=== PATIENT | female | born 1965 | race Caucasian/White ===

== ENCOUNTER 2017-04-29 04:08 | Emergency (ER) | payer OTHER, SELFPAY ==
[2017-04-29 04:09] VITALS: BP 143/106; PULSE 89; RESP 17; TEMP 36.4; O2SAT 97; BMI 43.0
--- NOTE | 2017-04-29 04:11 | NURSING ---
CALLED FOR EKG PER RN REQUEST, NO OLD EKG'S IN MUSE
--- NOTE | 2017-04-29 04:29 | RAD_ITS ---
STUDY: X-RAY CHEST REASON FOR EXAM: Female, 52 years old. Left-sided chest pain and dizziness TECHNIQUE: PA and lateral views of the chest. COMPARISON: None. FINDINGS: There are superimposed monitor leads. Mild interstitial prominence exaggerated in the lung bases bilateral lung volume. There is no demonstrated pleural abnormality. Normal size heart. Normal mediastinum and eddi. Normal visualized pulmonary arteries. Normal visualized aortic arch and descending thoracic aorta. Age-appropriate thoracic spine. Normal visualized ribs, clavicles, and shoulders. There is no demonstrated abnormality of the visualized soft tissue structures of the upper abdomen. RAD/Chest PA and Lateral IMPRESSION: Mild interstitial disease possibly chronic. No pulmonary edema, congestive heart failure or confluent pneumonia. Electronically Signed: Mary Vegas MD at 5:02 EST , Service support ,
--- NOTE | 2017-04-29 04:29 | EKG12_ITS ---
Test Reason : Blood Pressure : / mmHG Vent. Rate : 080 BPM Atrial Rate : 080 BPM P-R Int : 168 ms QRS Dur : 090 ms QT Int : 380 ms P-R-T Axes : 022 040 026 degrees QTc Int : 438 ms Normal sinus rhythm Low voltage QRS Borderline ECG Confirmed by YOSSI PANIAGUA MD ([id number]), editorial manager VANESSA GUTIERREZ ([id number]) on 04/29/2017 1:47:45 PM Referred By: TORI Confirmed By:YOSSI PANIAGUA MD
--- NOTE | 2017-04-29 04:30 | ED.VISSUMM ---
- ER Visit Summary Date of Service: 04/29/17 Chief Complaint: Chest pain History of Present Illness: The patient is a 52 F who woke up 2 hours prior to evaluation with left-sided burning chest pain with an occasional sharp component, nonpleuritic, and the bifrontal radiating into the bioccipital region headache, occurring both simultaneously. The chest discomfort is mostly in her left breast, and wraps around toward her left back. Soon thereafter, she vomited. She is photophobic. She is a history of migraines but states this feels different. No other radiation of the chest discomfort, she does not feel dyspnea at rest, but states with a little exertion and moving around she feels a little dyspneic. No palpitations, left arm discomfort, jaw discomfort, orthopnea, leg pain or swelling. No history of cardiac disease, never had a stress test. She is a smoker. No cocaine or other illicit substances. Medical history: Type 2 diabetes, hyperlipidemia, migraines, sleep apnea, GERD, fibromyalgia. Physical Examination: Normal vital signs, except for mild hypertension 143/106. Little anxious but in no other distress. Lungs are clear to auscultation throughout. Chest and back are nontender. No splinting with deep inspiration. Equal breath sounds bilaterally. Abdomen benign, obese. No calf tenderness or pedal edema. Equal bilateral 2+/4 radial pulses. No JVD. Test Results: EKG appears normal with a normal axis, sinus rhythm at 80, no ectopy, no acute injury pattern. Chest x-ray normal. Labs normal including negative troponin. Emergency Department Course and Treatment: Given GI cocktail, which seemed to completely relieve her chest discomfort. Also given Toradol, Compazine, her headache is down to a 3 and she feels much, much better overall. I think she is stable to be discharged home. I do not think this was cardiac pain. She does have some risk factors and I do advise close outpatient follow-up, and she is comfortable with that plan. Treatment Plan: 14 day course of omeprazole and close outpatient follow-up Disposition: Discharge home Impression: Chest pain, atypical Cephalgia This note was generated with VOZ dictation software. It may contain incorrect words, spelling, and punctuation that were not noted in review of the chart prior to signing ED Disposition - Plan for ED Patient: Disposition: Home or Assisted Living Chief Complaint: Chest Pain Instructions: ED Chest Pain NonCardiac Prescriptions: Omeprazole 40 mg PO DAILY #14 capsule. Referrals: Rene Aguilera DO [Primary Care Provider] - 1 Week
[2017-04-29] MEDS: proCHLORPERazine 10 MG/2 ML Vial IV (04:34)
[2017-04-29] MEDS: Ketorolac 30 MG/ML Syringe 15 MG IV (04:34)
--- NOTE | 2017-04-29 04:35 | ED.DCSUM_ITS ---
- ER Visit Summary Date of Service: 04/29/17 Chief Complaint: Chest pain History of Present Illness: The patient is a 52 F who woke up 2 hours prior to evaluation with left-sided burning chest pain with an occasional sharp component , nonpleuritic, and the bifrontal radiating into the bioccipital region headache , occurring both simultaneously. The chest discomfort is mostly in her left breast, and wraps around toward her left back. Soon thereafter, she vomited. She is photophobic. She is a history of migraines but states this feels different. No other radiation of the chest discomfort, she does not feel dyspnea at rest, but states with a little exertion and moving around she feels a little dyspneic. No palpitations, left arm discomfort, jaw discomfort, orthopnea, leg pain or swelling. No history of cardiac disease, never had a stress test. She is a smoker. No cocaine or other illicit substances. Medical history: Type 2 diabetes, hyperlipidemia, migraines, sleep apnea, GERD, fibromyalgia. Physical Examination: Normal vital signs, except for mild hypertension 143/106. Little anxious but in no other distress. Lungs are clear to auscultation throughout. Chest and back are nontender. No splinting with deep inspiration. Equal breath sounds bilaterally. Abdomen benign, obese. No calf tenderness or pedal edema. Equal bilateral 2+/4 radial pulses. No JVD. Test Results: EKG appears normal with a normal axis, sinus rhythm at 80, no ectopy, no acute injury pattern. Chest x-ray normal. Labs normal including negative troponin. Emergency Department Course and Treatment: Given GI cocktail, which seemed to completely relieve her chest discomfort. Also given Toradol, Compazine, her headache is down to a 3 and she feels much, much better overall. I think she is stable to be discharged home. I do not think this was cardiac pain. She does have some risk factors and I do advise close outpatient follow-up, and she is comfortable with that plan. Treatment Plan: 14 day course of omeprazole and close outpatient follow-up Disposition: Discharge home Impression: Chest pain, atypical Cephalgia This note was generated with [employer]aiy[employer] dictation software. It may contain incorrect words, spelling, and punctuation that were not noted in review of the chart prior to signing ED Disposition - Plan for ED Patient: Disposition: Home or Assisted Living Chief Complaint: Chest Pain Instructions: ED Chest Pain NonCardiac Prescriptions: Omeprazole 40 mg PO DAILY #14 capsule. Referrals: Rene Aguilera DO [Primary Care Provider] - 1 Week
[2017-04-29 04:37] LABS: Absolute Lymphocyte Count 4.08 X10^3/ul (0.83-4.51); Absolute Neutrophil Count 3.4 X10^3/uL (2.0-7.7); Basophil# 0.05 X10^3/uL; Basophil% 0.6 % (0-1); Eosinophil# 0.29 X10^3/uL; Eosinophils% 3.4 % (0-5); Hematocrit 46.8 % (37-47); Hemoglobin 16.3 g/dl (12.0-15.0); Lymphocyte # 4.08 X10^3/ul (4.0); Mean Corp Hgb Conc 34.8 g/gl (32-36); Mean Platelet Vol. 11.1 fl (6.2-12.0); Monocyte# 0.63 X10^3/uL; Monocyte% 7.4 % (0-10); Neutrophil # 3.44 X10^3/uL (2.7-7.7); Neutrophil % 40.5 % (47-70); Platelet Count 260 K/mm3 (150-450); RBC Distribution Width SD 40.7 fl (35.1-43.9); Red Blood Count 5.44 M/mm3 (4.2-5.4); White Blood Count 8.5 K/mm3 (4.4-11.0)
[2017-04-29 04:38] LABS: POSITIVE COUNT NO; POSITIVE DIFFERENTIAL NO; POSITIVE MORPHOLOGY NO
[2017-04-29 05:00] LABS: Anion Gap 9 (5-15); BUN 14 mg/dL (7-18); BUN/Creat Ratio 20.1 RATIO (10-20); Calcium,Total 9.5 mg/dL (8.5-10.1); Chloride 106 mmol/L (98-107); EST Glomerular Filtration Rate 95 mL/min (>60); Est Glom Filt Rate - Afr Amer 114 mL/min (>60); Estimated Creatinine Clearance 76.04 ml/min; Glucose 97 mg/dL (74-106); Potassium 3.9 mmol/L (3.5-5.1); Sodium Level 140 mmol/L (136-145)
[2017-04-29 05:13] VITALS: BP 119/69; PULSE 78; RESP 19; O2SAT 94
[2017-04-29 05:15] VITALS: BP 109/77; PULSE 73; RESP 16; O2SAT 94
[2017-04-29] MEDS: Pantoprazole Sodium 40 MG Tablet PO (05:19)
== END 2017-04-29 05:24 | disposition home or self-care (01) ==
PROVIDERS: Emergency Provider Emergency Medicine; Family Provider Family Medicine; PCP Family Medicine
DX: R07.89 Other chest pain (principal); R51 Headache; E11.9 Type 2 diabetes mellitus without complications; Z79.84 Long term (current) use of oral hypoglycemic drugs; E66.9 Obesity, unspecified; Z68.41 Body mass index [BMI] 40.0-44.9, adult; K21.9 Gastro-esophageal reflux disease without esophagitis; M79.7 Fibromyalgia; Z72.0 Tobacco use
CPT/HCPCS: 71046; 80048; 84484; 85025; 93005; 96374; 96375; 99285; A4216

== ENCOUNTER → 2017-05-13 14:18 | Outpatient (CLI) | payer OTHER, SELFPAY ==
--- NOTE | 2017-05-13 14:21 | HPBI_ITS ---
MAMMOGRAPHY - BILATERAL SCREENING REASON FOR EXAM: Female, 52 years old. Routine annual screening examination. PERTINENT HISTORY: Grandmother with breast cancer. TECHNIQUE: Digital bilateral breast maria teresa (3D mammographic acquisition) in the CC and MLO projections. 2-D mediolateral oblique (MLO) and craniocaudad (CC) views of both breasts were obtained. CAD: Full Field Digital Mammography with Computer Added Detection was performed. COMPARISON: None. FINDINGS: Breast Composition: There are scattered areas of fibroglandular density. There are no dominant masses or suspicious calcifications. Benign-appearing small bilateral axillary lymph nodes. No other significant abnormalities are identified. HPBI/SCREENING MAMM (CAD), BILAT IMPRESSION: Negative screening mammogram. Yearly followup mammogram recommended. (A) ASSESSMENT CATEGORY: BIRADS Category 2: Benign. A letter regarding these results will be sent to the patient by the facility within 30 days. Approximately 10% of breast cancers are not detected by mammography. A normal mammogram should not delay biopsy of a clinically suspicious abnormality. [id number] Electronically Signed: Pedro Parks MD at 15:25 EST Tel [phone], Service support ,
== END ==
PROVIDERS: Family Provider Family Medicine; PCP Family Medicine; Visit Provider Family Medicine
DX: Z12.31 Encounter for screening mammogram for malignant neoplasm of breast (principal)
CPT/HCPCS: 77063; 77067

== ENCOUNTER 2017-05-14 09:27 | Day surgery (SDC) | payer OTHER, SELFPAY ==
--- NOTE | 2017-05-14 | COLBX_PTH ---
PATIENT: KEHINDE ZABALA LOC: EN U#:[id number] AGE/SX: 52/F ROOM: RE05/14/[address]: Dr. Mami Ghotra MD : [id number] BED: DIS: 05/14/2017 SPEC #: [id number] RECD: 05/14/17 12:25 STATUS: AMA ANTHONY #: [id number] SHABNAM: 05/14/17 00:[address]: Mami Ghotra DEPT: SURGICAL PATHOLOGY RECD BY: Felice Banks ENTERED: 05/14/17 14:14 SP TYPE: COLON BX OT DR: Dr. Rene Aguilera, DO Tissues: A - Transverse colon B - Descending colon C - Sigmoid colon biopsy D - Rectum, NOS Procedures: Surgery Specimen Level IV HEADER OPERATION: Colonoscopy with biopsy and polypectomy PRE-OP DIAGNOSIS: Screening with family history of colon cancer TISSUE SUBMITTED: A - Transverse polyp biopsy, B - Distal descending polyp, C - Sigmoid polyp, D ? Rectal polyp MICROSCOPIC DIAGNOSIS A. Transverse colon polyp, biopsy: Fragments of tubular adenoma. B. Descending colon polyp, biopsy: Fragments of tubular adenoma. C. Sigmoid polyp, biopsy: Fragments of hyperplastic polyp. Fragments of fecal material. D. Rectal polyp, biopsy: Fragments of tubular adenoma. Fragments of hyperplastic polyp. MARLA:sherine 05/15/17 MICROSCOPIC DESCRIPTION Slides are reviewed. GROSS DESCRIPTION A - Received in fixative is one container labeled with the patient's name and designated transverse polyp biopsy. The specimen consists of multiple irregular fragments of light moreno soft tissue that in aggregate measure 1 x 1 x 0.1 cm. The specimen is totally submitted in one cassette. B - Received in fixative is one container labeled with the patient's name and designated descending polyp biopsy. The specimen consists of multiple fragments of moreno-pink polypoid tissue that in aggregate measure 2 x 1 x 0.2 cm. The specimen is totally submitted in one cassette. C - Received in fixative is one container labeled with the patient's name and designated sigmoid polyp. The specimen consists of multiple irregular fragments of light moreno soft tissue that in aggregate measure 0.5 x 0.5 x 0.1 cm. The specimen is totally submitted in one cassette. D - Received in fixative is one container labeled with the patient's name and designated rectal polyp. The specimen consists of multiple pieces of moreno-pink polyp that in aggregate measure 1.5 x 0.5 x 0.3 cm. The specimen is totally submitted in one cassette. / SJ:sherine 05/14/17 TC:1 CPT: 74410 x4
[2017-05-14 09:41] VITALS: BP 122/76; PULSE 77; RESP 16; TEMP 37.2; O2SAT 97; BMI 40.8
[2017-05-14 10:07] LABS: Bedside Glucose 85 mg/dL (70-110)
[2017-05-14 12:16] VITALS: BP 117/75; BP 122/76; PULSE 80; RESP 19; TEMP 36.2; O2SAT 98
[2017-05-14 12:21] VITALS: BP 116/67; BP 122/76; PULSE 70; RESP 18; O2SAT 100
[2017-05-14 12:26] VITALS: BP 113/67; BP 122/76; PULSE 64; RESP 16; O2SAT 100
[2017-05-14 12:31] VITALS: BP 117/81; BP 122/76; PULSE 63; RESP 16; TEMP 36.3; O2SAT 100
[2017-05-14 13:03] VITALS: BP 122/76
--- NOTE | 2017-05-14 15:08 | OP.PCM_ITS ---
Report of Operation Date of Procedure: 05/14/17 Pre-Operative Diagnosis: screening for colon cancer, +FH- father dx age 70 w stage IV Post-Operative Diagnosis: Transverse, distal descending, sigmoid, rectal polyps Surgery/Procedure Performed:: Colonoscopy with snare polypectomy Type of Anesthesia:: MAC Anesthesiologist: Mayo Elliott Specimen's removed: 1. Transverse colon polyps, 2. Distal descending colon polyps, 3. Sigmoid colon polyp, 4. Rectal polyps Estimated Blood Loss (mL): minimal Description of Procedure: Procedure: Colonoscopy with snare polypectomy After reviewing the risks benefits, the patient was deemed in satisfactory condition to undergo procedure. After obtaining informed consent, the scope was passed under direct visualization. Throughout the procedure, the patient's blood pressure pulse and position saturations were monitored continuously anesthesia. The colonoscope was introduced through the anus and advanced to the cecum, identified by the appendiceal orifice, IC valve and transillumination. The colonoscopy was performed without difficulty. The patient tolerated procedure well. Quality of bowel prep was adequate. Findings: The perianal and digital rectal exam were normal. Multiple small polyps were seen throughout the colon. 2 sessile polyps removed in the transverse colon with the cold forceps biopsy. Snare polypectomy was done in the distal descending as well as sigmoid and rectum for multiple polyps- all locations had 1-2 small polypoid polyps. These are removed and retrieved completely. The colon (entire examined portion) appeared normal. Retroflexed view of the distal rectum and anal verge was normal and showed no anal or rectal abnormalities Impression: 1. Multiple colon polyps in the transverse, distal descending, sigmoid, rectum. Polypectomy/biopsy 2. The distal rectal and anal verge were normal on retroflexed view. Recommendations: Await biopsies Repeat colonoscopy in 2-3 years for screening purposes depending on biopsy results. - Complications none
== END 2017-05-14 13:03 | disposition home or self-care (01) ==
LOC: EN 09:28 → AC 09:28
PROVIDERS: Family Provider Family Medicine; PCP Family Medicine; Visit Provider Surgery
PROC: 0DJD8ZZ Inspection of Lower Intestinal Tract, Via Natural or Artificial Opening Endoscopic (ICD-10-PCS; CPT 45378; principal; 2017-05-14 10:55)
DX: Z12.11 Encounter for screening for malignant neoplasm of colon (principal); D12.3 Benign neoplasm of transverse colon; D12.4 Benign neoplasm of descending colon; D12.8 Benign neoplasm of rectum; K63.5 Polyp of colon; K59.00 Constipation, unspecified; Z80.0 Family history of malignant neoplasm of digestive organs; K21.9 Gastro-esophageal reflux disease without esophagitis; F32.9 Major depressive disorder, single episode, unspecified; E11.9 Type 2 diabetes mellitus without complications; Z79.4 Long term (current) use of insulin; Z79.84 Long term (current) use of oral hypoglycemic drugs; E78.00 Pure hypercholesterolemia, unspecified; F17.200 Nicotine dependence, unspecified, uncomplicated; G47.30 Sleep apnea, unspecified; Z79.899 Other long term (current) drug therapy
CPT/HCPCS: 45380; 45385; 82962; 88305; J7120

== ENCOUNTER → 2017-06-10 10:46 | Outpatient (CLI) | payer OTHER, SELFPAY ==
[2017-06-10 11:57] LABS: Absolute Neutrophil Count 1.5 X10^3/uL (2.0-7.7); Basophil# 0.03 X10^3/uL; Basophil% 0.7 % (0-1); Eosinophil# 0.16 X10^3/uL; Eosinophils% 3.5 % (0-5); Hematocrit 49.8 % (37-47); Hemoglobin 16.3 g/dl (12.0-15.0); Lymphocyte % 50.4 % (19-41); Mean Corp Hgb Conc 32.7 g/gl (32-36); Mean Corpuscular Hgb 28.6 pg (27.0-32.0); Mean Corpuscular Volume 87.4 fL (81-99); Mean Platelet Vol. 10.6 fl (6.2-12.0); Monocyte# 0.58 X10^3/uL; Monocyte% 12.7 % (0-10); Neutrophil # 1.49 X10^3/uL (2.7-7.7); Neutrophil % 32.7 % (47-70); Platelet Count 180 K/mm3 (150-450); RBC Distribution Width CV 13.2 % (11.6-14.6); RBC Distribution Width SD 41.7 fl (35.1-43.9); White Blood Count 4.6 K/mm3 (4.4-11.0)
[2017-06-10 11:59] LABS: POSITIVE COUNT NO; POSITIVE DIFFERENTIAL NO; POSITIVE MORPHOLOGY NO
== END ==
PROVIDERS: Family Provider Family Medicine; PCP Family Medicine; Visit Provider Family Medicine
DX: R05 Cough (principal)
CPT/HCPCS: 36415; 85025

== ENCOUNTER → 2018-01-23 10:24 | Outpatient (CLI) | payer OTHER, SELFPAY ==
[2018-01-23 12:36] LABS: Absolute Lymphocyte Count 2.87 X10^3/ul (0.83-4.51); Absolute Neutrophil Count 2.6 X10^3/uL (2.0-7.7); Basophil# 0.04 X10^3/uL; Basophil% 0.6 % (0-1); Eosinophil# 0.27 X10^3/uL; Eosinophils% 4.1 % (0-5); Hematocrit 47.3 % (37-47); Hemoglobin 15.7 g/dl (12.0-15.0); Lymphocyte # 2.87 X10^3/ul (4.0); Lymphocyte % 43.5 % (19-41); Mean Corp Hgb Conc 33.2 g/gl (32-36); Mean Corpuscular Hgb 28.9 pg (27.0-32.0); Mean Corpuscular Volume 86.9 fL (81-99); Mean Platelet Vol. 10.5 fl (6.2-12.0); Monocyte# 0.75 X10^3/uL; Monocyte% 11.4 % (0-10); Neutrophil # 2.63 X10^3/uL (2.7-7.7); Neutrophil % 39.8 % (47-70); Platelet Count 282 K/mm3 (150-450); RBC Distribution Width CV 13.8 % (11.6-14.6); RBC Distribution Width SD 43.7 fl (35.1-43.9); Red Blood Count 5.44 M/mm3 (4.2-5.4); White Blood Count 6.6 K/mm3 (4.4-11.0)
[2018-01-23 12:37] LABS: POSITIVE COUNT NO; POSITIVE DIFFERENTIAL NO; POSITIVE MORPHOLOGY NO
[2018-01-23 12:59] LABS: Hemoglobin A1c 5.9 % (4.2-6.3)
[2018-01-23 13:04] LABS: Insulin 47.3 mU/L (2.6-37.6); Microalbumin,Random Urine < 5.0 mg/L (NO RANGE EST.); Vitamin D,25 Hydroxy 17.7 ng/mL (29.95-100.01)
[2018-01-23 13:16] LABS: ALB/GLOB Ratio 0.9 RATIO (0.9-2.4); AST(SGOT) 25 U/L (15-37); Alanine Aminotransfer ALT/SGPT 50 U/L (13-56); Albumin, Serum 3.7 g/dL (3.2-5.0); Alkaline Phosphatase 67 U/L (45-117); Anion Gap 9 (5-15); BUN 9 mg/dL (7-18); BUN/Creat Ratio 12.6 RATIO (10-20); Chloride 107 mmol/L (98-107); Cholesterol 235 mg/dL (200); Creatinine, Serum 0.72 mg/dL (0.55-1.02); EST Glomerular Filtration Rate 91 mL/min (>60); Est Glom Filt Rate - Afr Amer 110 mL/min (>60); Globulin 3.9 g/dL (2.2-4.2); Glucose 107 mg/dL (74-106); High Density Lipoprotein 34 mg/dL; Protein, Total 7.6 g/dL (6.4-8.2); Sodium Level 139 mmol/L (136-145); T4 Free Direct 0.97 ng/dL (0.76-1.46); Thyroid Stim Hormone (TSH) 0.71 uIU/mL (0.358-3.74); Triglycerides 321 mg/dL; Very Low Density Lipoprotein 64 mg/dL (5-40)
== END ==
PROVIDERS: Family Provider Family Medicine; PCP Family Medicine; Visit Provider Family Medicine
DX: E11.9 Type 2 diabetes mellitus without complications (principal); E78.5 Hyperlipidemia, unspecified; R53.82 Chronic fatigue, unspecified
CPT/HCPCS: 36415; 80053; 80061; 82043; 82306; 82570; 83036; 83525; 84439; 84443; 85025

== ENCOUNTER 2018-01-23 10:49 | Emergency (ER) | payer OTHER, SELFPAY ==
[2018-01-23 10:50] VITALS: BP 167/81; PULSE 93; RESP 18; TEMP 36.3; O2SAT 96; BMI 45.7
--- NOTE | 2018-01-23 11:31 | CT_ITS ---
STUDY: CT ABDOMEN AND PELVIS WITH CONTRAST REASON FOR EXAM: Female, 52 years old. Right upper quadrant pain. Appendectomy. RADIATION DOSAGE (If Supplied By Facility): CTDIvol = ( 18.72 ) mGy, DLP = ( 1279.72 ) mGycm TECHNIQUE: Transaxial images were obtained from the dome of the diaphragm to the symphysis pubis without oral contrast. 100mL ml of Isovue 300 contrast was administered. Sagittal and coronal images were reconstructed. Individualized dose optimization techniques were used for this CT. COMPARISON: Prior comparison studies are not available for review at this time. FINDINGS: The visualized lung bases are unremarkable for focal infiltrates or pleural effusion. There is possible borderline cardiomegaly. There is decreased attenuation of the liver consistent with steatosis. There are surgical clips in the gallbladder fossa consistent with a prior cholecystectomy. Normal spleen. Normal pancreas. Normal bilateral adrenal glands. Normal right kidney. Normal left kidney. Normal visualized stomach. There is borderline/mild gaseous distention of the small intestine. Fluid-filled nondistended small intestinal loops are seen in the left side mid abdomen.. Moderate to large amount of retained fecal debris is seen in the ascending and right-sided transverse colon. There is diffuse spasm of the descending and proximal sigmoid colon. In the left side lower abdominal quadrant pericolonic possible reactive mild stranding of the fat is demonstrated, best seen on coronal image 65/141. The appendix is visualized(coronal image 67/141) and appears normal. There is moderate atherosclerotic calcification of the abdominal aorta and iliac, without a demonstrated aneurysm. Normal inferior vena cava. Periaortic reactive small lymph nodes are seen.. Normal urinary bladder. There is absence of the uterus consistent with a prior hysterectomy. Normal abdominal wall. Small bilateral reactive inguinal lymph nodes. There are minimal degenerative endplate changes of the visualized thoracolumbar spine. CT/Abdomen/Pelvis W IV Cont ONLY IMPRESSION: 1. Hepatic steatosis. 2. Adynamic small bowel ileus with mild gaseous distention. No evidence of mechanical bowel obstruction. Moderately increased colonic stool volume. 3. Otherwise no acute abnormality noted in the abdomen/pelvis. Electronically Signed: Michelle Boswell MD at 13:35 EST Tel , Service support ,
[2018-01-23 12:10] LABS: Bacteria 0 SEEN /hpf (None Seen); Color, Urine Yellow (Yellow); Glucose, Dipstick Normal (Normal); Ketone-Dipstick Negative (Negative); Leukocyte Esterase-Dipstick Negative /ul (Negative); Mucous, Urine 0 SEEN /hpf (<or=2+); Nitrite-Dipstick Negative (Negative); Occult Blood-Urine Negative /ul (Negative); Protein-Dipstick Negative (Negative); Red Blood Cells-Urine 0 SEEN /hpf (0-5); Specific Gravity, Urine 1.005 (1.002-1.030); Urine Bilirubin Dipstick Negative (Negative); Urine Clarity Clear (Clear); Urine Urobilinogen Normal (Normal); White Blood Cells 0 SEEN /hpf (0-5)
[2018-01-23 12:24] LABS: Absolute Lymphocyte Count 2.56 X10^3/ul (0.83-4.51); Absolute Neutrophil Count 2.9 X10^3/uL (2.0-7.7); Basophil# 0.03 X10^3/uL; Basophil% 0.5 % (0-1); Eosinophil# 0.27 X10^3/uL; Eosinophils% 4.3 % (0-5); Hematocrit 45.1 % (37-47); Hemoglobin 14.9 g/dl (12.0-15.0); Lymphocyte # 2.56 X10^3/ul (4.0); Lymphocyte % 40.6 % (19-41); Mean Corpuscular Hgb 28.5 pg (27.0-32.0); Mean Corpuscular Volume 86.4 fL (81-99); Mean Platelet Vol. 9.7 fl (6.2-12.0); Monocyte# 0.57 X10^3/uL; Neutrophil # 2.86 X10^3/uL (2.7-7.7); Neutrophil % 45.3 % (47-70); Platelet Count 233 K/mm3 (150-450); RBC Distribution Width CV 13.8 % (11.6-14.6); RBC Distribution Width SD 43.1 fl (35.1-43.9); Red Blood Count 5.22 M/mm3 (4.2-5.4); White Blood Count 6.3 K/mm3 (4.4-11.0)
[2018-01-23 12:26] LABS: Squamous Epithelial Cells - UA 0-5 SEEN /hpf (5-10)
[2018-01-23 12:31] LABS: POSITIVE COUNT NO; POSITIVE DIFFERENTIAL NO; POSITIVE MORPHOLOGY NO
[2018-01-23 12:42] LABS: AST(SGOT) 21 U/L (15-37); Alanine Aminotransfer ALT/SGPT 49 U/L (13-56); Albumin, Serum 3.5 g/dL (3.2-5.0); Alkaline Phosphatase 62 U/L (45-117); Anion Gap 8 (5-15); BUN 9 mg/dL (7-18); BUN/Creat Ratio 13.5 RATIO (10-20); Calcium,Total 8.9 mg/dL (8.5-10.1); Chloride 109 mmol/L (98-107); Creatinine, Serum 0.67 mg/dL (0.55-1.02); EST Glomerular Filtration Rate 99 mL/min (>60); Est Glom Filt Rate - Afr Amer 120 mL/min (>60); Estimated Creatinine Clearance 79.45 ml/min; Globulin 3.7 g/dL (2.2-4.2); Glucose 106 mg/dL (74-106); Lipase 278 U/L (73-393); Potassium 4.1 mmol/L (3.5-5.1); Protein, Total 7.2 g/dL (6.4-8.2); Sodium Level 142 mmol/L (136-145)
--- NOTE | 2018-01-23 12:47 | ED.VISSUMM ---
- ER Visit Summary Date of Service: 01/23/18 Chief Complaint: Abdominal pain History of Present Illness: The patient is a [address] Aguilera. She reports she has right upper quadrant abdominal pain that began 8 days ago. She reports that it is been intermittent until 10:00 yesterday and it became constant. She describes it as cramping pain. Stented segment worsening a 10 currently. Is worsened by movement. Son change with food. Is relieved by remaining still. She has had nausea without vomiting. She denies any diarrhea. Her last bowel was yesterday. She had no melena or hematochezia. She is passing flatus. She denies any dysuria or frequency. No fever or chills. She is status post cholecystectomy. Physical Examination: Vitals: Stable. Afebrile. General: Well-nourished and well-developed. Head: Normocephalic atraumatic. Neck: Supple, no lymphadenopathy. No JVD. Nontender. Cardiovascular: Regular rate and rhythm. No murmurs. Respiratory: No respiratory distress. Clear to auscultation bilaterally. Abdominal: Soft, mild right upper quadrant tenderness to palpation, nondistended, normal bowel sounds. No guarding, rebound, or peritoneal signs. Back: Nontender. Extremities: Nontender, no edema. Skin: Normal color, no rash. Neurologic: Alert and oriented ?3. Cranial nerves II through XII are intact. Normal strength and sensation. Psych: Normal affect. Test Results: CBC is marked for 7 neutrophils 45. Chem-7 is more for chloride 109. LFTs are normal. Lipase normal. UA is normal. CT abdomen pelvis IV contrast only shows small bowel ileus and increased stool in the colon. I discussed this with the radiologist. There is no evidence of an internal hernia. Emergency Department Course and Treatment: Patient was treated with morphine. She is resting comfortably. Treatment Plan: Patient will be discharged with Zofran. Instructed to push fluids. Follow-up her primary care physician 1-2 days not improving. Return to the emergency department for any worsening symptoms. Disposition: To home in improved and stable condition. Impression: 1. Abdominal pain, uncertain cause. This note was generated with [employer] software. It may contain incorrect words, spelling, and punctuation that were not noted in review of the chart prior to signing ED Disposition - Plan for ED Patient: Disposition: Home or Assisted Living Chief Complaint: Abd Pain Instructions: ED Abdominal Pain Unkn Cause Prescriptions: Oxycodone HCl/Acetaminophen [Percocet 5/325] 1 tab PO Q6H PRN PRN 3 Days #10 tab PRN Reason: Pain Ondansetron [Zofran Odt] 4 mg PO Q8H PRN PRN #10 tablet PRN Reason: Nausea Referrals: Rene Aguilera DO [Primary Care Provider] - 1-2 Days if not improving
[2018-01-23] MEDS: Ondansetron 4 MG/2 ML Vial IV (13:10)
[2018-01-23] MEDS: Morphine 4 MG/ML Syringe IV ×2 (13:10→14:53)
[2018-01-23] MEDS: 0.9% Normal Saline 1,000 ML 1000 ML IV (13:10)
[2018-01-23 13:30] VITALS: BP 129/78; PULSE 67; RESP 15; O2SAT 98
[2018-01-23 14:59] VITALS: BP 138/73; PULSE 73; O2SAT 93
== END 2018-01-23 15:07 | disposition home or self-care (01) ==
LOC: ED 11:47
PROVIDERS: Emergency Provider Emergency Medicine; Family Provider Family Medicine; PCP Family Medicine
DX: R10.11 Right upper quadrant pain (principal); R11.0 Nausea; E11.9 Type 2 diabetes mellitus without complications; F32.9 Major depressive disorder, single episode, unspecified; Z79.84 Long term (current) use of oral hypoglycemic drugs; Z90.49 Acquired absence of other specified parts of digestive tract; Z79.899 Other long term (current) drug therapy; Z72.0 Tobacco use
CPT/HCPCS: 74177; 80048; 80076; 81001; 83690; 85025; 96361; 96374; 96375; 96376; 99283; J7030; Q9967; A4216; J2405

== ENCOUNTER → 2018-01-30 09:14 | Outpatient (CLI) | payer OTHER, SELFPAY ==
--- NOTE | 2018-01-30 09:15 | RAD_ITS ---
STUDY: X-RAY - ABDOMEN/PELVIS REASON FOR EXAM: Female, 52 years old. Pain. Constipation. TECHNIQUE: 3 supine views of the abdomen COMPARISON: CT dated 01/23/2018 FINDINGS: There are surgical clips in the right upper quadrant which is consistent with prior cholecystectomy. There are air-filled mildly dilated loops of small bowel which likely represents an ileus. This is not significantly changed when compared with the prior CT. The visualized osseous structures are within normal limits. RAD/Abdomen Single View IMPRESSION: Air-filled mildly dilated loops of small bowel which likely represents ileus. This is not significantly changed when compared with the prior CT. Electronically Signed: Álvaro Ley, at 15:06 EST Tel , Service support ,
== END ==
PROVIDERS: Family Provider Family Medicine; PCP Family Medicine; Referring Provider Family Medicine; Visit Provider Family Medicine
DX: K59.00 Constipation, unspecified (principal)
CPT/HCPCS: 74018

== ENCOUNTER → 2018-03-02 14:34 | Outpatient (CLI) | payer OTHER, SELFPAY ==
--- NOTE | 2018-03-02 14:37 | RAD_ITS ---
STUDY: X-RAY - ABDOMEN/PELVIS REASON FOR EXAM: Female, 52 years old. Constipation. TECHNIQUE: AP supine and upright views of the abdomen and pelvis on 5 images. COMPARISON: AP supine view of the abdomen and pelvis on 3 images January 30, 2018; CT abdomen and pelvis January 23, 2018. FINDINGS: There are dependent changes in the visualized lung bases. There is an unremarkable bowel gas pattern. There is no demonstrated free abdominal air. Surgical clips of prior cholecystectomy again seen in the right upper quadrant. The visualized liver, spleen and kidneys are grossly normal in size and morphology. There are a few small calcified phleboliths in the pelvis. There are stable mild degenerative changes of the visualized lumbar spine and sacroiliac joints. RAD/Abd Inc Decub and/or Erect IMPRESSION: Nonspecific bowel gas pattern. No free gas. Prior cholecystectomy. Electronically Signed: Robert Francisco MD at 15:48 EST , Service support ,
[2018-03-02 16:07] LABS: Anion Gap 8 (5-15); BUN 9 mg/dL (7-18); BUN/Creat Ratio 12.3 RATIO (10-20); Calcium,Total 8.4 mg/dL (8.5-10.1); Chloride 109 mmol/L (98-107); Creatinine, Serum 0.73 mg/dL (0.55-1.02); EST Glomerular Filtration Rate 89 mL/min (>60); Est Glom Filt Rate - Afr Amer 108 mL/min (>60); Glucose 262 mg/dL (74-106); Magnesium 2.1 mg/dL (1.6-2.6); Potassium 4.2 mmol/L (3.5-5.1); Sodium Level 139 mmol/L (136-145); T4 Total, Thyroxin 10.2 ug/dL (4.8-13.9); Thyroid Stim Hormone (TSH) 0.55 uIU/mL (0.358-3.74)
--- OUTSIDE RECORDS SUMMARY | 2018-06-04 07:09 | XMS RPT_ITS ---
:1965 Author Organization OHIP Support Name Relationship Address Phone [facility] Unavailable [address] + [place] [address] DUARTE ZABALA Unavailable [address] + [place] [address] [facility] Unavailable [address] + [place] [address] DUARTE ZABALA Unavailable [address] + [place] [address] [facility] Unavailable [address] + [place] [address] DUARTE ZABALA Unavailable [address] + [place] [address] [facility] Unavailable [address] + [place] [address] DUARTE ZABALA Unavailable [address] + [place] [address] [facility] Unavailable [address] + [place] [address] DUARTE ZABALA Unavailable [address] + [place] [address] [facility] Unavailable [address] + [place] [address] DUARTE ZABALA Unavailable [address] + [place] [address] [facility] Unavailable [address] + [place] [address] DUARTE ZABALA Unavailable [address] + [place] [address] [facility] Unavailable [address] + [place] [address] LUKEZIC, DUARTE Unavailable [address] + [place] [address] [facility] Unavailable [address] + [place] [address] LUKEZIC, DUARTE Unavailable [address] + [place] [address] [facility] Unavailable [address] +/ [place] [address] LUKEZIC, DUARTE Unavailable [address] + [place] [address] LUKEZIC, DUARTE Unavailable [address] + [place] [address] PROVIDER SERVICES Unavailable [address] + [place] [address] Care Team Providers Name Role Phone River Stanton Attending Unavailable River Stanton Referring Unavailable AleRene bello Primary Care Unavailable Nurse, Surgery Attending Unavailable AleRene bello Referring Unavailable AleRene moreira Primary Care Unavailable Ale, Rene Primary Care Unavailable OLGA VALLE Attending Unavailable Rene Aguilera Attending Unavailable Ale, Rene Referring Unavailable Ale, Rene Primary Care Unavailable Robotaliza, Mami Attending Unavailable Robotham, Mami Referring Unavailable Ale, Rene Primary Care Unavailable Robotham, Mami Attending Unavailable Robotham, Mami Referring Unavailable Ale, Rene Primary Care Unavailable Robotham, Mami Consulting Unavailable AleRene bello Attending Unavailable Ale, Rene Primary Care Unavailable AleRene Attending Unavailable Ale, Rene Primary Care Unavailable Ale, Rene Primary Care Unavailable Aamir Ordaz Attending Unavailable Rene Aguilera Attending Unavailable Ale, Rene Primary Care Unavailable AleRene bello Attending Unavailable Ale, Rene Referring Unavailable Ale, Rene Primary Care Unavailable PROBLEMS PROBLEMS DATE TYPE CONDITION / CODE ATTENDING STATUS SOURCE 01/30/2018 Unknown E11.9 - Type 2 Rene Aguilera Active [place] diabetes mellitus Community without Hospital complications / Repository E11.9(ICD-10) 01/30/2018 Unknown E55.9 - Vitamin D Rene Aguilera Active [place] deficiency, Community unspecified / Hospital E55.9(ICD-10) Repository 01/30/2018 Unknown K59.00 - Rene Aguilera Active [place] Constipation, Community unspecified / Hospital K59.00(ICD-10) Repository 01/23/2018 Unknown R10.9 - Unspecified Aamir Ordaz Active [place] abdominal pain / Community R10.9(ICD-10) Hospital Repository 01/23/2018 Unknown E78.5 - Rene Aguilera Active [place] Hyperlipidemia, Community unspecified / Hospital E78.5(ICD-10) Repository 01/23/2018 Unknown R53.82 - Chronic Rene Aguilera Active [place] fatigue, Community unspecified / Hospital R53.82(ICD-10) Repository 05/20/2017 Unknown Z12.11 - Encounter Robotaliza, Active [place] for screening for Mami [facility] malignant neoplasm [facility] of colon / Repository Z12.11(ICD-10) PROCEDURES PROCEDURES No Procedure Records FoundRESULTS RESULTS BASIC METABOLIC Collected: 03/02/2018 Status: F Source: [place] PROFILE (BMP) 2:41 PM [facility] REPOSITORY TYPE CODE TESTS RESULT OUT OF RANGE REFERENCE UNITS LAB L501.0100 74-106 mg/dL High GLU 262 Result Comment: Glucose result greater than or equal to 200 mg/dL suggests DIABETES MELLITUS per A.D.A. criteria. Please note revised GLUCOSE reference range effective 2017. LAB L501.1000 7-18 mg/dL Normal BUN 9 LAB L501.1100 0.55-1.02 mg/dL Normal CREAT,SERUM 0.73 Result Comment: The validity of the calculated GFR AND GFRAA in patients over 70 years has not been determined. Clinical correlation is essential. LAB L501.1110 >60 mL/min Normal EST GFR 89 Result Comment: Non- GFR Calc LAB L501.1115 >60 mL/min Normal EST GFR - AA 108 Result Comment: GFR Calc LAB L501.1300 10-20 RATIO Normal BUN/CRE 12.3 LAB L501.2200 8.5-10.1 mg/dL Low CA 8.4 LAB L501.5300 136-145 mmol/L NA Normal 139 LAB L501.5600 3.5-5.1 mmol/L K Normal 4.2 Result Comment: Slight Hemolysis, Result may be falsely increased. LAB L501.5900 98-107 mmol/L High CL 109 LAB L501.6100 21.0-32.0 mmol/L Normal CO2 22.0 LAB L501.6200 5-15 Normal 8 GAP Performed By: #### L500.2500, L501.5200, L501.9310, L501.9520 #### [facility] [address] [place], [address] MAGNESIUM Collected: 03/02/2018 Status: F Source: [place] 2:41 PM [facility] REPOSITORY TYPE CODE TESTS RESULT OUT OF RANGE REFERENCE UNITS LAB L501.5200 1.6-2.6 mg/dL Normal MG 2.1 Result Comment: Slight Hemolysis, Result may be falsely increased. Performed By: #### L500.2500, L501.5200, L501.9310, L501.9520 #### [facility] [address] [place], [address] T4 TOTAL, THYROXIN Collected: 03/02/2018 Status: F Source: [place] 2:41 PM [facility] REPOSITORY TYPE CODE TESTS RESULT OUT OF RANGE REFERENCE UNITS LAB L501.9310 4.8-13.9 ug/dL T4 Normal THYROXIN 10.2 Performed By: #### L500.2500, L501.5200, L501.9310, L501.9520 #### [facility] [address] [place], [address] THYROID STIM HORMONE Collected: 03/02/2018 Status: F Source: [place] (TSH) 2:41 PM [facility] REPOSITORY TYPE CODE TESTS RESULT OUT OF RANGE REFERENCE UNITS LAB L501.9520 0.358-3.74 uIU/mL Normal TSH 0.55 Performed By: #### L500.2500, L501.5200, L501.9310, L501.9520 #### [facility] [address] [place], [address] ABD INC DECUB Observed: 03/02/2018 Status: F Source: [place] AND/OR ERECT 2:37 PM [facility] Imaging Services [address] [place] [address] Abd Inc Decub and/or Erect MR#: [id number] Acct: [id number] Name: KEHINDE ZABALA Rep #: [id number] : 1965 F 52 From: Bret Francisco MD PCP: Rene Aguilera DO Status: REG CLI Study: Abd Inc Decub and/or Erect Date of Exam: 03/02/18 Exam# [id number] Ordering Dr: River Stanton MD STUDY: X-RAY - ABDOMEN/PELVIS REASON FOR EXAM: Female, 52 years old. Constipation. TECHNIQUE: AP supine and upright views of the abdomen and pelvis on 5 images. COMPARISON: AP supine view of the abdomen and pelvis on 3 images January 30, 2018; CT abdomen and pelvis January 23, 2018. FINDINGS: There are dependent changes in the visualized lung bases. There is an unremarkable bowel gas pattern. There is no demonstrated free abdominal air. Surgical clips of prior cholecystectomy again seen in the right upper quadrant. The visualized liver, spleen and kidneys are grossly normal in size and morphology. There are a few small calcified phleboliths in the pelvis. There are stable mild degenerative changes of the visualized lumbar spine and sacroiliac joints. RAD/Abd Inc Decub and/or Erect IMPRESSION: Nonspecific bowel gas pattern. No free gas. Prior cholecystectomy. Electronically Signed: Robert Francisco MD at 15:48 EST , Service support , CC: Rene Aguilera DO; River Stanton Manager Adult: Signed ABDOMEN SINGLE VIEW Observed: 01/30/2018 Status: F Source: [place] 2:28 PM [facility] REPOSITORY [facility] Imaging Services [address] [place] [address] Abdomen Single View MR#: [id number] Acct: [id number] Name: KEHINDE ZABALA Rep #: [id number] : 1965 F 52 From: Álvaro Ley MD PCP: Rene Aguilera DO Status: REG CLI Study: Abdomen Single View Date of Exam: 01/30/18 Exam# [id number] Ordering Dr: Rene Aguilera DO STUDY: X-RAY - ABDOMEN/PELVIS REASON FOR EXAM: Female, 52 years old. Pain. Constipation. TECHNIQUE: 3 supine views of the abdomen COMPARISON: CT dated 01/23/2018 FINDINGS: There are surgical clips in the right upper quadrant which is consistent with prior cholecystectomy. There are air-filled mildly dilated loops of small bowel which likely represents an ileus. This is not significantly changed when compared with the prior CT. The visualized osseous structures are within normal limits. RAD/Abdomen Single View IMPRESSION: Air-filled mildly dilated loops of small bowel which likely represents ileus. This is not significantly changed when compared with the prior CT. Electronically Signed: Álvaro Ley, at 15:06 EST Tel , Service support , CC: Rene Aguilera DO Manager Adult: Signed EMERGENCY DEPARTMENT Observed: 01/23/2018 Status: F Source: [place] SUMMARY 6:33 PM [facility] REPOSITORY [facility] Medical Records Department [address] [place] [address] Emergency Department Summary 01/23/18 1247 MR#: [id number] Acct: [id number] Name: KEHINDE ZABALA Rep #: [id number] : 1965 52 From: Aamir Ordaz MD PCP: Rene Aguilera DO Status: DEP ER - ER Visit Summary Date of Service: 01/23/18 Chief Complaint: Abdominal pain History of Present Illness: The patient is a [address] Aguilera. She reports she has right upper quadrant abdominal pain that began 8 days ago. She reports that it is been intermittent until 10:00 yesterday and it became constant. She describes it as cramping pain. Stented segment worsening a 10 currently. Is worsened by movement. Son change with food. Is relieved by remaining still. She has had nausea without vomiting. She denies any diarrhea. Her last bowel was yesterday. She had no melena or hematochezia. She is passing flatus. She denies any dysuria or frequency. No fever or chills. She is status post cholecystectomy. Physical Examination: Vitals: Stable. Afebrile. General: Well-nourished and well-developed. Head: Normocephalic atraumatic. Neck: Supple, no lymphadenopathy. No JVD. Nontender. Cardiovascular: Regular rate and rhythm. No murmurs. Respiratory: No respiratory distress. Clear to auscultation bilaterally. Abdominal: Soft, mild right upper quadrant tenderness to palpation, nondistended, normal bowel sounds. No guarding, rebound, or peritoneal signs. Back: Nontender. Extremities: Nontender, no edema. Skin: Normal color, no rash. Neurologic: Alert and oriented 3. Cranial nerves II through XII are intact. Normal strength and sensation. Psych: Normal affect. Test Results: CBC is marked for 7 neutrophils 45. Chem-7 is more for chloride 109. LFTs are normal. Lipase normal. UA is normal. CT abdomen pelvis IV contrast only shows small bowel ileus and increased stool in the colon. I discussed this with the radiologist. There is no evidence of an internal hernia. Emergency Department Course and Treatment: Patient was treated with morphine. She is resting comfortably. Treatment Plan: Patient will be discharged with Zofran. Instructed to push fluids. Follow-up her primary care physician 1-2 days not improving. Return to the emergency department for any worsening symptoms. Disposition: To home in improved and stable condition. Impression: 1. Abdominal pain, uncertain cause. This note was generated with Sample[employer] Incation software. It may contain incorrect words, spelling, and punctuation that were not noted in review of the chart prior to signing ED Disposition - Plan for ED Patient: Disposition: Home or Assisted Living Chief Complaint: Abd Pain Instructions: ED Abdominal Pain Unkn Cause Prescriptions: Oxycodone HCl/Acetaminophen [Percocet 5/325] 1 tab PO Q6H PRN PRN 3 Days #10 tab PRN Reason: Pain Ondansetron [Zofran Odt] 4 mg PO Q8H PRN PRN #10 tablet PRN Reason: Nausea Referrals: Rene Aguilera, DO [Primary Care Provider] - 1-2 Days if not improving What to do if you have Problems For any increased pain, shortness of breath, bleeding, nausea or vomiting, chest pain, or any unexpected problems, contact your Primary Care Provider. Call [facility] ([phone]) or report to the closest Emergency Room. Call 911 if necessary. 01/23/18 9603 <Electronically signed by Aamir Ordaz MD> Date Aamir Ordaz MD Cosigner Signature (If Indicated): Date CC: Rene Aguilera DO CBC W/DIFF, AUTOMATED Collected: 01/23/2018 Status: F Source: [place] 12:12 PM [facility] REPOSITORY TYPE CODE TESTS RESULT OUT OF RANGE REFERENCE UNITS LAB L100.1000 4.4-11.0 K/mm3 Normal WBC 6.3 LAB L100.1200 4.2-5.4 M/mm3 Normal RBC 5.22 LAB L100.1300 12.0-15.0 g/dl Normal HGB 14.9 LAB L100.1400 37-47 % Normal HCT 45.1 LAB L100.1500 81-99 fL Normal MCV 86.4 LAB L100.1600 27.0-32.0 pg Normal MCH 28.5 LAB L100.1700 32-36 g/gl Normal MCHC 33.0 LAB L100.1810 11.6-14.6 % Normal RDW CV 13.8 LAB L100.1820 35.1-43.9 fl Normal RDW SD 43.1 LAB L100.1900 150-450 K/mm3 Normal PLT 233 LAB L100.2000 6.2-12.0 fl Normal MPV 9.7 LAB L100.2100 47-70 % Low NEUT% 45.3 LAB L100.2200 19-41 % Normal LY% 40.6 LAB L100.2300 0-10 % Normal MONO% 9.0 LAB L100.2400 0-5 % Normal EO% 4.3 LAB L100.2500 0-1 % Normal BASO% 0.5 LAB L100.2550 0.0-0.9 % Normal IM GRAN % 0.300 Result Comment: IG% - Immature Granulocytes (promyelocytes, myelocytes and metamyelocytes) > 1% indicates that a LEFT SHIFT is Present. LAB L100.2620 2.0-7.7 X10 3/uL Normal Absolute Neut 2.9 LAB L100.2720 0.83-4.51 X10 3/ul Normal Absolute Lymph 2.56 Performed By: #### L100.0100 #### [facility] [address] [place], [address] BASIC METABOLIC Collected: 01/23/2018 Status: F Source: [place] PROFILE ([facility]) 12:12 PM [facility] REPOSITORY TYPE CODE TESTS RESULT OUT OF RANGE REFERENCE UNITS LAB L501.0100 74-106 mg/dL Normal GLU 106 Result Comment: Fasting Glucose result from 100 to 125 mg/dL suggests IMPAIRED HOMEOSTASIS per A.D.A. criteria. Please note revised GLUCOSE reference range effective 2017. LAB L501.1000 7-18 mg/dL Normal BUN 9 LAB L501.1100 0.55-1.02 mg/dL Normal CREAT,SERUM 0.67 Result Comment: The validity of the calculated GFR AND GFRAA in patients over 70 years has not been determined. Clinical correlation is essential. LAB L501.1110 >60 mL/min Normal EST GFR 99 Result Comment: Non- GFR Calc LAB L501.1115 >60 mL/min Normal EST GFR - AA 120 Result Comment: GFR Calc LAB L501.1255 ml/min Normal Estimated CRCL 79.45 LAB L501.1300 10-20 RATIO Normal BUN/CRE 13.5 LAB L501.2200 8.5-10 mg/dL Normal .1 CA 8.9 LAB L501.5300 136-14 mmol/L Normal 5 NA 142 LAB L501.5600 3.5-5. mmol/L Normal 1 K 4.1 LAB L501.5900 98-107 mmol/L High CL 109 LAB L501.6100 21.0-3 mmol/L Normal 2.0 CO2 25.0 LAB L501.6200 5-15 Normal GAP 8 Performed By: #### L500.2500, L500.3400, L501.2450 #### [facility] [address] [place], [place], [address] LIVER PROFILE Collected: 01/23/2018 Status: F Source: [place] 12:12 PM [facility] REPOSITORY TYPE CODE TESTS RESULT OUT OF RANGE REFERENCE UNITS LAB L501.1500 6.4-8.2 g/dL Normal T PROT 7.2 LAB L501.1800 3.2-5.0 g/dL Normal ALB 3.5 LAB L501.1950 2.2-4.2 g/dL Normal GLOB 3.7 LAB L501.4100 15-37 U/L Normal AST 21 LAB L501.4305 45-117 U/L Normal ALK P 62 LAB L501.4405 13-56 U/L Normal ALT 49 LAB L501.4600 0.20-1.00 mg/dL Normal T BILI 0.30 LAB L501.4700 0.00-0.30 mg/dL Normal D BILI 0.10 Performed By: #### L500.2500, L500.3400, L501.2450 #### [facility] [address] [facility] [address] [facility] [place], [place], [address] LIPASE Collected: 01/23/2018 Status: F Source: [place] 12:12 PM [facility] REPOSITORY TYPE CODE TESTS RESULT OUT OF RANGE REFERENCE UNITS LAB L501.2450 73-393 U/L Normal LIPASE 278 Performed By: #### L500.2500, L500.3400, L501.2450 #### [facility] [address] [place], [place], [address] URINALYSIS, COMPLETE Collected: 01/23/2018 Status: F Source: [place] 11:58 AM [facility] REPOSITORY Order Comment: Order Date: 01/23/18 Has pt arrived? Y How was Urine Obtained? CLEAN CATCH TYPE CODE TESTS RESULT OUT OF RANGE REFERENCE UNITS LAB L400.3000 Yellow COLOR Normal Yellow LAB L400.3050 Clear Normal CLARITY Clear LAB L400.3200 Normal mg/dl Normal GLUCOSE, UR Normal LAB L400.3300 Negative mg/dL Normal BILIRUBIN URINE Negative LAB L400.3400 Negative mg/dl Normal KETONE UR Negative LAB L400.3465 1.002-1.030 Normal SP.GR. DIPSTX 1.005 LAB L400.3550 5.0 - 8.0 pH UR Normal 6.0 LAB L400.3600 Negative mg/dl PROT Normal DIPSTX Negative LAB L400.3700 Normal mg/dl Normal UROBILI Normal LAB L400.3750 Negative Normal NITRITE UR Negative LAB L400.3780 Negative /ul Normal OCCULT BLOOD-UR Negative LAB L400.3800 Negative /ul LEUK Normal ESTERASE Negative LAB L400.4050 0-5 /hpf WBC 0 Normal SEEN LAB L400.4100 0-5 /hpf 0 Normal RBC-UA SEEN LAB L400.4150 5-10 /hpf SQUAM Normal EPI 0-5 SEEN LAB L400.4300 None Seen /hpf 0 Normal BACTERIA SEEN LAB L400.4350 <or=2+ /hpf 0 Normal MUCUS, URINE SEEN Performed By: #### L400.0001 #### [facility] [address] [facility] [place] [place], [address] ABDOMEN/PELVIS W IV CONT Observed: 01/23/2018 Status: F Source: [place] ONLY 11:32 AM [facility] REPOSITORY [facility] Imaging Services [address] [place] [address] Abdomen/Pelvis W IV Cont ONLY MR#: [id number] Acct: [id number] Name: MARIDANIELKEHINDE MINER Rep #: [id number] : 1965 F 52 From: Lupe Boswell PCP: Rene Aguilera DO Status: REG ER Study: Abdomen/Pelvis W IV Cont ONLY Date of Exam: 01/23/18 Exam# [id number] Ordering Dr: Aamir Ordaz MD STUDY: CT ABDOMEN AND PELVIS WITH CONTRAST REASON FOR EXAM: Female, 52 years old. Right upper quadrant pain. Appendectomy. RADIATION DOSAGE (If Supplied By Facility): CTDIvol = ( 18.72 ) mGy, DLP = ( 1279.72 ) mGycm TECHNIQUE: Transaxial images were obtained from the dome of the diaphragm to the symphysis pubis without oral contrast. 100mL ml of Isovue 300 contrast was administered. Sagittal and coronal images were reconstructed. Individualized dose optimization techniques were used for this CT. COMPARISON: Prior comparison studies are not available for review at this time. FINDINGS: The visualized lung bases are unremarkable for focal infiltrates or pleural effusion. There is possible borderline cardiomegaly. There is decreased attenuation of the liver consistent with steatosis. There are surgical clips in the gallbladder fossa consistent with a prior cholecystectomy. Normal spleen. Normal pancreas. Normal bilateral adrenal glands. Normal right kidney. Normal left kidney. Normal visualized stomach. There is borderline/mild gaseous distention of the small intestine. Fluid-filled nondistended small intestinal loops are seen in the left side mid abdomen.. Moderate to large amount of retained fecal debris is seen in the ascending and right-sided transverse colon. There is diffuse spasm of the descending and proximal sigmoid colon. In the left side lower abdominal quadrant pericolonic possible reactive mild stranding of the fat is demonstrated, best seen on coronal image 65/141. The appendix is visualized(coronal image 67/141) and appears normal. There is moderate atherosclerotic calcification of the abdominal aorta and iliac, without a demonstrated aneurysm. Normal inferior vena cava. Periaortic reactive small lymph nodes are seen.. Normal urinary bladder. There is absence of the uterus consistent with a prior hysterectomy. Normal abdominal wall. Small bilateral reactive inguinal lymph nodes. There are minimal degenerative endplate changes of the visualized thoracolumbar spine. CT/Abdomen/Pelvis W IV Cont ONLY IMPRESSION: 1. Hepatic steatosis. 2. Adynamic small bowel ileus with mild gaseous distention. No evidence of mechanical bowel obstruction. Moderately increased colonic stool volume. 3. Otherwise no acute abnormality noted in the abdomen/pelvis. Electronically Signed: Michelle [place] MD at 13:35 EST Tel , Service support , CC: Rene Aguilera DO; Aamir Ordaz MD Manager Adult: Signed CBC W/DIFF, AUTOMATED Collected: 01/23/2018 Status: F Source: [place] 10:26 AM [facility] REPOSITORY TYPE CODE TESTS RESULT OUT OF RANGE REFERENCE UNITS LAB L100.1000 4.4-11.0 K/mm3 Normal WBC 6.6 LAB L100.1200 4.2-5.4 M/mm3 High RBC 5.44 LAB L100.1300 12.0-15.0 g/dl High HGB 15.7 LAB L100.1400 37-47 % High HCT 47.3 LAB L100.1500 81-99 fL Normal MCV 86.9 LAB L100.1600 27.0-32.0 pg Normal MCH 28.9 LAB L100.1700 32-36 g/gl Normal MCHC 33.2 LAB L100.1810 11.6-14.6 % Normal RDW CV 13.8 LAB L100.1820 35.1-43.9 fl Normal RDW SD 43.7 LAB L100.1900 150-450 K/mm3 Normal PLT 282 LAB L100.2000 6.2-12.0 fl Normal MPV 10.5 LAB L100.2100 47-70 % Low NEUT% 39.8 LAB L100.2200 19-41 % High LY% 43.5 LAB L100.2300 0-10 % High MONO% 11.4 LAB L100.2400 0-5 % Normal EO% 4.1 LAB L100.2500 0-1 % Normal BASO% 0.6 LAB L100.2550 0.0-0.9 % Normal IM GRAN % 0.600 Result Comment: IG% - Immature Granulocytes (promyelocytes, myelocytes and metamyelocytes) > 1% indicates that a LEFT SHIFT is Present. LAB L100.2620 2.0-7.7 X10 3/uL Normal Absolute Neut 2.6 LAB L100.2720 0.83-4.51 X10 3/ul Normal Absolute Lymph 2.87 Performed By: #### L100.0100 #### [facility] [address] [place], [address] HEMOGLOBIN A1C Collected: 01/23/2018 Status: F Source: [place] 10:26 AM [facility] REPOSITORY TYPE CODE TESTS RESULT OUT OF RANGE REFERENCE UNITS LAB L501.9985 4.2-6.3 % Normal HGB A1C 5.9 Performed By: #### L501.9985 #### [facility] [address] [place], [address] VITAMIN D,25 HYDROXY Collected: 01/23/2018 Status: F Source: [place] 10:26 AM [facility] REPOSITORY TYPE CODE TESTS RESULT OUT OF REFERENCE UNITS RANGE LAB L506.1000 29.95-100.01 ng/mL Low Vitamin D 17.7 25-OH Result Comment: Vitamin D 25(OH) Status Range Deficiency <20 ng/mL (50nmol/L) Insuffciency 20 - 30 ng/mL (50 - 75 nmol/L) Sufficiency 30 - 100 ng/mL (75 - 250 nmol/L) Toxicity >100 ng/mL (>250 nmol/L) Performed By: #### L506.1000, [id number] #### [facility] [address] [place], [address] INSULIN Collected: 01/23/2018 Status: F Source: [place] 10:26 AM [facility] REPOSITORY TYPE CODE TESTS RESULT OUT OF REFERENCE UNITS RANGE LAB [id number] 2.6-37.6 mU/L High Insulin 47.3 Result Comment: Please Note: INSULIN METHOD AND REFERENCE RANGE CHANGE Effective 03/27/2017. Performed By: #### L506.1000, [id number] #### [facility] [address] [place], [address] MICROALB:CREAT Collected: 01/23/2018 Status: F Source: [place] RATIO,RANDOM UR 10:26 AM [facility] REPOSITORY TYPE CODE TESTS RESULT OUT OF RANGE REFERENCE UNITS LAB L501.1200 NO RANGE EST. mg/dL 78.50 Normal UR CREAT LAB L502.0500 NO RANGE EST. mg/L < 5.0 Normal MICROALBUMI N,UR LAB L502.0600 <30 mg/g CRE mg/g CRE Test Normal not performed MALB:CREAT Performed By: #### L502.0250 #### [facility] [address] [place], [address] COMPREHENSIVE METABOLIC Collected: 01/23/2018 Status: F Source: [place] [facility] 10:26 AM [facility] REPOSITORY TYPE CODE TESTS RESULT OUT OF RANGE REFERENCE UNITS LAB L501.0100 74-106 mg/dL High GLU 107 Result Comment: Fasting Glucose result from 100 to 125 mg/dL suggests IMPAIRED HOMEOSTASIS per A.D.A. criteria. Please note revised GLUCOSE reference range effective 2017. LAB L501.1000 7-18 mg/dL Normal BUN 9 LAB L501.1100 0.55-1.02 mg/dL Normal CREAT,SERUM 0.72 Result Comment: The validity of the calculated GFR AND GFRAA in patients over 70 years has not been determined. Clinical correlation is essential. LAB L501.1110 >60 mL/min Normal EST GFR 91 Result Comment: Non- GFR Calc LAB L501.1115 >60 mL/min Normal EST GFR - AA 110 Result Comment: GFR Calc LAB L501.1300 10-20 RATIO Normal BUN/CRE 12.6 LAB L501.1500 6.4-8.2 g/dL T Normal PROT 7.6 LAB L501.1800 3.2-5.0 g/dL Normal ALB 3.7 LAB L501.1950 2.2-4.2 g/dL Normal GLOB 3.9 LAB L501.2000 0.9-2.4 RATIO Normal A/G 0.9 LAB L501.2200 8.5-10.1 mg/dL CA Normal 9.0 LAB L501.4100 15-37 U/L Normal AST 25 LAB L501.4305 45-117 U/L Normal ALK P 67 LAB L501.4405 13-56 U/L Normal ALT 50 LAB L501.4600 0.20-1.00 mg/dL T Normal BILI 0.20 LAB L501.5300 136-145 mmol/L NA Normal 139 LAB L501.5600 3.5-5.1 mmol/L K Normal 4.0 LAB L501.5900 98-107 mmol/L CL Normal 107 LAB L501.6100 21.0-32.0 mmol/L Normal CO2 23.0 LAB L501.6200 5-15 Normal GAP 9 Performed By: #### L500.4050, L500.4100, L501.9520, L506.0400 #### [facility] [address] [place], [place], [address] LIPID PROFILE Collected: 01/23/2018 Status: F Source: [place] 10:26 AM [facility] REPOSITORY TYPE CODE TESTS RESULT OUT OF RANGE REFERENCE UNITS LAB L501.4900 200 mg/dL High CHOL 235 Result Comment: <200 mg/dL Desirable 200-240 mg/dL Borderline >240 mg/dL High Risk LAB L501.5000 mg/dL High TRIG 321 Result Comment: The drugs N-Acetylcysteine and Metamizole may falsely depress this assay. Serum Triglycerides Reference Interval Normal <150 mg/dL Borderline high 150 - 199 mg/dL High 200 - 499 mg/dL Very High > or = 500 mg/dL LAB L501.6400 mg/dL Low HDL 34 Result Comment: The drugs N-Acetylcysteine and Metamizole may falsely depress this assay. Reference Range HDL <40 mg/dL Low HDL Cholesterol HDL >or= 60 mg/dL High HDL Cholesterol LAB L501.6500 0-130 mg/dL High LDL 137 LAB L501.6600 5-40 mg/dL High VLDL 64 Performed By: #### L500.4050, L500.4100, L501.9520, L506.0400 #### [facility] [address] [place], [place], [address] THYROID STIM HORMONE Collected: 01/23/2018 Status: F Source: [place] (TSH) 10:26 AM [facility] REPOSITORY TYPE CODE TESTS RESULT OUT OF RANGE REFERENCE UNITS LAB L501.9520 0.358-3.74 uIU/mL Normal TSH 0.71 Performed By: #### L500.4050, L500.4100, L501.9520, L506.0400 #### [facility] [address] [facility] [place], [address] T4 FREE DIRECT Collected: 01/23/2018 Status: F Source: [place] 10:26 AM [facility] REPOSITORY TYPE CODE TESTS RESULT OUT OF RANGE REFERENCE UNITS LAB L506.0400 0.76-1.46 ng/dL Normal T4 FREE 0.97 DIRECT Performed By: #### L500.4050, L500.4100, L501.9520, L506.0400 #### [facility] [address] [facility] [place], [address] CBC W/DIFF, AUTOMATED Collected: 06/10/2017 Status: F Source: [place] 10:47 AM [facility] REPOSITORY TYPE CODE TESTS RESULT OUT OF RANGE REFERENCE UNITS LAB L100.1000 4.4-11.0 K/mm3 Normal WBC 4.6 LAB L100.1200 4.2-5.4 M/mm3 High RBC 5.70 LAB L100.1300 12.0-15.0 g/dl High HGB 16.3 LAB L100.1400 37-47 % High HCT 49.8 LAB L100.1500 81-99 fL Normal MCV 87.4 LAB L100.1600 27.0-32.0 pg Normal MCH 28.6 LAB L100.1700 32-36 g/gl Normal MCHC 32.7 LAB L100.1810 11.6-14.6 % Normal RDW CV 13.2 LAB L100.1820 35.1-43.9 fl Normal RDW SD 41.7 LAB L100.1900 150-450 K/mm3 Normal PLT 180 LAB L100.2000 6.2-12.0 fl Normal MPV 10.6 LAB L100.2100 47-70 % Low NEUT% 32.7 LAB L100.2200 19-41 % High LY% 50.4 LAB L100.2300 0-10 % High MONO% 12.7 LAB L100.2400 0-5 % Normal EO% 3.5 LAB L100.2500 0-1 % Normal BASO% 0.7 LAB L100.2550 0.0-0.9 % Normal IM GRAN % 0.000 Result Comment: IG% - Immature Granulocytes (promyelocytes, myelocytes and metamyelocytes) > 1% indicates that a LEFT SHIFT is Present. LAB L100.2620 2.0-7.7 X10 3/uL Low Absolute Neut 1.5 LAB L100.2720 0.83-4.51 X10 3/ul Normal Absolute Lymph 2.30 Performed By: #### L100.0100 #### [facility] [address] [place], [address] OPERATIVE REPORT Observed: 05/19/2017 Status: F Source: [place] 1:03 PM [facility] REPOSITORY [facility] Medical Records Department [address] [facility] [place] [address] Operative Report 05/14/17 1503 MR#: [id number] Acct: [id number] Name: KEHINDE ZABALA Rep #: [id number] : 1965 52 From: Mami Ghotra MD PCP: Rene Aguilera DO Status: [facility] Y Location: EN Report of Operation Date of Procedure: 05/14/17 Pre-Operative Diagnosis: screening for colon cancer, +FH- father dx age 70 w stage IV Post-Operative Diagnosis: Transverse, distal descending, sigmoid, rectal polyps Surgery/Procedure Performed:: Colonoscopy with snare polypectomy Type of Anesthesia:: MAC Anesthesiologist: Mayo Elliott Specimen's removed: 1. Transverse colon polyps, 2. Distal descending colon polyps, 3. Sigmoid colon polyp, 4. Rectal polyps Estimated Blood Loss (mL): minimal Description of Procedure: Procedure: Colonoscopy with snare polypectomy After reviewing the risks benefits, the patient was deemed in satisfactory condition to undergo procedure. After obtaining informed consent, the scope was passed under direct visualization. Throughout the procedure, the patient's blood pressure pulse and position saturations were monitored continuously anesthesia. The colonoscope was introduced through the anus and advanced to the cecum, identified by the appendiceal orifice, IC valve and transillumination. The colonoscopy was performed without difficulty. The patient tolerated procedure well. Quality of bowel prep was adequate. Findings: The perianal and digital rectal exam were normal. Multiple small polyps were seen throughout the colon. 2 sessile polyps removed in the transverse colon with the cold forceps biopsy. Snare polypectomy was done in the distal descending as well as sigmoid and rectum for multiple polyps- all locations had 1-2 small polypoid polyps. These are removed and retrieved completely. The colon (entire examined portion) appeared normal. Retroflexed view of the distal rectum and anal verge was normal and showed no anal or rectal abnormalities Impression: 1. Multiple colon polyps in the transverse, distal descending, sigmoid, rectum. Polypectomy/biopsy 2. The distal rectal and anal verge were normal on retroflexed view. Recommendations: Await biopsies Repeat colonoscopy in 2-3 years for screening purposes depending on biopsy results. - Complications none 05/19/17 1303 <Electronically signed by Mami Ghotra MD> Date Mami Ghotra MD CC: Rene Aguilera DO; Mami Ghotra MD Signed BEDSIDE GLUCOSE Collected: 05/14/2017 Status: F Source: [place] 9:57 AM [facility] REPOSITORY TYPE CODE TESTS RESULT OUT OF RANGE REFERENCE UNITS LAB L501.080 70-110 mg/dL Normal BEDSIDE GLU 85 Result Comment: MANAGEMENT OF PATIENT CARE PER NURSING PROTOCOL Performed By: #### L501.080 #### [facility] Point of Care [facility] [place] [address] COLON BIOPSY (CHOOSE Observed: 05/14/2017 Status: F Source: [facility]) 12:00 AM [facility] REPOSITORY Patient: KEHINDE ZABALA : 1965 (52/F) Acct Num: [id number] Phys: Mami Ghotra MD Unit Num: [id number] Loc: EN Specimen: [id number] Received: 05/14/17 - 1225 Spec Type: COLON BX TISSUES TISSUES: A. Transverse colon B. Descending colon C. Sigmoid colon biopsy D. Rectum, NOS GROSS DESCRIPTION A - Received in fixative is one container labeled with the patient's name and designated transverse polyp biopsy. The specimen consists of multiple irregular fragments of light moreno soft tissue that in aggregate measure 1 x 1 x 0.1 cm. The specimen is totally submitted in one cassette. B - Received in fixative is one container labeled with the patient's name and designated descending polyp biopsy. The specimen consists of multiple fragments of moreno-pink polypoid tissue that in aggregate measure 2 x 1 x 0.2 cm. The specimen is totally submitted in one cassette. C - Received in fixative is one container labeled with the patient's name and designated sigmoid polyp. The specimen consists of multiple irregular fragments of light moreno soft tissue that in aggregate measure 0.5 x 0.5 x 0.1 cm. The specimen is totally submitted in one cassette. D - Received in fixative is one container labeled with the patient's name and designated rectal polyp. The specimen consists of multiple pieces of moreno-pink polyp that in aggregate measure 1.5 x 0.5 x 0.3 cm. The specimen is totally submitted in one cassette. / SJ:sherine 05/14/17 TC:1 CPT: 57399 x4 HEADER OPERATION: Colonoscopy with biopsy and polypectomy PRE-OP DIAGNOSIS: Screening with family history of colon cancer TISSUE SUBMITTED: A - Transverse polyp biopsy, B - Distal descending polyp, C - Sigmoid polyp, D Rectal polyp MICROSCOPIC DESCRIPTION Slides are reviewed. MICROSCOPIC DIAGNOSIS A. Transverse colon polyp, biopsy: Fragments of tubular adenoma. B. Descending colon polyp, biopsy: Fragments of tubular adenoma. C. Sigmoid polyp, biopsy: Fragments of hyperplastic polyp. Fragments of fecal material. D. Rectal polyp, biopsy: Fragments of tubular adenoma. Fragments of hyperplastic polyp. MARLA:sherine 05/15/17 Signed Macario Can 05/15/17 <signature on file> Performed By: #### PCOLBX #### [facility] [address] [facility] [place], [address] SCREENING MAMM (CAD), Observed: 05/13/2017 Status: F Source: [place] BIL 2:21 PM [facility] REPOSITORY [facility] Imaging Services [address] [facility] [place] [address] SCREENING MAMM (CAD), BIL MR#: [id number] Acct: [id number] Name: MARIDANIELKEHINDE MINER Rep #: [id number] : 1965 F 52 From: Pedro Parks MD PCP: Rene Aguilera DO Status: REG CLI Study: SCREENING MAMM (CAD), BILAT Date of Exam: 05/13/17 Exam# [id number] Ordering Dr: Rene Aguilera DO MAMMOGRAPHY - BILATERAL SCREENING REASON FOR EXAM: Female, 52 years old. Routine annual screening examination. PERTINENT HISTORY: Grandmother with breast cancer. TECHNIQUE: Digital bilateral breast maria teresa (3D mammographic acquisition) in the CC and MLO projections. 2-D mediolateral oblique (MLO) and craniocaudad (CC) views of both breasts were obtained. CAD: Full Field Digital Mammography with Computer Added Detection was performed. COMPARISON: None. FINDINGS: Breast Composition: There are scattered areas of fibroglandular density. There are no dominant masses or suspicious calcifications. Benign-appearing small bilateral axillary lymph nodes. No other significant abnormalities are identified. HPBI/SCREENING MAMM (CAD), BILAT IMPRESSION: Negative screening mammogram. Yearly followup mammogram recommended. (A) ASSESSMENT CATEGORY: BIRADS Category 2: Benign. A letter regarding these results will be sent to the patient by the facility within 30 days. Approximately 10% of breast cancers are not detected by mammography. A normal mammogram should not delay biopsy of a clinically suspicious abnormality. [id number] Electronically Signed: Pedro Parks MD at 15:25 EST Tel [phone], Service support , CC: Rene Aguilera DO Manager Adult: Signed 12 LEAD ELECTROCARDIOGRAM Observed: 04/29/2017 Status: F Source: [place] 1:48 PM [facility] REPOSITORY [facility] Cardiovascular Services [facility] [place] [address] 12 Lead EKG 04/29/17 0413 MR#: [id number] Acct: [id number] Name: KEHINDE ZABALA #: [id number] : 1965 52 From: Zander Menard MD Attending Dr: Status: DEP ER Ordering Dr: Olga Valle MD Date: 04/29/17 Location: ED Sex: F C Admitted: Test Reason : Blood Pressure : / mmHG Vent. Rate : 080 BPM Atrial Rate : 080 BPM P-R Int : 168 ms QRS Dur : 090 ms QT Int : 380 ms P-R-T Axes : 022 040 026 degrees QTc Int : 438 ms Normal sinus rhythm Low voltage QRS Borderline ECG Confirmed by ZANDER MENARD MD ([id number]), commercial production editor VANESSA GUTIERREZ ([id number]) on 04/29/2017 1:47:45 PM Referred By: TORI Confirmed By:ZANDER MENARD MD 04/29/17 1347 Date Zander Menard MD CC: OLGA VALLE MD; Rene Aguilera DO Signed EMERGENCY DEPARTMENT Observed: 04/29/2017 Status: F Source: [place] SUMMARY 5:16 AM [facility] REPOSITORY [facility] Medical Records Department [address] [place] [address] Emergency Department Summary 04/29/17 0430 MR#: [id number] Acct: [id number] Name: KEHINDE ZBAALA Rep #: [id number] : 1965 52 From: Olga Valle MD PCP: Rene Aguilera DO Status: REG ER - ER Visit Summary Date of Service: 04/29/17 Chief Complaint: Chest pain History of Present Illness: The patient is a 52 F who woke up 2 hours prior to evaluation with left-sided burning chest pain with an occasional sharp component, nonpleuritic, and the bifrontal radiating into the bioccipital region headache, occurring both simultaneously. The chest discomfort is mostly in her left breast, and wraps around toward her left back. Soon thereafter, she vomited. She is photophobic. She is a history of migraines but states this feels different. No other radiation of the chest discomfort, she does not feel dyspnea at rest, but states with a little exertion and moving around she feels a little dyspneic. No palpitations, left arm discomfort, jaw discomfort, orthopnea, leg pain or swelling. No history of cardiac disease, never had a stress test. She is a smoker. No cocaine or other illicit substances. Medical history: Type 2 diabetes, hyperlipidemia, migraines, sleep apnea, GERD, fibromyalgia. Physical Examination: Normal vital signs, except for mild hypertension 143/106. Little anxious but in no other distress. Lungs are clear to auscultation throughout. Chest and back are nontender. No splinting with deep inspiration. Equal breath sounds bilaterally. Abdomen benign, obese. No calf tenderness or pedal edema. Equal bilateral 2+/4 radial pulses. No JVD. Test Results: EKG appears normal with a normal axis, sinus rhythm at 80, no ectopy, no acute injury pattern. Chest x-ray normal. Labs normal including negative troponin. Emergency Department Course and Treatment: Given GI cocktail, which seemed to completely relieve her chest discomfort. Also given Toradol, Compazine, her headache is down to a 3 and she feels much, much better overall. I think she is stable to be discharged home. I do not think this was cardiac pain. She does have some risk factors and I do advise close outpatient follow-up, and she is comfortable with that plan. Treatment Plan: 14 day course of omeprazole and close outpatient follow-up Disposition: Discharge home Impression: Chest pain, atypical Cephalgia This note was generated with Trulioo dictation software. It may contain incorrect words, spelling, and punctuation that were not noted in review of the chart prior to signing ED Disposition - Plan for ED Patient: Disposition: Home or Assisted Living Chief Complaint: Chest Pain Instructions: ED Chest Pain NonCardiac Prescriptions: Omeprazole 40 mg PO DAILY #14 capsule. Referrals: Rene Aguilera, DO [Primary Care Provider] - 1 Week What to do if you have Problems For any increased pain, shortness of breath, bleeding, nausea or vomiting, chest pain, or any unexpected problems, contact your Primary Care Provider. Call [facility] ([phone]) or report to the closest Emergency Room. Call 911 if necessary. 04/29/17 0516 <Electronically signed by Olga Valle MD> Date Olga Valle MD Cosign Signature (If Indicated): Date CC: Rene Aguilera DO CHEST PA AND LATERAL Observed: 04/29/2017 Status: F Source: [place] 4:31 AM [facility] REPOSITORY [facility] Imaging Services [address] [place] [address] Chest PA and Lateral MR#: [id number] Acct: [id number] Name: KEHINDE ZABALA Rep #: [id number] : 1965 F 52 From: Mary Vegas MD PCP: Rene Aguilera DO Status: REG ER Study: Chest PA and Lateral Date of Exam: 04/29/17 Exam# [id number] Ordering Dr: Olga Valle MD STUDY: X-RAY CHEST REASON FOR EXAM: Female, 52 years old. Left-sided chest pain and dizziness TECHNIQUE: PA and lateral views of the chest. COMPARISON: None. FINDINGS: There are superimposed monitor leads. Mild interstitial prominence exaggerated in the lung bases bilateral lung volume. There is no demonstrated pleural abnormality. Normal size heart. Normal mediastinum and eddi. Normal visualized pulmonary arteries. Normal visualized aortic arch and descending thoracic aorta. Age-appropriate thoracic spine. Normal visualized ribs, clavicles, and shoulders. There is no demonstrated abnormality of the visualized soft tissue structures of the upper abdomen. RAD/Chest PA and Lateral IMPRESSION: Mild interstitial disease possibly chronic. No pulmonary edema, congestive heart failure or confluent pneumonia. Electronically Signed: Mary Vegas MD at 5:02 EST , Service support , CC: OLGA VALLE MD; Rene Aguilera DO Manager Adult: Signed CBC W/DIFF, AUTOMATED Collected: 04/29/2017 Status: F Source: [place] 4:15 AM [facility] REPOSITORY TYPE CODE TESTS RESULT OUT OF RANGE REFERENCE UNITS LAB L100.1000 4.4-11.0 K/mm3 Normal WBC 8.5 LAB L100.1200 4.2-5.4 M/mm3 High RBC 5.44 LAB L100.1300 12.0-15.0 g/dl High HGB 16.3 LAB L100.1400 37-47 % Normal HCT 46.8 LAB L100.1500 81-99 fL Normal MCV 86.0 LAB L100.1600 27.0-32.0 pg Normal MCH 30.0 LAB L100.1700 32-36 g/gl Normal MCHC 34.8 LAB L100.1810 11.6-14.6 % Normal RDW CV 13.0 LAB L100.1820 35.1-43.9 fl Normal RDW SD 40.7 LAB L100.1900 150-450 K/mm3 Normal PLT 260 LAB L100.2000 6.2-12.0 fl Normal MPV 11.1 LAB L100.2100 47-70 % Low NEUT% 40.5 LAB L100.2200 19-41 % High LY% 48.0 LAB L100.2300 0-10 % Normal MONO% 7.4 LAB L100.2400 0-5 % Normal EO% 3.4 LAB L100.2500 0-1 % Normal BASO% 0.6 LAB L100.2550 0.0-0.9 % Normal IM GRAN % 0.100 Result Comment: IG% - Immature Granulocytes (promyelocytes, myelocytes and metamyelocytes) > 1% indicates that a LEFT SHIFT is Present. LAB L100.2620 2.0-7.7 X10 3/uL Normal Absolute Neut 3.4 LAB L100.2720 0.83-4.51 X10 3/ul Normal Absolute Lymph 4.08 Performed By: #### L100.0100 #### [facility] [place], [address] BASIC METABOLIC Collected: 04/29/2017 Status: F Source: [place] PROFILE ([facility]) 4:15 AM [facility] REPOSITORY Order Comment: 'TROP' Serial specimen #1, #2, #3, or #4: 1 TYPE CODE TESTS RESULT OUT OF RANGE REFERENCE UNITS LAB L501.0100 74-106 mg/dL Normal GLU 97 Result Comment: Please note revised GLUCOSE reference range effective 2017. LAB L501.1000 7-18 mg/dL Normal BUN 14 LAB L501.1100 0.55-1.02 mg/dL Normal CREAT,SERUM 0.70 Result Comment: The validity of the calculated GFR AND GFRAA in patients over 70 years has not been determined. Clinical correlation is essential. LAB L501.1110 >60 mL/min Normal EST GFR 95 Result Comment: Non- GFR Calc LAB L501.1115 >60 mL/min Normal EST GFR - AA 114 Result Comment: GFR Calc LAB L501.1255 ml/min Normal Estimated CRCL 76.04 LAB L501.1300 10-20 RATIO High BUN/CRE 20.1 LAB L501.2200 8.5-10 mg/dL Normal .1 CA 9.5 LAB L501.5300 136-14 mmol/L Normal 5 NA 140 LAB L501.5600 3.5-5. mmol/L Normal 1 K 3.9 LAB L501.5900 98-107 mmol/L Normal CL 106 LAB L501.6100 21.0-3 mmol/L Normal 2.0 CO2 25.0 LAB L501.6200 5-15 Normal GAP 9 Performed By: #### L500.2500, L501.4010 #### [facility] [address] [place], [address] TROPONIN-I Collected: 04/29/2017 Status: F Source: [place] 4:15 AM [facility] REPOSITORY Order Comment: 'TROP' Serial specimen #1, #2, #3, or #4: 1 TYPE CODE TESTS RESULT OUT OF RANGE REFERENCE UNITS LAB L501.4010 <0.06 ng/mL Normal < 0.02 TROPONIN-I Result Comment: TROPONIN-I EXPECTED VALUES <0.05 NEGATIVE 0.06 - 0.59 AT RISK OF [place] > OR = 0.60 SUGGEST [place] Performed By: #### L500.2500, L501.4010 #### [facility] [address] [place], [address] ALLERGIES ALLERGIES DATE TYPE / CODE NAME / CODE REACTION SEVERITY SOURCE 01/23/2018 Drug hydrocodone/ Nausea Unknown [facility] Allergy/4160 [id number](R Hospital 86276(SNOMED XNORM) Repository CT) 01/23/2018 Drug acetaminophe Nausea Unknown [facility] Allergy/4160 n/[id number] Hospital 09524(SNOMED (RXNORM) Repository CT) ENCOUNTERS ENCOUNTERS ADMIT/DISCHARGE ACCOUNT ADMITTING ENCOUNTER LOCATION SOURCE NUMBER CLASS 03/30/2018 [id number] Ambulatory [place] 5 [facility] ing:LAB.FUTUR Repository E 03/02/2018 [id number] Ambulatory Jocelyn [place] 1 [facility] ing:MTLAB Repository 01/30/2018 [id number] Ambulatory [place]elyn 6 [facility] ing:MTRAD Repository 01/23/2018/ [id number] Emergency Jocelyn [place] 8 2 [facility] ing:ED Repository 01/23/2018 [id number] Ambulatory [place] Jocelyn 3 [facility] ing:LAB.FUTUR Repository E 06/10/2017 [id number] Ambulatory Jocelyn J[place]elyn 7 [facility] ing:BFHLAB Repository 05/14/2017/ [id number] Ambulatory [place] 8 6 [facility] ing:EN Repository 05/14/2017 [id number] Ambulatory BMSBuilding:B [place] 6 [facility] Repository 05/13/2017 [id number] Ambulatory Jocelyn J[place]elyn 2 [facility] ing:BI Repository 04/29/2017/ [id number] Emergency [place] 8 8 [facility] ing:ED Repository 04/21/2017/ [id number] Ambulatory BMSBuilding:B [place] 8 6 MS.[facility] Repository PAYERS PAYERS ENCOUNTER GUARANTOR PAYER SUBSCRIBER SOURCE 03/30/2018 KEHINDE [id number] N Insurance:UNITED HL[employer] LUKEZICDOB: Community [facility] [id number] 2537[place] Number: Repository [address]Ske: [phone] [id number] [phone] () Date:6916-54-68SW [facility] [address], [place] [address]GE: 03/30/2018 Secondary NOT GIVENUNK [place] Insurance:SELF PAY [facility] Number: Effective Repository Date:2018-01-30 03/02/2018 KEHINDE J Primary KEHINDE J [place] [id number] N Insurance:UNITED HLTH LUKEZICDOB: [facility] [id number] [id number] [place] Number: Repository [address]Kse: [phone] [id number] [phone] () Date:2234-84-19[address]TAGGOQ, [place] [address]XS: 03/02/2018 Secondary NOT GIVENUNK J[place]elyn Insurance:SELF PAY [facility] Number: Effective Repository Date:2018-03-02 01/30/2018 KEHINDE J Primary KEHINDE J [place] [id number] N Insurance:UNITED HLTH LUKEZICDOB: [facility] [id number] 1827-18-04[facility]ind[facility] [place] Number: Repository [id number]: [phone] [phone] () Date:6196-05-39CR [facility] [id number], [place] [address]EQ: 01/30/2018 Secondary NOT GIVENUNK [place] Insurance:SELF PAY [facility] Number: Effective Repository Date:2018-01-30 01/23/2018 KEHINDE J Primary KEHINDE J [place] [id number] N Insurance:UNITED HLTH LUKEZICDOB: Community [facility] [address]Ryuknb 2414-81-63[place]JQP[place], [place] Number: Repository [id number]: [id number] [phone] (HP) Date:6684-96-61KV [address] [address]FF: 01/23/2018 Secondary NOT GIVENUNK Jocelyn Insurance:SELF PAY [facility] Number: Effective Repository Date:2018-01-23 01/23/2018 KEHINDE J Primary KEHINDE [place] [id number] N Insurance:UNITED HLTH LUKEZICDOB: Community [facility] [id number] [id number] [place] Number: Repository [address]Cwt: [phone] [id number] [phone] (HP) Date:5199-58-41XA [facility] [id number] [place] [address]UM: 01/23/2018 Secondary NOT GIVENUNK [place] Insurance:SELF PAY [facility] Effective Repository Date:2017-10-31 06/10/2017 [place] Primary KEHINDE Banks [id number] N Insurance:[facility] HL[facility] LUKEZICDOB: [facility] [id number] [id number] Number: Repository [id number]: [phone] [id number] [phone] (HP) Date:[id number] [address]FO: 06/10/2017 Secondary NOT GIVENUNK Jocelyn Insurance:SELF PAY [facility] Number: Effective Repository Date:2017-06-10 05/14/2017 [place] Primary KEHINDE Banks [id number] [address] Insurance:UNITED HL[facility] LUKEZICDOB: [facility] [id number] [id number] [facility] Number: Repository [id number]: [phone] [id number] [phone] (HP) Date:6817-75-58LC [address] [place] [address]LH: 05/14/2017 Secondary NOT GIVENUNK [place] Insurance:SELF PAY [facility] Number: Effective Repository Date:2017-04-21 05/14/2017 [place] Primary KEHINDE [id number] [address] Insurance:UNITED HLTH LUKEZICDOB: [facility] [id number] [facility] [place] Number: Repository [id number]: [phone] [id number] [phone] (HP) Date:[id number] [address], [place] [address]OW: 05/14/2017 Secondary NOT GIVENUNK Jocelyn Insurance:SELF PAY [facility] Effective Rep[facility] Date:2017-05-14 05/13/2017 [place] Primary KEHINDE [id number] [address] Insurance:UNITED HL[employer] LUKEZICDOB: [facility] CARE [id number] River Health [place] Number: Repository [id number]: 330 [id number] [phone] (HP) Date:7609-39-56WS [facility] [id number], [place] [address]CJ: 05/13/2017 Secondary NOT GIVENUNK Jocelyn Insurance:SELF PAY [facility] Number: Effective Repository Date:2017-04-22 04/29/2017 [place] Primary KEHINDE [id number] Insurance:UNITED HLTH LUKEZICDOB: [facility]ARE [id number] [id number] Number: Repository [id number]: 330 [id number] [phone] (HP) Date:3252-56-05DL [facility] [address], [place] [address]EA: 04/29/2017 Secondary NOT GIVENUNK [place] Insurance:SELF PAY [facility] Number: Effective Repository Date:2017-04-29 04/21/2017 Duarte Primary Insurance:[facility] [place] [id number] [facility] LukezicDOB: [facility] [id number] Number: Repository [id number]: ([phone]) [id number] [phone] () Date:[id number] [address]BVY[place]YD, [place] [address]VZ: CHECK WEBSITE 04/21/2017 Secondary NOT GIVENTAVARES Jocelyn Insurance:SELF PAY [facility] Number: Effective Repository Date:2017-04-21
== END ==
PROVIDERS: Family Provider Family Medicine; PCP Family Medicine; Referring Provider Internal Medicine Gastroenterology; Visit Provider Internal Medicine Gastroenterology
DX: K59.00 Constipation, unspecified (principal)
CPT/HCPCS: 36415; 74019; 80048; 83735; 84436; 84443

== ENCOUNTER → 2018-04-24 11:43 | Outpatient (CLI) | payer OTHER, SELFPAY ==
[2018-04-24 16:04] LABS: Hemoglobin A1c 6.9 % (4.2-6.3)
[2018-04-24 16:11] LABS: Cholesterol 229 mg/dL (200); High Density Lipoprotein 32 mg/dL; Triglycerides 351 mg/dL; Very Low Density Lipoprotein 70 mg/dL (5-40)
[2018-04-24 16:24] LABS: Insulin 30.9 mU/L (2.6-37.6); Vitamin D,25 Hydroxy 18.6 ng/mL (29.95-100.01)
== END ==
LOC: LAB.FUTURE 03-01 15:43 → BFHLAB 04-28 11:32
PROVIDERS: Family Provider Family Medicine; PCP Family Medicine; Visit Provider Family Medicine
DX: E11.9 Type 2 diabetes mellitus without complications (principal); E55.9 Vitamin D deficiency, unspecified
CPT/HCPCS: 36415; 80061; 82306; 83036; 83525

== ENCOUNTER → 2018-07-24 08:14 | Outpatient (CLI) | payer OTHER, SELFPAY ==
[2018-07-24 12:38] LABS: Insulin 44.6 mU/L (2.6-37.6)
[2018-07-24 13:08] LABS: ALB/GLOB Ratio 1.1 RATIO (0.9-2.4); AST(SGOT) 25 U/L (15-37); Alanine Aminotransfer ALT/SGPT 56 U/L (13-56); Albumin, Serum 3.8 g/dL (3.2-5.0); Alkaline Phosphatase 68 U/L (45-117); Anion Gap 8 (5-15); BUN 9 mg/dL (7-18); BUN/Creat Ratio 10.5 RATIO (10-20); Calcium,Total 9.1 mg/dL (8.5-10.1); Chloride 108 mmol/L (98-107); Cholesterol 203 mg/dL (200); Creatinine, Serum 0.86 mg/dL (0.55-1.02); EST Glomerular Filtration Rate 74 mL/min (>60); Est Glom Filt Rate - Afr Amer 89 mL/min (>60); Globulin 3.6 g/dL (2.2-4.2); Glucose 125 mg/dL (74-106); High Density Lipoprotein 32 mg/dL; Potassium 3.8 mmol/L (3.5-5.1); Protein, Total 7.4 g/dL (6.4-8.2); Sodium Level 141 mmol/L (136-145); Triglycerides 278 mg/dL; Very Low Density Lipoprotein 56 mg/dL (5-40)
== END ==
LOC: LAB.FUTURE 03-03 04:17 → BFHLAB 04-28 11:32
PROVIDERS: Family Provider Family Medicine; PCP Family Medicine; Visit Provider Family Medicine
DX: E11.9 Type 2 diabetes mellitus without complications (principal); E78.5 Hyperlipidemia, unspecified; K76.0 Fatty (change of) liver, not elsewhere classified
CPT/HCPCS: 36415; 80053; 80061; 83036; 83525

== ENCOUNTER → 2018-10-26 11:35 | Outpatient (CLI) | payer OTHER, SELFPAY ==
[2018-10-26 15:29] LABS: Cholesterol 145 mg/dL (200); High Density Lipoprotein 32 mg/dL; Triglycerides 218 mg/dL; Very Low Density Lipoprotein 44 mg/dL (5-40)
[2018-10-26 15:34] LABS: Hemoglobin A1c 6.2 % (4.2-6.3)
[2018-10-26 15:36] LABS: Insulin 52.2 mU/L (2.6-37.6); Vitamin D,25 Hydroxy 85.1 ng/mL (29.95-100.01)
== END ==
LOC: LAB.FUTURE 11:35 → BFHLAB 04-28 11:31
PROVIDERS: Family Provider Family Medicine; PCP Family Medicine; Visit Provider Family Medicine
DX: E11.9 Type 2 diabetes mellitus without complications (principal); E78.5 Hyperlipidemia, unspecified; E55.9 Vitamin D deficiency, unspecified
CPT/HCPCS: 36415; 80061; 82306; 83036; 83525

== ENCOUNTER → 2018-11-09 06:39 | Outpatient (CLI) | payer OTHER, SELFPAY ==
--- NOTE | 2018-11-09 11:53 | STRESSREP ---
Stress Test Report Pharmacologic myocardial perfusion stress test. 53-year-old lady with a history of chest discomfort. Resting EKG demonstrates normal sinus rhythm with a rate of 85 bpm normal intervals are noted resting blood pressures 142/82 mmHg. 0.4 mg of regadenoson was infused per usual protocol followed by rapid intravenous saline flush injection continuous EKG monitoring was performed. Patient maintained sinus rhythm throughout the recording. At rest there were no ST or T wave changes noted suggest abnormal flow reserve at peak infusion nonspecific ST-T wave changes were noted with no meet the criteria for ischemia. The resting blood pressure was 142/82 with a peak blood pressure 158/82 rate pressure product was 11,700. Myocardial perfusion protocol. 11.8 mCi of technetium 99m sestamibi was injected at rest. 0.4 mg of regadenoson was infused per usual protocol peak infusion 44.5 mCi of technetium 99m sestamibi was injected stress images were obtained stress and rest images are reconstructed and compared in the short axis vertical long horizontal long axis. Gated images were also obtained Perfusion SPECT analysis: Review of the stress images demonstrate normal uptake of tracer noted in all areas of the myocardium. The resting images similar demonstrate normal uptake of tracer noted in all areas of the myocardium. No areas of reversibility are noted suggest ischemia no previous infarct is noted. Gated SPECT analysis: The gated ejection fraction is over 80%. Conclusion: Normal pharmacologic myocardial perfusion stress test. Preserved ejection fraction.
== END ==
PROVIDERS: Family Provider Family Medicine; PCP Family Medicine; Referring Provider Family Medicine; Visit Provider Family Medicine
DX: R53.83 Other fatigue (principal); I10 Essential (primary) hypertension; E78.5 Hyperlipidemia, unspecified; R06.09 Other forms of dyspnea; E11.9 Type 2 diabetes mellitus without complications; F17.200 Nicotine dependence, unspecified, uncomplicated; Z82.49 Family history of ischemic heart disease and other diseases of the circulatory system
CPT/HCPCS: 78452; 93017; A9500; A4216; J2785

== ENCOUNTER → 2019-04-23 09:59 | Outpatient (CLI) | payer OTHER, SELFPAY ==
[2019-04-23 12:43] LABS: Microalbumin,Random Urine 6.2 mg/L (NO RANGE EST.); Microalbumin:Creatinine Ratio 4.3 mg/g CRE (<30 mg/g CRE)
[2019-04-23 13:01] LABS: Hemoglobin A1c 6.7 % (4.2-6.3)
[2019-04-23 13:05] LABS: Insulin 43.4 mU/L (2.6-37.6)
[2019-04-23 13:11] LABS: Cholesterol 141 mg/dL (200); High Density Lipoprotein 33 mg/dL; Triglycerides 215 mg/dL; Very Low Density Lipoprotein 43 mg/dL (5-40)
== END ==
PROVIDERS: Family Provider Family Medicine; PCP Family Medicine; Visit Provider Family Medicine
DX: E11.9 Type 2 diabetes mellitus without complications (principal); E78.5 Hyperlipidemia, unspecified
CPT/HCPCS: 36415; 80061; 82043; 82570; 83036; 83525

== ENCOUNTER → 2019-07-15 | Outpatient (CLI) | payer OTHER, SELFPAY | END | disposition home or self-care (01) | LOC: LABSPEC 12:33 | PROVIDERS: PCP Family Medicine; Referring Provider Family Medicine; Visit Provider Family Medicine | DX: Z20.828 Contact with and (suspected) exposure to other viral communicable diseases (principal) | CPT/HCPCS: 87635; G2023; U0004 ==

== ENCOUNTER → 2019-07-19 12:43 | Outpatient (CLI) | payer OTHER, SELFPAY ==
--- NOTE | 2019-07-19 12:50 | RAD_ITS ---
STUDY: X-RAY CHEST REASON FOR EXAM: Female, 54 years old. Cough and fever TECHNIQUE: PA and lateral views of the chest. COMPARISON: Comparison is made with prior examination dated April 29, 2017. FINDINGS: The lungs are clear and expanded. Scattered calcified granulomas. There is no demonstrated pleural abnormality. Normal size heart. Normal mediastinum and eddi. Normal visualized pulmonary arteries. Normal visualized aortic arch and descending thoracic aorta. Normal visualized thoracic spine. Normal visualized ribs, clavicles, and shoulders. There is no demonstrated abnormality of the visualized soft tissue structures of the upper abdomen. RAD/Chest PA and Lateral IMPRESSION: Normal x-ray examination of the chest. Electronically Signed: Pedro Parks, at 15:34 EDT , Service support ,
[2019-07-19 15:35] LABS: ALB/GLOB Ratio 1.1 RATIO (0.9-2.4); AST(SGOT) 46 U/L (15-37); Alanine Aminotransfer ALT/SGPT 93 U/L (13-56); Albumin, Serum 3.9 g/dL (3.2-5.0); Alkaline Phosphatase 63 U/L (45-117); Anion Gap 8 (5-15); BUN 9 mg/dL (7-18); BUN/Creat Ratio 10.7 RATIO (10-20); CRP < 2.90 mg/L (0.0-3.0); Calcium,Total 9.2 mg/dL (8.5-10.1); Chloride 108 mmol/L (98-107); Creatinine, Serum 0.84 mg/dL (0.55-1.02); EST Glomerular Filtration Rate 76 mL/min (>60); Est Glom Filt Rate - Afr Amer 91 mL/min (>60); Globulin 3.7 g/dL (2.2-4.2); Glucose 109 mg/dL (74-106); Potassium 3.8 mmol/L (3.5-5.1); Protein, Total 7.6 g/dL (6.4-8.2); Sodium Level 137 mmol/L (136-145)
[2019-07-19 15:54] LABS: Absolute Lymphocyte Count 3.77 X10^3/uL (0.83-4.51); Absolute Neutrophil Count 5.2 X10^3/uL (2.0-7.7); Basophil# 0.08 X10^3/uL; Basophil% 0.8 % (0-1); Eosinophil# 0.19 X10^3/uL; Eosinophils% 1.9 % (0-5); Hematocrit 49.1 % (37-47); Hemoglobin 16.3 g/dL (12.0-15.0); Lymphocyte # 3.77 X10^3/ul (4.0); Lymphocyte % 38.4 % (19-41); Mean Corp Hgb Conc 33.2 g/dL (32-36); Mean Corpuscular Hgb 28.3 pg (27.0-32.0); Mean Corpuscular Volume 85.2 fL (81-99); Mean Platelet Vol. 10.7 fl (6.2-12.0); Monocyte# 0.58 X10^3/uL; Monocyte% 5.9 % (0-10); NRBC Flagged by Analyzer 0 % (0-5); Neutrophil # 5.17 X10^3/uL (2.7-7.7); Neutrophil % 52.6 % (47-70); Platelet Count 311 K/mm3 (150-450); RBC Distribution Width CV 13.1 % (11.6-14.6); RBC Distribution Width SD 40.3 fl (35.1-43.9); Red Blood Count 5.76 M/mm3 (4.2-5.4); White Blood Count 9.8 K/mm3 (4.4-11.0)
== END ==
PROVIDERS: PCP Family Medicine; Referring Provider Family Medicine; Visit Provider Family Medicine
DX: R05 Cough (principal); R50.9 Fever, unspecified
CPT/HCPCS: 36415; 71046; 80053; 85025; 86140

== ENCOUNTER → 2019-10-22 09:41 | Outpatient (CLI) | payer OTHER, SELFPAY ==
[2019-10-22 12:28] LABS: Absolute Lymphocyte Count 2.81 X10^3/uL (0.83-4.51); Absolute Neutrophil Count 2.9 X10^3/uL (2.0-7.7); Basophil# 0.05 X10^3/uL; Basophil% 0.8 % (0-1); Eosinophil# 0.16 X10^3/uL; Eosinophils% 2.5 % (0-5); Hematocrit 45.7 % (37-47); Lymphocyte # 2.81 X10^3/ul (4.0); Lymphocyte % 43.8 % (19-41); Mean Corp Hgb Conc 32.8 g/dL (32-36); Mean Corpuscular Hgb 28.7 pg (27.0-32.0); Mean Corpuscular Volume 87.5 fL (81-99); Mean Platelet Vol. 10.7 fl (6.2-12.0); Monocyte# 0.47 X10^3/uL; Monocyte% 7.3 % (0-10); NRBC Flagged by Analyzer 0 % (0-5); Neutrophil # 2.88 X10^3/uL (2.7-7.7); Platelet Count 256 K/mm3 (150-450); RBC Distribution Width CV 13.2 % (11.6-14.6); RBC Distribution Width SD 41.8 fl (35.1-43.9); Red Blood Count 5.22 M/mm3 (4.2-5.4); White Blood Count 6.4 K/mm3 (4.4-11.0)
[2019-10-22 12:46] LABS: Hemoglobin A1c 6.9 % (3.8-5.6); Microalbumin,Random Urine 13.2 mg/L (NO RANGE EST.); Microalbumin:Creatinine Ratio 5.9 mg/g CRE (<30 mg/g CRE)
[2019-10-22 12:47] LABS: Vitamin D,25 Hydroxy 70.2 ng/mL
[2019-10-22 13:03] LABS: ALB/GLOB Ratio 0.9 RATIO (0.9-2.4); AST(SGOT) 33 U/L (15-37); Alanine Aminotransfer ALT/SGPT 73 U/L (13-56); Albumin, Serum 3.5 g/dL (3.2-5.0); Alkaline Phosphatase 66 U/L (45-117); Anion Gap 6 (5-15); BUN 11 mg/dL (7-18); Chloride 107 mmol/L (98-107); Cholesterol 142 mg/dL (200); Creatinine, Serum 0.84 mg/dL (0.55-1.02); EST Glomerular Filtration Rate 75 mL/min (>60); Est Glom Filt Rate - Afr Amer 91 mL/min (>60); Globulin 3.7 g/dL (2.2-4.2); Glucose 185 mg/dL (74-106); High Density Lipoprotein 36 mg/dL; Protein, Total 7.2 g/dL (6.4-8.2); Sodium Level 140 mmol/L (136-145); T4 Free Direct 1.16 ng/dL (0.76-1.46); Thyroid Stim Hormone (TSH) 0.77 uIU/mL (0.358-3.74); Triglycerides 181 mg/dL; Very Low Density Lipoprotein 36 mg/dL (5-40)
== END ==
PROVIDERS: PCP Family Medicine; Visit Provider Family Medicine
DX: Z00.00 Encounter for general adult medical examination without abnormal findings (principal); E11.9 Type 2 diabetes mellitus without complications; E78.5 Hyperlipidemia, unspecified; E55.9 Vitamin D deficiency, unspecified
CPT/HCPCS: 36415; 80053; 80061; 82043; 82306; 82570; 83036; 84439; 84443; 85025

== ENCOUNTER → 2019-10-26 10:59 | Outpatient (CLI) | payer OTHER, SELFPAY ==
[2019-10-27 06:33] LABS: SARS-COV-2 TOTAL ABS Nonreactive (Nonreactive)
== END ==
PROVIDERS: PCP Family Medicine; Visit Provider Family Medicine
DX: R06.00 Dyspnea, unspecified (principal); R51 Headache
CPT/HCPCS: 36415; 86769

== ENCOUNTER 2020-10-09 13:55 | Emergency (ER) | payer OTHER, SELFPAY ==
[2020-10-09 13:56] VITALS: BP 132/80; PULSE 77; RESP 16; TEMP 37.1; O2SAT 98; BMI 46.9
[2020-10-09 15:18] LABS: Absolute Lymphocyte Count 3.24 X10^3/uL (0.83-4.51); Absolute Neutrophil Count 5.6 X10^3/uL (2.0-7.7); Basophil# 0.06 X10^3/uL; Basophil% 0.6 % (0-1); Eosinophil# 0.21 X10^3/uL; Eosinophils% 2.2 % (0-5); Hematocrit 48.5 % (37-47); Hemoglobin 16.1 g/dL (12.0-15.0); Lymphocyte # 3.24 X10^3/ul (0.83-4.51); Lymphocyte % 33.3 % (19-41); Mean Corp Hgb Conc 33.2 g/dL (32-36); Mean Corpuscular Hgb 28.4 pg (27.0-32.0); Mean Corpuscular Volume 85.7 fL (81-99); Mean Platelet Vol. 10.1 fl (6.2-12.0); Monocyte% 6.2 % (0-10); NRBC Flagged by Analyzer 0 % (0-5); Neutrophil # 5.56 X10^3/uL (2.7-7.7); Neutrophil % 57.2 % (47-70); Platelet Count 312 K/mm3 (150-450); RBC Distribution Width CV 12.8 % (11.6-14.6); RBC Distribution Width SD 39.6 fl (35.1-43.9); Red Blood Count 5.66 M/mm3 (4.2-5.4); White Blood Count 9.7 K/mm3 (4.4-11.0)
[2020-10-09 15:24] LABS: Anion Gap 7 (5-15); BUN 9 mg/dL (7-18); Calcium,Total 9.3 mg/dL (8.5-10.1); Chloride 109 mmol/L (98-107); Creatinine, Serum 0.75 mg/dL (0.55-1.02); EST Glomerular Filtration Rate 85 mL/min (>60); Est Glom Filt Rate - Afr Amer 103 mL/min (>60); Estimated Creatinine Clearance 68.61 ml/min; Glucose 100 mg/dL (74-106); Sodium Level 138 mmol/L (136-145)
[2020-10-09 15:41] VITALS: BP 127/74; PULSE 73; RESP 16; O2SAT 95
--- NOTE | 2020-10-09 15:49 | CT_ITS ---
STUDY: CT ABDOMEN AND PELVIS WITHOUT CONTRAST REASON FOR EXAM: Female, 55 years old. right flank pain RADIATION DOSAGE (If Supplied By Facility): CTDIvol = ( 24.09 ) mGy, DLP = ( 1221.51 ) mGycm TECHNIQUE: Transaxial images were obtained from the dome of the diaphragm to the symphysis pubis without oral contrast, and without intravenous contrast. Sagittal and coronal images were reconstructed. Individualized dose optimization techniques were used for this CT. COMPARISON: 2017 FINDINGS: The visualized lung bases are unremarkable. The visualized portions of the heart are within normal limits. There is decreased attenuation of the liver consistent with steatosis. There are surgical clips in the gallbladder fossa consistent with a prior cholecystectomy. Normal spleen. Normal pancreas. Normal bilateral adrenal glands. Normal right kidney. Normal left kidney. Normal visualized stomach. Normal small intestine. Retained stool throughout the colon The appendix is visualized and appears normal. Appendix best seen on coronal recon image 74 Normal abdominal aorta. Normal inferior vena cava. Normal retroperitoneum. Normal urinary bladder. There is absence of the uterus consistent with a prior hysterectomy. Normal abdominal wall. Normal osseous structures. CT/Abdomen/Pelvis without Cont IMPRESSION: Fatty liver, no discrete lesion No obstructive uropathy Retained stool Normal appendix visualized No free intraperitoneal fluid, air, or suspicious adenopathy Electronically Signed: Robert Corbett MD at 16:36 EDT , Service support ,
--- NOTE | 2020-10-09 15:51 | EX.ED.DYSGE1 ---
HPI History of Present Illness Chief Complaint: Abd Pain Informant: patient Onset/Context/Timing Onset: Yesterday Current Severity: Moderate Maximum Severity: Moderate Narrative Narrative: Patient presents with right flank pain. She states she had pain 3 weeks ago that resolved rather quickly. Last evening pain returned. She points the right lower quadrant around to the right lower flank. She has had some nausea with the pain. She denies urinary or bowel symptoms. Pain does not necessarily worsen when she eats. [facility] Medical History (Updated 10/09/20 @ 17:[address] Yasmeen Wiseman MD) CPAP (continuous positive airway pressure) dependence Diabetes GERD (gastroesophageal reflux disease) IBS (irritable bowel syndrome) Migraines Sleep apnea Home Medications Truelicity 1.5 mg SQ FR 05/16/16 [History Last Taken Unknown] alprazolam [Xanax] 1 mg PO QHS PRN PRN 05/16/16 [History Last Taken 04/28/17] metformin 500 mg PO BIDCM 05/16/16 [History Last Taken 04/28/17] mometasone [Nasonex] 2 spray NASAL DAILY PRN 05/12/17 [History Last Taken Unknown] dicyclomine 10 mg PO BID PRN #14 cap 10/09/20 [Rx Last Taken Unknown] escitalopram oxalate 10 mg PO DAILY 10/09/20 [History Last Taken Unknown] melatonin 10 mg PO QHS 10/09/20 [History Last Taken Unknown] simvastatin 20 mg PO DAILY 10/09/20 [History Last Taken Unknown] verapamil 240 mg PO DAILY 10/09/20 [History Last Taken Unknown] Allergy/AdvReac Type Severity Reaction Status Date / Time acetaminophen [From [place]] AdvReac Nausea Verified 10/09/20 13:58 hydrocodone [From [place]] AdvReac Nausea Verified 10/09/20 13:58 Surgical History History of hysterectomy Social History Smoking Status: Current every day smoker tobacco type: cigarettes ROS ROS ED Constitutional Constitutional ED: Denies chills or fever(s) Eyes Eyes: Denies change in vision ENT ENT ED: Denies sore throat Cardiovascular Cardiovascular: Denies chest pain Respiratory/Chest Respiratory/Chest: Denies cough or dyspnea Gastrointestinal Gastrointestinal: Reports abdominal pain and nausea; Denies diarrhea or vomiting Genitourinary Genitourinary ED: Denies dysuria, hematuria or urinary frequency Musculoskeletal Musculoskeletal: Reports back pain Integumentary Denies rash Neurologic Neurologic: Denies headache(s) or weakness Psychiatric Psychiatric: Denies anxiety or depression Endocrine Endocrinology: Denies polydipsia or polyuria Allergic/Immunologic Allergic/Immunologic ED: Denies urticaria EXAM Physical Exam Const Vital Signs: 10/09/20 13:56 10/09/20 15:41 10/09/20 17:31 Temperature 98.8 F Temperature Source Temporal Pulse Rate 77 73 69 Respiratory Rate 16 16 17 Blood Pressure 132/80 H 127/74 H 116/64 Blood Pressure Mean 97 91 Pulse Ox 98 95 97 Oxygen Delivery Method Room Air Room Air Positive well nourished and well developed General Appearance ED: well developed HEENT Reports normocephalic and head/scalp atraumatic Eyes PERRL and EOMs intact bilaterally Neck supple Chest Wall inspection of chest normal and palpation of chest normal Resp normal respiratory effort and clear to auscultation bilaterally Cardio regular rate and regular rhythm GI Palpation: soft and tender RLQ Back/Spine General Back: CVA tenderness right Extremity normal to inspection Neuro oriented x3 and no sensory deficits noted Sensorium / Orientation: alert Motor Exam: strength 5/5 throughout Psych mental status grossly normal Skin no rashes or lesions noted MDM MDM MDM Narrative Medical decision making narrative: Patient was given morphine and Zofran for pain. Lab work and urinalysis was obtained per nursing protocol. CT flank is added. Lab Data Attestation: I reviewed the patient's lab results. Labs: Laboratory Results - last 24 hr 10/09/20 10/09/20 10/09/20 14:42 14:42 15:45 WBC 9.7 RBC 5.66 H Hgb 16.1 H Hct 48.5 H MCV 85.7 MCH 28.4 MCHC 33.2 RDW Std Deviation 39.6 RDW Coeff of Heron 12.8 Plt Count 312 MPV 10.1 Immature Gran % (Auto) 0.500 Neut % (Auto) 57.2 Lymph % (Auto) 33.3 Oliver % (Auto) 6.2 Eos % (Auto) 2.2 Baso % (Auto) 0.6 Absolute Neuts (auto) 5.6 Absolute Lymphs (auto) 3.24 Nucleated RBC % 0 Sodium 138 Potassium 4.0 Chloride 109 H Carbon Dioxide 22.0 Anion Gap 7 BUN 9 Creatinine 0.75 Estim Creat Clear Calc 68.61 Est GFR (MDRD) Af Amer 103 Est GFR (MDRD) Non-Af 85 BUN/Creatinine Ratio 12.0 Glucose 100 Calcium 9.3 Urine Color Yellow Urine Clarity Clear Urine pH 6.0 Ur Specific Unity 1.010 Urine Protein Negative Urine Glucose (UA) Normal Urine Ketones Negative Urine Occult Blood Negative Urine Nitrite Negative Urine Bilirubin Negative Urine Urobilinogen Normal Ur Leukocyte Esterase Negative Urine RBC 0 SEEN Urine WBC 0 SEEN Ur Squamous Epith Cells 0 SEEN Urine Bacteria 0 SEEN Urine Mucus 0 SEEN Radiography Diagnostic Testing: Radiology Impression Abdomen/Pelvis CT 10/09/20 15:49 IMPRESSION: Fatty liver, no discrete lesion No obstructive uropathy Retained stool Normal appendix visualized No free intraperitoneal fluid, air, or suspicious adenopathy Electronically Signed: Robert Corbett MD at 16:36 EDT , Service support , Treatment and Re-Evaluation Comments:: On repeat evaluation patient is resting comfortably. Test results discussed with her. Blood work and urinalysis are unremarkable. CT scan reveals significant stool throughout. No obvious ureterolithiasis. Normal appendix. Patient has MiraLAX at home that she states she takes daily. She will increase this to 3 times a day until she is cleaned out. She was advised that if her symptoms do not improve with this she should contact her GI doctor who she gets regular colonoscopies with. She is given return instructions. Discharge Plan Triage Chief Complaint: Abd Pain ED Provider: Yasmeen Wiseman Dx/Rx/DC Orders Clinical Impression: Abdominal pain, Constipation Instructions: Abdominal Pain, ED Constipation (Adult) Prescriptions: New dicyclomine 10 mg capsule 10 mg PO BID PRN (Reason: abdominal pain) Qty: 14 RF: 0 No Action alprazolam [Xanax] 1 MG tablet 1 mg PO QHS PRN PRN (Reason: Sleep) RF: 0 metformin 1,000 MG tablet 500 mg PO BIDCM RF: 0 Truelicity 1.5 mg SQ FR RF: 0 mometasone [Nasonex] 1 SPRAY spray,non-aerosol 2 spray NASAL DAILY PRN (Reason: Nasal Congestion) RF: 0 simvastatin 20 mg Tablet 20 mg PO DAILY RF: 0 verapamil 240 mg Tablet Extended Release 240 mg PO DAILY RF: 0 escitalopram oxalate 10 mg Tablet 10 mg PO DAILY RF: 0 melatonin 10 mg Tablet 10 mg PO QHS RF: 0 Primary Care Provider: Rene Aguilera Referrals: Rene Aguilera DO [Primary Care Provider] - 1 Week if not improving Disposition Disposition: Home, Self Care Discharge Date/Time: 10/09/20 17:34
[2020-10-09] MEDS: Ondansetron 4 MG/2 ML Vial IV (15:55)
[2020-10-09] MEDS: Morphine 4 MG/ML Syringe IV (15:55)
[2020-10-09] MEDS: 0.9% Normal Saline 1,000 ML 150 ML IV (15:55)
[2020-10-09 16:00] LABS: Bacteria 0 SEEN /hpf (None Seen); Mucous, Urine 0 SEEN /hpf (<or=2+); Red Blood Cells-Urine 0 SEEN /hpf (0-5); Squamous Epithelial Cells - UA 0 SEEN /hpf (5-10); White Blood Cells 0 SEEN /hpf (0-5)
[2020-10-09 16:17] LABS: Color, Urine Yellow (Yellow); Glucose, Dipstick Normal (Normal); Ketone-Dipstick Negative (Negative); Leukocyte Esterase-Dipstick Negative /ul (Negative); Nitrite-Dipstick Negative (Negative); Occult Blood-Urine Negative /ul (Negative); Protein-Dipstick Negative (Negative); Urine Bilirubin Dipstick Negative (Negative); Urine Clarity Clear (Clear); Urine Urobilinogen Normal (Normal)
[2020-10-09 17:31] VITALS: BP 116/64; PULSE 69; RESP 17; O2SAT 97
== END 2020-10-09 17:34 | disposition home or self-care (01) ==
PROVIDERS: Emergency Provider Emergency Medicine; PCP Family Medicine
DX: K59.00 Constipation, unspecified (principal); E11.9 Type 2 diabetes mellitus without complications; F17.210 Nicotine dependence, cigarettes, uncomplicated; Z79.899 Other long term (current) drug therapy; Z79.84 Long term (current) use of oral hypoglycemic drugs
CPT/HCPCS: 74176; 80048; 81001; 85025; 96361; 96374; 96375; 99284; J7030; A4216; J2405

== ENCOUNTER 2021-05-01 13:44 | Outpatient (CLI) | payer OTHER, SELFPAY ==
--- NOTE | 2021-05-01 14:35 | RAD_ITS ---
STUDY: RADIOGRAPH- ABDOMEN/PELVIS REASON FOR EXAM: Female, 56 years old. Sitz marker day 3 TECHNIQUE: KUB COMPARISON: None. FINDINGS: No Sitzs markers are visible. Cholecystectomy clips vertebral quadrant. No evidence of free air or bowel obstruction. Mild diffuse distention of the bowel. No suspicious mass effect or abnormal calcifications. No acute osseous abnormality. RAD/Abdomen Single View IMPRESSION: No acute findings. No Sitzs markers are visible. Electronically Signed: Beto Franks MD at 3:45 EST Reading Location ID and State: [facility] / [place] Tel , Service support ,
[2021-05-01 15:18] LABS: Erythrocyte Sedimentation Rate 14 mm/hr (0-30)
[2021-05-01 15:20] LABS: Absolute Lymphocyte Count 2.52 X10^3/uL (0.83-4.51); Absolute Neutrophil Count 3.9 X10^3/uL (2.0-7.7); Basophil# 0.05 X10^3/uL; Basophil% 0.7 % (0-1); Eosinophil# 0.22 X10^3/uL; Hematocrit 46.2 % (37-47); Hemoglobin 15.8 g/dL (12.0-15.0); Lymphocyte # 2.52 X10^3/ul (0.83-4.51); Lymphocyte % 34.7 % (19-41); Mean Corp Hgb Conc 34.2 g/dL (32-36); Mean Corpuscular Hgb 29.2 pg (27.0-32.0); Mean Corpuscular Volume 85.2 fL (81-99); Mean Platelet Vol. 11.1 fl (6.2-12.0); Monocyte# 0.52 X10^3/uL; Monocyte% 7.2 % (0-10); NRBC Flagged by Analyzer 0 % (0-5); Neutrophil # 3.92 X10^3/uL (2.7-7.7); Neutrophil % 53.8 % (47-70); Platelet Count 272 K/mm3 (150-450); RBC Distribution Width CV 13.3 % (11.6-14.6); RBC Distribution Width SD 41.3 fl (35.1-43.9); Red Blood Count 5.42 M/mm3 (4.2-5.4); White Blood Count 7.3 K/mm3 (4.4-11.0)
[2021-05-01 15:32] LABS: Hemoglobin A1c 7.7 % (3.8-5.6)
[2021-05-01 15:40] LABS: Prothrombin Time (Protime)PT. 12.5 SECONDS (11.7-14.9)
[2021-05-01 16:02] LABS: ALB/GLOB Ratio 1.1 RATIO (0.9-2.4); AST(SGOT) 83 U/L (15-37); Alanine Aminotransfer ALT/SGPT 134 U/L (13-56); Albumin, Serum 3.8 g/dL (3.2-5.0); Alkaline Phosphatase 67 U/L (45-117); Anion Gap 6 (5-15); BUN 6 mg/dL (7-18); BUN/Creat Ratio 7.8 RATIO (10-20); CRP < 2.90 mg/L (0.0-3.0); Calcium,Total 8.8 mg/dL (8.5-10.1); Chloride 108 mmol/L (98-107); Creatinine, Serum 0.77 mg/dL (0.55-1.02); EST Glomerular Filtration Rate 83 mL/min (>60); Est Glom Filt Rate - Afr Amer 101 mL/min (>60); Ferritin 188 ng/mL (8-252); Globulin 3.6 g/dL (2.2-4.2); Glucose 101 mg/dL (74-106); LDH 233 U/L (84-246); Potassium 3.7 mmol/L (3.5-5.1); Protein, Total 7.4 g/dL (6.4-8.2); Sodium Level 136 mmol/L (136-145)
[2021-05-01 16:16] LABS: HIV - WCH Non-Reactive (Nonreactive)
[2021-05-03 18:08] LABS: Anti-Centromere B Ab <0.2 AI (0.0-0.9); Anti-Chromatin <0.2 AI (0.0-0.9); Anti-Jo <0.2 AI (0.0-0.9); Anti-Scleroderma-70 AB <0.2 AI (0.0-0.9); RNP Ab <0.2 AI (0.0-0.9); SJOGREN'S Anti-SS-A test < 0.2 AI (0.0-0.9); SJOGREN'S Anti-SS-B test < 0.2 AI (0.0-0.9); Smith Ab <0.2 AI (0.0-0.9)
[2021-05-03 20:36] LABS: Anti-Mitochondrial AB <20.0 Units (0.0-20.0); Anti-dsDNA Ab <1 IU/mL (0-9)
[2021-05-05 04:07] LABS: Angiotensin Convert Enzyme 66 U/L (14-82); Ceruloplasmin 23.2 mg/dL (19.0-39.0); Cytoplasmic Ab (C-ANCA) <1:20 titer (Neg:<1:20); HEPATITIS B SURFACE AG Negative (Negative); Hepatitis A IgM Antibody Negative (Negative); Hepatitis B Core AB IgM Negative (Negative)
[2021-05-05 10:23] LABS: AFP, Tumor Marker 2.2 ng/mL (0.0-8.3); Anti-Smooth Muscle ABS 24 Units (0-19); Copper, Serum or Plasma 96 ug/dL (80-158); Haptoglobin 184 mg/dL (33-346); Hep C Antibodies <0.1 s/co ratio (0.0-0.9); Perinuclear Ab (P-ANCA) <1:20 titer (Neg:<1:20)
== END 2021-05-01 23:59 | disposition home or self-care (01) ==
PROVIDERS: PCP Family Medicine; Referring Provider Internal Medicine Gastroenterology; Visit Provider Internal Medicine Gastroenterology
DX: K76.0 Fatty (change of) liver, not elsewhere classified (principal); R10.9 Unspecified abdominal pain
CPT/HCPCS: 36415; 74018; 80053; 80074; 82105; 82140; 82164; 82390; 82525; 82728; 83010; 83036; 83516; 83615; 85025; 85610; 85652; 86140; 86225; 86235; 86256; 86703

== ENCOUNTER 2021-05-04 08:45 | Outpatient (CLI) | payer OTHER, SELFPAY ==
--- NOTE | 2021-05-04 08:51 | US_ITS ---
STUDY: ABDOMINAL ULTRASOUND - RIGHT UPPER QUADRANT REASON FOR VISIT: Female, 56 years old . Fatty infiltration of liver. TECHNIQUE: Ultrasound evaluation of the right upper quadrant was performed with real-time and static beard-scale imaging. TECHNICAL QUALITY: Adequate. COMPARISON: None. FINDINGS: Liver: The liver is enlarged and measures 21.3 cm. There is increased echogenicity consistent with fatty infiltration. The bile ducts are within normal limits. There is hepatic color flow. The direction of portal flow is hepatopetal. There is no demonstrated mass lesion. Gallbladder: The patient is status post cholecystectomy. Common Bile Duct (C.B.D.): The common bile duct measures 3.9 mm. Pancreas: Normal size of the head, body and tail of the pancreas. There is normal echogenicity of the pancreas. There is no demonstrated pancreatic mass or cyst. Right Kidney: Normal size of the right kidney. The right kidney measures 11.5 cm x 6.1 cm x 5 cm. Normal renal cortex. The right cortex measures 1.5 cm. There is no demonstrated renal mass or cyst. There is no right hydronephrosis. IMPRESSION: Hepatomegaly and fatty infiltration of the liver. Electronically Signed: Pedro Parks MD at 10:29 EST , STUDY: ABDOMINAL ULTRASOUND - ELASTOGRAPHY REASON FOR VISIT: Female, 56 years old. Hepatomegaly and fatty infiltration of the liver. TECHNIQUE: Liver stiffness measurements were obtained on a MiniVax 85 ultrasound machine using a CA 1-7 probe following the SRU guidelines. 3 measurements were obtained using a 2-D-SWE method. The IQR/M was 17% suggesting a quality data set. TECHNICAL QUALITY: Adequate. COMPARISON: Comparison is made with prior examination done earlier today. FINDINGS: Liver: Hepatomegaly and fatty infiltration of liver. Median liver stiffness measured 8 kPa. US/Abdomen Limited IMPRESSION: Liver stiffness measures 8 kPa compatible with F3 Metavir score. Electronically Signed: Pedro Parks MD at 10:31 EST ,
== END 2021-05-04 23:59 | disposition home or self-care (01) ==
PROVIDERS: PCP Family Medicine; Referring Provider Internal Medicine Gastroenterology; Visit Provider Internal Medicine Gastroenterology
DX: K76.0 Fatty (change of) liver, not elsewhere classified (principal); R10.9 Unspecified abdominal pain
CPT/HCPCS: 76700; 76705; 76981

== ENCOUNTER 2021-05-16 08:54 | Outpatient (CLI) | payer OTHER, SELFPAY ==
[2021-05-16] VITALS (9 sets, daily range): BP systolic 122–165; BP diastolic 68–88; PULSE 75–87; RESP 13–18; O2SAT 93–97; BMI 47.5
--- NOTE | 2021-05-16 | LIVB_PTH ---
PATIENT: KEHINDE ZABALA LOC: CT U#:[id number] AGE/SX: 56/F ROOM: RE05/16/[address]: Dr. Robbin Goel DO : 1965 BED: DIS: 05/16/2021 SPEC #: [id number] RECD: 05/16/21 10:18 STATUS: AMA REBro #: [id number] SHABNAM: 05/16/21 00:[address]: Robbin Goel DEPT: SURGICAL PATHOLOGY RECD BY: Felice Banks ENTERED: 05/16/21 11:07 SP TYPE: LIVER BX ISMAEL DR: Dr. Rene Aguilera DO Tissues: Liver, NOS Procedures: PAS with Diastase (control) Trichrome (control) Special Stain Group II PAS Stain (control) Surgery Specimen Level V Retic (control) Iron Stain (control) HEADER OPERATION: CT-guided liver biopsy PRE-OP DIAGNOSIS: Steatosis TISSUE SUBMITTED: Liver 18-gauge x3 MICROSCOPIC DIAGNOSIS Liver, CT-guided core biopsy: Diffuse macrovesicular steatosis. Chronic hepatitis, grade 1, stage 1 (modified Knodell scoring system for chronic hepatitis). See comment. AM:sherine 05/17/2021 COMMENT Sections show portal inflammation without necrosis confined to the port areas with minimal lobular involvement. There is expansion of portal areas with fibrosis that does not extend into the liver parenchyma. There is no evidence of cirrhosis. Reticulin stains reveals normal hepatic architecture. PAS with and without diastase does not reveal accumulation of abnormal proteins. Iron stain does not reveal accumulation of intraparenchymal iron. Trichrome stain highlights areas of fibrosis. All matched controls are appropriate. Clinical correlation is suggested. Case has been reviewed in consultation with Dr. Can who concurs with the above diagnosis. IDC:MARLA MICROSCOPIC DESCRIPTION Slides are reviewed. GROSS DESCRIPTION Received in fixative is one container labeled with the patient's name and designated liver. The specimen consists of three elongated fragments of moreno soft tissue each measuring 2 cm in length and 0.1 cm in diameter. / SJ:sherine 05/16/2021 TC:3 CPT: 48642, 12546 x5
--- NOTE | 2021-05-16 09:07 | CT_ITS ---
PROCEDURE: CT DIRECTED CORE LIVER BIOPSY INDICATION: Female, 56 years old. Steatosis, possible autoimmune hepatitis PHYSICIAN: Dr. LESIA Mike CONSENT: Written informed consent was obtained having explained the risks, benefits and alternatives in detail with the patient who accepted the risks and agreed to proceed. Laboratory review and clinical assessment was performed. CONSCIOUS SEDATION PROTOCOL: The Drugs used were: 2 mg Versed, IV., and 50 mcg Fentanyl, IV. The sedation time was: 15 minutes. Conscious sedation was started at 9:54 AM and terminated at 10:09 AM. The conscious sedation protocol was independently monitored. RADIATION DOSAGE (If Supplied By Facility): CTDIvol = ( 24 ) mGy, DLP = ( 684.38 ) mGycm Individualized dose optimization techniques were used for this CT. TECHNIQUE: Using CT image guidance with image documentation, a suitable location in the right lobe of the liver was identified. Using an anterior approach, puncture of the liver was uneventful with an 18-gauge core needle system. 3, 18-gauge core samples were obtained, and submitted in formalin to the pathologist for further assessment. Followup CT scan revealed no distinct sequelae. CT/Biopsy/Inj or Needle Placement IMPRESSION: 1. CT directed core needle biopsy of the liver, using CT image guidance with image documentation as described. 2. Conscious Sedation protocol utilized with independent monitoring. Electronically Signed: Pedro Parks MD at 10:27 EST ,
[2021-05-16 09:09] LABS: Platelet Count 307 K/mm3 (150-450)
[2021-05-16 09:27] LABS: Partial Thromboplast Time 32.4 Seconds (24.1-36.2); Prothrombin Time (Protime)PT. 12.3 SECONDS (11.7-14.9)
[2021-05-16] MEDS: fentaNYL 100 MCG/2 ML Ampul IV (09:54)
[2021-05-16] MEDS: Midazolam 2 MG/2 ML Syringe IV (09:54)
[2021-05-16] MEDS: Lidocaine 2% (20 ml mdv) 20 ML Vial INFILT (10:03)
== END 2021-05-16 23:59 | disposition home or self-care (01) ==
PROVIDERS: PCP Family Medicine; Referring Provider Internal Medicine Gastroenterology; Visit Provider Internal Medicine Gastroenterology
DX: K76.0 Fatty (change of) liver, not elsewhere classified (principal); K73.9 Chronic hepatitis, unspecified; E11.9 Type 2 diabetes mellitus without complications; K21.9 Gastro-esophageal reflux disease without esophagitis; G47.30 Sleep apnea, unspecified; F17.210 Nicotine dependence, cigarettes, uncomplicated; Z79.84 Long term (current) use of oral hypoglycemic drugs; Z79.899 Other long term (current) drug therapy; Z86.010 Personal history of colon polyps
CPT/HCPCS: 47000; 36415; 77012; 85049; 85610; 85730; 88307; 88313; J7040

== ENCOUNTER 2021-06-14 10:58 | Outpatient (CLI) | payer OTHER, SELFPAY ==
[2021-06-15 14:10] LABS: Anti-Centromere B Ab <0.2 AI (0.0-0.9); Anti-Chromatin <0.2 AI (0.0-0.9); Anti-Jo <0.2 AI (0.0-0.9); Anti-Scleroderma-70 AB <0.2 AI (0.0-0.9); RNP Ab 0.2 AI (0.0-0.9); SJOGREN'S Anti-SS-A test < 0.2 AI (0.0-0.9); SJOGREN'S Anti-SS-B test < 0.2 AI (0.0-0.9); Smith Ab <0.2 AI (0.0-0.9)
[2021-06-15 16:53] LABS: Anti-dsDNA Ab <1 IU/mL (0-9)
[2021-06-20 17:07] LABS: Immunoglobulin A 117 mg/dL (87-352); Immunoglobulin G 640 mg/dL (586-1602); Immunoglobulin M 65 mg/dL (26-217)
[2021-06-20 20:15] LABS: Immunoglobulin E 89 IU/mL (6-495)
== END 2021-06-14 23:59 | disposition home or self-care (01) ==
PROVIDERS: PCP Family Medicine; Referring Provider Internal Medicine Gastroenterology; Visit Provider Internal Medicine Gastroenterology
DX: K76.0 Fatty (change of) liver, not elsewhere classified (principal)
CPT/HCPCS: 36415; 82784; 82785; 86225; 86235

== ENCOUNTER 2021-06-20 05:56 | Day surgery (SDC) | payer BC, SELFPAY ==
--- NOTE | 2021-06-19 07:50 | HP.PCM_ITS ---
History and Physical Date of Admission: 06/20/21 Intake Intake Visit Reasons: ABD ISSUES Allergies acetaminophen [From [place]] Adverse Reaction (Verified 10/09/20 13:58) Nausea hydrocodone [From [place]] Adverse Reaction (Verified 10/09/20 13:58) Nausea [facility] Medical History (Updated 04/29/21 @ 15:[address] Siegel Friend, DO) CPAP (continuous positive airway pressure) dependence Diabetes GERD (gastroesophageal reflux disease) IBS (irritable bowel syndrome) Migraines Personal history of colonic polyps Sleep apnea Surgical History History of hysterectomy Social History Smoking Status: Current every day smoker tobacco type: cigarettes HPI HPI Details: KEHINDE ZABALA, is a 56 F who presents to the office today for Referred by PCP for evaluation of liver disease and possible IBS. Previously established with Dr. Toro for routine colonoscopies r/t tubular adenomas. She had issues with heartburn for the last month, hiatal hernia, decreased appetite r/t regular nausea, ileus, constipation for the last 5-6 years though recently she has been having issues with diarrhea for the last month. Reports diarrhea as a green color, no aggravating or alleviating factors. Always has a feeling of tenesmus. Dr. Toro prescribed Linzess unknown dose that was expensive, she was not instructed to take properly and it did not help. Last colonoscopy with Dr. Toro and several tubular adenomas removed at this one and the one previously. CT abd/pel 10.09.20 found liver steatosis. Retained stool throughout colon. CT abd/pel 11.12.02 found liver steatosis. Adynamic small bowel ileus with mild gaseous distention without bowel obstruction and moderately increased colonic stool volume. US RUQ 9.17.12 found liver measuring 24cm with increased echogenicity consistent with fatty infiltration. Gastroenterology history includes liver steatosis, IBS, hiatal hernia, GERD, tubular adenoma, internal bleeding hemorrhoid. Colonoscopy due date . Medical history includes DMII (metformin, Trulicity. Hgb A1c 7.5), hyperlipidemia, restless leg, arthritis, fibromyalgia, sleep apnea, headache, depression and anxiety (Lexapro), insomnia, chronic fatigue, vitamin d deficiency. Surgical history includes cholecystectomy 1995, partial hysterectomy 1999. ROS Const Constitutional: No anorexia, fatigue, fever(s), weight change or sleep problems Eyes Eyes: No change in vision ENT ENT: No abnormal hearing, difficulty swallowing, mouth lesions, tongue swelling or throat swelling Resp Respiratory: No cough or shortness of breath Cardio Cardiology: No chest pain at rest, chest pain with exertion, shortness of breath or dyspnea on exertion Gastro GI: No difficulty swallowing Genitourinary-Female: No difficulty urinating or burning urination Musc Musculoskeletal: No joint pain, joint swelling, muscle weakness or decreased muscle mass Skin Skin: No hair loss in leg, yellowing of the eye, itchy eyes, rash, skin ulcer or skin swelling Neuro Neurology: No abnormal hearing, abnormal movements, confusion, unsteady gait/balance or memory loss Psych Psychiatric: No anxiety, No confusion and No memory loss Endo Endocrine: No fatigue or weight change Aller/Imm Allergy/Immunologic: No itchy eyes, throat swelling or tongue swelling Waldemar/Lymp Hematologic/Lymphatic: No easy bleeding, easy bruising or enlarged lymph nodes Exam Const General: cooperative and comfortable Nutritional Appearance: average body habitus and well nourished HENMT Head: normal to inspection Ears: hearing grossly normal bilaterally Nose: external nose normal Face and sinus: normal facial exam Mouth: oral mucosae normal Throat: posterior oropharynx normal Eyes General: appearance normal, both eyes and all related structures Neck Neck: normal visual inspection Chest Chest palpation & inspection: normal inspection of the chest and normal palpation of entire chest wall Resp Effort & Inspection: normal respiratory effort Auscultation: Bilateral: Clear to Auscultation Cardio Palpation: normal PMI Rate: regular rate Rhythm: regular rhythm GI Inspection: normal to inspection Auscultation: normal bowel sounds Percussion: normal to percussion Palpation: no hepatosplenomegaly Skin General: no rashes or lesions noted Neuro General: patient alert Extrem General: normal to inspection Psych Affect: normal affect Quality Reporting Tobacco Screening ([facility] 138) Smoking Status: Current every day smoker Assessment and Plan Assessment and Plan (1) Steatosis, liver: Status: Acute Orders: Orders: Comprehensive Metabolic Profil 04/26/21 CRP 04/26/21 Ferritin 04/26/21 LDH 04/26/21 Hemoglobin A1c 04/26/21 Prothrombin Time w/INR 04/26/21 CBC W/Diff, Automated 04/26/21 Erythrocyte Sed Rate 04/26/21 Angiotensin Convert Enzyme 04/26/21 AFP, Tumor Marker 04/26/21 ANCA 04/26/21 Ceruloplasmin 04/26/21 Copper, Serum or Plasma 04/26/21 Haptoglobin 04/26/21 Miscellaneous Lab Procedure 04/26/21 HIV - [facility] 04/26/21 Anti-Mitochondrial AB 04/26/21 Hepatitis Panel Acute 04/26/21 Anti-Smooth Muscle ABS 04/26/21 Ammonia 04/26/21 Abdomen Complete 04/26/21 Elastography Parenchyma/Organ 04/26/21 Plan - Dr. Siegel Friend, DO: On imaging she was identified of having significant hepatomegaly. This is likely secondary to obesity and insulin patient in a patient with metabolic syndrome. We will also do a biochemical analysis to make sure she is not have any chronic liver disease from an autoimmune or viral etiology. She was okay with this plan. She was also made aware that she will likely need a liver biopsy in the future pending FibroScan for further prognosis and planning. (2) Abdominal pain: Status: Acute Orders: Orders: Comprehensive Metabolic Profil 04/26/21 CRP 04/26/21 Ferritin 04/26/21 LDH 04/26/21 Hemoglobin A1c 04/26/21 Prothrombin Time w/INR 04/26/21 CBC W/Diff, Automated 04/26/21 Erythrocyte Sed Rate 04/26/21 Angiotensin Convert Enzyme 04/26/21 AFP, Tumor Marker 04/26/21 ANCA 04/26/21 Ceruloplasmin 04/26/21 Copper, Serum or Plasma 04/26/21 Haptoglobin 04/26/21 Miscellaneous Lab Procedure 04/26/21 HIV - [facility] 04/26/21 Anti-Mitochondrial AB 04/26/21 Hepatitis Panel Acute 04/26/21 Anti-Smooth Muscle ABS 04/26/21 Ammonia 04/26/21 Abdomen Complete 04/26/21 Elastography Parenchyma/Organ 04/26/21 Colonoscopy Today EGD Today Plan - Dr. Siegel Friend, DO: The differential diagnosis for abdominal pain does include gastroparesis, gastritis, atypical reflux disease. Patient should undergo upper endoscopy to evaluate her upper GI tract. I would not any medicines at this time until we have performed upper endoscopy. She says that the abdominal pain is not debilitating and is more annoying. (3) Personal history of colonic polyps: Status: Acute Plan - Dr. Sieegl Friend, DO: She will undergo a colonoscopy evaluate her lower GI tract because of her history of adenomatous polyps. We will also assess her colon for any stricturing disease, diverticular disease or any other structural abnormalities that may be contributing to her constipation and abdominal pain. Coding Level of Care Code Off vis,new,level 4 Diagnoses Steatosis, liver K76.0 Abdominal pain R10.9 Personal history of colonic polyps Z86.010 04/29/21 1537<Electronically signed by Robbin Goel DO>Date Robbin Goel DO There are no clinical changes since date of exam.
[2021-06-20] VITALS (7 sets, daily range): BP systolic 101–151; BP diastolic 81–93; PULSE 83–100; RESP 16–18; TEMP 36.1–37.1; O2SAT 93–95; BMI 46.3
--- NOTE | 2021-06-20 | EGD_PTH ---
PATIENT: KEHINDE ZABALA LOC: EN U#:[id number] AGE/SX: 56/F ROOM: RE06/20/[address]: Dr. Robbin Goel DO : 1965 BED: DIS: 06/20/2021 SPEC #: [id number] RECD: 06/20/21 12:04 STATUS: AMA ANTHONY #: [id number] SHABNAM: 06/20/21 00:[address]: Robbin Goel DEPT: SURGICAL PATHOLOGY RECD BY: Angelo Mejia ENTERED: 06/20/21 12:05 SP TYPE: EGD BIOPSY OT DR: Dr. Rene Aguilera, Tissues: A - Duodenum, NOS B - Gastric mucous membrane C - Gastric mucous membrane D - Esophageal mucous membrane E - Cecum, NOS F - Descending colon G - Sigmoid colon biopsy Procedures: Special Stain Group II Surgery Specimen Level IV Alcian Blue/PAS (control) HEADER OPERATION: [place] DIAGNOSIS: Liver steatosis, abdominal pain, history of colonic polyps TISSUE SUBMITTED: A ? Duodenum biopsy B ? Gastric pylorus biopsy, C ? Gastric body biopsy, D ? Distal esophagus biopsy, E ? Cecum biopsy, F ? Descending colon polyp, G ? Sigmoid colon polyp MICROSCOPIC DIAGNOSIS A. Duodenum, biopsy: Focal gastric metaplasia with associated minimal chronic and focal acute inflammation. Focal changes suggestive of Marissa?s gland hyperplasia. B. Gastric pylorus, biopsy: Intestinal metaplasia and chronic inflammation. No evidence of dysplasia. See comment. C. Gastric body, biopsy: Chronic gastritis. D. Distal esophagus, biopsy: Gastroesophageal junctional mucosa with mild chronic inflammation. No evidence of goblet cell metaplasia. See comment. E. Cecum, biopsy: No pathologic change. F. Descending colon polyp, biopsy: Fragments of tubular adenoma. G. Sigmoid colon polyp, biopsy: Tubular adenoma. AM:sherine 06/21/2021 COMMENT B. Immunohistochemistry ([id number]) for P53 and Ki-67 will be performed and results will be reported separately. Alcian blue/PAS stain with matched control supports the above diagnosis. C. The results of immunohistochemistry for Helicobacter pylori will be reported separately ([id number]). D. Alcian blue/PAS stain with matched control supports the above diagnosis. MICROSCOPIC DESCRIPTION Slides are reviewed. GROSS DESCRIPTION A - Received in fixative is one container labeled with the patient's name and designated duodenum biopsy. The specimen consists of two irregular fragments of light moreno soft tissue that in aggregate measure 0.6 x 0.4 x 0.1 cm. The specimen is totally submitted in one cassette. B - Received in fixative is one container labeled with the patient's name and designated gastric pylorus biopsy. The specimen consists of two irregular fragments of light moreno soft tissue that in aggregate measure 0.5 x 0.3 x 0.1 cm. The specimen is totally submitted in one cassette. C - Received in fixative is one container labeled with the patient's name and designated gastric body biopsy. The specimen consists of one irregular fragment of light moreno soft tissue that measures 0.3 x 0.3 x 0.1 cm. The specimen is totally submitted in one cassette. D - Received in fixative is one container labeled with the patient's name and designated distal esophagus biopsy. The specimen consists of two irregular fragments of light moreno soft tissue that in aggregate measure 0.7 x 0.7 x 0.1 cm. The specimen is totally submitted in one cassette. E - Received in fixative is one container labeled with the patient's name and designated cecum biopsy. The specimen consists of multiple irregular fragments of light moreno soft tissue that in aggregate measure 0.7 x 0.3 x 0.1 cm. The specimen is totally submitted in one cassette. F - Received in fixative is one container labeled with the patient's name and designated descending colon polyp. The specimen consists of multiple irregular fragments of light moreno soft tissue that in aggregate measure 1 x 0.5 x 0.1 cm. The specimen is totally submitted in one cassette. G - Received in fixative is one container labeled with the patient's name and designated sigmoid colon polyp. The specimen consists of one irregular fragment of light moreno soft tissue that measures 0.3 x 0.3 x 0.2 cm. The specimen is totally submitted in one cassette. / SJ:rg 06/20/2021 TC:3 CPT: 40785 x7
[2021-06-20] MEDS: Lactated Ringers 1,000 ML 15 ML IV (06:29)
[2021-06-20 06:31] LABS: Bedside Glucose 172 mg/dL (74-106)
--- NOTE | 2021-06-20 07:00 | IMM_PTH ---
PATIENT: KEHINDE ZABALA LOC: EN U#:[id number] AGE/SX: 56/F ROOM: RE06/20/[address]: Dr. Robbin Goel DO : 1965 BED: DIS: 06/20/2021 SPEC #: [id number] RECD: 06/20/21 13:09 STATUS: AMA REQ #: [id number] SHABNAM: 06/20/21 07:[address]: Robbin Goel DEPT: IMMUNOHISTOCHEMISTRY RECD BY: Stacy Hyde ENTERED: 06/20/21 13:09 SP TYPE: IMMUNO OTHR DR: Dr. Rene Aguilera DO Tissues: C - Stomach, NOS B - Stomach, NOS Procedures: H Pylori (initial) P53 (initial) KI-67 (add) PHYSICIAN & INSTITUTION [place] [id number] SPECIMEN INFORMATION: Tissue Source: B ? Gastric pylorus, biopsy C ? Gastric body biopsy Clinical Info: Liver steatosis, abdominal pain, history of colonic polyps Specimen Number: [id number] B & C CPT code: 41053 x8, 01697 METHODOLOGY: Deparaffinized sections of prefer/formalin-fixed tissue or PAP/DQ stained slides are incubated with monoclonal/polyclonal antibodies/oligonucleotide probes. Localization is made via biotin free immunoperoxidase method. Appropriate controls are performed and reacted as expected. Results on target cell population are indicated in the following table: RESULTS: ANTIBODY / CLONE RESULT Block B P53 (DO-7) negative Ki-67 (30-9) negative Block C H Pylori (polyclonal) positive These tests were developed and their performance characteristics determined by [facility]. They may not have been cleared or approved by the U.S. Food and Drug Administration. The FDA has determined that such clearance or approval is not necessary. The above immunohistochemical/dualISH markers are ordered and reviewed by the Pathologist. INTERPRETATION: B. Gastric pylorus, biopsy: No evidence of dysplasia. C. Gastric body, biopsy: Positive for Helicobacter pylori organisms. AM:sherine 06/22/2021
--- NOTE | 2021-06-20 07:02 | HP.PCM_ITS ---
History and Physical Date of Admission: 06/20/21 History and Physical Date of Admission: 06/20/21 Intake Intake Visit Reasons: ABD ISSUES Allergies acetaminophen [From [place]] Adverse Reaction (Verified 10/09/20 13:58) Nausea hydrocodone [From [place]] Adverse Reaction (Verified 10/09/20 13:58) Nausea [facility] Medical History (Updated 04/29/21 @ 15:[address] Siegel Friend, DO) CPAP (continuous positive airway pressure) dependence Diabetes GERD (gastroesophageal reflux disease) IBS (irritable bowel syndrome) Migraines Personal history of colonic polyps Sleep apnea Surgical History History of hysterectomy Social History Smoking Status: Current every day smoker tobacco type: cigarettes HPI HPI Details: KEHINDE ZABALA, is a 56 F who presents to the office today for Referred by PCP for evaluation of liver disease and possible IBS. Previously established with Dr. Toro for routine colonoscopies r/t tubular adenomas. She had issues with heartburn for the last month, hiatal hernia, decreased appetite r/t regular nausea, ileus, constipation for the last 5-6 years though recently she has been having issues with diarrhea for the last month. Reports diarrhea as a green color, no aggravating or alleviating factors. Always has a feeling of tenesmus. Dr. Toro prescribed Linzess unknown dose that was expensive, she was not instructed to take properly and it did not help. Last colonoscopy with Dr. Toro and several tubular adenomas removed at this one and the one previously. CT abd/pel 10.09.20 found liver steatosis. Retained stool throughout colon. CT abd/pel 01.23.18 found liver steatosis. Adynamic small bowel ileus with mild gaseous distention without bowel obstruction and moderately increased colonic stool volume. US RUQ 12.01. found liver measuring 24cm with increased echogenicity consistent with fatty infiltration. Gastroenterology history includes liver steatosis, IBS, hiatal hernia, GERD, tubular adenoma, internal bleeding hemorrhoid. Colonoscopy due date . Medical history includes DMII (metformin, Trulicity. Hgb A1c 7.5), hyperlipidemia, restless leg, arthritis, fibromyalgia, sleep apnea, headache, depression and anxiety (Lexapro), insomnia, chronic fatigue, vitamin d deficiency. Surgical history includes cholecystectomy 1995, partial hysterectomy 1999. ROS Const Constitutional: No anorexia, fatigue, fever(s), weight change or sleep problems Eyes Eyes: No change in vision ENT ENT: No abnormal hearing, difficulty swallowing, mouth lesions, tongue swelling or throat swelling Resp Respiratory: No cough or shortness of breath Cardio Cardiology: No chest pain at rest, chest pain with exertion, shortness of breath or dyspnea on exertion Gastro GI: No difficulty swallowing Genitourinary-Female: No difficulty urinating or burning urination Musc Musculoskeletal: No joint pain, joint swelling, muscle weakness or decreased muscle mass Skin Skin: No hair loss in leg, yellowing of the eye, itchy eyes, rash, skin ulcer or skin swelling Neuro Neurology: No abnormal hearing, abnormal movements, confusion, unsteady gait/balance or memory loss Psych Psychiatric: No anxiety, No confusion and No memory loss Endo Endocrine: No fatigue or weight change Aller/Imm Allergy/Immunologic: No itchy eyes, throat swelling or tongue swelling Waldemar/Lymp Hematologic/Lymphatic: No easy bleeding, easy bruising or enlarged lymph nodes Exam Const General: cooperative and comfortable Nutritional Appearance: average body habitus and well nourished HENNJ Head: normal to inspection Ears: hearing grossly normal bilaterally Nose: external nose normal Face and sinus: normal facial exam Mouth: oral mucosae normal Throat: posterior oropharynx normal Eyes General: appearance normal, both eyes and all related structures Neck Neck: normal visual inspection Chest Chest palpation & inspection: normal inspection of the chest and normal palpation of entire chest wall Resp Effort & Inspection: normal respiratory effort Auscultation: Bilateral: Clear to Auscultation Cardio Palpation: normal PMI Rate: regular rate Rhythm: regular rhythm GI Inspection: normal to inspection Auscultation: normal bowel sounds Percussion: normal to percussion Palpation: no hepatosplenomegaly Skin General: no rashes or lesions noted Neuro General: patient alert Extrem General: normal to inspection Psych Affect: normal affect Quality Reporting Tobacco Screening ([facility] 138) Smoking Status: Current every day smoker Assessment and Plan Assessment and Plan (1) Steatosis, liver: Status: Acute Orders: Orders: Comprehensive Metabolic Profil 04/26/21 CRP 04/26/21 Ferritin 04/26/21 LDH 04/26/21 Hemoglobin A1c 04/26/21 Prothrombin Time w/INR 04/26/21 CBC W/Diff, Automated 04/26/21 Erythrocyte Sed Rate 04/26/21 Angiotensin Convert Enzyme 04/26/21 AFP, Tumor Marker 04/26/21 ANCA 04/26/21 Ceruloplasmin 04/26/21 Copper, Serum or Plasma 04/26/21 Haptoglobin 04/26/21 Miscellaneous Lab Procedure 04/26/21 HIV - [facility] 04/26/21 Anti-Mitochondrial AB 04/26/21 Hepatitis Panel Acute 04/26/21 Anti-Smooth Muscle ABS 04/26/21 Ammonia 04/26/21 Abdomen Complete 04/26/21 Elastography Parenchyma/Organ 04/26/21 Plan - Dr. Siegel Friend, DO: On imaging she was identified of having significant hepatomegaly. This is likely secondary to obesity and insulin patient in a patient with metabolic syndrome. We will also do a biochemical analysis to make sure she is not have any chronic liver disease from an autoimmune or viral etiology. She was okay with this plan. She was also made aware that she will likely need a liver biopsy in the future pending FibroScan for further prognosis and planning. (2) Abdominal pain: Status: Acute Orders: Orders: Comprehensive Metabolic Profil 04/26/21 CRP 04/26/21 Ferritin 04/26/21 LDH 04/26/21 Hemoglobin A1c 04/26/21 Prothrombin Time w/INR 04/26/21 CBC W/Diff, Automated 04/26/21 Erythrocyte Sed Rate 04/26/21 Angiotensin Convert Enzyme 04/26/21 AFP, Tumor Marker 04/26/21 ANCA 04/26/21 Ceruloplasmin 04/26/21 Copper, Serum or Plasma 04/26/21 Haptoglobin 04/26/21 Miscellaneous Lab Procedure 04/26/21 HIV - [facility] 04/26/21 Anti-Mitochondrial AB 04/26/21 Hepatitis Panel Acute 04/26/21 Anti-Smooth Muscle ABS 04/26/21 Ammonia 04/26/21 Abdomen Complete 04/26/21 Elastography Parenchyma/Organ 04/26/21 Colonoscopy Today EGD Today Plan - Dr. Siegel Friend, DO: The differential diagnosis for abdominal pain does include gastroparesis, gastritis, atypical reflux disease. Patient should undergo upper endoscopy to evaluate her upper GI tract. I would not any medicines at this time until we have performed upper endoscopy. She says that the abdominal pain is not debilitating and is more annoying. (3) Personal history of colonic polyps: Status: Acute Plan - Dr. Siegel Friend, DO: She will undergo a colonoscopy evaluate her lower GI tract because of her history of adenomatous polyps. We will also assess her colon for any stricturing disease, diverticular disease or any other structural abnormalities that may be contributing to her constipation and abdominal pain. I have re-examined the patient. There are no clinical changes since date of exam.
--- NOTE | 2021-06-20 08:05 | OP.EGD_ITS ---
Patient Name: Lindy Leavitt Procedure Date: 06/20/2021 7:08 AM Date of : 1965 Age: 56 Procedure: Upper GI endoscopy Indications: Epigastric abdominal pain, Heartburn Providers: Robbin Goel DO Referring MD: Robbin Goel DO Medicines: See the Anesthesia note for documentation of the administered medications Patient Profile: This is a 56 year old female. Refer to note in patient chart for documentation of history and physical. Patient has symptoms of chronic epigastric abdominal pain. Complications: No immediate complications. Procedure: Pre-Anesthesia Assessment: - Prior to the procedure, a History and Physical was performed, and patient medications and allergies were reviewed. The patient is competent. The risks and benefits of the procedure and the sedation options and risks were discussed with the patient. All questions were answered and informed consent was obtained. Patient identification and proposed procedure were verified by the physician in the pre-procedure area. Mental Status Examination: alert and oriented. Airway Examination: normal oropharyngeal airway and neck mobility. Respiratory Examination: clear to auscultation. CV Examination: normal. Prophylactic Antibiotics: The patient does not require prophylactic antibiotics. Prior Anticoagulants: The patient has taken no previous anticoagulant or antiplatelet agents. After reviewing the risks and benefits, the patient was deemed in satisfactory condition to undergo the procedure. The anesthesia plan was to use moderate sedation / analgesia (conscious sedation). Immediately prior to administration of medications, the patient was re-assessed for adequacy to receive sedatives. The heart rate, respiratory rate, oxygen saturations, blood pressure, adequacy of pulmonary ventilation, and response to care were monitored throughout the procedure. The physical status of the patient was re-assessed after the procedure. After obtaining informed consent, the endoscope was passed under direct vision. Throughout the procedure, the patient's blood pressure, pulse, and oxygen saturations were monitored continuously. The Colonoscope was introduced through the mouth, and advanced to the second part of duodenum. The upper GI endoscopy was accomplished without difficulty. The patient tolerated the procedure well. Moderate Sedation: Moderate (conscious) sedation was administered by the endoscopy nurse and supervised by the endoscopist. The patient's oxygen saturation, heart rate, blood pressure and response to care were monitored. Total physician intraservice time was 15 minutes. Scope In: 7:20:55 AM Scope Out: 7:29:28 AM Total Procedure Duration Time 0 hours 8 minutes 33 seconds Findings: LA Grade A (one or more mucosal breaks less than 5 mm, not extending between tops of 2 mucosal folds) esophagitis with no bleeding was found 37 to 39 cm from the incisors. Biopsies were taken with a cold forceps for histology. Verification of patient identification for the specimen was done. Estimated blood loss was minimal. There was a 4 mm papilloma seen in oropharynx. Mild portal hypertensive gastropathy was found in the gastric body. Biopsies were taken with a cold forceps for histology. Verification of patient identification for the specimen was done. Estimated blood loss was minimal. Localized mildly erythematous mucosa without active bleeding and with no stigmata of bleeding was found in the duodenal bulb. Biopsies were taken with a cold forceps for histology. Verification of patient identification for the specimen was done. Estimated blood loss was minimal. Impression: - LA Grade A reflux esophagitis. Biopsied. - Portal hypertensive gastropathy. Biopsied. - Erythematous duodenopathy. Biopsied. 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 - Resume previous diet. - Continue present medications. - Await pathology results. - Continue present medications. -Referral to ENT for removal of papilloma and oropharynx Procedure Code(s): --- Professional --- 35428, Esophagogastroduodenoscopy, flexible, transoral; with biopsy, single or multiple 44203, 59, Moderate sedation services provided by the same physician or other qualified health rn wound care performing the diagnostic or therapeutic service that the sedation supports, requiring the presence of an independent trained observer to assist in the monitoring of the patient's level of consciousness and physiological status; initial 15 minutes of intraservice time, patient age 5 years or older CPT copyright 2017 [employer]. All rights reserved. The codes documented in this report are preliminary and upon epoxy specialist review may be revised to meet current compliance requirements. Robbin Goel DO 06/20/2021 8:04:29 AM This report has been signed electronically. Number of Addenda: 1 Note Initiated On: 06/20/2021 7:08 AM Addendum Number: 1 Addendum Date: 12/13/2021 6:47:51 AM MAC was used as sedation for this procedure. Robbin Goel DO 12/13/2021 6:47:58 AM This report has been signed electronically.
--- NOTE | 2021-06-20 08:06 | OP.CCLET_ITS ---
12/13/2021 Rene Aguilera [address] [facility] [place] [address] Re : Upper GI endoscopy procedure for Lnidy [facility] Dear Dr. Aguilera This procedure was performed on Sunday, June 20, 2021. My impressions and recommendations are as follows: Impressions : - LA Grade A reflux esophagitis. Biopsied. - Portal hypertensive gastropathy. Biopsied. - Erythematous duodenopathy. Biopsied. 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 - Resume previous diet. - Continue present medications. - Await pathology results. - Continue present medications. -Referral to ENT for removal of papilloma and oropharynx My findings are described in the full procedure note, which is enclosed. If I can be of further assistance, please feel free to contact me at . Sincerely, Robbin Goel, 06/20/2021 8:04:29 AM This report has been signed electronically.
--- NOTE | 2021-06-20 08:12 | OP.CCLET_ITS ---
12/13/2021 Rene Aguilera [address] [place] [address] Re : Colonoscopy procedure for Lindy [facility] Dear Dr. Aguilera This procedure was performed on Sunday, June 20, 2021. My impressions and recommendations are as follows: Impressions : - Two 1 to 2 mm polyps in the sigmoid colon and in the descending colon, removed with a hot snare. Resected and retrieved. - Diverticulosis in the sigmoid colon and in the descending colon. - Granularity in the cecum. Biopsied. Recommendations : - Discharge patient to home. - Resume previous diet. - Continue present medications. - Await pathology results. - Repeat colonoscopy in 5 years for surveillance. - Return to GI office. My findings are described in the full procedure note, which is enclosed. If I can be of further assistance, please feel free to contact me at . Sincerely, Robbin Goel, 06/20/2021 8:11:42 AM This report has been signed electronically.
--- NOTE | 2021-06-20 08:12 | OP.COLON_ITS ---
Patient Name: Lindy Leavitt Procedure Date: 06/20/2021 7:29 AM Date of : 1965 Age: 56 Procedure: Colonoscopy Indications: Follow-up for history of adenomatous polyps in the colon Providers: Robbin Goel DO Referring MD: Robbin Goel DO Medicines: See the Anesthesia note for documentation of the administered medications Patient Profile: This is a 56 year old female. Refer to note in patient chart for documentation of history and physical. Patient has symptoms of chronic epigastric abdominal pain. Last Colonoscopy: 5 years ago. Complications: No immediate complications. Procedure: Pre-Anesthesia Assessment: - Prior to the procedure, a History and Physical was performed, and patient medications and allergies were reviewed. The patient is competent. The risks and benefits of the procedure and the sedation options and risks were discussed with the patient. All questions were answered and informed consent was obtained. Patient identification and proposed procedure were verified by the physician in the pre-procedure area. Mental Status Examination: alert and oriented. Airway Examination: normal oropharyngeal airway and neck mobility. Respiratory Examination: clear to auscultation. CV Examination: normal. Prophylactic Antibiotics: The patient does not require prophylactic antibiotics. Prior Anticoagulants: The patient has taken no previous anticoagulant or antiplatelet agents. After reviewing the risks and benefits, the patient was deemed in satisfactory condition to undergo the procedure. The anesthesia plan was to use moderate sedation / analgesia (conscious sedation). Immediately prior to administration of medications, the patient was re-assessed for adequacy to receive sedatives. The heart rate, respiratory rate, oxygen saturations, blood pressure, adequacy of pulmonary ventilation, and response to care were monitored throughout the procedure. The physical status of the patient was re-assessed after the procedure. After I obtained informed consent, the scope was passed under direct vision. Throughout the procedure, the patient's blood pressure, pulse, and oxygen saturations were monitored continuously. The Colonoscope was introduced through the anus and advanced to the cecum, identified by appendiceal orifice and ileocecal valve. The colonoscopy was performed without difficulty. The patient tolerated the procedure well. The quality of the bowel preparation was adequate. Moderate Sedation: Moderate (conscious) sedation was administered by the endoscopy nurse and supervised by the endoscopist. The following parameters were monitored: oxygen saturation, heart rate, blood pressure, and response to care. Total physician intraservice time was 15 minutes. Scope In: 7:31:01 AM Scope Withdrawal Time 0 hours 18 minutes 18 seconds Scope Out: 7:57:20 AM Total Procedure Duration Time 0 hours 26 minutes 19 seconds Findings: The perianal and digital rectal examinations were normal. Two sessile polyps were found in the sigmoid colon and descending colon. The polyps were 1 to 2 mm in size. These polyps were removed with a hot snare. Resection and retrieval were complete. Verification of patient identification for the specimen was done. Estimated blood loss was minimal. A few small-mouthed diverticula were found in the sigmoid colon and descending colon. A segmental area of granular mucosa was found in the cecum. Biopsies were taken with a cold forceps for histology. Verification of patient identification for the specimen was done. Estimated blood loss was minimal. Impression: - Two 1 to 2 mm polyps in the sigmoid colon and in the descending colon, removed with a hot snare. Resected and retrieved. - Diverticulosis in the sigmoid colon and in the descending colon. - Granularity in the cecum. Biopsied. Recommendation: - Discharge patient to home. - Resume previous diet. - Continue present medications. - Await pathology results. - Repeat colonoscopy in 5 years for surveillance. - Return to GI office. Procedure Code(s): --- Professional --- 94073, Colonoscopy, flexible; with removal of tumor(s), polyp(s), or other lesion(s) by snare technique 02574, 59, Colonoscopy, flexible; with biopsy, single or multiple 47371, 59, Moderate sedation services provided by the same physician or other qualified health wound care nurse performing the diagnostic or therapeutic service that the sedation supports, requiring the presence of an independent trained observer to assist in the monitoring of the patient's level of consciousness and physiological status; initial 15 minutes of intraservice time, patient age 5 years or older CPT copyright 2017 [employer]. All rights reserved. The codes documented in this report are preliminary and upon health psychologist review may be revised to meet current compliance requirements. Robbin Goel DO 06/20/2021 8:11:42 AM This report has been signed electronically. Number of Addenda: 1 Note Initiated On: 06/20/2021 7:29 AM Addendum Number: 1 Addendum Date: 12/13/2021 6:48:05 AM MAC was used as sedation for this procedure. Robbin Goel DO 12/13/2021 6:48:10 AM This report has been signed electronically.
== END 2021-06-20 23:59 | disposition home or self-care (01) ==
LOC: EN 05:58 → AC 05:59
PROVIDERS: PCP Family Medicine; Referring Provider Family Medicine; Visit Provider Internal Medicine Gastroenterology
PROC: 0DJD8ZZ Inspection of Lower Intestinal Tract, Via Natural or Artificial Opening Endoscopic (ICD-10-PCS; CPT 45378; principal; 2021-06-20 06:55)
DX: D12.4 Benign neoplasm of descending colon (principal); E11.9 Type 2 diabetes mellitus without complications; D12.5 Benign neoplasm of sigmoid colon; F17.210 Nicotine dependence, cigarettes, uncomplicated; Z79.84 Long term (current) use of oral hypoglycemic drugs; B96.81 Helicobacter pylori [H. pylori] as the cause of diseases classified elsewhere; F41.9 Anxiety disorder, unspecified; K76.0 Fatty (change of) liver, not elsewhere classified; K21.00 Gastro-esophageal reflux disease with esophagitis, without bleeding; K57.30 Diverticulosis of large intestine without perforation or abscess without bleeding; M19.90 Unspecified osteoarthritis, unspecified site; G47.30 Sleep apnea, unspecified; F32.A Depression, unspecified; K75.9 Inflammatory liver disease, unspecified; K29.50 Unspecified chronic gastritis without bleeding; K31.A12 Gastric intestinal metaplasia without dysplasia, involving the body (corpus); E78.00 Pure hypercholesterolemia, unspecified; Z86.010 Personal history of colon polyps; Z79.899 Other long term (current) drug therapy
CPT/HCPCS: 45380; 45385; 43239; 82962; 87426; 88305; 88313; 88341; 88342; C9803; J7120; J2405

== ENCOUNTER 2021-08-07 07:31 | Day surgery (SDC) | payer BC, SELFPAY ==
[2021-08-07] VITALS (7 sets, daily range): BP systolic 119–139; BP diastolic 56–80; PULSE 72–100; RESP 16–18; TEMP 36.2–37.1; O2SAT 93–98; BMI 45.9
--- NOTE | 2021-08-07 | MASS_PTH ---
PATIENT: KEHINDE ZABALA LOC: [facility] U#:[id number] AGE/SX: 56/F ROOM: RE08/07/[address]: Dr. Gio Miguel MD : 1965 BED: DIS: 08/07/2021 SPEC #: [id number] RECD: 08/07/21 12:50 STATUS: AMA CRUZ #: [id number] SHABNAM: 08/07/21 00:[address]: Gio Miguel DEPT: SURGICAL PATHOLOGY RECD BY: Angelo Mejia ENTERED: 08/07/21 12:50 SP TYPE: Mass OTHR DR: Dr. Rene Aguilera, DO Tissues: Pharynx, NOS Procedures: Surgery Specimen Level IV HEADER OPERATION: Direct laryngoscopy with biopsy PRE-OP DIAGNOSIS: Mass of pharynx TISSUE SUBMITTED: Left lateral pharyngeal wall mass MICROSCOPIC DIAGNOSIS Left lateral pharyngeal wall mass, biopsy: Squamous papilloma. See comment. SJ:sherine 08/08/2021 COMMENT Small amount of benign lymphoid tissue is also noted underneath the epithelium, may represent portion of tonsillar tissue. MICROSCOPIC DESCRIPTION Slides are reviewed. GROSS DESCRIPTION Received in fixative is one container labeled with the patient's name and designated left lateral pharyngeal wall mass. The specimen consists of one irregular fragment of light moreno soft tissue that measures 0.3 x 0.2 x 0.1 cm. The specimen is totally submitted in one cassette. / MARLA:sherine 08/07/2021 TC:1 CPT: 71705
[2021-08-07] MEDS: Lactated Ringers 1,000 ML 15 ML IV ×2 (07:40→10:21)
[2021-08-07 08:31] LABS: Bedside Glucose 189 mg/dL (74-106)
--- NOTE | 2021-08-07 09:12 | PCM.DC ---
Discharge Instructions Diet Discharge Diet: No restrictions Activity Discharge Activity: Return to Normal Activity Dressing / Incision Call your doctor if your incision/area has: Sudden Increased Bleeding and Increased Pain/ Swelling Follow Up Care Please Follow Up With: Low Miguel MD When: 1 week Test Results: Test results from this visit will be discussed in further detail at your follow-up appointment, if applicable. Discharge Plan Admission Attending Provider: Low Miguel Primary Care Provider: Rene Aguilera Discharge Orders/Prescriptions Prescriptions: No Action pantoprazole [Protonix] 40 mg tablet,delayed release (DR/EC) 40 mg PO BID Qty: 60 RF: 3 Pepto-Bismol 262 mg tablet 1 tab PO Q8H PRN (Reason: diarrhea) Qty: 45 RF: 0 alprazolam [Xanax] 1 MG tablet 1 mg PO QHS PRN PRN (Reason: Sleep) RF: 0 metformin 1,000 MG tablet 500 mg PO BIDCM RF: 0 simvastatin 20 mg Tablet 20 mg PO DAILY RF: 0 verapamil 240 mg Tablet Extended Release 240 mg PO DAILY RF: 0 escitalopram oxalate 10 mg Tablet 10 mg PO DAILY RF: 0 melatonin 10 mg Tablet 10 mg PO QHS RF: 0 Trulicity 1.5 mg/0.5 mL Pen Injector 1.5 mg SUBCUT QWEEK RF: 0 ursodiol 300 mg capsule 300 mg PO BID Qty: 60 RF: 5 vitamin E 400 unit capsule 800 unit PO DAILY Qty: 60 RF: 5 Disposition Discharge Orders: Discharge Patient (Routine); Ordered 08/07/21 Ordered By: Dr. Low Miguel
--- NOTE | 2021-08-07 09:13 | PCM.OPRPT ---
Problems Associated Problem List Diagnoses (1) Mass of pharynx: Report of Operation Date of Procedure: 08/07/21 Pre-Operative Diagnosis: left lateral pharyngeal wall mass Post-Operative Diagnosis: left lateral pharyngeal wall mass Surgery/Procedure Performed:: diagnostic laryngoscopy with biopsy Surgeon: mima Type of Anesthesia: General Description of Procedure: on the day of the procedure, after appropriate informed consent was obtained, the patient was brought to the operating room and placed in supine position on the operating table. she was placed under general endotracheal anesthesia by the anesthesiologist. the endotracheal tube was secured, the eyes were taped. the table was rotated 90 degrees toward the surgeon. a natalya kymberly mouthgag was inserted into the oral cavity with care not to damage the lips, teeth or gums. it was suspended from the medellin stand. a red rubber catheter was introduced transnasally to elevate the soft palate. a 5mm left lateral pharyngeal wall pedunculated lesion was visualized. this was removed using the bovie. hemostasis was achieved. she was awoken from anesthesia and transferred to the PACU in stable condition.
[2021-08-07] MEDS: Oxymetazoline 0.05% 1 SPRAY SPRAY.BTL 15 SPRAY (09:45)
== END 2021-08-07 12:38 | disposition home or self-care (01) ==
LOC: SDC 07:33 → AC 07:33
PROVIDERS: PCP Family Medicine; Referring Provider Otolaryngology; Visit Provider Otolaryngology
PROC: 0CJS8ZZ Inspection of Larynx, Via Natural or Artificial Opening Endoscopic (ICD-10-PCS; CPT 31575; principal; 2021-08-07 09:00)
DX: D10.9 Benign neoplasm of pharynx, unspecified (principal); E11.9 Type 2 diabetes mellitus without complications; K21.9 Gastro-esophageal reflux disease without esophagitis; M19.90 Unspecified osteoarthritis, unspecified site; G47.30 Sleep apnea, unspecified; F32.A Depression, unspecified; F17.210 Nicotine dependence, cigarettes, uncomplicated; Z79.84 Long term (current) use of oral hypoglycemic drugs; Z79.899 Other long term (current) drug therapy; E78.00 Pure hypercholesterolemia, unspecified
CPT/HCPCS: 31535; 00320; 82962; 88305; J7120; J2405

== ENCOUNTER → 2021-12-11 | Outpatient (CLI) | payer BC, SELFPAY ==
--- NOTE | 2021-12-11 15:36 | BD_ITS ---
STUDY: DUAL ENERGY X-RAY ABSORPTIOMETRY / DXA REASON FOR EXAM: Female, 56 years old. M85.89. TECHNIQUE: Bone Mineral Density (BMD) measurements of lumbar spine and bilateral hips were obtained. COMPARISON: None. FINDINGS: Lumbar Spine (L1-L4): g/cm2 (0.880) / T-score (-2.0) / Z-score (-0.9) Findings are suggestive of osteopenia with a moderate fracture risk. Left Femur Total: g/cm2 (0.952) / T-score (0.1) / Z-score (0.7) Left Femoral Neck: g/cm2 (0.675) / T-score (-1.6) / Z-score (-0.5) Right Femur Total: g/cm2 (0.910) / T-score (-0.3) / Z-score (0.4) Right Femoral Neck: g/cm2 (0.690) / T-score (-1.4) / Z-score (-0.4) BD/Dexa Bone Density Study IMPRESSION: The patient is considered osteopenic as outlined below according to World Mauro Organization (WHO) criteria with a moderate fracture risk. Reference Information: The T-score is the number of standard deviations above or below the standard which is normal for young adults at their peak bone mineral density. The World Health Organization (WHO) interprets the T-scores as follows: Above -1 Normal bone density Between -1 and -2.5 Osteopenia Equal to / or below -2.5 Osteoporosis As a practical clinical guideline, osteopenia may be graded as follows: Mild -1 through -1.5 Moderate -1.6 through -2.0 Severe -2.1 through -2.4 The Z-score is the number of standard deviations above or below age-matched controls. A Z-score of less than -1.5 would be considered abnormal. References: 1. NIH Osteoporosis and Related Bone Diseases www osteo.org 2. International Society for Clinical Densitometry www iscd.org 3. National Osteoporosis Foundation www nof.org Electronically Signed: Pedro Parks MD at 13:41 EDT ,
== END | disposition home or self-care (01) ==
PROVIDERS: PCP Family Medicine; Visit Provider Family Medicine
DX: M85.89 Other specified disorders of bone density and structure, multiple sites (principal)
CPT/HCPCS: 77080

== ENCOUNTER 2022-01-23 09:26 | Outpatient (CLI) | payer BC, SELFPAY ==
--- NOTE | 2022-01-23 09:33 | US_ITS ---
STUDY: ABDOMINAL ULTRASOUND - RIGHT UPPER QUADRANT REASON FOR VISIT: Female, 56 years old FATTY LIVER, FOR elastography TECHNIQUE: Ultrasound evaluation of the right upper quadrant was performed with real-time and static beard-scale imaging. TECHNICAL QUALITY: Adequate. COMPARISON: Comparison is made with prior study dated 05/04/2021. FINDINGS: Liver: The liver is mildly enlarged and measures 17.6 cm. There is increased echogenicity consistent with fatty infiltration. The bile ducts are within normal limits. There is hepatic color flow. The direction of portal flow is hepatopetal. There is no demonstrated mass lesion. Gallbladder: The patient is status post cholecystectomy. Common Bile Duct (C.B.D.): The common bile duct measures 6.1 mm. Pancreas: Normal size of the head, body and tail of the pancreas. There is increased echogenicity of the pancreas. There is no demonstrated pancreatic mass or cyst. Right Kidney: Normal size of the right kidney. The right kidney measures 12.5 cm x 5.5 cm x 5.2 cm. Normal renal cortex. The right cortex measures 1.2 cm. There is no demonstrated renal mass or cyst. There is no right hydronephrosis. US/Abdomen Limited IMPRESSION: Fatty infiltration of the liver. Mild hepatomegaly. Electronically Signed: Pedro Parks MD at 12:38 EST ,
--- NOTE | 2022-01-23 09:33 | US_ITS ---
STUDY: ABDOMINAL ULTRASOUND - ELASTOGRAPHY REASON FOR VISIT: Female, 56 years old. Fatty infiltration of the liver. TECHNIQUE: Liver stiffness measurements were obtained on a [employer] RS 85 ultrasound machine using a CA 1-7 probe following the SRU guidelines. 3 measurements were obtained using a 2-D-SWE method. The IQR/M was 17% suggesting a quality data set. TECHNICAL QUALITY: Adequate. COMPARISON: Comparison is made with prior study done earlier today. FINDINGS: Liver: Fatty infiltration of the liver. Median liver stiffness measured 7 kPa. US/Elastography Parenchyma/Organ IMPRESSION: Liver stiffness measures 7 kPa compatible with F2-F3 (Mild to moderate liver fibrosis) Metavir score. Electronically Signed: Pedro Parks MD at 12:39 EST ,
== END 2022-01-23 23:59 | disposition home or self-care (01) ==
LOC: US 09:32
PROVIDERS: PCP Family Medicine; Referring Provider Nurse Practitioner Adult Health; Visit Provider Nurse Practitioner Adult Health
DX: K76.0 Fatty (change of) liver, not elsewhere classified (principal)
CPT/HCPCS: 76705; 76981

== ENCOUNTER → 2022-03-14 | Outpatient (CLI) | payer BC, SELFPAY ==
--- NOTE | 2022-03-14 07:18 | BI_ITS ---
MAMMOGRAPHY - BILATERAL SCREENING REASON FOR EXAM: Female, 57 years old. Routine annual screening examination. PERTINENT HISTORY: Grandmother with breast cancer. TECHNIQUE: Digital bilateral breast kameron (3D mammographic acquisition) in the CC and MLO projections. 2-D mediolateral oblique (MLO) and craniocaudad (CC) views of both breasts were obtained. CAD: Full Field Digital Mammography with Computer Added Detection was performed. COMPARISON: 05/13/2017 FINDINGS: Breast Composition: There are scattered areas of fibroglandular density. There are no dominant masses or suspicious calcifications. Benign-appearing bilateral axillary lymph nodes. Benign-appearing bilateral breast calcifications. No other significant abnormalities are identified. There has been no significant change since the prior study. BI/SCRN MAMM (CAD)W/KAMERON BILAT IMPRESSION: Stable bilateral screening mammogram. Yearly follow-up mammogram recommended. (A) ASSESSMENT CATEGORY: BIRADS Category 2: Benign. A letter regarding these results will be sent to the patient by the facility within 30 days. Approximately 10% of breast cancers are not detected by mammography. A normal mammogram should not delay biopsy of a clinically suspicious abnormality. Electronically Signed: Edvin Miller, at 16:10 EST ,
== END | disposition home or self-care (01) ==
LOC: OPBI 07:15
PROVIDERS: PCP Family Medicine; Referring Provider Family Medicine; Visit Provider Family Medicine
DX: Z12.31 Encounter for screening mammogram for malignant neoplasm of breast (principal); Z80.3 Family history of malignant neoplasm of breast
CPT/HCPCS: 77063; 77067

== ENCOUNTER → 2022-04-29 | Outpatient (CLI) | payer BC, SELFPAY ==
[2022-04-29 11:51] LABS: Erythrocyte Sedimentation Rate 10 mm/hr (0-30)
[2022-04-29 11:54] LABS: Absolute Lymphocyte Count 2.25 X10^3/uL (0.83-4.51); Basophil# 0.05 X10^3/uL; Basophil% 0.8 % (0-1); Eosinophil# 0.17 X10^3/uL; Eosinophils% 2.9 % (0-5); Hemoglobin 14.4 g/dL (12.0-15.0); Lymphocyte # 2.25 X10^3/ul (0.83-4.51); Lymphocyte % 38.1 % (19-41); Mean Corp Hgb Conc 32.7 g/dL (32-36); Mean Corpuscular Hgb 27.9 pg (27.0-32.0); Mean Corpuscular Volume 85.3 fL (81-99); Mean Platelet Vol. 9.9 fl (6.2-12.0); Monocyte# 0.41 X10^3/uL; Monocyte% 6.9 % (0-10); NRBC Flagged by Analyzer 0 % (0-5); Platelet Count 269 K/mm3 (150-450); RBC Distribution Width CV 12.8 % (11.6-14.6); RBC Distribution Width SD 39.7 fl (35.1-43.9); Red Blood Count 5.16 M/mm3 (4.2-5.4); White Blood Count 5.9 K/mm3 (4.4-11.0)
[2022-04-29 12:34] LABS: AST(SGOT) 17 U/L (15-37); Alanine Aminotransfer ALT/SGPT 39 U/L (13-56); Albumin, Serum 3.4 g/dL (3.2-5.0); Alkaline Phosphatase 66 U/L (45-117); Anion Gap 6 (5-15); BUN 13 mg/dL (7-18); BUN/Creat Ratio 17.7 RATIO (10-20); CRP < 2.90 mg/L (0.0-3.0); Calcium,Total 9.1 mg/dL (8.5-10.1); Chloride 110 mmol/L (98-107); Creatinine, Serum 0.73 mg/dL (0.55-1.02); EST Glomerular Filtration Rate 88 mL/min (>60); Est Glom Filt Rate - Afr Amer 106 mL/min (>60); Globulin 3.4 g/dL (2.2-4.2); Glucose 138 mg/dL (74-106); LDH 171 U/L (84-246); Potassium 4.2 mmol/L (3.5-5.1); Protein, Total 6.8 g/dL (6.4-8.2); Sodium Level 140 mmol/L (136-145)
[2022-04-30 17:08] LABS: IgG, Quant 671 mg/dL (586-1602); Immunoglobulin G, Subclass 1 409 mg/dL (248-810); Immunoglobulin G, Subclass 2 168 mg/dL (130-555); Immunoglobulin G, Subclass 3 29 mg/dL (15-102); Immunoglobulin G, Subclass 4 11 mg/dL (2-96)
[2022-04-30 18:27] LABS: Anti-Mitochondrial AB <20.0 Units (0.0-20.0)
[2022-04-30 18:47] LABS: Anti-Smooth Muscle ABS 24 Units (0-19)
== END | disposition home or self-care (01) ==
LOC: LAB 11:03
PROVIDERS: PCP Family Medicine; Referring Provider Nurse Practitioner Adult Health; Visit Provider Nurse Practitioner Adult Health
DX: R10.11 Right upper quadrant pain (principal); K76.0 Fatty (change of) liver, not elsewhere classified
CPT/HCPCS: 36415; 80053; 82140; 82784; 82787; 83516; 83615; 85025; 85610; 85652; 86140

== ENCOUNTER → 2022-04-30 | Outpatient (CLI) | payer BC, SELFPAY ==
[2022-05-03 19:21] LABS: Pancreatic Elastase, Fecal 273 (>200)
== END | disposition home or self-care (01) ==
LOC: MTLAB 16:26
PROVIDERS: PCP Family Medicine; Referring Provider Nurse Practitioner Adult Health; Visit Provider Nurse Practitioner Adult Health
DX: R10.11 Right upper quadrant pain (principal)
CPT/HCPCS: 82653

== ENCOUNTER → 2022-05-31 | Outpatient (CLI) | payer BC, SELFPAY ==
--- NOTE | 2022-05-31 09:39 | NM_ITS ---
CLINICAL: 57-year-old female with history of right upper quadrant pain status post cholecystectomy. RADIONUCLIDE HEPATOBILIARY SCINTIGRAPHY COMPARISON: Abdominal ultrasound report dated 01/23/2022 FINDINGS: Following the intravenous administration of 5.5 mCi of 99m Tc Mebrofenin, hepatobiliary images reveal: 1. Relatively prompt and homogeneous radiopharmaceutical concentration is noted by a normal sized liver. No parenchymal defects are identified. 2. Gallbladder activity is not identified during 60 minutes of sequential imaging commensurate with known history of prior cholecystectomy. 3. Small intestinal tract is observed at 14 minutes post radiopharmaceutical administration. 4. Washout of the radiopharmaceutical by the hepatic parenchyma appears qualitatively normal. NM/Hepatobilliary Imaging IMPRESSION: 1. Nonvisualization of the gallbladder is consistent with prior cholecystectomy. 2. Further evaluation of this individual may be undertaken utilizing pre-examination CCK quantitative hepatobiliary scintigraphy to exclude the presence of post cholecystectomy syndrome-Sphincter of Oddi dysfunction. (Gabby et al, J Nucl Med 33: 1216, 1992). Electronically Signed: Akshat Chou, at 9:15 EDT ,
== END | disposition home or self-care (01) ==
PROVIDERS: PCP Family Medicine; Referring Provider Nurse Practitioner Adult Health; Visit Provider Nurse Practitioner Adult Health
DX: R10.11 Right upper quadrant pain (principal)
CPT/HCPCS: 78226; A9537

== ENCOUNTER → 2022-05-31 | Outpatient (CLI) | payer BC, SELFPAY ==
[2022-05-31 12:13] LABS: Color, Urine Yellow (Yellow); Glucose, Dipstick Normal (Normal); Ketone-Dipstick Negative (Negative); Leukocyte Esterase-Dipstick 25 /ul (Negative); Nitrite-Dipstick Negative (Negative); Occult Blood-Urine Negative /ul (Negative); Protein-Dipstick 15 mg/dl (Negative); Specific Gravity, Urine 1.025 (1.002-1.030); Urine Bilirubin Dipstick Negative (Negative); Urine Clarity Sl. Cloudy (Clear); Urine Urobilinogen Normal (Normal)
== END | disposition home or self-care (01) ==
LOC: LABSPEC 09:07
PROVIDERS: PCP Family Medicine; Referring Provider Family Medicine; Visit Provider Family Medicine
DX: R10.9 Unspecified abdominal pain (principal)
CPT/HCPCS: 81002

== ENCOUNTER → 2022-06-18 | Outpatient (CLI) | payer BC, SELFPAY ==
--- NOTE | 2022-06-18 06:27 | MRI_ITS ---
INDICATION: RUQ pain, +ASMA -- nl US, nl HIDA EXAMINATION: MRI - MR MRCP W/O Contrast TECHNIQUE: Multiplanar and multisequence MR images of the abdomen were obtained with MRCP sequence. Three-dimensional post-processing reconstructions were performed. IV Contrast Dosage and Agent: None. COMPARISON: 01/23/2022 ultrasound and 10/09/2020 CT. FINDINGS: LIVER: Unremarkable. GALLBLADDER: Status post cholecystectomy. BILIARY DUCTS: The CBD measures 5 mm. No evidence of a common duct stone. No intrahepatic or extrahepatic biliary duct dilation. PANCREAS: No evidence of a mass. No pancreatic duct dilation. No evidence of pancreatitis. SPLEEN: Unremarkable. ADRENAL GLANDS: Unremarkable. KIDNEYS: Unremarkable. LYMPH NODES: No pathologically enlarged mesenteric or retroperitoneal lymph nodes. MRI/MRCP Abdomen without Contrast IMPRESSION: 1. Normal diameter of the common bile duct and no evidence of common duct stone. No intrahepatic duct dilation. 2. Status post cholecystectomy. 3. No evidence of an acute intra-abdominal abnormality. Electronically Signed: Jose Doe DO at 4:09 EDT ,
== END | disposition home or self-care (01) ==
PROVIDERS: PCP Family Medicine; Referring Provider Nurse Practitioner Adult Health; Visit Provider Nurse Practitioner Adult Health
DX: R10.11 Right upper quadrant pain (principal); R76.0 Raised antibody titer
CPT/HCPCS: 74181

== ENCOUNTER 2022-08-05 10:58 | Emergency (ER) | payer BC, SELFPAY ==
[2022-08-05 10:59] VITALS: BP 149/79; PULSE 71; RESP 18; TEMP 36.2; O2SAT 96
--- NOTE | 2022-08-05 11:10 | RAD_ITS ---
STUDY: X-RAY - RIGHT ANKLE REASON FOR EXAM: Female, 57 years old. Pain and swelling after trauma TECHNIQUE: 3 view(s) of the ankle. COMPARISON: None. FINDINGS: Acute, minimally displaced osteochondral spiral fracture in the distal fibula with associated soft tissue swelling. Normal visualized distal tibia. Normal medial and lateral malleoli. Normal tibiotalar articulation and ankle mortise. Normal visualized talus. Calcaneal spurs The visualized subtalar, talonavicular, calcaneocuboid and tarsal articulations are normal. RAD/Ankle min 3 Views IMPRESSION: Acute, minimally displaced, osteochondral spiral fracture in the distal fibula with soft tissue swelling Calcaneal spurs Electronically Signed: Robert Corbett MD at 11:33 EDT ,
[2022-08-05 12:28] VITALS: BMI 50.3
--- NOTE | 2022-08-05 12:48 | RAD_ITS ---
INDICATION: injury EXAMINATION/TECHNIQUE: X-RAY - RIGHT XR Tibia/Fibula 2 Views 2 VIEWS COMPARISON: None. FINDINGS: Acute nondisplaced oblique fracture through the distal fibular metadiaphysis. Associated overlying soft tissue swelling. The remainder of the bones are intact. RAD/Tibia & Fibula 2 Views IMPRESSION: Acute undisplaced oblique fracture through the distal fibular metadiaphysis. Electronically Signed: Edvin Miller MD at 13:55 EDT ,
[2022-08-05] MEDS: oxyCODONE 5 MG Tablet PO (12:56)
--- NOTE | 2022-08-05 13:10 | RAD_ITS ---
INDICATION: injury EXAMINATION/TECHNIQUE: X-RAY - LEFT XR Ankle Min 3 Views 3 VIEWS COMPARISON: None. FINDINGS: No acute fracture or dislocation. Joint spaces and ankle mortise are intact. Soft tissues are unremarkable. [id number] degenerative changes in the ankle joint. Mild plantar calcaneal spurring. RAD/Ankle min 3 Views IMPRESSION: No acute findings in the left ankle. Electronically Signed: Edvin Miller MD at 13:56 EDT ,
--- NOTE | 2022-08-05 14:27 | EX.ED.DYSGE1 ---
HPI History of Present Illness Chief Complaint: Lower Extremity Injury Informant: patient Onset/Context/Timing Onset: Yesterday Narrative Narrative: Patient presents with bilateral ankle injury. She states she missed the bottom step coming down off her deck yesterday, rolling her ankles and falling. She has bilateral ankle pain, right greater than left. She also has pain to her right knee. She has been using her 's walker to help her get around. PFSH PFSH Medical History Arthritis CPAP (continuous positive airway pressure) dependence Depression Diabetes GERD (gastroesophageal reflux disease) Hepatitis High cholesterol History of hiatal hernia History of IBS History of stress test IBS (irritable bowel syndrome) Migraines BRICE (nonalcoholic steatohepatitis) Personal history of colonic polyps Restless legs RUQ abdominal pain Sleep apnea Smoker Home Medications alprazolam 1 mg tablet (Xanax) 1 mg PO QHS PRN PRN Sleep 05/16/16 [History Last Taken 04/28/17] metformin 1,000 mg tablet 500 mg PO BIDCM 05/16/16 [History Last Taken 04/28/17] escitalopram oxalate 10 mg tablet 10 mg PO DAILY 10/09/20 [History Last Taken Unknown] melatonin 10 mg tablet 10 mg PO QHS 10/09/20 [History Last Taken Unknown] simvastatin 20 mg tablet 20 mg PO DAILY 10/09/20 [History Last Taken Unknown] verapamil 240 mg tablet,extended release 240 mg PO DAILY 10/09/20 [History Last Taken 06/20/21] dulaglutide 1.5 mg/0.5 mL subcutaneous pen injector (Trulicity) 1.5 mg subcut QWEEK 05/16/21 [History Last Taken Unknown] pantoprazole 40 mg tablet,delayed release (Protonix) 40 mg PO QAM #90 tabs 09/26/21 [Rx Last Taken Unknown] ursodiol 300 mg capsule See Rx Instructions .Route .COMPLEX #180 caps 09/26/21 [Rx Last Taken Unknown] vitamin E (dl, acetate) 180 mg (400 unit) capsule See Rx Instructions .Route .COMPLEX #180 caps 09/26/21 [Rx Last Taken Unknown] sucralfate 1 gram tablet 1 g PO QAC #90 tabs 07/29/22 [Rx Last Taken Unknown] oxycodone-acetaminophen 5 mg-325 mg tablet (Percocet) 1 tab PO Q8H PRN pain 4 days #16 tabs 08/05/22 [Rx Last Taken Unknown] Allergy/AdvReac Type Severity Reaction Status Date / Time hydrocodone [From [place]] AdvReac Nausea Verified 07/29/22 08:25 Surgical History History of carpal tunnel release of both wrists History of cholecystectomy History of hysterectomy History of laparoscopy Hx of colonoscopy Social History Smoking Status: Current every day smoker tobacco type: cigarettes ROS ROS ED Constitutional Constitutional ED: Denies chills or fever(s) Eyes Eyes: Denies discharge from eye(s) ENT ENT ED: Denies discharge from eye(s), rhinorrhea or sore throat Cardiovascular Cardiovascular: Denies chest pain or palpitations Respiratory/Chest Respiratory/Chest: Denies cough or dyspnea Gastrointestinal Gastrointestinal: Denies abdominal pain, nausea or vomiting Musculoskeletal Musculoskeletal: Reports extremity pain; Denies back pain Integumentary Reports Abrasions; Denies rash Neurologic Neurologic: Denies headache(s) or weakness Psychiatric Psychiatric: Denies anxiety or depression Allergic/Immunologic Allergic/Immunologic ED: Denies lip swelling or urticaria EXAM Physical Exam Const Vital Signs: 08/05/22 10:59 Temperature 97.1 F L Temperature Source Temporal Pulse Rate 71 Respiratory Rate 18 Blood Pressure 149/79 H Blood Pressure Mean 102 Pulse Ox 96 Oxygen Delivery Method Room Air Positive well nourished and well developed General Appearance ED: well developed HEENT Reports normocephalic and head/scalp atraumatic Eyes PERRL and EOMs intact bilaterally Neck supple Chest Wall inspection of chest normal and palpation of chest normal Resp normal respiratory effort and clear to auscultation bilaterally Cardio regular rate and regular rhythm GI normal to inspection, nondistended, normoactive bowel sounds Palpation: soft Extremity Extremity Narrative: Abrasions over the right anterior knee. Mild tenderness to palpation. Edema and tenderness noted to the right ankle, lateral greater than medial. Moderate edema noted to the left ankle with minimal tenderness. No tenderness at the left knee. Neuro oriented x3 Sensorium / Orientation: alert Psych mental status grossly normal Skin Skin Narrative: Abrasions over right knee as noted above. MDM MDM MDM Narrative Medical decision making narrative: Right ankle x-rays were obtained per nursing protocol. Per my interpretation this does reveal a oblique fracture through the distal fibula at the talar tubular joint. At the time of my exam right knee x-rays were added along with left ankle x-rays. Patient given oxycodone for pain. Left ankle x-rays per my interpretation reveal no evidence of acute fracture. Right knee x-rays per my interpretation reveal no acute bony injury. Radiology interpretation is reviewed and agrees. Test results discussed with the patient. She is placed in a posterior splint along with sugar-tong on the right lower extremity. She will use her 's walker and be nonweightbearing or her sister has a knee scooter that she will use. I will write a prescription for Percocet and sent to the pharmacy. Patient will follow-up Dr. Otto, on-call for podiatry. Radiography Diagnostic Testing: Clinical Impression(s) from Imaging Studies Ankle X-Ray 08/05/22 11:10 IMPRESSION: Acute, minimally displaced, osteochondral spiral fracture in the distal fibula with soft tissue swelling Calcaneal spurs Electronically Signed: Robert Corbett MD at 11:33 EDT , Tibia/Fibula X-Ray 08/05/22 12:48 IMPRESSION: Acute undisplaced oblique fracture through the distal fibular metadiaphysis. Electronically Signed: Edvin Miller MD at 13:55 EDT , Ankle X-Ray 08/05/22 13:10 IMPRESSION: No acute findings in the left ankle. Electronically Signed: Edvin Miller MD at 13:56 EDT , Discharge Plan Triage Chief Complaint: Lower Extremity Injury ED Provider: Yasmeen Wiseman Dx/Rx/DC Orders Clinical Impression: Ankle fracture, right Instructions: ED Ankle Fracture, Distal Fibula Prescriptions: New oxycodone-acetaminophen [Percocet] 5-325 mg tablet 1 tab PO Q8H PRN (Reason: pain) 4 Days Qty: 16 0RF No Action pantoprazole [Protonix] 40 mg tablet,delayed release (DR/EC) 40 mg PO QAM Qty: 90 3RF vitamin E (dl, acetate) 180 mg (400 unit) capsule See Rx Instructions .ROUTE .COMPLEX Qty: 180 3RF Dose Instruction: TAKE 2 CAPSULES BY MOUTH DAILY Rx Instructions: TAKE 2 CAPSULES BY MOUTH DAILY ursodiol 300 mg capsule See Rx Instructions .ROUTE .COMPLEX Qty: 180 3RF Dose Instruction: TAKE 1 CAPSULE BY MOUTH TWICE A DAY Rx Instructions: TAKE 1 CAPSULE BY MOUTH TWICE A DAY sucralfate 1 gram tablet 1 g PO QAC Qty: 90 2RF alprazolam [Xanax] 1 MG tablet 1 mg PO QHS PRN PRN (Reason: Sleep) metformin 1,000 MG tablet 500 mg PO BIDCM simvastatin 20 mg Tablet 20 mg PO DAILY verapamil 240 mg Tablet Extended Release 240 mg PO DAILY escitalopram oxalate 10 mg Tablet 10 mg PO DAILY melatonin 10 mg Tablet 10 mg PO QHS Trulicity 1.5 mg/0.5 mL Pen Injector 1.5 mg SUBCUT QWEEK Rx Instructions: FRIDAY Primary Care Provider: Rene Aguilera Referrals: Oleg Otto DPM [Med Staff - Active Staff] - 3-5 Days Rene Aguilera DO [Primary Care Provider] - Disposition Disposition: Home, Self Care
[2022-08-05 14:50] VITALS: RESP 18
== END 2022-08-05 14:57 | disposition home or self-care (01) ==
PROVIDERS: Emergency Provider Emergency Medicine; PCP Family Medicine; Visit Provider Emergency Medicine
DX: S82.431A Displaced oblique fracture of shaft of right fibula, initial encounter for closed fracture (principal); E11.9 Type 2 diabetes mellitus without complications; F17.210 Nicotine dependence, cigarettes, uncomplicated; E78.00 Pure hypercholesterolemia, unspecified; W10.9XXA Fall (on) (from) unspecified stairs and steps, initial encounter
CPT/HCPCS: 73590; 73610; 99283

== ENCOUNTER → 2022-11-25 | Outpatient (CLI) | payer BC, SELFPAY ==
[2022-11-25 18:56] LABS: T4 Free Direct 1.15 ng/dL (0.76-1.46)
[2022-11-27 12:09] LABS: ANTINUCLEAR ANTIBODIES DIRECT Negative (Negative)
[2022-11-29 00:07] LABS: Lyme IgG P18 Ab Absent (.); Lyme IgG P23 Ab Absent (.); Lyme IgG P28 Ab Absent (.); Lyme IgG P30 Ab Absent (.); Lyme IgG P39 Ab Absent (.); Lyme IgG P41 Ab Absent (.); Lyme IgG P45 Ab Absent (.); Lyme IgG P58 Ab Absent (.); Lyme IgG P66 Ab Absent (.); Lyme IgG P93 Ab Absent (.); Lyme IgG WB Interpretation Negative (.); Lyme IgM P23 Ab Absent (.); Lyme IgM P39 Ab Absent (.); Lyme IgM P41 Ab Absent (.); Lyme IgM WB Interpretation Negative (.)
== END | disposition home or self-care (01) ==
PROVIDERS: PCP Family Medicine; Referring Provider Family Medicine; Visit Provider Family Medicine
DX: H46.9 Unspecified optic neuritis (principal)
CPT/HCPCS: 36415; 84439; 84443; 86038; 86225; 86235; 86617

== ENCOUNTER → 2022-12-03 | Outpatient (CLI) | payer BC, SELFPAY ==
--- NOTE | 2022-12-03 15:02 | MRI_ITS ---
STUDY: MRI BRAIN WITH AND WITHOUT CONTRAST REASON FOR EXAM: Female, 57 years old. OPTIC NEURITIS R, pressure right eye, no pre contrast thin AX was obtained TECHNIQUE: Standardized multiplanar fat and water weighted pulse sequences were obtained. IV 25ML CLARISCAN was administered for the contrast portion of the examination. COMPARISON: None. FINDINGS: Normal size of the ventricles and extra-axial spaces for the patient''s age. Normal white matter tracts of the supratentorial brain. Normal bilateral basal ganglia. Normal thalami. There is no extra-axial fluid accumulation. Normal flow voids within the major intracranial circulation suggesting patency by spin echo criteria. Normal venous enhancement. There is no enhancing intra-axial or extra-axial abnormality. Empty sella deformity. Normal, infundibular stalk, optic chiasm and hypothalamus. Normal tectal plate and pineal gland. Normal midbrain, sonido and medulla. Normal cerebellum. Normal basal cisterns. Normal bilateral temporal bones. Normal bilateral internal auditory canals. Postsurgical changes status post bilateral cataract extraction. Normal visualized paranasal sinuses. Normal calvarium and skull base. Normal visualized soft tissue structures. Normal visualized upper cervical spine. MRI/Brain W/WO Contrast IMPRESSION: Empty sella deformity of uncertain clinical significance. Otherwise normal unenhanced and enhanced MRI of the brain.. Postop change status post bilateral cataract extraction. No evidence for optic neuritis Electronically Signed: Jose Marin MD at 22:57 EDT ,
[2022-12-03 15:25] LABS: CREATININE FINGERSTICK 1.2 mg/dL (0.55-1.02)
== END | disposition home or self-care (01) ==
LOC: MRI 14:53
PROVIDERS: PCP Family Medicine; Referring Provider Family Medicine; Visit Provider Family Medicine
DX: H46.9 Unspecified optic neuritis (principal)
CPT/HCPCS: 70553; A9575

== ENCOUNTER 2022-12-07 15:37 | Emergency (ER) | payer BC, SELFPAY ==
[2022-12-07] VITALS (8 sets, daily range): BP systolic 119–141; BP diastolic 62–80; PULSE 68–86; RESP 13–18; TEMP 36.1–36.4; O2SAT 94–98; BMI 50.3
--- NOTE | 2022-12-07 15:54 | RAD_ITS ---
EXAM: XR LEFT ELBOW COMPLETE, 3 OR MORE VIEWS CLINICAL INDICATION: trauma pain. TECHNIQUE: Frontal, lateral and oblique views of the left elbow. COMPARISON: No relevant prior studies available. FINDINGS: BONES/JOINTS: Complete elbow dislocation with malalignment of the radius in relation to the capitellum as well as the humerus in relation to the ulna. Fracture of the radial head. Possible fracture of the distal humerus at the capitellum. Joint effusion. No destructive or sclerotic lesions. SOFT TISSUES: Diffuse soft tissue swelling. No radiopaque foreign body. RAD/Elbow min 3 Views IMPRESSION: 1. Complete elbow dislocation with malalignment of the radius in relation to the capitellum as well as the humerus in relation to the ulna. 2. Fracture of the radial head. 3. Possible fracture of the distal humerus at the capitellum. RECOMMENDATION: CT for further evaluation. Electronically Signed: Ken Shepherd DO at 17:23 EDT ,
--- NOTE | 2022-12-07 15:55 | EDS_ITS ---
HPI History of Present Illness Chief Complaint: Fall Narrative Narrative: Patient presents after a mechanical fall, she tripped and hit her left elbow. She scraped her left knee. No head injury. No neck pain. No chest pain. She is denying any other injuries. PFSH PFS Medical History Anxiety and depression Arthritis Diabetes mellitus, type 2 GERD (gastroesophageal reflux disease) Hepatitis High cholesterol History of hiatal hernia HTN (hypertension) IBS (irritable bowel syndrome) Migraines BRICE (nonalcoholic steatohepatitis) KILO on CPAP Personal history of colonic polyps Restless legs Smoker Home Medications alprazolam 1 mg tablet (Xanax) 1 mg PO QHS PRN PRN Sleep 05/16/16 [History Last Taken 04/28/17] metformin 1,000 mg tablet 500 mg PO BIDCM 05/16/16 [History Last Taken 04/28/17] escitalopram oxalate 10 mg tablet 10 mg PO DAILY 10/09/20 [History Last Taken Unknown] melatonin 10 mg tablet 10 mg PO QHS 10/09/20 [History Last Taken Unknown] simvastatin 20 mg tablet 20 mg PO DAILY 10/09/20 [History Last Taken Unknown] verapamil 240 mg tablet,extended release 240 mg PO DAILY 10/09/20 [History Last Taken 06/20/21] dulaglutide 1.5 mg/0.5 mL subcutaneous pen injector (Trulicity) 1.5 mg subcut QWEEK 05/16/21 [History Last Taken Unknown] pantoprazole 40 mg tablet,delayed release (Protonix) 40 mg PO QAM #90 tabs 09/26/21 [Rx Last Taken Unknown] ursodiol 300 mg capsule See Rx Instructions .Route .COMPLEX #180 caps 09/26/21 [Rx Last Taken Unknown] sucralfate 1 gram tablet 1 g PO QAC #90 tabs 07/29/22 [Rx Last Taken Unknown] oxycodone-acetaminophen 5 mg-325 mg tablet (Percocet) 1 tab PO Q8H PRN pain 4 days #16 tabs 08/05/22 [Rx Last Taken Unknown] vitamin E (dl, acetate) 180 mg (400 unit) capsule See Rx Instructions .Route .COMPLEX #180 caps 11/28/22 [Rx Last Taken Unknown] Allergy/AdvReac Type Severity Reaction Status Date / Time hydrocodone [From [place]] AdvReac Nausea Verified 12/07/22 15:37 Family History (Updated 12/07/22 @ 16:[address] Trice Jiménez MD) Father Colon cancer Dx stage IV in his 70s. Surgical History History of carpal tunnel release of both wrists History of cholecystectomy History of hysterectomy History of laparoscopy Hx of colonoscopy Social History (Updated 12/07/22 @ 16:[address] Trice Jiménez MD) household members: spouse Smoking Status: Current every day smoker tobacco type: cigarettes alcohol intake: never substance use type: does not use ROS ROS ED ROS Narrative Past medical history: Reviewed, includes BRICE, hypertension, diabetes Medications: Reviewed. She is not anticoagulated Social history: Noncontributory Review of systems General: Patient has no head injury or loss of consciousness HEENT: No facial injury Neck: No neck pain Cardiovascular: Patient denies any chest pain or palpitations Chest wall: No chest wall contusions Respiratory: There is no shortness of breath GI: There is no nausea vomiting diarrhea or abdominal pain, no abdominal wall contusions Skin: left knee abrasion Musculoskeletal: Left elbow injury Neurological: Patient has no memory loss, confusion, or any focal weakness Back: No back pain, no problems with ambulation EXAM Physical Exam Narrative Exam Narrative: Physical exam Vitals reviewed General: Does not appear in significant distress, no obvious injuries HEENT: No facial injury Head: No head injury Eyes: Extraocular movements intact Neck: No C-spine tenderness with full range of motion Heart: Regular rate normal pulses Chest wall: No chest wall pain Lungs clear lungs bilaterally with normal inspiration and expiration without tachypnea GI: Abdomen is soft and nontender there is no mass no guarding no abdominal wall contusion : Stable pelvis Musculoskeletal: Pain over the left elbow, there is radial head pain, however there is also supracondylar pain. There is no obvious deformity but it is swollen. Skin: Left anterior knee abrasion Neurological: Patient is alert and oriented with no focal deficits Const Vital Signs: 12/07/22 15:38 12/07/22 16:58 12/07/22 16:25 Temperature 97.5 F L Temperature Source Temporal Pulse Rate 73 75 Pulse Rate [1 (Initial Baseline)] Pulse Rate [2] Respiratory Rate 18 13 Respiratory Rate [1 (Initial Baseline)] Respiratory Rate [2] Respiratory Effort Normal Non-Labored Blood Pressure 137/80 H 141/73 H Blood Pressure [1 (Initial Baseline)] Blood Pressure [2] Blood Pressure Mean 99 95 Pulse Ox 97 97 Oxygen Delivery Method Room Air Room Air Oxygen Delivery Method [1 (Initial Baseline)] Oxygen Delivery Method [2] Oxygen Flow Rate (L/min) Oxygen Flow Rate (L/min) [1 (Initial Baseline)] Oxygen Flow Rate (L/min) [2] 12/07/22 17:04 12/07/22 17:05 12/07/22 17:13 Temperature Temperature Source Pulse Rate 71 Pulse Rate [1 (Initial Baseline)] 86 Pulse Rate [2] 83 Respiratory Rate 13 Respiratory Rate [1 (Initial Baseline)] 14 Respiratory Rate [2] 15 Respiratory Effort Blood Pressure 133/69 H Blood Pressure [1 (Initial Baseline)] 133/69 H Blood Pressure [2] 133/78 H Blood Pressure Mean Pulse Ox 98 Oxygen Delivery Method Nasal Cannula Nasal Cannula Oxygen Delivery Method [1 (Initial Baseline)] Nasal Cannula Oxygen Delivery Method [2] Nasal Cannula Oxygen Flow Rate (L/min) 4 6 Oxygen Flow Rate (L/min) [1 (Initial Baseline)] 4 Oxygen Flow Rate (L/min) [2] 4 12/07/22 17:13 12/07/22 17:18 12/07/22 17:24 Temperature Temperature Source Pulse Rate 74 68 75 Pulse Rate [1 (Initial Baseline)] Pulse Rate [2] Respiratory Rate 18 18 16 Respiratory Rate [1 (Initial Baseline)] Respiratory Rate [2] Respiratory Effort Blood Pressure 138/78 H 135/76 H 124/70 H Blood Pressure [1 (Initial Baseline)] Blood Pressure [2] Blood Pressure Mean Pulse Ox 95 97 94 Oxygen Delivery Method Room Air Room Air Room Air Oxygen Delivery Method [1 (Initial Baseline)] Oxygen Delivery Method [2] Oxygen Flow Rate (L/min) Oxygen Flow Rate (L/min) [1 (Initial Baseline)] Oxygen Flow Rate (L/min) [2] MDM MDM MDM Narrative Medical decision making narrative: Procedure note: 1. Procedural sedation. Consent obtained and patient signed. She has not eaten today, she has good opening of her mouth, she has no respiratory distress. She appears well. A total of 100 mg of propofol were used, patient did not have any adverse effect and tolerated procedure well. 2. Reduction of fracture dislocation of elbow, written consent obtained. I hyperextended, followed by traction and then flexion. The dislocation is quite unstable and seems to want to slip out quite easily, however I was able to put a splint on prior to this. Repeat x-ray shows slight improvement however still persistent radial dislocation compared to the Telemetry. 3. Ortho-Glass posterior splint placed by me. Patient tolerated procedure well Interpretation of x-ray: Initial x-ray by me shows fracture and dislocation of the elbow with radial head fracture and complete posterior dislocation. Second x-ray interpreted by me shows shows slight improvement however persistent radius dislocation. MDM: I attempted to reduce the patient however she is quite unstable she does have significant improvement but still has some dislocation. I talked to orthopedics at this facility, because of the instability, they recommended transfer to a trauma facility. Patient will be transferred to [facility] after I discussed with the trauma surgeon there. She is given analgesia and improved. Radiography Diagnostic Testing: Clinical Impression(s) from Imaging Studies Elbow X-Ray 12/07/22 15:54 IMPRESSION: 1. Complete elbow dislocation with malalignment of the radius in relation to the capitellum as well as the humerus in relation to the ulna. 2. Fracture of the radial head. 3. Possible fracture of the distal humerus at the capitellum. RECOMMENDATION: CT for further evaluation. Electronically Signed: Ken Shepherd DO at 17:23 EDT , Elbow X-Ray 12/07/22 17:14 IMPRESSION: 1. Improved alignment of the humerus and ulna with widening of the trochlear joint space. Comminuted fracture of the radial head with displaced radial head fracture to the intercondylar region. 2. Apparent persistent subluxation/dislocation of the radius in relation to the capitellum. Electronically Signed: Ken Shepherd DO at 17:30 EDT , Discharge Plan Triage Chief Complaint: Fall ED Provider: Carlos Shah Dx/Rx/DC Orders Clinical Impression: Fall, Closed fracture dislocation of elbow Prescriptions: No Action pantoprazole [Protonix] 40 mg tablet,delayed release (DR/EC) 40 mg PO QAM Qty: 90 3RF ursodiol 300 mg capsule See Rx Instructions .ROUTE .COMPLEX Qty: 180 3RF Dose Instruction: TAKE 1 CAPSULE BY MOUTH TWICE A DAY Rx Instructions: TAKE 1 CAPSULE BY MOUTH TWICE A DAY sucralfate 1 gram tablet 1 g PO QAC Qty: 90 2RF alprazolam [Xanax] 1 MG tablet 1 mg PO QHS PRN PRN (Reason: Sleep) metformin 1,000 MG tablet 500 mg PO BIDCM simvastatin 20 mg Tablet 20 mg PO DAILY verapamil 240 mg Tablet Extended Release 240 mg PO DAILY escitalopram oxalate 10 mg Tablet 10 mg PO DAILY melatonin 10 mg Tablet 10 mg PO QHS Trulicity 1.5 mg/0.5 mL Pen Injector 1.5 mg SUBCUT QWEEK Rx Instructions: FRIDAY oxycodone-acetaminophen [Percocet] 5-325 mg tablet 1 tab PO Q8H PRN (Reason: pain) 4 Days Qty: 16 0RF vitamin E (dl, acetate) 180 mg (400 unit) capsule See Rx Instructions .ROUTE .COMPLEX Qty: 180 3RF Dose Instruction: TAKE 2 CAPSULES BY MOUTH DAILY Rx Instructions: TAKE 2 CAPSULES BY MOUTH DAILY Primary Care Provider: Rene Aguilera Referrals: Rene Aguilera, [Primary Care Provider] -
[2022-12-07] MEDS: Ondansetron ODT 4 MG Tablet PO (16:03)
[2022-12-07] MEDS: HYDROmorphone 1 MG/ML Syringe IM (16:04)
[2022-12-07] MEDS: Ondansetron 4 MG/2 ML Vial IV (16:58)
[2022-12-07] MEDS: Propofol 200 MG/20 ML Vial IV BOLUS (17:11)
--- NOTE | 2022-12-07 17:14 | RAD_ITS ---
EXAM: XR LEFT ELBOW, 2 VIEWS CLINICAL INDICATION: post reduction TECHNIQUE: Frontal and lateral views of the left elbow. COMPARISON: Elbow earlier on the same date. FINDINGS: BONES/JOINTS: Improved alignment of the humerus and ulna with widening of the trochlear joint space. Comminuted fracture of the radial head with displaced radial head fracture to the intercondylar region. Apparent persistent subluxation/dislocation of the radius in relation to the capitellum. No destructive or sclerotic lesions. SOFT TISSUES: Diffuse soft tissue swelling. No radiopaque foreign body. RAD/Elbow 2 Views IMPRESSION: 1. Improved alignment of the humerus and ulna with widening of the trochlear joint space. Comminuted fracture of the radial head with displaced radial head fracture to the intercondylar region. 2. Apparent persistent subluxation/dislocation of the radius in relation to the capitellum. Electronically Signed: Ken Shepherd DO at 17:30 EDT ,
--- NOTE | 2022-12-07 17:38 | NURSING ---
CALLED [facility] AND TALKED TO HUSSEIN
--- NOTE | 2022-12-07 17:58 | NURSING ---
CALLED [facility], ETA IS 90 MIN
[2022-12-07] MEDS: HYDROmorphone 0.5 MG/0.5 ML SYRINGE IV (18:42)
== END 2022-12-07 20:15 | disposition short-term general hospital (02) ==
LOC: ED 17:30
PROVIDERS: Emergency Provider Emergency Medicine; PCP Family Medicine; Visit Provider Emergency Medicine
DX: S42.402A Unspecified fracture of lower end of left humerus, initial encounter for closed fracture (principal); G47.33 Obstructive sleep apnea (adult) (pediatric); F17.210 Nicotine dependence, cigarettes, uncomplicated; W01.0XXA Fall on same level from slipping, tripping and stumbling without subsequent striking against object, initial encounter
CPT/HCPCS: 73070; 73080; 96372; 96374; 96376; 99285; J7030; A4216; J2405

== ENCOUNTER → 2023-02-17 | Outpatient (CLI) | payer BC, SELFPAY ==
[2023-02-17 12:55] LABS: ALB/GLOB Ratio 0.9 RATIO (0.9-2.4); AST(SGOT) 23 U/L (15-37); Alanine Aminotransfer ALT/SGPT 58 U/L (13-56); Albumin, Serum 3.4 g/dL (3.2-5.0); Alkaline Phosphatase 71 U/L (45-117); Anion Gap 8 (5-15); BUN 13 mg/dL (7-18); BUN/Creat Ratio 14.9 RATIO (10-20); Calcium,Total 9.3 mg/dL (8.5-10.1); Chloride 105 mmol/L (98-107); Cholesterol 112 mg/dL (200); Creatinine, Serum 0.87 mg/dL (0.55-1.02); EST Glomerular Filtration Rate 72 mL/min (>60); Est Glom Filt Rate - Afr Amer 87 mL/min (>60); Globulin 3.7 g/dL (2.2-4.2); Glucose 154 mg/dL (74-106); High Density Lipoprotein 36 mg/dL; Potassium 4.2 mmol/L (3.5-5.1); Protein, Total 7.1 g/dL (6.4-8.2); Sodium Level 138 mmol/L (136-145); Triglycerides 181 mg/dL; Very Low Density Lipoprotein 36 mg/dL (5-40)
[2023-02-17 13:11] LABS: Microalbumin,Random Urine 8.6 mg/L (NO RANGE EST.); Microalbumin:Creatinine Ratio 5.6 mg/g CRE (<30 mg/g CRE)
[2023-02-17 14:14] LABS: Hemoglobin A1c 6.7 % (3.8-5.6)
== END | disposition home or self-care (01) ==
LOC: BFHLAB 09:19
PROVIDERS: PCP Family Medicine; Visit Provider Family Medicine
DX: Z00.00 Encounter for general adult medical examination without abnormal findings (principal); E11.9 Type 2 diabetes mellitus without complications
CPT/HCPCS: 36415; 80053; 80061; 82043; 82570; 83036

== ENCOUNTER → 2023-02-26 | Outpatient (CLI) | payer BC, SELFPAY ==
--- NOTE | 2023-02-26 16:43 | CT_ITS ---
STUDY: LOW DOSE CT LUNG CANCER SCREENING REASON FOR EXAM: Female, 57 years old. SCREENING RADIATION DOSAGE (If Supplied By Facility): CTDIvol = ( 4.02 ) mGy, DLP = ( 131.39 ) mGycm TECHNIQUE: No contrast was administered. Low dose technique was utilized (average mAS-38 and kVp 120). 1.25 mm axial source images with a slice interval of 1.25-mm were reconstructed in lung windows. 2.5 mm axial source images with a slice interval of 2.5-mm were reconstructed in lung windows. 5.0 mm axial source images with a slice interval of 5.0-mm were reconstructed in soft tissue windows. COMPARISON: None. Emphysema: Mild emphysema. No noncalcified nodule or mass. Endobronchial lesion: None Aorta: Some calcified plaque in the aortic arch but no aortic aneurysm. CORONARY ARTERIES: Coronary artery calcification is seen. Heart: No cardiomegaly. Pulmonary artery: Normal Mediastinal nodes: Normal Other chest and abdominal findings: Status post cholecystectomy. CT/Low Dose CT Lung Screening IMPRESSION: Lung-RADS category 1 - Continue annual screening with LDCT in 12 months. IMPORTANT NOTES FOR USE: ACR Lung-RADS Version 1.1 Assessment Categories Release Date: 2018 Category: Coded 0-4 bases on nodule(s) with highest degree of suspicion. Negative screen is defined as categories 1 and 2; a positive screen is defined as categories 3 and 4. Category 3 and 4A nodules that are unchanged on interval CT should be coded as category 2, and individuals returned to screening in 12 months. Category 4X: Category 3 or 4 nodules with additional imaging findings that increase the suspicion of lung cancer, such as spiculation, GGN that doubles in size in 1 year, enlarged lymph notes, etc. Category Modifiers: S (significant finding unrelated to lung cancer) Electronically Signed: Akshat Baker MD at 23:29 EST ,
== END | disposition home or self-care (01) ==
LOC: CT 16:40
PROVIDERS: PCP Family Medicine; Referring Provider Family Medicine; Visit Provider Family Medicine
DX: Z12.2 Encounter for screening for malignant neoplasm of respiratory organs (principal); Z87.891 Personal history of nicotine dependence
CPT/HCPCS: 71271

== ENCOUNTER → 2023-03-18 | Outpatient (CLI) | payer BC, SELFPAY ==
--- NOTE | 2023-03-18 12:51 | BI_ITS ---
MAMMOGRAPHY - BILATERAL SCREENING REASON FOR EXAM: Female, 58 years old. Routine annual screening examination. PERTINENT HISTORY: Grandmother with breast cancer. TECHNIQUE: Digital bilateral breast kameron (3D mammographic acquisition) in the CC and MLO projections. 2-D mediolateral oblique (MLO) and craniocaudad (CC) views of both breasts were obtained. CAD: Full Field Digital Mammography with Computer Added Detection was performed. COMPARISON: Comparison is made with prior study dated March 14, 2022 and January 10, 2018. FINDINGS: Breast Composition: There are scattered areas of fibroglandular density. There are no dominant masses or suspicious calcifications. No other significant abnormalities are identified. There has been no significant change since the prior study. BI/SCRN MAMM (CAD)W/KAMERON BILAT IMPRESSION: Stable bilateral screening mammogram. Yearly follow-up mammogram recommended. (A) ASSESSMENT CATEGORY: BIRADS Category 1: Negative. A letter regarding these results will be sent to the patient by the facility within 30 days. Approximately 10% of breast cancers are not detected by mammography. A normal mammogram should not delay biopsy of a clinically suspicious abnormality. [id number] Electronically Signed: Pedro Parks MD at 11:25 EST ,
== END | disposition home or self-care (01) ==
LOC: OPBI 12:50
PROVIDERS: PCP Family Medicine; Referring Provider Family Medicine; Visit Provider Family Medicine
DX: Z12.31 Encounter for screening mammogram for malignant neoplasm of breast (principal)
CPT/HCPCS: 77063; 77067

== ENCOUNTER 2023-04-08 07:30 | Outpatient (RCR) | payer BC, SELFPAY ==
--- NOTE | 2023-01-29 09:48 | HP.OTEVAL ---
Patient's Visit Information Visit Information Visit Information: KEHINDE ZABALA is a 57 year old F, referred to Occupational Therapy by ILEANA PALMER, with a diagnosis of left elbow dislocation. Date of Evaluation: 01/29/23 Occupational Therapist: RICKY Bronson/Jorgito, CHT Subjective Subjective: This 57 year old female was seen for OT eval with dx of left elbow dislocation DOI 12/07/22. pt went to sx on 12/09/[address] Madi Jesus with dx of closed fx dislocation of left elbow with radial head replacement. pt arrives with Orders for Aggressive ROM. pt is now 7 weeks and 2 days s/p from radial head replacement. pt was allowed to work elbow ROM with forearm in pronation ( indication of LCLC) and forearm supination/pronation. pt works from home pt is right handed pt would like to return to her PLOF with all ADls and IADLS ADLs Comments: pt states she has compensated with using right UE with All ADLs and IADLs helps as needed has modified home work station to increase comfort Pain left elbow: Current Pain Intensity: 3 Pain Intensity Range: 5 ROM Shoulder: right/left WNL Elbow: right +5/150 left -50/130 Forearm: right supination 70 pronation WNL left at neutral pronation WNL Wrist: right 70/75 left 45/30 ROM Comments: pt demo with limited left UE ROM Strength Shoulder: right 5/5 left 3/5 Elbow: right 5./5 left 3/5 Public Relations Representative: will test later date Strength Comments: will test later date for sole conditioner and pinch pt demo weakness of left UE needing assistance of right arm to assist with raising left arm up Sensation Thumb: right/left 2.83 interpretation Normal sensation Index: right/left 2.83 interpretation Normal sensation Middle: right/left 2.83 interpretation Normal sensation Ring: right/left 2.83 interpretation Normal sensation Little: right/left 2.83 interpretation Normal sensation Sensation Comments: sensation feels numb Quick DASH-Disab of Arm,Shoulder& Hand Quick DASH Score: 56.6650 Goals Goal:100% adherence to protocol: Yes Comment: radial head replacement arthroplasty protocol Goal:Daily scar massage when approriate: Yes Goal:ROM equal to unaffected hand: Yes Comment: left forearm supination to 65* or greater/ elbow ROm 140/-10 Goal:Public Relations Representative/Pinch strength at least 75% of unaffected hand: Yes Goal:No pain with affected hand use: Yes Goal:Full use of affected hand in daily activities including work: Yes Goal:Decrease scar hypersensitivity: Yes Comment: pt will report textures on left hand feel soft vs rough Rehabilitation General Assessment: pt arrives 7 weeks 2 days s/p from radial head replacement demo a decrease in left elbow/forearm and wrist ROM and weakness limiting pts IND with ADLs and IADLs. Pt would benefit from skilled OTR/L,CHT services to return pt to her PLOF. Today CHT ed. pt on AAROM, AROM and scar mtg. pt demo understanding and agree to POC. Rehabilitation Potential: Good Anticipated Interventions Anticipated Interventions: A/AAROM/PROM, Strengthening, Scar Care, Triggerpoint Release, Sensory Retraining, Modalities, Joint Protection/Energy Conservation, Ergonomic Education, Education re assistive Equipment, Education re Diagnosis and Home Program Visit Plan Frequency: 2-3x /Week Duration: 2 Months General Plan: s/p week 3 AAROM/ AROM of elbow with positioning forearm pronated for initial 3 weeks to protect the lateral collateral ligament complex (LCLC) with radial head replacement s/p week 4: hand strengthening with putty, (elbow in flexion with forearm supinated will lessen dynamic compression to the ulnar side of wrist and reduce risk of pain along the DRUJ or TFCC) ed. pt on importance of ex of forearm and elbow. pt s/p week 6 ex 4x a day working on ROM - elbow and forearm strengthening may be initiated with hand-held wts and isometrics - emphasis placed on endurance as opposed to gross strength. S/p week 8: pt to resume all ADLs- restriction to avoid lifting more than 15# and activities with compression/distraction loading of the elbow. S/p week 12: typically any remaining wt. restrictions are lifted TEXT: Thank you for the opportunity to evaluate your patient. For Medicare and Medicare HMO plans, please review the plan of care and approve it. It will need to be FAXED BACK to us at [phone] for Medicare purposes. Please let me know if there are questions or concerns regarding this plan of care. Physician Signature: Date:
--- NOTE | 2023-06-26 08:07 | HP.OT.NRP ---
Patient Information Patient Information: KEHINDE ZABALA was seen in my office for initial evaluation on 01/29/23. The following Plan of Care was established for this patient: POC Established Initial Frequency: 2-3x /Week Initial Duration: 2 Months Plan: Duration: 2 Months General Plan: s/p week 3 AAROM/ AROM of elbow with positioning forearm pronated for initial 3 weeks to protect the lateral collateral ligament complex (LCLC) with radial head replacement s/p week 4: hand strengthening with putty, (elbow in flexion with forearm supinated will lessen dynamic compression to the ulnar side of wrist and reduce risk of pain along the DRUJ or TFCC) ed. pt on importance of ex of forearm and elbow. pt s/p week 6 ex 4x a day working on ROM - elbow and forearm strengthening may be initiated with hand-held wts and isometrics - emphasis placed on endurance as opposed to gross strength. S/p week 8: pt to resume all ADLs- restriction to avoid lifting more than 15# and activities with compression/distraction loading of the elbow. S/p week 12: typically any remaining wt. restrictions are lifted s/p 13 wks: per surgeon, all restrictions lifted; surgeon wants aggressive ROM and strengthening. Anticipated Interventions Anticipated Interventions: A/AAROM/PROM, Strengthening, Scar Care, Triggerpoint Release, Sensory Retraining, Modalities, Joint Protection/Energy Conservation, Ergonomic Education, Education re assistive Equipment, Education re Diagnosis and Home Program Last Seen Last Seen: This patient was last seen in our office 04/08/23. Pertinent comments regarding their Occupational therapy will appear below: pt was seen for 13 OT sessions had last few apt. cancelled. Pt has not scheduled further apts and is d/c at this time due to time lapse in services. At this point I will be discontinuing this patient from occupational therapy. I would be happy to see this patient again in the future if found appropriate by the physician. Thank you! Radha Thompson, OTR/L, CHT
== END 2023-04-08 19:00 | disposition home or self-care (01) ==
LOC: OT 07:30
PROVIDERS: PCP Family Medicine
DX: S42.402D Unspecified fracture of lower end of left humerus, subsequent encounter for fracture with routine healing (principal)
CPT/HCPCS: 97110; 97140; 97166

== ENCOUNTER → 2024-02-23 | Outpatient (CLI) | payer BC, SELFPAY ==
[2024-02-23 12:21] LABS: Absolute Lymphocyte Count 2.64 X10^3/uL (0.83-4.51); Absolute Neutrophil Count 2.9 X10^3/uL (2.0-7.7); Basophil# 0.05 X10^3/uL; Basophil% 0.8 % (0-1); Eosinophil# 0.15 X10^3/uL; Eosinophils% 2.4 % (0-5); Hematocrit 43.9 % (37-47); Hemoglobin 14.4 g/dL (12.0-15.0); Lymphocyte # 2.64 X10^3/ul (0.83-4.51); Lymphocyte % 42.7 % (19-41); Mean Corp Hgb Conc 32.8 g/dL (32-36); Mean Corpuscular Hgb 28.2 pg (27.0-32.0); Mean Corpuscular Volume 86.1 fL (81-99); Mean Platelet Vol. 10.6 fl (6.2-12.0); Monocyte# 0.42 X10^3/uL; Monocyte% 6.8 % (0-10); NRBC Flagged by Analyzer 0 % (0-5); Platelet Count 296 K/mm3 (150-450); RBC Distribution Width CV 13.3 % (11.6-14.6); RBC Distribution Width SD 41.5 fl (35.1-43.9); White Blood Count 6.2 K/mm3 (4.4-11.0)
[2024-02-23 12:48] LABS: Vitamin D,25 Hydroxy 75.4 ng/mL
[2024-02-23 13:02] LABS: Microalbumin,Random Urine 12.2 mg/L (NO RANGE EST.); Microalbumin:Creatinine Ratio 4.1 mg/g CRE (<30 mg/g CRE)
[2024-02-23 13:19] LABS: AST(SGOT) 27 U/L (15-37); Alanine Aminotransfer ALT/SGPT 56 U/L (13-56); Albumin, Serum 3.5 g/dL (3.2-5.0); Alkaline Phosphatase 68 U/L (45-117); Anion Gap 7 (5-15); BUN 12 mg/dL (7-18); BUN/Creat Ratio 12.7 RATIO (10-20); Calcium,Total 9.6 mg/dL (8.5-10.1); Chloride 109 mmol/L (98-107); Cholesterol 126 mg/dL (200); Creatinine, Serum 0.94 mg/dL (0.55-1.02); EST Glomerular Filtration Rate 65 mL/min (>60); Est Glom Filt Rate - Afr Amer 79 mL/min (>60); Globulin 3.6 g/dL (2.2-4.2); Glucose 173 mg/dL (74-106); High Density Lipoprotein 37 mg/dL; Potassium 3.9 mmol/L (3.5-5.1); Protein, Total 7.1 g/dL (6.4-8.2); Sodium Level 141 mmol/L (136-145); Thyroid Stim Hormone (TSH) 0.377 uIU/mL (0.358-3.740); Triglycerides 247 mg/dL; Very Low Density Lipoprotein 49 mg/dL (5-40)
[2024-02-23 13:32] LABS: Hemoglobin A1c 5.8 % (3.8-5.6)
== END | disposition home or self-care (01) ==
PROVIDERS: PCP Family Medicine; Referring Provider Family Medicine; Visit Provider Family Medicine
DX: Z00.00 Encounter for general adult medical examination without abnormal findings (principal); E11.9 Type 2 diabetes mellitus without complications; I25.10 Atherosclerotic heart disease of native coronary artery without angina pectoris; E55.9 Vitamin D deficiency, unspecified
CPT/HCPCS: 36415; 80053; 80061; 82043; 82306; 82570; 83036; 84443; 85025

== ENCOUNTER → 2024-03-19 | Outpatient (CLI) | payer BC, SELFPAY ==
--- NOTE | 2024-03-19 08:25 | BI_ITS ---
MAMMOGRAPHY - BILATERAL SCREENING 3-D TOMOSYNTHESIS REASON FOR EXAM: Female, 59 years old. Routine screening PERTINENT HISTORY: Grandmother with breast cancer.. TECHNIQUE: 2-D mammograms and 3-D Tomosynthesis of the breast (s) were performed. CAD was performed. COMPARISON: 03/14/2022 FINDINGS: The breast composition is almost entirely fat. Scattered benign punctate calcifications are seen. No dense spiculated masses or suspicious microcalcifications are identified. No architectural distortion is identified. There is no skin thickening or retraction. There has been no significant change since the prior study. BI/SCRN MAMM (CAD)W/KAMERON BILAT IMPRESSION: No mammographic signs of malignancy. Routine yearly mammograms recommended. ASSESSMENT CATEGORY: BIRADS Category 1: Negative. A letter regarding these results will be sent to the patient by the facility within 30 days. FOLLOW UP RECOMMENDATION: Yearly follow up mammogram recommended. (A) Approximately 10% of breast cancers are not detected by mammography. A normal mammogram should not delay biopsy of a clinically suspicious abnormality. Electronically Signed: Robert Corbett MD at 9:52 EST ,
== END | disposition home or self-care (01) ==
LOC: OPBI 08:22
PROVIDERS: PCP Family Medicine; Referring Provider Family Medicine; Visit Provider Family Medicine
DX: Z12.31 Encounter for screening mammogram for malignant neoplasm of breast (principal)
CPT/HCPCS: 77063; 77067

== ENCOUNTER → 2024-03-23 | Outpatient (CLI) | payer BC, SELFPAY ==
--- NOTE | 2024-03-23 07:29 | CT_ITS ---
HISTORY: SCREENING, SMOKER. 1.5 PPD X 25 YEARS. TECHNIQUE: Helically acquired images were obtained of the chest without contrast. A radiation dose optimization technique was used for this scan. 517 images. COMPARISON: 02/26/2023. FINDINGS: LARGE AIRWAYS: Patent. LUNGS: Mild emphysema without suspicious nodule or acute alveolar consolidation. Chronic mild right upper lobe scarring anteriorly. PLEURA: No pneumothorax or significant pleural effusion. HEART/PERICARDIUM: Heart within normal limits in size with coronary artery calcification. No pericardial effusion. VESSELS: Thoracic aorta nondilated. Mild atherosclerosis. MEDIASTINUM/JORGE: No pathologically enlarged adenopathy. BONES: Intact. CT/Low Dose CT Lung Screening IMPRESSION: Lung-RADS category 1: Continue annual screening with low dose CT. Electronically Signed: Obdulia Griggs MD at 12:34 EST ,
== END | disposition home or self-care (01) ==
LOC: CT 07:29
PROVIDERS: PCP Family Medicine; Referring Provider Family Medicine; Visit Provider Family Medicine
DX: Z12.2 Encounter for screening for malignant neoplasm of respiratory organs (principal); Z72.0 Tobacco use
CPT/HCPCS: 71271

== ENCOUNTER 2024-06-21 12:41 | Observation (INO) | payer BC, SELFPAY ==
[2024-06-21] VITALS (7 sets, daily range): BP systolic 122–158; BP diastolic 67–89; PULSE 68–79; RESP 16–20; TEMP 36.6–36.8; O2SAT 93–97; BMI 46.7; BMI 21.0
--- NOTE | 2024-06-21 13:14 | CT_ITS ---
PROCEDURE: BRAIN/HEAD WITHOUT CONTRAST 06/21/2024 REASON FOR EXAM: HEADACHE Altered mentation. TECHNIQUE: Head CT without intravenous contrast. Coronal and Sagittal reconstruction series were provided. One or more dose reduction techniques were used (e.g., Automated exposure control, adjustment of the mA and/or kV according to patient size, use of iterative reconstruction technique. RADIATION DOSE SUMMARY: CTDlvol: 44.99 mGy DLP: 779.24 mGycm COMPARISON: None. FINDINGS: Brain: No mass, mass effect or midline shift CSF Spaces: Ventricles and sulci are unremarkable for the patient's age. Sinuses/Mastoids: Clear Bones: Unremarkable CT/Brain/Head without Contrast IMPRESSION: No acute process detected. Normal exam. Reading Location: [facility]
--- NOTE | 2024-06-21 13:22 | EX.ED.DYSGE1 ---
HPI <JEFFERY Gutiérrez - Last Filed: 06/21/24 18:40> History of Present Illness Chief Complaint: Neuro S/Sx Narrative Narrative: 59-year-old female with PMH of DM2, migraines states around 9:50 AM she was working from home in a work meeting and started to feel abnormal. She got off the meeting and called a friend and had some difficulty speaking. She states she then started having inappropriate laughing and crying. She also developed a gradual onset right-sided headache and nausea that feels like prior migraines. She is on verapamil for migraines and follows with a neurologist in [place]. She was prescribed rizatriptan in the past but no longer has it. She states she has had an aura with her migraines where she had some difficulty thinking or speaking in the past but is never had these laughing or crying symptoms. The only recent change is her Mounjaro for diabetes/weight loss was increased 3 days ago and she has had decreased appetite over the weekend but is still eating. She has no vomiting or diarrhea. PFSH <JEFFERY Gutiérrez - Last Filed: 06/21/24 18:40> [facility] Medical History Anxiety and depression HTN (hypertension) Diabetes mellitus, type 2 KILO on CPAP BRICE (nonalcoholic steatohepatitis) Arthritis Hepatitis High cholesterol Restless legs History of hiatal hernia Smoker Personal history of colonic polyps Migraines IBS (irritable bowel syndrome) GERD (gastroesophageal reflux disease) Home Medications ?Medication ?Instructions ?Recorded ?Last Taken ?Type alprazolam 1 mg tablet (Xanax) 1 mg PO QHS PRN Sleep 05/16/16 06/20/24 History melatonin 10 mg tablet 10 mg PO QHS 10/09/20 06/20/24 History simvastatin 20 mg tablet 20 mg PO DAILY 10/09/20 06/20/24 History verapamil 240 mg tablet,extended 240 mg PO DAILY 10/09/20 06/20/24 History release pantoprazole 40 mg tablet,delayed 40 mg PO QAM #90 tabs 09/26/21 06/20/24 Rx release (Protonix) vitamin E (dl, acetate) 180 mg See Rx Instructions .Route 01/22/24 06/20/24 Rx (400 unit) capsule .COMPLEX #180 caps ergocalciferol (vitamin D2) 1,250 1,250 mcg PO QWEEK 06/21/24 06/14/24 History mcg (50,000 unit) capsule (Vitamin D2) escitalopram oxalate 20 mg tablet 10 mg PO QODAY 06/21/24 06/19/24 History escitalopram oxalate 20 mg tablet 20 mg PO QODAY 06/21/24 06/20/24 History metformin 500 mg tablet 500 mg PO BID 06/21/24 06/20/24 History pioglitazone 15 mg tablet 15 mg PO DAILY 06/21/24 06/20/24 History sucralfate 1 gram tablet 1 g PO BID 06/21/24 06/20/24 History tirzepatide 12.5 mg/0.5 mL 12.5 mg subcut QWEEK 06/21/24 06/18/24 History subcutaneous pen injector (Ashkan) Allergy/AdvReac Type Severity Reaction Status Date / Time imipramine AdvReac Intermediate unstable Verified 06/21/24 13:16 moods promethazine (From Phenergan) AdvReac Intermediate hallucinati Verified 06/21/24 13:16 ons hydrocodone (From [place]) AdvReac Nausea Verified 06/21/24 13:16 Family History Father Colon cancer Dx stage IV in his 70s. Surgical History Hx of colonoscopy History of carpal tunnel release of both wrists History of cholecystectomy History of laparoscopy History of hysterectomy Social History household members: spouse Smoking Status: Current every day smoker tobacco type: cigarettes alcohol intake: never substance use type: does not use ROS <JEFFERY Gutiérrez - Last Filed: 06/21/24 18:40> ROS ED ROS Narrative Constitutional: Negative for fever, chills, malaise. Eyes: Negative for visual change. CVS: Negative for chest pain. Respiratory: Negative for shortness of breath, cough. GI: Positive for nausea. No vomiting. Neuro: Positive for headache, negative for motor/sensory dysfunction. EXAM <JEFFERY Gutiérrez - Last Filed: 06/21/24 18:40> Physical Exam Narrative Exam Narrative: CONST: Patient sitting in no acute distress. EYES: Normal inspection. PERRL, EOMI. NECK: Normal inspection. RESP: No respiratory distress, CTAB. CVS: Regular rate and rhythm, no murmur, no gallop. SKIN: Color normal, no rash, warm, dry, intact. EXTREMITIES: Normal appearance, no pedal edema. NEURO: Alert and answering questions appropriately. Alert and oriented, EOMI, visual quinones intact, face symmetric, no upper or lower extremity drift, normal bipbbi-[id number] and [id number]-cs-mznm, normal sensation, no aphasia or dysarthria, no extinction. NIH is 0. PSYCH: Normal affect. Const Vital Signs: 06/21/24 16:00 06/21/24 17:48 Temperature 98.3 F Pulse Rate 78 76 Respiratory Rate 20 H 18 Blood Pressure 122/69 H 123/74 H Blood Pressure Mean 86 90 Pulse Ox 93 96 Oxygen Delivery Method Room Air <Dr. Sandrine Fisher DO - Last Filed: 06/22/24 15:30> Physical Exam Const Vital Signs: 06/21/24 16:00 06/21/24 17:48 Temperature 98.3 F Pulse Rate 78 76 Respiratory Rate 20 H 18 Blood Pressure 122/69 H 123/74 H Blood Pressure Mean 86 90 Pulse Ox 93 96 Oxygen Delivery Method Room Air MDM <JEFFERY Gutiérrez - Last Filed: 06/21/24 18:40> [facility] Narrative Medical decision making narrative: Differential includes but not limited to complex migraine, TIA 59-year-old female had an episode of expressive aphasia this morning. She also feels like she is having inappropriate emotional responses. She also developed a right-sided migraine with history of similar in the past. She appears well and nontoxic. Vital signs stable. Her exam is completely normal with an NIH of 0. Affect is appropriate. CBC and BMP are overall unremarkable. Urinalysis negative. CT brain negative.CTA shows some atherosclerotic calcifications without hemodynamically significant stenosis. Patient was given aspirin 325 mg. Although this may be a complex migraine I feel TIA should also be ruled out and I discussed the case with the hospitalist for admission. Lab Data Attestation: I reviewed the patient's lab results. Labs: Laboratory Results - last 24 hr 06/21/24 14:50 Urine Color Yellow Urine Clarity Clear Urine pH 6.0 Ur Specific [place] 1.005 Urine Protein Negative Urine Glucose (UA) Normal Urine Ketones Negative Urine Occult Blood Negative Urine Nitrite Negative Urine Bilirubin Negative Urine Urobilinogen Normal Ur Leukocyte Esterase Negative Urine RBC 0 SEEN Urine WBC 0 SEEN Ur Squamous Epith Cells 0 SEEN Urine Bacteria 0 SEEN Urine Mucus 0 SEEN Radiography Diagnostic Testing: Clinical Impression(s) from Imaging Studies Brain CT 06/21/24 13:14 IMPRESSION: No acute process detected. Normal exam. Reading Location: [facility] Head/Neck CTA 06/21/24 15:45 IMPRESSION: Atherosclerotic calcification of the anterior and posterior intracranial circulation without hemodynamically significant stenosis. Heterogeneously enlarged thyroid gland with multiple low-attenuation nodules. Recommend nonemergent thyroid ultrasound. Reading Location: [facility] <Dr. Sandrine Fisher, DO - Last Filed: 06/22/24 15:30> [facility] Narrative Medical decision making narrative: Differential includes but not limited to complex migraine, TIA 59-year-old female had an episode of expressive aphasia this morning. She also feels like she is having inappropriate emotional responses. She also developed a right-sided migraine with history of similar in the past. She appears well and nontoxic. Vital signs stable. Her exam is completely normal with an NIH of 0. Affect is appropriate. CBC and BMP are overall unremarkable. Urinalysis negative. CT brain negative.CTA shows some atherosclerotic calcifications without hemodynamically significant stenosis. Patient was given aspirin 325 mg. Although this may be a complex migraine I feel TIA should also be ruled out and I discussed the case with the hospitalist for admission. I have personally performed a face to face assessment of the patient and have reviewed the EMERSON Note. I performed a substantive portion of the visit including all aspects of the following. My celestin findings include: History is Patient is a 59-year-old female with history of diabetes mellitus as well as regular headaches/migraines presenting with sudden onset of difficulty speaking. Patient states she could not get the words out that she needed to. This was preceded by right-sided headache however states that is not particularly atypical for her. She then felt that she had a labile mood when go from crying to laughing hysterically. She remembers when frustrated that she could not get the words out but she wanted to however she was saying words. She also voices concern as her sister of an aneurysm at the base of her brain at the same age of her. Patient does not have any meningeal signs. No nuchal rigidity. Head normocephalic atraumatic. Membranes. PERRL/EOMI. She does have some mild nystagmus with leftward gaze bilaterally that is fatiguing. NIH is 0. Normal [id number]. No truncal ataxia. No drift of the extremities. Heart regular rate and rhythm. Abdomen soft nontender. Easy respirations. No rash appreciated. Differential includes TIA, partial seizure, brain mass, aneurysm and atypical migraine. Patient currently has an NIH of 0 and a relatively normal exam. Her workup is largely negative. Patient is given sumatriptan and zofran initially for headache then Toradol after negatvie head imaging in the emergency room. Patient counseled I cannot rule out small stroke or TIA without MRI. She is agreeable to admission for further stroke evaluation. Given dose of aspirin. Case is discussed with hospitalist for admission. Lab Data Labs: Laboratory Results - last 24 hr 06/21/24 14:50 Urine Color Yellow Urine Clarity Clear Urine pH 6.0 Ur Specific [place] 1.005 Urine Protein Negative Urine Glucose (UA) Normal Urine Ketones Negative Urine Occult Blood Negative Urine Nitrite Negative Urine Bilirubin Negative Urine Urobilinogen Normal Ur Leukocyte Esterase Negative Urine RBC 0 SEEN Urine WBC 0 SEEN Ur Squamous Epith Cells 0 SEEN Urine Bacteria 0 SEEN Urine Mucus 0 SEEN Laboratory Results - last 24 hr 06/21/24 14:50 Urine RBC 0 SEEN Urine WBC 0 SEEN Ur Squamous Epith Cells 0 SEEN Urine Bacteria 0 SEEN Urine Mucus 0 SEEN Radiography Diagnostic Testing: Clinical Impression(s) from Imaging Studies Brain CT 06/21/24 13:14 IMPRESSION: No acute process detected. Normal exam. Reading Location: [facility] Head/Neck CTA 06/21/24 15:45 IMPRESSION: Atherosclerotic calcification of the anterior and posterior intracranial circulation without hemodynamically significant stenosis. Heterogeneously enlarged thyroid gland with multiple low-attenuation nodules. Recommend nonemergent thyroid ultrasound. Reading Location: [facility] Management Discussion w/another healthcare provider: Hospitalist Discharge Plan Dx/Rx/DC Orders Clinical Impression: Expressive aphasia, Migraine Disposition Disposition: Acute Care Hospital [facility] Discharge Date/Time: 06/21/24 18:30
[2024-06-21 13:52] LABS: Absolute Lymphocyte Count 1.99 X10^3/uL (0.83-4.51); Absolute Neutrophil Count 2.9 X10^3/uL (2.0-7.7); Basophil# 0.04 X10^3/uL; Basophil% 0.7 % (0-1); Eosinophil# 0.07 X10^3/uL; Eosinophils% 1.3 % (0-5); Hematocrit 46.6 % (37-47); Hemoglobin 15.6 g/dL (12.0-15.0); Lymphocyte # 1.99 X10^3/ul (0.83-4.51); Lymphocyte % 36.6 % (19-41); Mean Corp Hgb Conc 33.5 g/dL (32-36); Mean Corpuscular Hgb 27.9 pg (27.0-32.0); Mean Corpuscular Volume 83.4 fL (81-99); Mean Platelet Vol. 9.7 fl (6.2-12.0); Monocyte# 0.43 X10^3/uL; Monocyte% 7.9 % (0-10); NRBC Flagged by Analyzer 0 % (0-5); Neutrophil # 2.89 X10^3/uL (2.7-7.7); Neutrophil % 53.3 % (47-70); Platelet Count 273 K/mm3 (150-450); RBC Distribution Width CV 13.2 % (11.6-14.6); RBC Distribution Width SD 39.8 fl (35.1-43.9); Red Blood Count 5.59 M/mm3 (4.2-5.4); White Blood Count 5.4 K/mm3 (4.4-11.0)
[2024-06-21 13:58] LABS: Bedside Glucose 98 mg/dL (74-106)
[2024-06-21] MEDS: SUMAtriptan 6 MG/0.5 ML Vial SC (14:00)
[2024-06-21] MEDS: Ondansetron 4 MG/2 ML Vial IV (14:00)
--- NOTE | 2024-06-21 14:13 | ED.RN ---
pt reports that had bizarre symptoms of nonsensical communication when talking with family this am and would have inappropriate bouts of laughter then crying over not that funny of things. like if i was stoned or high pt with hx migraines and at times some neurologic word finding and aphasia problems. but usually have aura and this is different pt with no unilateral weakness or paresthesthesia obs
[2024-06-21 14:20] LABS: Anion Gap 12 (5-15); BUN 10 mg/dL (4-19); BUN/Creat Ratio 12.1 RATIO (10-20); Calcium,Total 9.8 mg/dL (7.6-11.0); Carbon Dioxide 20.4 mmol/L (21.0-32.0); Chloride 105 mmol/L (98-108); EST Glomerular Filtration Rate 86 (>60); Glucose 96 mg/dL (70-99); Potassium 4.1 mmol/L (3.3-5.1); Sodium Level 138 mmol/L (133-145)
[2024-06-21 15:00] LABS: Bacteria 0 SEEN /hpf (None Seen); Mucous, Urine 0 SEEN /hpf (<or=2+); Red Blood Cells-Urine 0 SEEN /hpf (0-5); Squamous Epithelial Cells - UA 0 SEEN /hpf (5-10); White Blood Cells 0 SEEN /hpf (0-5)
[2024-06-21 15:09] LABS: Color, Urine Yellow (Yellow); Glucose, Dipstick Normal (Normal); Ketone-Dipstick Negative (Negative); Leukocyte Esterase-Dipstick Negative /ul (Negative); Nitrite-Dipstick Negative (Negative); Occult Blood-Urine Negative /ul (Negative); Protein-Dipstick Negative (Negative); Specific Gravity, Urine 1.005 (1.002-1.030); Urine Bilirubin Dipstick Negative (Negative); Urine Clarity Clear (Clear); Urine Urobilinogen Normal (Normal)
--- NOTE | 2024-06-21 15:45 | CT_ITS ---
PROCEDURE: CTA HEAD AND NECK W/ CONTRAST 06/21/2024 REASON FOR EXAM: APHASIA TECHNIQUE: CTA imaging of the head and neck from the aortic arch to the skull vertex with intravenous contrast. Coronal and Sagittal reconstruction series were provided. 3D, 3D post processing, 3D reconstructions, Maximum intensity projection (MIPs) Volume rendering and Shaded surface rendering was provided. CONTRAST: Omnipaque 350 VOLUME: 100 mL Gauge IV One or more dose reduction techniques were used (e.g., Automated exposure control, adjustment of the mA and/or kV according to patient size, use of iterative reconstruction technique). # of known CTs in the past 12 months: 0 # of known Cardiac Nuclear Medicine Studies in the past 12 months: 0 COMPARISON: None FINDINGS: Aortic Arch: Three-vessel arch branch anatomy. Mild atherosclerotic calcification of the aortic arch. Brachiocephalic and Subclavians: Mild atherosclerotic plaque without significant stenosis. RIGHT Carotid: Right CCA: Mild calcified and soft plaque. Right ICA: Mild calcified and soft plaque. Maximum stenosis (NASCET): <10 % Right ECA: Unremarkable. LEFT Carotid: Left CCA: Mild calcified and soft plaque. Left ICA: Mild calcified and soft plaque. Maximum stenosis (NASCET): <10 % Left ECA: Unremarkable. Vertebrals: Codominant. Arise from the subclavians. Both vertebrals form the basilar. RIGHT Vertebral: Unremarkable. LEFT Vertebral: Unremarkable. Anatomy: [place] anatomy is normal. Mild atherosclerotic calcification of the siphons bilaterally, without hemodynamically significant stenosis. Aneurysm or avm: No intracranial aneurysms or large vascular malformations are identified. Anterior cerebral arteries: Unremarkable: Middle cerebral arteries: Patent bilateral MCAs, without hemodynamically significant stenosis. Basilar artery: Unremarkable. Posterior cerebral arteries: Unremarkable. Other major branches of the posterior circulation: Unremarkable. Major venous structures: Unremarkable. Other findings: Neck: Heterogeneously enlarged thyroid gland with multiple low- attenuation nodules. Lungs: Lung apices are clear. Bones: Bones are unremarkable. CT/CTA Head AND Neck W/ Contrast IMPRESSION: Atherosclerotic calcification of the anterior and posterior intracranial circul ation without hemodynamically significant stenosis. Heterogeneously enlarged thyroid gland with multiple low-attenuation nodules. Recommend nonemergent thyroid ultrasound. Reading Location: [facility]
[2024-06-21] MEDS: Ketorolac 15 MG/ML Vial IV (17:38)
[2024-06-21] MEDS: Aspirin 325 MG Tablet PO (17:38)
--- NOTE | 2024-06-21 18:18 | PCM.HP.STD ---
HPI - General General Date of Admission: 06/21/24 HPI Narrative KEHINDE ZABALA, is a 59 F who presents to the hospital with a headache that leads to neurological symptoms including aphasia as well as uncontrollable laughing and crying. She states that she gets migraines and the aura that occurs is aphasia but the laughing and crying uncontrollably was abnormal. She also had a brain fog which was atypical. No upper extremity or lower extremity numbness or tingling, and no other focal neurological deficits. Symptoms are resolved though she continues to have a headache. She is on verapamil for baseline control of her headaches and used to be on triptans but has not taken any for several years. She does see a neurologist in [place]. She feels completely back to baseline but has significant anxiety secondary to family history of brain aneurysms. CTA of the head and neck was unremarkable with no blockage or stenosis and no signs of aneurysm. her thyroid is read as being heterogeneously enlarged with multiple low-attenuation nodules. This was discussed with her and she knows to follow-up with her PCP to obtain an outpatient thyroid ultrasound. [facility] Medical History Anxiety and depression HTN (hypertension) Diabetes mellitus, type 2 KILO on CPAP BRICE (nonalcoholic steatohepatitis) Arthritis Hepatitis High cholesterol Restless legs History of hiatal hernia Smoker Personal history of colonic polyps Migraines IBS (irritable bowel syndrome) GERD (gastroesophageal reflux disease) Home Medications ?Medication ?Instructions ?Recorded ?Last Taken ?Type alprazolam 1 mg tablet (Xanax) 1 mg PO QHS PRN Sleep 05/16/16 06/20/24 History melatonin 10 mg tablet 10 mg PO QHS 10/09/20 06/20/24 History simvastatin 20 mg tablet 20 mg PO DAILY 10/09/20 06/20/24 History verapamil 240 mg tablet,extended 240 mg PO DAILY 10/09/20 06/20/24 History release pantoprazole 40 mg tablet,delayed 40 mg PO QAM #90 tabs 09/26/21 06/20/24 Rx release (Protonix) vitamin E (dl, acetate) 180 mg See Rx Instructions .Route 01/22/24 06/20/24 Rx (400 unit) capsule .COMPLEX #180 caps ergocalciferol (vitamin D2) 1,250 1,250 mcg PO QWEEK 06/21/24 06/14/24 History mcg (50,000 unit) capsule (Vitamin D2) escitalopram oxalate 20 mg tablet 10 mg PO QODAY 06/21/24 06/19/24 History escitalopram oxalate 20 mg tablet 20 mg PO QODAY 06/21/24 06/20/24 History metformin 500 mg tablet 500 mg PO BID 06/21/24 06/20/24 History pioglitazone 15 mg tablet 15 mg PO DAILY 06/21/24 06/20/24 History sucralfate 1 gram tablet 1 g PO BID 06/21/24 06/20/24 History tirzepatide 12.5 mg/0.5 mL 12.5 mg subcut QWEEK 06/21/24 06/18/24 History subcutaneous pen injector (Ashkan) Allergy/AdvReac Type Severity Reaction Status Date / Time imipramine AdvReac Intermediate unstable Verified 06/21/24 13:16 moods promethazine (From Phenergan) AdvReac Intermediate hallucinati Verified 06/21/24 13:16 ons hydrocodone (From Archer) AdvReac Nausea Verified 06/21/24 13:16 Family History Father Colon cancer Dx stage IV in his 70s. Surgical History Hx of colonoscopy History of carpal tunnel release of both wrists History of cholecystectomy History of laparoscopy History of hysterectomy Social History household members: spouse Smoking Status: Current every day smoker tobacco type: cigarettes alcohol intake: never substance use type: does not use ROS Constitutional Constitutional: Denies chills, fatigue, fever(s) or malaise Eyes Eyes: Denies blurry vision ENT HEENT: Denies headache(s) or nasal discharge Cardiovascular Cardiovascular: Denies chest pain, dyspnea on exertion or syncope Respiratory/Chest Respiratory/Chest: Denies cough, shortness of breath at rest or shortness of breath with exertion Gastrointestinal Gastrointestinal: Denies constipation, diarrhea, nausea or vomiting Genitourinary Genitourinary: Denies dysuria Neurologic Neurologic: Reports abnormal speech and headache(s); Denies focal weakness, numbness or tremor(s) Psychiatric Psychiatric: Denies anxiety or depression Vital Signs Vital Signs Vital Signs: 06/21/24 12:44 06/21/24 13:48 06/21/24 15:00 Temperature 98 F Temperature Source Oral Pulse Rate 75 71 79 Respiratory Rate 16 16 17 Blood Pressure 153/80 H 158/76 H 126/77 H Blood Pressure Mean 104 103 93 Pulse Ox 97 95 97 Oxygen Delivery Method Room Air Room Air Room Air 06/21/24 16:00 06/21/24 17:48 Temperature 98.3 F Temperature Source Pulse Rate 78 76 Respiratory Rate 20 H 18 Blood Pressure 122/69 H 123/74 H Blood Pressure Mean 86 90 Pulse Ox 93 96 Oxygen Delivery Method Room Air Weight Weight: 255 lb 7.899 oz Body Mass Index (BMI) 46.7 Physical Exam Narrative General: Alert, Oriented x3, Cooperative, No apparent distress HEENT: Atraumatic, PERRLA, EOMI, Normocephalic Oral: Moist Mucosa Neck: Supple, No JVD Lungs: Diminished, Normal air movement, No rhonchi, No wheeze, No rales Cardiovascular: Regular rate, Regular Rhythm, Normal S1, Normal S2, No murmurs Abdomen: Soft, Non Tender, Non-Distended, No Hepato-splenomegaly Extremities: No edema, Capillary Refill Less than 3 Seconds Skin: No rashes, No breakdown Musculoskeletal: No Tenderness to Palpation of Joints or Extremities Neurological: No focal neurological deficits, Motor Exam 5/5 strength throughout, Sensory exam intact to light touch and pain Psych/Mental Status: Normal Affect, Appropriate Results Lab / Micro Data 06/21/24 13:40 06/21/24 13:40 Labs: Laboratory Results - last 24 hr 06/21/24 13:35: POC Glucose 98 06/21/24 13:40: WBC 5.4, RBC 5.59 H, Hgb 15.6 H, Hct 46.6, MCV 83.4, MCH 27.9, MCHC 33.5, RDW Std Deviation 39.8, RDW Coeff of [place] 13.2, Plt Count 273, MPV 9.7, Immature Gran % (Auto) 0.200, Neut % (Auto) 53.3, Lymph % (Auto) 36.6, [place] % (Auto) 7.9, Eos % (Auto) 1.3, Baso % (Auto) 0.7, Absolute Neuts (auto) 2.9, Absolute Lymphs (auto) 1.99, Nucleated RBC % 0, Sodium 138, Potassium 4.1, Chloride 105, Carbon Dioxide 20.4 L, Anion Gap 12, BUN 10, Creatinine 0.80, Estim Creat Clear Calc 93.60, Est GFR (MDRD) Non-Af 86, BUN/Creatinine Ratio 12.1, Glucose 96, Calcium 9.8 06/21/24 14:50: Urine Color Yellow, Urine Clarity Clear, Urine pH 6.0, Ur Specific [place] 1.005, Urine Protein Negative, Urine Glucose (UA) Normal, Urine Ketones Negative, Urine Occult Blood Negative, Urine Nitrite Negative, Urine Bilirubin Negative, Urine Urobilinogen Normal, Ur Leukocyte Esterase Negative, Urine RBC 0 SEEN, Urine WBC 0 SEEN, Ur Squamous Epith Cells 0 SEEN, Urine Bacteria 0 SEEN, Urine Mucus 0 SEEN Imaging Radiology Impression Brain CT 06/21/24 13:14 IMPRESSION: No acute process detected. Normal exam. Reading [facility] Head/Neck CTA 06/21/24 15:45 IMPRESSION: Atherosclerotic calcification of the anterior and posterior intracranial circulation without hemodynamically significant stenosis. Heterogeneously enlarged thyroid gland with multiple low-attenuation nodules. Recommend nonemergent thyroid ultrasound. Reading Location: [facility] Assessment & Plan Assessment/Plan (1) Migraines: PLAN: Plan 1. Complex migraine ? Will obtain MRI in the morning ? All symptoms have resolved and they were consistent with her previous migraine headaches except for the laughing and crying, no focal neurological deficits and not significantly consistent with TIA/CVA ? CTA of the head and neck was unremarkable other than a heterogeneously enlarged thyroid which was discussed with her and the need to follow-up with her PCP for an outpatient thyroid ultrasound ? Continue with her home verapamil to control symptoms 2. DM2 ? Stable ? Will hold her home medications ? Will monitor and make adjustments as necessary ? Continue with insulin 3. Anxiety/depression ? Stable ? Continue with her home Xanax, escitalopram 4. Hyperlipidemia ? Stable ?continue with statin 5. GERD ? Stable ? Continue with Carafate DVT: Ambulation 75 minutes was spent on direct patient care, including documentation as well as chart review and collaboration with colleagues Charges/Coding Visit Charges Inpatient E&M: 68357 Init Hosp L3
[2024-06-21] MEDS: Escitalopram Oxalate 10 MG Tablet PO (22:28)
[2024-06-21] MEDS: MELATONIN 10 MG TABLET PO (22:28)
[2024-06-21] MEDS: ALPRAZolam 0.5 MG Tablet 1 MG PO (22:29)
[2024-06-21 22:48] LABS: Bedside Glucose 97 mg/dL (74-106)
[2024-06-22 04:06] VITALS: BP 157/87; PULSE 68; RESP 16; TEMP 35.7; O2SAT 99
--- NOTE | 2024-06-22 05:55 | MRI_ITS ---
PROCEDURE: BRAIN WITHOUT CONTRAST (MRIBR), 06/22/2024 REASON FOR EXAM: COMPLEX MIGRAINE WITH APHASIA COMPARISON: 06/21/2024. TECHNIQUE: Multisequence multiplanar MRI brain was performed without intravenous contrast. Contrast: None. FINDINGS: Cerebrum: No acute infarct or appreciable intracranial hemorrhage. T1 dark and T2/FLAIR bright 6 m cortically based signal focus in the high LEFT frontal cortex without mass-effect or restricted diffusion (series 6, image 21). No surrounding vasogenic edema or appreciable mass effect. Cerebellum: Unremarkable. Brainstem: Unremarkable. Ventricles/extra-axial spaces: Unremarkable. Major flow voids: Grossly unremarkable within limits of nondedicated technique, better evaluated previously. Paranasal sinuses: Unremarkable. Scalp/calvarium: Unremarkable. Orbits: Bilateral cataract surgery. Other: Partially empty sella, can be a normal variant or may be seen in the setting of idiopathic intracranial hypertension amongst other etiologies. Note is made of close apposition of the AICAs and the facial/vestibulocochlear nerves, frequently incidental. The AICA minimally enters the IAC on the LEFT, borderline type 1-2. On the RIGHT, there is probably entry of less than 50%, although difficult to trace, favor mild type 2. MRI/Brain without Contrast IMPRESSION: 1. No definite evidence of an acute intracranial process. 2. 6 mm signal abnormality in the high LEFT frontal lobe without mass-effect, u ncertain significance, possible remote infarct. Recommend outpatient MRI brain with and without contrast to evaluate for possib le low-grade small cortically based lesion. Comparison with any available outside imaging would be helpful if available. 3. Findings which are frequency incidental and of doubtful clinical significanc e given the reported symptoms, but may be seen in the setting of AICA vascular loop syndrome in the appropriate context. Correla te with exam and symptomatology. 4. Additional description as above. Reading Location: [id number]
[2024-06-22] MEDS: Sucralfate 1 GM Tablet PO (06:35)
[2024-06-22 07:00] LABS: Bedside Glucose 112 mg/dL (74-106)
[2024-06-22 07:58] LABS: Absolute Lymphocyte Count 1.94 X10^3/uL (0.83-4.51); Absolute Neutrophil Count 2.1 X10^3/uL (2.0-7.7); Basophil# 0.02 X10^3/uL; Basophil% 0.4 % (0-1); Eosinophil# 0.09 X10^3/uL; Hemoglobin 14.4 g/dL (12.0-15.0); Lymphocyte # 1.94 X10^3/ul (0.83-4.51); Lymphocyte % 42.5 % (19-41); Mean Corp Hgb Conc 33.5 g/dL (32-36); Mean Corpuscular Hgb 27.8 pg (27.0-32.0); Mean Platelet Vol. 9.9 fl (6.2-12.0); Monocyte# 0.43 X10^3/uL; Monocyte% 9.4 % (0-10); NRBC Flagged by Analyzer 0 % (0-5); Neutrophil # 2.08 X10^3/uL (2.7-7.7); Neutrophil % 45.5 % (47-70); Platelet Count 214 K/mm3 (150-450); RBC Distribution Width CV 13.4 % (11.6-14.6); RBC Distribution Width SD 40.8 fl (35.1-43.9); Red Blood Count 5.18 M/mm3 (4.2-5.4); White Blood Count 4.6 K/mm3 (4.4-11.0)
[2024-06-22] MEDS: Ondansetron 4 MG/2 ML Vial 8 MG IV (08:37)
[2024-06-22] MEDS: 0.9% Saline Lock 10 ML Syringe IV (08:41)
[2024-06-22] MEDS: Verapamil SR 240 MG Tablet PO (08:43)
[2024-06-22 08:50] LABS: Anion Gap 12 (5-15); BUN 13 mg/dL (4-19); BUN/Creat Ratio 15.1 RATIO (10-20); Carbon Dioxide 19.5 mmol/L (21.0-32.0); Chloride 105 mmol/L (98-108); Creatinine, Serum 0.89 mg/dL (0.70-1.20); EST Glomerular Filtration Rate 76 (>60); Estimated Creatinine Clearance 55.16 ml/min (50-250); Glucose 112 mg/dL (70-99); Sodium Level 136 mmol/L (133-145)
[2024-06-22 10:37] VITALS: BP 146/81; PULSE 76; RESP 16; TEMP 36.8; O2SAT 98
[2024-06-22] MEDS: Atorvastatin Calcium 10 MG Tablet PO (10:39)
[2024-06-22] MEDS: Acetaminophen 325 MG Tablet 650 MG PO (10:39)
[2024-06-22] MEDS: Pantoprazole Sodium 40 MG Tablet PO (10:39)
[2024-06-22] MEDS: Escitalopram Oxalate 20 MG Tablet PO (10:39)
--- NOTE | 2024-06-22 15:45 | DCINST_ITS ---
Discharge Instructions Diet Discharge Diet: - (DASH diet) DC O2, CPAP, BIPAP needs Home O2 Discharge instructions: No Dressing / Incision Discharge Activity: - (Increase activity as tolerated) Follow Up Care Test Results: Test results from this visit will be discussed in further detail at your follow- up appointment, if applicable. Discharge Plan Admission Admit Date/Time: 06/21/24 18:11 Primary Reason for Your Visit: Uncontrollable laughing and crying and difficulty getting words out Attending Provider: Faye Bentley Primary Care Provider: Rene Aguilera Consulting Providers: Rogelio Garcia Instructions Patient Instructions: Self-Care for Headaches, Migraine Triggers, Preventing Migraine Headaches ... Additional Instructions / Restrictions: DISCHARGE INSTRUCTIONS PLEASE READ *Please take this with you to your next doctors appointment* -On your MRI there was a question of a possible old infarct on the left frontal lobe and it was recommended that you have an outpatient contrast and noncontrast MRI, this can be done on nonemergent basis -Given the questionable finding of a possible old infarct we will add aspirin to your regimen for now and would recommend you follow-up with your neurologist, please call their office upon discharge to schedule a follow-up appointment -You can take aspirin 81 mg, this can be obtained [id number] and does not need a prescription -Please call your primary care provider's office upon discharge to schedule a hospital follow up within 1 week. -For any concerning signs or symptoms please call 911 or proceed to the nearest emergency department Discharge Orders/Prescriptions Prescriptions: New aspirin 81 mg capsule 81 mg PO DAILY Qty: 30 0RF Continued pantoprazole [Protonix] 40 mg tablet,delayed release (DR/EC) 40 mg PO QAM Qty: 90 3RF alprazolam [Xanax] 1 MG tablet 1 mg PO QHS PRN simvastatin 20 mg Tablet 20 mg PO DAILY verapamil 240 mg Tablet Extended Release 240 mg PO DAILY melatonin 10 mg Tablet 10 mg PO QHS pioglitazone 15 mg tablet 15 mg PO DAILY metformin 500 mg tablet 500 mg PO BID escitalopram oxalate 20 mg tablet 20 mg PO QODAY Rx Instructions: ALTERNATES W/10MG Mounjaro 12.5 mg/0.5 mL pen injector 12.5 mg subcut QWEEK escitalopram oxalate 20 mg tablet 10 mg PO QODAY Rx Instructions: ALTERNATES W/20MG ergocalciferol (vitamin D2) [Vitamin D2] 1,250 mcg (50,000 unit) capsule 1,250 mcg PO QWEEK sucralfate 1 gram tablet 1 g PO BID vitamin E (dl, acetate) 180 mg (400 unit) capsule See Rx Instructions .ROUTE .COMPLEX Qty: 180 3RF Dose Instruction: TAKE 2 CAPSULES BY MOUTH DAILY Rx Instructions: TAKE 2 CAPSULES BY MOUTH DAILY Referrals / Follow Up: Rene Aguilera DO [Primary Care Provider] - In 1 Week Disposition Disposition (needs filled in before D/C Order can be placed): Home, Self Care
--- NOTE | 2024-06-22 15:52 | DS.PCM_ITS ---
Providers Date of Admission: 06/21/24 Date of Discharge: 06/22/24 Primary Care Physician: Dr. Rene Aguilera DO Reason For Visit: COMPLEX MIGRAINE Diagnosis Discharge Diagnosis (1) Migraines: Status: Acute Code(s): G43.909 - Plan # Complex migraine # Possible remote infarct # Thyroid nodules # Type 2 diabetes # GERD # Anxiety/depression Medications at Discharge Home Medications alprazolam 1 mg tablet (Xanax) 1 mg PO QHS PRN Sleep 05/16/16 melatonin 10 mg tablet 10 mg PO QHS sleep 10/09/20 simvastatin 20 mg tablet 20 mg PO DAILY cholesterol 10/09/20 verapamil 240 mg tablet,extended release 240 mg PO DAILY heart rate 10/09/20 pantoprazole 40 mg tablet,delayed release (Protonix) 40 mg PO QAM indigestion #90 tabs 09/26/21 vitamin E (dl, acetate) 180 mg (400 unit) capsule See Rx Instructions .Route .COMPLEX supplement #180 caps 01/22/24 ergocalciferol (vitamin D2) 1,250 mcg (50,000 unit) capsule (Vitamin D2) 1,250 mcg PO QWEEK supplement 06/21/24 escitalopram oxalate 20 mg tablet 10 mg PO QODAY depression 06/21/24 escitalopram oxalate 20 mg tablet 20 mg PO QODAY depression 06/21/24 metformin 500 mg tablet 500 mg PO BID diabetes 06/21/24 pioglitazone 15 mg tablet 15 mg PO DAILY diabetes 06/21/24 sucralfate 1 gram tablet 1 g PO BID stomach 06/21/24 tirzepatide 12.5 mg/0.5 mL subcutaneous pen injector (Mounjaro) 12.5 mg subcut QWEEK diabetes 06/21/24 aspirin 81 mg capsule 81 mg PO DAILY #30 caps 06/22/24 Hospital Course Procedures - (MRI) Summary of Care Provided Minutes Spent on Discharge: 24 Hospital Course: # Complex migraine # Possible remote infarct # Thyroid nodules # Type 2 diabetes # GERD # Anxiety/depression 59-year-old female with history as above. Per HPI: KEHINDE ZABALA, is a 59 F who presents to the hospital with a headache that leads to neurological symptoms including aphasia as well as uncontrollable laughing and crying. She states that she gets migraines and the aura that occurs is aphasia but the laughing and crying uncontrollably was abnormal. She also had a brain fog which was atypical. No upper extremity or lower extremity numbness or tingling, and no other focal neurological deficits. Symptoms are resolved though she continues to have a headache. She is on verapamil for baseline control of her headaches and used to be on triptans but has not taken any for several years. She does see a neurologist in [place]. She feels completely back to baseline but has significant anxiety secondary to family history of brain aneurysms. CTA of the head and neck was unremarkable with no blockage or stenosis and no signs of aneurysm. her thyroid is read as being heterogeneously enlarged with multiple low-attenuation nodules. This was discussed with her and she knows to follow-up with her PCP to obtain an outpatient thyroid ultrasound. INTERVAL HISTORY: Patient's emotional lability and aphasia resolved, did have right sided headache. MRI with 6 mm signal abnormality of the high left frontal lobe without mass effect of uncertain significance, possibly remote infarct and it was recommended then outpatient MRI brain with and without contrast be ordered for evaluation, additionally reported Findings which are frequency incidental and of doubtful clinical significance given the reported symptoms, but may be seen in the setting of AICA vascular loop syndrome in the appropriate context. Evaluated patient post MRI scan and discussed her MRI findings, patient has the right sided headache but all her symptoms resolved, patient comfortable with discharge home and follow-up with her neurologist on outpatient basis. Discharge instructions as follows: -On your MRI there was a question of a possible old infarct on the left frontal lobe and it was recommended that you have an outpatient contrast and noncontrast MRI, this can be done on nonemergent basis -Given the questionable finding of a possible old infarct we will add aspirin to your regimen for now and would recommend you follow-up with your neurologist, please call their office upon discharge to schedule a follow-up appointment -You can take aspirin 81 mg, this can be obtained [id number] and does not need a prescription -Please call your primary care provider's office upon discharge to schedule a hospital follow up within 1 week. -For any concerning signs or symptoms please call 911 or proceed to the nearest emergency department Physical Exam Narrative General: Alert, oriented, no apparent distress HEENT: Atraumatic, normocephalic Eyes: extraocular movements grossly intact Neck: Supple Respiratory: normal respiratory effort Cardiovascular: no edema appreciated GI: nondistended Extremities: Moving all extremities Neuro: No overt focal neurological deficits Psych: Cooperative Weight / BMI Weight Weight: 115.89 kg Body Mass Index (BMI) 21.0 ABG / Lab / Microbiology Data 06/22/24 07:47 06/22/24 07:47 Laboratory: Laboratory Results - last 24 hr 06/21/24 22:23: POC Glucose 97 06/22/24 06:33: POC Glucose 112 H 06/22/24 07:47: WBC 4.6, RBC 5.18, Hgb 14.4, Hct 43.0, MCV 83.0, MCH 27.8, MCHC 33.5, RDW Std Deviation 40.8, RDW Coeff of Heron 13.4, Plt Count 214, MPV 9.9, Immature Gran % (Auto) 0.200, Neut % (Auto) 45.5 L, Lymph % (Auto) 42.5 H, Gates % (Auto) 9.4, Eos % (Auto) 2.0, Baso % (Auto) 0.4, Absolute Neuts (auto) 2.1, Absolute Lymphs (auto) 1.94, Nucleated RBC % 0, Sodium 136, Potassium 4.0, Chloride 105, Carbon Dioxide 19.5 L, Anion Gap 12, BUN 13, Creatinine 0.89, Estim Creat Clear Calc 55.16, Est GFR (MDRD) Non-Af 76, BUN/Creatinine Ratio 15.1, Glucose 112 H, Calcium 9.0 Radiography Diagnostic Testing: Radiology Impression Brain MRI 06/22/24 05:55 IMPRESSION: 1. No definite evidence of an acute intracranial process. 2. 6 mm signal abnormality in the high LEFT frontal lobe without mass-effect, uncertain significance, possible remote infarct. Recommend outpatient MRI brain with and without contrast to evaluate for possible low-grade small cortically based lesion. Comparison with any available outside imaging would be helpful if available. 3. Findings which are frequency incidental and of doubtful clinical significance given the reported symptoms, but may be seen in the setting of AICA vascular loop syndrome in the appropriate context. Correlate with exam and symptomatology. 4. Additional description as above. Reading Location: [id number] Instructions Discharge Diet: - (DASH diet) DC O2, CPAP, BIPAP Needs Home O2 Discharge instructions: No Meaningful Use Info Meaningful Use Meaningful Use Diagnoses (Choose all that apply): None applicable Ischemic Stroke Statin Dosing Therapy Reference: STATIN DOSE THERAPY REFERENCE: * Patients > 75 years receive moderate or high dose statin therapy. * Patients 75 years or YOUNGER should receive HIGH intensity statin dose unless contraindicated. You will be required to document reason for non-treatment if statin daily dose does not meet guidelines. HIGH DOSE STATIN THERAPY DAILY Atorvastatin > than or = to 40 mg Rosuvastatin > than or = to 20 mg Amlodipine + Atorvastatin > than or = to 2.5/40 mg Ezetimibe + Simvastatin 10/80 mg Simvastatin 80mg Discharge Plan Admission Admit Date/Time: 06/21/24 18:11 Primary Reason for Your Visit: Uncontrollable laughing and crying and difficulty getting words out Attending Provider: Faye Bentley Primary Care Provider: Rene Aguilera Consulting Providers: Rogelio Garcia Instructions Patient Instructions: Self-Care for Headaches, Migraine Triggers, Preventing Migraine Headaches ... Additional Instructions / Restrictions: DISCHARGE INSTRUCTIONS PLEASE READ *Please take this with you to your next doctors appointment* -On your MRI there was a question of a possible old infarct on the left frontal lobe and it was recommended that you have an outpatient contrast and noncontrast MRI, this can be done on nonemergent basis -Given the questionable finding of a possible old infarct we will add aspirin to your regimen for now and would recommend you follow-up with your neurologist, please call their office upon discharge to schedule a follow-up appointment -You can take aspirin 81 mg, this can be obtained [id number] and does not need a prescription -Please call your primary care provider's office upon discharge to schedule a hospital follow up within 1 week. -For any concerning signs or symptoms please call 911 or proceed to the nearest emergency department Discharge Orders/Prescriptions Prescriptions: New aspirin 81 mg capsule 81 mg PO DAILY Qty: 30 0RF Continued pantoprazole [Protonix] 40 mg tablet,delayed release (DR/EC) 40 mg PO QAM Qty: 90 3RF alprazolam [Xanax] 1 MG tablet 1 mg PO QHS PRN simvastatin 20 mg Tablet 20 mg PO DAILY verapamil 240 mg Tablet Extended Release 240 mg PO DAILY melatonin 10 mg Tablet 10 mg PO QHS pioglitazone 15 mg tablet 15 mg PO DAILY metformin 500 mg tablet 500 mg PO BID escitalopram oxalate 20 mg tablet 20 mg PO QODAY Rx Instructions: ALTERNATES W/10MG Mounjaro 12.5 mg/0.5 mL pen injector 12.5 mg subcut QWEEK escitalopram oxalate 20 mg tablet 10 mg PO QODAY Rx Instructions: ALTERNATES W/20MG ergocalciferol (vitamin D2) [Vitamin D2] 1,250 mcg (50,000 unit) capsule 1,250 mcg PO QWEEK sucralfate 1 gram tablet 1 g PO BID vitamin E (dl, acetate) 180 mg (400 unit) capsule See Rx Instructions .ROUTE .COMPLEX Qty: 180 3RF Dose Instruction: TAKE 2 CAPSULES BY MOUTH DAILY Rx Instructions: TAKE 2 CAPSULES BY MOUTH DAILY Referrals / Follow Up: Rene Aguilera DO [Primary Care Provider] - In 1 Week Disposition Disposition (needs filled in before D/C Order can be placed): Home, Self Care Charges/Coding Visit Charges Inpatient E&M: 78340 Disch Hosp
--- NOTE | 2024-06-22 16:00 | CASEMGMT ---
Patient has order for discharge. RN CM in to discuss needs at discharge. Patient denies needs or help at discharge. Patient had no further questions or concerns.
== END 2024-06-22 15:51 | disposition home or self-care (01) ==
LOC: ED 14:09 → PCU 18:25
PROVIDERS: Physician Assistant; Admitting Provider Family Medicine; Emergency Provider Emergency Medicine; PCP Family Medicine; Visit Provider Internal Medicine
DX: G43.909 Migraine, unspecified, not intractable, without status migrainosus (principal); E11.9 Type 2 diabetes mellitus without complications; R47.01 Aphasia; F41.9 Anxiety disorder, unspecified; Z90.710 Acquired absence of both cervix and uterus; R47.9 Unspecified speech disturbances; F17.210 Nicotine dependence, cigarettes, uncomplicated; K21.9 Gastro-esophageal reflux disease without esophagitis; I10 Essential (primary) hypertension; G47.33 Obstructive sleep apnea (adult) (pediatric); Z99.89 Dependence on other enabling machines and devices; Z90.49 Acquired absence of other specified parts of digestive tract; F32.A Depression, unspecified; E78.5 Hyperlipidemia, unspecified; E04.1 Nontoxic single thyroid nodule
CPT/HCPCS: 36415; 70450; 70496; 70498; 70551; 80048; 81001; 82962; 85025; 96372; 96374; 96375; 96376; 99221; 99285; 99406; Q9967; A4216; G0378; J2405; J3030

== ENCOUNTER → 2024-07-03 | Outpatient (CLI) | payer BC, SELFPAY ==
--- NOTE | 2024-07-03 07:55 | US_ITS ---
PROCEDURE: THYROID 07/03/2024 REASON FOR EXAM: MULTINODULAR GOITER TECHNIQUE: Thyroid ultrasound COMPARISON: CTA head and neck 06/21/2024. FINDINGS: Right thyroid lobe measures 5.1 x 2.2 x 2.2 cm. Left thyroid lobe measures 5.8 x 3.1 x 2.6 cm. Isthmus thickness is0.9 cm. Thyroid Size: Normal Background Echotexture: Heterogeneous Thyroid Nodules: One left thyroid nodule: Measures 2.2 x 2.1 x 1.4 cm, spongiform, isoechoic, wider than tall, smooth margins without calcification. TR-2, not suspicious. US/Thyroid IMPRESSION: Normal thyroid ultrasound. TR-2 left thyroid nodule, which is not suspicious. No further follow-up indicated by ACR TI-RADS criteria. Reading Location: [id number]
== END | disposition home or self-care (01) ==
LOC: US 07:43
PROVIDERS: PCP Family Medicine; Referring Provider Family Medicine; Visit Provider Family Medicine
DX: E04.2 Nontoxic multinodular goiter (principal)
CPT/HCPCS: 76536

== ENCOUNTER → 2024-07-08 | Outpatient (CLI) | payer BC, SELFPAY ==
--- NOTE | 2024-07-08 08:12 | MRI_ITS ---
PROCEDURE: BRAIN W/WO CONTRAST 07/08/2024 REASON FOR EXAM: LEFT FRONTAL LOBE LESION TECHNIQUE: Brain MRI without and with intravenous contrast with additional dedicated imaging of the IACs. Multiplanar and multisequence images were obtained. CONTRAST: 23 mL of intravenous Clariscan COMPARISON: 06/22/2024 FINDINGS: Stable punctate hyperintense FLAIR signal focus in the high posterior left frontal lobe cortex. No associated pathologic enhancement. No other parenchymal signal abnormalities. No diffusion restriction to suggest acute/subacute ischemia. No evidence of acute intracranial hemorrhage, midline shift or mass effect. No hydrocephalus. Cerebral volume is maintained. Paranasal sinuses and mastoid air cells are clear. Globes are intact. MRI/Brain W/WO Contrast IMPRESSION: 1. No acute intracranial abnormality or pathologic enhancement. 2. Stable hyperintense FLAIR signal focus in the high posterior left frontal co rtex of uncertain etiology. 6 month follow-up can be performed to ensure continued stability. Reading Location: [facility]
== END | disposition home or self-care (01) ==
LOC: MRI 07:59
PROVIDERS: PCP Family Medicine; Referring Provider Family Medicine; Visit Provider Family Medicine
DX: G93.9 Disorder of brain, unspecified (principal)
CPT/HCPCS: 70553; A9575

== ENCOUNTER → 2024-08-05 | Outpatient (CLI) | payer BC, SELFPAY ==
--- NOTE | 2024-08-05 07:42 | CDU_ITS ---
Reason For Study Reason For Study: Altered Awareness Rt. Velocities/BP Lt. Velocities/BP Prox CCA 84.2/14.2 cm/sec. Prox CCA 137.4/21.1 cm/sec. Mid CCA 91.6/17.9 cm/sec. Mid CCA 87.9/13.0 cm/sec. Dist CCA 96.5/20.4 cm/sec. Dist CCA 87.9/19.2 cm/sec. Prox ICA 52.4/10.4 cm/sec. Prox ICA 72.1/17.1 cm/sec. Mid ICA 66.7/18.9 cm/sec. Mid ICA 72.5/22.4 cm/sec. Dist ICA 98.5/27.0 cm/sec. Dist ICA 119.1/33.8 cm/sec. Rt. ICA/CCA = 1.1. Lt. ICA/CCA = 1.4. Prox ECA 128.6/12.3 cm/sec. Prox ECA 95.3/16.7 cm/sec. Rt. Vert. 54.8/9.3 cm/sec. Lt. Vert. 57.2/12.7 cm/sec. Right Extracranial There is intimal thickening but no significant atherosclerotic plaque noted in the right common carotid artery. There is intimal thickening but no significant atherosclerotic plaque noted in the right internal carotid artery. There is intimal thickening but no significant atherosclerotic plaque noted in the right external carotid artery. Antegrade flow is noted in the right vertebral artery. Left Extracranial There is intimal thickening but no significant atherosclerotic plaque noted in the left common carotid artery. There is heterogeneous, irregular atherosclerotic plaque noted in the left internal carotid artery. There is intimal thickening but no significant atherosclerotic plaque noted in the left external carotid artery. Antegrade flow is noted in the left vertebral artery. Procedure Carotid Duplex [id number]. This is a Carotid Duplex examination using B-mode, color flow and specral Doppler. The exam was diagnostic. Exam performed in department. VL/Carotid Duplex Ultrasound Interpretation Summary No significant atherosclerotic plaque or stenosis noted in the right internal c arotid artery. Mild (<50%) stenosis left extracranial internal carotid. Flow within the vertebral arteries is antegrade bilaterally. Ordering Physician: Turner Hedrick Referring Physician: Rene Aguilera Performed By: Frantz Hagan RVT
== END | disposition home or self-care (01) ==
LOC: CVS 07:41
PROVIDERS: PCP Family Medicine; Referring Provider Psychiatry & Neurology Neurology; Visit Provider Psychiatry & Neurology Neurology
DX: R40.4 Transient alteration of awareness (principal); R06.02 Shortness of breath
CPT/HCPCS: 93880

== ENCOUNTER → 2024-08-19 | Outpatient (CLI) | payer BC, SELFPAY ==
--- NOTE | 2024-08-19 09:46 | ECHOCS_ITS ---
Reason For Study Reason For Study: Transient Alteration of Awareness/ SOB Procedure This was a 2D Doppler, Color Flow transthoracic echocardiogram. The study was technically difficult. Contrast injection was performed. Exam performed in department. Left Ventricle Normal LV size. The estimated ejection fraction is 70 %. No evidence for diastolic dysfunction. No regional wall motion abnormalities noted. Right Ventricle Normal RV size. Normal systolic function. Atria The left and right atria are normal. Bubble contrast study is negative for PFO/ASD. Mitral Valve There is no mitral valve stenosis. No mitral valve insufficiency. Tricuspid Valve There is no tricuspid stenosis. Trivial tricuspid valve insufficiency. Unable to estimate RV systolic pressure due to insufficient tricuspid regurgitant envelope. Aortic Valve Trisinus/trileaflet aortic valve. Aortic sclerosis, no stenosis. There is no aortic stenosis. No aortic valve insufficiency. Pulmonic Valve There is no pulmonic valvular stenosis. No pulmonic valve insufficiency. Great Vessels Normal sized aortic root. Pericardium/Pleural No pericardial effusion. Medication 22 gauge I.V. with prn adaptor inserted into right arm. Diluted definity 1.5ml given slow IV push to enhance endocardial definition. Performed a rapid injection of agitated mix of 9 cc saline and 1cc air to assess for atrial septal defect. MMode/2D Measurements & Calculations LVIDd: 4.2 cm IVSd: 1.2 cm Ao root diam: 3.7 cm LVIDs: 3.2 cm LVPWd: 1.1 cm RVDd: 3.6 cm FS: 24.5 % LAV(MOD-bp): 37.7 ml LVAd ap4: 34.0 cm2 SV(MOD-sp4): 75.8 ml LAV(MOD-bp) Indexed: 18.3 ml/m2 LVLd ap4: 8.1 cm SI(MOD-sp4): 36.7 ml/m2 LAV(MOD-sp2): 32.7 ml EDV(MOD-sp4): 115.0 ml LAV(MOD-sp4): 40.3 ml EDV(sp4-el): 121.5 ml LVAs ap4: 17.1 cm2 LVLs ap4: 6.2 cm ESV(MOD-sp4): 39.2 ml ESV(sp4-el): 40.1 ml EF(MOD-sp4): 65.9 % EF(sp4-el): 67.0 % SV(sp4-el): 81.4 ml LA A4 area: 16.9 cm2 LA dimension(2D): 4.6 cm RA A4 area: 14.1 cm2 Time Measurements MV dec time: 0.28 sec Doppler Measurements & Calculations MV E max wilmar: 87.5 cm/sec Lat Peak E' Wilmar: 11.2 cm/sec Med Peak E' Wilmar: 9.0 cm/sec MV A max wilmar: 91.4 cm/sec E/E' lat: 7.8 E/E' med: 9.7 MV E/A: 0.96 MV V2 max: 93.5 cm/sec MV P1/2t max wilmar: 88.0 cm/sec Ao V2 max: 159.2 cm/sec MV max P.5 mmHg MV P1/2t: 84.5 msec Ao max P.2 mmHg MV V2 mean: 54.1 cm/sec MV dec slope: 305.0 cm/sec2 Ao V2 mean: 105.6 cm/sec MV mean P.4 mmHg MVA(P1/2t): 2.6 cm2 Ao mean P.1 mmHg MV V2 VTI: 25.8 cm Ao V2 VTI: 32.0 cm AV (velocity ratio): 0.87 LV V1 max: 119.7 cm/sec PA V2 max: 121.4 cm/sec TR max wilmar: 248.0 cm/sec LV V1 max P.7 mmHg TR max P.6 mmHg LV V1 mean P.0 mmHg LV V1 mean: 80.2 cm/sec LV V1 VTI: 27.9 cm ECHO/Echo Complete W/ Contrast Interpretation Summary The estimated ejection fraction is 70 %. No evidence for diastolic dysfunction. Ordering Physician: Turner Hedrick Referring Physician: Rene Aguilera Performed By: Cam Aiken RCS
== END | disposition home or self-care (01) ==
LOC: CVS 09:44
PROVIDERS: PCP Family Medicine; Referring Provider Psychiatry & Neurology Neurology; Visit Provider Psychiatry & Neurology Neurology
DX: R40.4 Transient alteration of awareness (principal); R06.02 Shortness of breath
CPT/HCPCS: 93306; Q9957; A4216; C8929

== ENCOUNTER → 2025-01-14 | Outpatient (CLI) | payer BC, SELFPAY ==
--- NOTE | 2025-01-14 07:22 | MRI_ITS ---
PROCEDURE: BRAIN W/WO CONTRAST 01/14/2025 REASON FOR EXAM: 6 MONTH FOLLOW UP TECHNIQUE: Procedure Code: [id number] Modality: MR Procedure: BRAIN W/WO CONTRAST Multiplanar and multisequence images were obtained. CONTRAST: Clariscan. VOLUME: 23 mL COMPARISON: MRI brain June 22, 2024. FINDINGS: Brain: Few foci of hyperintense signal on T2 and FLAIR including a 6 mm stable focus in the left precentral gyrus may represent chronic small-vessel ischemia or old small infarctions. No abnormal enhancement. No mass or midline shift. No restricted diffusion. No hemorrhage. The craniocervical junction is unremarkable. Empty sella. Diffusion: No restricted diffusion. Ventricles: No ventriculomegaly Major Intracranial Vessels: Patent. Sinuses: Clear. Mastoids: Clear. MRI/Brain W/WO Contrast IMPRESSION: No brain lesions or acute brain abnormalities. A few foci of parenchymal hyperintense signal on T2 and FLAIR may represent chr onic small-vessel ischemia. Reading Location: [id number]
--- OUTSIDE RECORDS SUMMARY | 2025-01-14 07:33 | XMS RPT_ITS | CCD ---
Author Organization [facility] Care Team Providers Care Belt Maker Name Role Phone Dr. Robert Ann Primary Care Provider [phone] Dr. Robert Ann Referring Provider [phone] Siegel Attending Provider [phone]. Siegel Referring Provider [phone]. Siegel Other Provider [phone] Vasquez EQUIPMENT ENGINEERING TECHNICIAN, EQUIPMENT ENGINEERING TECHNICIAN-C Ani Patten Attending Provider [phone] Dr. Robert Ann Primary Care Provider [phone] Dr. Robert Ann Referring Provider [phone] Vasquez EQUIPMENT ENGINEERING TECHNICIAN, EQUIPMENT ENGINEERING TECHNICIAN-C Ani Patten Attending Provider [phone] Dr. Robert Ann Primary Care Provider [phone] Dr. Robert Ann Referring Provider [phone] Vasquez EQUIPMENT ENGINEERING TECHNICIAN, EQUIPMENT ENGINEERING TECHNICIAN-C Ani Patten Attending Provider [phone] Dr. Robert Ann Primary Care Provider [phone] Dr. Robert Ann Referring Provider [phone] Vasquez EQUIPMENT ENGINEERING TECHNICIAN, EQUIPMENT ENGINEERING TECHNICIAN-C Ani Patten Attending Provider [phone] Unavailable Primary Care Provider UnavailRobert Gilbert Primary Care Provider DIANE GUTIERREZ Attending Unavailable ROBERT ANN Primary Care Unavailable DIANE GUTIERREZ Attending Unavailable ROBERT ANN Primary Care Unavailable DAARSH MONTES Referring Unavailable ROBERT ANN Primary Care Unavailable ROBERT ANN Primary Care Unavailable DIANE GUTIERREZ Attending Unavailable ADARSH MONTES Referring Unavailable ROBERT ANN Primary Care Unavailable ADARSH MONTES Referring Unavailable MARISSAROBERT BELLO Primary Care Unavailable NONE, PCP Referring Unavailable DESMOND SHAIKH Attending Unavailable DESMOND SHAIKH Admitting Unavailable ATIYA GREEN Consulting Unavailable Marissa ELIZABETH, Dr. López Primary Care Provider Marissa DO, Dr. López Attending Provider [facility] , Dr. López Referring Provider [phone] [facility], Dr. Deluca Emergency Provider Radha KEARNEY, Dr. Rogelio Ortez Admit Provider Radha KEARNEY, Dr. Rogelio Ortez Attending Provider Radha KEARNEY, Dr. Rogelio Ortez Other Provider Mc KEARNEY, Dr. Mckinney Attending Provider Radha KEARNEY, Dr. Rogelio Ortez Attending Provider Marissa , Dr. López Primary Care Provider Mc KEARNEY, Dr. Mckinney Other Provider Marissa DO, Dr. López Attending Provider [phone] Marissa , Dr. López Referring Provider [phone] Ryley KEARNEY, Dr. Tompkins Attending Provider Unavailab lorri Hedrick MD, Dr. Tompkins Referring Provider Unavailab lorri Figueroa MD, Dr. Simons Attending Provider Robert Ann Primary Care Unavailable Rogelio Garcia Attending Unavailable Rogelio Garcia Consulting Unavailable Rogelio Garcia Admitting Unavailable Faye Bentley Attending Unavailable Faye Bentley Consulting Unavailable Robert Ann Primary Care Unavailable Kristyn Figueroa Attending Unavailabl e MarissaRobert bello Primary Care Unavailable MarissaRobert bello Referring Unavailable MarissaRobert bello Attending Unavailable MarissaRobert bello Primary Care Unavailable MarissaRobert bello Attending Unavailable Marissa, Robert Primary Care Unavailable TaylaightFlor Referring Unavailable Flor Medeiros Attending Unavailable Marissa, Robert Primary Care Unavailable Faye Bentley Attending Unavailable Rogelio Garcia Consulting Unavailable Rogelio Garcia Admitting Unavailable MarissaRobert Primary Care Unavailable MarissaRobert Referring Unavailable Robert Ann Attending Unavailable MarissaRobert Primary Care Unavailable Marissa, Robert Referring Unavailable Marissa, Robert Attending Unavailable Robert Ann Primary Care Unavailable Marissa, Robert Referring Unavailable Marissa, Robert Attending Unavailable MarissaRobert bello Primary Care Unavailable Marissa Robert Referring Unavailable MarissaRobert bello Attending Unavailable Marissa, Robert Primary Care Unavailable Ryley, Turner Referring Unavailable Ryley, Turner Attending Unavailable Robert Ann Primary Care Unavailable Ryley, Turner Referring Unavailable Ryley, Turner Attending Unavailable Allergies Allergy Classification Reported Allergen(s) Allergy Type Date of Onset Reaction(s) Facility (1 source) Acetaminophen Drug Allergy 2 Nausea [facility] Work Phone: (18 sources) HYDROcodone Drug Allergy 2 Nausea [facility] (4 sources) Imipramine Drug Allergy 5 unstable moods [facility] (4 sources) Promethazine Drug Allergy 5 hallucinations [facility] (1 source) HYDROcodone Drug Allergy 5 [facility] (1 source) Imipramine Drug Allergy 5 [facility] (1 source) Promethazine Drug Allergy 5 [facility] Medications Current Medications Medication Drug Class(es) Dates Sig (Normalized) Sig (Original) ALPRAZolam 1 mg oral tablet (20 sources) Benzodiazepine Start: 05-16-2016 take 1 tablet by mouth at bedtime as needed Alprazolam (Xanax) 1 MG tablet Active 1 mg PO AT BEDTIME NEEDED May 16, 2016 1:00am aspirin 81 mg oral tablet (3 sources) Platelet Aggregation Inhibitor, Nonsteroidal Anti-inflammatory Drug Start: 06-22-2024 take 1 capsule by mouth once daily Aspirin 81 mg capsule Active 81 mg PO DAILY June 22, 2024 12:00am ergocalciferol 1.25 mg oral capsule (4 sources) Provitamin D2 Compound Start: 06-21-2024 Ergocalciferol (Vitamin D2) (Vitamin D2) 1,250 mcg (50,000 unit) capsule Active 1250 ug PO EVERY WEEK June 21, 2024 12:00am escitalopram 20 mg oral tablet (20 sources) Serotonin Reuptake Inhibitor Start: 06-21-2024 take 1 tablet by mouth every other day Escitalopram Oxalate 20 mg tablet Active 20 mg PO EVERY OTHER DAY June 21, 2024 12:00am ALTERNATES W/10MG Start: 06-21-2024 take 10 mg by mouth every other day Escitalopram Oxalate 20 mg tablet Active 10 mg PO EVERY OTHER DAY June 21, 2024 12:00am ALTERNATES W/20MG Start: 10-09-2020 End: 06-21-2024 take 1 tablet by mouth once daily Escitalopram Oxalate 10 mg Tablet Discontinued 10 mg PO DAILY October 09, 2020 12:00am June 21, 2024 3:29pm take 1 tablet by gail th once daily escitalopram (Lexapro) 20 MG tablet Take 1 tablet by mouth daily. 0 Active melatonin 10 mg oral tablet (20 sources) Start: 10-09-2020 take 1 tablet by mouth at bedtime Melatonin 10 mg Tablet Active 10 mg PO AT BEDTIME October 09, 2020 12:00am take 2 tablets by mouth once theodora ly melatonin 10 MG tablet Take 20 mg by mouth Nightly. 0 Active metFORMIN hydrochloride 500 mg oral tablet (20 sources) Biguanide Start: 06-21-2024 take 1 tablet by mouth twice daily Metformin 500 mg tablet Active 500 mg PO TWICE A DAY June 21, 2024 12:00am Start: 05-16-2016 End: 06-21-2024 Metformin 1,000 MG tablet Discontinued 500 mg PO TWICE DAILY WITH MEALS May 16, 2016 1:00am June 21, 2024 3:29pm Start: 05-16-2016 take 500 mg by mouth twice daily at mealtime Metformin Active 500 MG PO TWICE DAILY WITH MEALS May 16, 2016 1:00am take 1 tablet by gail th twice daily metFORMIN (Glucophage) 500 MG tablet Take 1 tablet by mouth 2 times daily. 0 Active oxyCODONE hydrochloride 5 mg oral tablet (4 sources) Opioid Agonist Start: 12-09-2022 End: 12-18-2022 take 1 tablet by mouth every six hours as needed for pain oxyCODONE (Roxicodone) 5 MG immediate release tablet Indications: Left elbow fracture, closed, initial encounter Take 1 tablet (5 mg) by mouth every 6 hours as needed for moderate pain (4-6) or severe pain (7-10) for up to 5 days. 20 tablet 0 12/13/2022 12/18/2022 Active pantoprazole 40 mg delayed release oral tablet (20 sources) Proton Pump Inhibitor Start: 09-26-2021 take 1 tablet by mouth once daily in the morning Pantoprazole (Protonix) 40 mg tablet,delayed release (DR/EC) Active 40 mg PO EVERY MORNING September 26, 2021 10:14am Start: 07-04-2021 End: 09-26-2021 Pantoprazole (Protonix) 40 m g tablet,delayed release (DR/EC) Discontinued 40 mg PO TWICE A DAY July 04, 2021 12:00am September 26, 2021 10:17am take two times a day for eight weeks then once a day pioglitazone 15 mg oral tablet (13 sources) Peroxisome Proliferator Receptor alpha Agonist, Peroxisome Proliferator Receptor gamma Agonist, Thiazolidinedione Start: 06-21-2024 take 1 tablet by mouth once daily Pioglitazone 15 mg tablet Active 15 mg PO DAILY June 21, 2024 12:00am take 1 tablet by mouth once aditi y pioglitazone (Actos) 15 MG tablet Take 1 tablet by mouth daily. 0 Active simvastatin 20 mg oral tablet (20 sources) HMG-CoA Reductase Inhibitor Start: 10-09-2020 take 1 tablet by mouth once daily Simvastatin 20 mg Tablet Active 20 mg PO DAILY October 09, 2020 12:00am Tirzepatide (Mounjaro) 12.5 mg/0.5 mL pen injector (3 sources) Start: 06-21-2024 Tirzepatide (Mounjaro) 12.5 mg/0.5 mL pen injector Active 12.5 mg SC EVERY WEEK June 21, 2024 12:00am Tirzepatide (Tirzepatide 12.5 Mg/0.5 Ml Subcutaneous Pen Injector) 12.5 mg/0.5 mL pen injector (1 source) Start: 06-21-2024 Tirzepatide (Tirzepatide 12.5 Mg/0.5 Ml Subcutaneous Pen Injector) 12.5 mg/0.5 mL pen injector Active 12.5 mg SC EVERY WEEK June 21, 2024 12:00am verapamil hydrochloride 240 mg extended release oral tablet (20 sources) Calcium Channel Taylor Start: 10-09-2020 take 1 tablet by mouth once daily Verapamil 240 mg Tablet Extended Release Active 240 mg PO DAILY October 09, 2020 12:00am Completed/Discontinued Medications Medication Drug Class(es) Dates Sig (Normalized) Sig (Original) acetaminophen 325 mg / oxyCODONE hydrochloride 5 mg oral tablet (20 sources) Opioid Agonist Start: 08-05-2022 End: 06-21-2024 Oxycodone-Acetamino phen (Percocet) 5-325 mg tablet Discontinued 1 {tbl} PO Q8H as needed for pain 16 August 05, 2022 June 21, 2024 4:06pm Start: 01-23-2018 End: 01-26-2018 Oxycodone-Acetaminophen 1 TA BLET tablet Discontinued 1 {tbl} PO EVERY 6 HOURS NEEDED as needed for Pain 10 January 23, 2018 1:00am January 25, 2018 1:00am January 26, 2018 1:10am Start: 01-23-2018 End: 01-26-2018 take 1 tablet by mouth every six hours as needed Oxycodone-Acetaminophen Discontinued 1 TABLET PO EVERY 6 HOURS NEEDED 10 January 23, 2018 1:00am January 26, 2018 1:10am bismuth subsalicylate 262 mg oral tablet (17 sources) Bismuth Start: 07-04-2021 End: 09-26-2021 take 1 tablet by mouth every eight hours as needed for diarrhea Bismuth Subsalicylate (Pepto-Bismol) 262 mg tablet Discontinued 1 {tbl} PO Q8H as needed for diarrhea 45 July 04, 2021 12:00am September 26, 2021 12:55pm take one every eight hours for two weeks. 0.5 ml dulaglutide 3 mg/ml auto-injector (20 sources) GLP-1 Receptor Agonist Start: 05-16-2021 End: 06-21-2024 Dulaglutide (Trulicity) 1.5 mg/0.5 mL Pen Injector Discontinued 1.5 mg SC EVERY WEEK May 16, 2021 1:00am June 21, 2024 4:04pm FRIDAY dulaglutide (Bart licity) 1.5 MG/0.5ML solution pen-injector INJECT THE CONTENTS OF 1 PEN SUBCUTANEOUSLY WEEKLY 0 Active metoclopramide 5 mg oral tablet (15 sources) Dopamine-2 Receptor Antagonist Start: 09-26-2021 End: 04-29-2022 take 1 tablet by mouth every six hours 30 minutes before mealtime Metoclopramide Hcl 5 mg tablet Discontinued 5 mg PO EVERY 6 HOURS September 26, 2021 12:00am April 29, 2022 11:41am administer 30 minutes before meals sucralfate 1000 mg oral tablet (20 sources) Aluminum Complex Start: 06-24-2022 End: 06-21-2024 take 1 tablet by mouth before mealtime Sucralfate 1 gram tablet Discontinued 1 g PO before meals 90 July 29, 2022 8:46am June 21, 2024 4:08pm ursodiol 300 mg oral capsule (20 sources) Bile Acid Start: 05-30-2021 End: 06-21-2024 take 1 capsule by mouth twice daily Ursodiol 300 mg capsule Discontinued 0 .ROUTE .COMPLEX 180 September 25, 2021 8:41am September 26, 2021 10:19am TAKE 1 CAPSULE BY MOUTH TWICE A DAY vitamin e 180 mg oral capsule (20 sources) Start: 05-30-2021 End: 01-22-2024 take 2 capsules by mouth once daily Vitamin E (Dl, Acetate) 180 mg (400 unit) capsule Discontinued 0 .ROUTE .COMPLEX 180 November 28, 2022 2:24pm January 22, 2024 7:41am TAKE 2 CAPSULES BY MOUTH DAILY Start: 05-30-2021 End: 09-25-2021 take 2 capsules by mouth once daily Vitamin E 400 unit capsule Discontinued 800 U PO DAILY 60 May 30, 2021 12:00am September 25, 2021 8:42am take 2 capsules by m outh once daily alpha tocopherol (Vitamin E) 400 units capsule Take 2 capsules by mouth daily. 0 Active Problems Active Problems Problem Classification Problem Date Documented Da te Episodic/Chronic Abdominal pain (20 sources) Abdominal pain; Translations: [Unspecified abdominal pain] Episodic E Codes: Fall (10 sources) Fall; Translations: [Unspecified fall, initial encounter] Onset: 12-07-2022 12-07-2022 Episodic Fracture of lower limb (9 sources) Fracture of ankle; Translations: [Other fracture of right lower leg, initial encounter for closed fracture] 08-13-2022 Episodic Fracture of upper limb (20 sources) Closed fracture dislocation elbow joint ; Translations: [Unspecified fracture of lower end of unspecified humerus, initial encounter for closed fracture] Onset: 12-08-2022 12-07-2022 Episodic Headache; including migraine (13 sources) Migraine; Translations: [Migraine, unspecified, not intractable, without status migrainosus] Onset: 06-22-2024 06-21-2024 Chronic Hepatitis (9 sources) Nonalcoholic steatohepatitis; Translations: [Nonalcoholic steatohepatitis (BRICE)] 07-29-2022 Chronic Nausea and vomiting (16 sources) Nausea; Translations: [Nausea] Episodic Other and unspecified benign neoplasm (18 sources) History of polyp of colon; Translations: [Personal history of colonic polyps] 04-29-2021 Episodic Other and unspecified benign neoplasm (5 sources) Personal history of colonic polyps; Translations: [Personal history of colonic polyps] Episodic Other gastrointestinal disorders (18 sources) Constipation; Translations: [Constipation, unspecified] 10-09-2020 Episodic Other gastrointestinal disorders (2 sources) Constipation, unspecified; Translations: [Constipation, unspecified] Episodic Other infections; including parasitic (10 sources) History of Helicobacter pylori infection; Translations: [Personal history of other infectious and parasitic diseases] 06-24-2022 Episodic Other liver diseases (18 sources) Steatosis of liver; Translations: [Fatty (change of) liver, not elsewhere classified] 04-29-2022 Chronic Other liver diseases (10 sources) Fatty (change of) liver, not elsewhere classified; Translations: [Other chronic nonalcoholic liver disease] Chronic Other nervous system disorders (4 sources) Expressive dysphasia; Translations: [Aphasia] 06-21-2024 Chronic Other nervous system disorders (1 source) Disorder of brain, unspecified; Translations: [Disorder of brain, unspecified] Onset: 07-13-2024 Chronic Other nervous system disorders (1 source) Aphasia; Translations: [Aphasia] Onset: 07-02-2024 Chronic Other screening for suspected conditions (not mental disorders or infectious disease) (3 sources) Other abnormal findings on diagnostic imaging of central nervous system; Translations: [Encounter for screening for malignant neoplasm of respiratory organs] Onset: 04-12-2024 Episodic Other upper respiratory disease (8 sources) Pharyngeal finding; Translations: [Other diseases of pharynx] 08-07-2021 Episodic Other upper respiratory disease (11 sources) Other diseases of pharynx; Translations: [Other diseases of pharynx, not elsewhere classified] Episodic Thyroid disorders (1 source) Nontoxic multinodular goiter; Translations: [Nontoxic multinodular goiter] Onset: 07-07-2024 Chronic Unclassified (2 sources) Post-op; Translations: [Post-op] Onset: 03-04-2023 Past or Other Problems Problem Classification Problem Date Documented Da te Episodic/Chronic Residual codes; unclassified (1 source) Transient alteration of awareness; Translations: [Transient alteration of awareness] Onset: 08-23-2024 Episodic Results Test Name Value Interpretation Reference Range Facility Echo Complete W/ Contraston 08-19-2024 Echo Complete W/ Contrast [facility] [address] [place] [address] Echo Complete W/ Contrast 08/19/24 1008 MR#: [id number] Acct: [id number] Name: LINDY LEAVITT Rep #: [id number] : 1965 59 From: Kristyn Figueroa MD Attending Dr: Dr. Turner Hedrick MD Status: REG C Ordering Dr: Turner Hedrick MD Date: 08/19/24 Location: [facility] Sex: F C Admitted: Reason For Study Reason For Study: Transient Alteration of Awareness/ SOB Procedure This was a 2D Doppler, Color Flow transthoracic echocardiogram. The study was technically difficult. Contrast injection was performed. Exam performed in department. Left Ventricle Normal LV size. The estimated ejection fraction is 70 %. No evidence for diastolic dysfunction. No regional wall motion abnormalities noted. Right Ventricle Normal RV size. Normal systolic function. Atria The left and right atria are normal. Bubble contrast study is negative for PFO/ASD. Mitral Valve There is no mitral valve stenosis. No mitral valve insufficiency. Tricuspid Valve There is no tricuspid stenosis. Trivial tricuspid valve insufficiency. Unable to estimate RV systolic pressure due to insufficient tricuspid regurgitant envelope. Aortic Valve Trisinus/trileaflet aortic valve. Aortic sclerosis, no stenosis. There is no aortic stenosis. No aortic valve insufficiency. Pulmonic Valve There is no pulmonic valvular stenosis. No pulmonic valve insufficiency. Great Vessels Normal sized aortic root. Pericardium/Pleural No pericardial effusion. Medication 22 gauge I.V. with prn adaptor inserted into right arm. Diluted definity 1.5ml given slow IV push to enhance endocardial definition. Performed a rapid injection of agitated mix of 9 cc saline and 1cc air to assess for atrial septal defect. MMode/2D Measurements Calculations LVIDd: 4.2 cm IVSd: 1.2 cm Ao root diam: 3.7 cm LVIDs: 3.2 cm LVPWd: 1.1 cm RVDd: 3.6 cm FS: 24.5 % _ LAV(MOD-bp): 37.7 ml LVAd ap4: 34.0 cm2 SV(MOD-sp4): 75.8 ml LAV(MOD-bp) Indexed: 18.3 ml/m2 LVLd ap4: 8.1 cm SI(MOD-sp4): 36.7 ml/m2 LAV(MOD-sp2): 32.7 ml EDV(MOD-sp4): 115.0 ml LAV(MOD-sp4): 40.3 ml EDV(sp4-el): 121.5 ml LVAs ap4: 17.1 cm2 LVLs ap4: 6.2 cm ESV(MOD-sp4): 39.2 ml ESV(sp4-el): 40.1 ml EF(MOD-sp4): 65.9 % EF(sp4-el): 67.0 % _ SV(sp4-el): 81.4 ml LA A4 area: 16.9 cm2 LA dimension(2D): 4.6 cm _ RA A4 area: 14.1 cm2 Time Measurements MV dec time: 0.28 sec Doppler Measurements Calculations MV E max clayton: 87.5 cm/sec Lat Peak E' Clayton: 11.2 cm/sec Med Peak E' Clayton: 9.0 cm/sec MV A max clayton: 91.4 cm/sec E/E' lat: 7.8 E/E' med: 9.7 MV E/A: 0.96 _ MV V2 max: 93.5 cm/sec MV P1/2t max clayton: 88.0 cm/sec Ao V2 max: 159.2 cm/sec MV max P.5 mmHg MV P1/2t: 84.5 msec Ao max P.2 mmHg MV V2 mean: 54.1 cm/sec MV dec slope: 305.0 cm/sec2 Ao V2 mean: 105.6 cm/sec MV mean P.4 mmHg MVA(P1/2t): 2.6 cm2 Ao mean P.1 mmHg MV V2 VTI: 25.8 cm Ao V2 VTI: 32.0 cm AV (velocity ratio): 0.87 _ LV V1 max: 119.7 cm/sec PA V2 max: 121.4 cm/sec TR max clayton: 248.0 cm/sec LV V1 max P.7 mmHg TR max P.6 mmHg LV V1 mean P.0 mmHg LV V1 mean: 80.2 cm/sec LV V1 VTI: 27.9 cm ECHO/Echo Complete W/ Contrast Interpretation Summary The estimated ejection fraction is 70 %. No evidence for diastolic dysfunction. Ordering Physician: Turner Hedrick Referring Physician: Robert Ann Performed By: Cam Aiken RCS 08/19/24 1324 Date Kristyn Figueroa MD CC: Dr. Turner Hedrick MD; Dr. 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 [address] Echo Complete W/ Contrast 08/19/24 1008 MR#: [id number] Acct: [id number] Name: LINDY LEAVITT Rep #:[id number] : 1965 59 From: Kristyn lauren MD Attending Dr: Dr. Turner Hedrick MD S tatus: REG CLI Ordering Dr: Turner Hedrick MD Date: 08/08 Location: [facility] Sex: F C Admitted: Reason For Study Reason For Study: Transient Alteration of Awareness/ SOB Procedure This was a 2D Doppler, Color Flow transthoracic echocardiogram. The study was technically difficult. Contrast injection was performed. Exam performed in department. Left Ventricle Normal LV size. The estimated ejection fraction is 70 %. No evidence for diastolic dysfunction. No regional wall motion abnormalities noted. Right Ventricle Normal RV size. Normal systolic function. Atria The left and right atria are normal. Bubble contrast study is negative for PFO/ASD. Mitral Valve There is no mitral valve stenosis. No mitral valve insufficiency. Tricuspid Valve There is no tricuspid stenosis. Trivial tricuspid valve insufficiency. Unable toestimate RV systolic pressure due to insufficient tricuspid regurgitant envelope. Aortic Valve Trisinus/trileaflet aortic valve. Aortic sclerosis, no stenosis. There is no aortic stenosis. No aortic valve insufficiency. Pulmonic Valve There is no pulmonic valvular stenosis. No pulmonic valve insufficiency. Great Vessels Normal sized aortic root. Pericardium/Pleural No pericardial effusion. Medication 22 gauge I.V. with prn adaptor inserted into right arm. Diluted definity 1.5ml given slow IV push to enhance endocardial definition. Performed a rapid injection of agitated mix of 9 cc saline and 1cc air to assess for atrial septal defect. MMode/2D Measurements & Calculations LVIDd: 4.2 cm IVSd: 1.2 cm Ao root diam: 3.7 cm LVIDs: 3.2 cm LVPWd: 1.1 cm RVDd: 3.6 cm FS: 24.5 % LAV(MOD-bp): 37.7 ml LVAd ap4: 34.0 cm2 SV(MOD-sp4): 75.8 ml LAV(MOD-bp) Indexed: 18.3 ml/m2 LVLd ap4: 8.1 cm SI(MOD-sp4): 36.7 ml/m2 LAV(MOD-sp2): 32.7 ml EDV(MOD-sp4): 115.0 ml LAV(MOD-sp4): 40.3 ml EDV(sp4-el): 121.5 ml LVAs ap4: 17.1 cm2 LVLs ap4: 6.2 cm ESV(MOD-sp4): 39.2 ml ESV(sp4-el): 40.1 ml EF(MOD-sp4): 65.9 % EF(sp4-el): 67.0 % SV(sp4-el): 81.4 ml LA A4 area: 16.9 cm2 LA dimension(2D): 4.6 cm RA A4 area: 14.1 cm2 Time Measurements MV dec time: 0.28 sec Doppler Measurements & Calculations MV E max clayton: 87.5 cm/sec Lat Peak E' Clayton: 11.2 cm/sec Med Peak E' Clayton: 9.0 cm/sec MV A max clayton: 91.4 cm/sec E/E' lat: 7.8 E/E' med: 9.7 MV E/A: 0.96 MV V2 max: 93.5 cm/sec MV P1/2t max clayton: 88.0 cm/sec Ao V2 max: 159.2 cm/sec MV max P.5 mmHg MV P1/2t: 84.5 msec Ao max P.2 mmHg MV V2 mean: 54.1 cm/sec MV dec slope: 305.0 cm/sec2 Ao V2 mean: 105.6 cm/sec MV mean P.4 mmHg MVA(P1/2t): 2.6 cm2 Ao mean P.1 mmHg MV V2 VTI: 25.8 cm Ao V2 VTI: 32.0 cm AV (velocity ratio): 0.87 LV V1 max: 119.7 cm/sec PA V2 max: 121.4 cm/sec TR max clayton: 248.0 cm/sec LV V1 max P.7 mmHg TR max P.6 mmHg LV V1 mean P.0 mmHg LV V1 mean: 80.2 cm/sec LV V1 VTI: 27.9 cm ECHO/Echo Complete W/ Contrast Interpretation Summary The estimated ejection fraction is 70 %. No evidence for diastolic dysfunction. Ordering Physician: Turner Hedrick Referring Physician: Robert Ann Performed By: Cam Aiken RCS 08/19/24 1324 Date _ Kristyn Figueroa MD CC: Dr. Turner Hedrick MD; Dr. 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 [place] [address] Carotid Duplex Ultrasound 08/05/24 0805 MR#: [id number] Acct: [id number] Name: LINDY LEAVITT Rep #: [id number] : 1965 59 From: Flynn Parks MD Attending Dr: Dr. Turner Hedrick MD Status: REG Bairon TAMAYO Ordering Dr: Turner Hedrick MD Date: 08/05/24 Location: [facility] Sex: F C Admitted: Reason For Study Reason For Study: Altered Awareness Rt. Velocities/BP Lt. Velocities/BP Prox CCA 84.2/14.2 cm/sec. Prox CCA 137.4/21.1 cm/sec. Mid CCA 91.6/17.9 cm/sec. Mid CCA 87.9/13.0 cm/sec. Dist CCA 96.5/20.4 cm/sec. Dist CCA 87.9/19.2 cm/sec. Prox ICA 52.4/10.4 cm/sec. Prox ICA 72.1/17.1 cm/sec. Mid ICA 66.7/18.9 cm/sec. Mid ICA 72.5/22.4 cm/sec. Dist ICA 98.5/27.0 cm/sec. Dist ICA 119.1/33.8 cm/sec. Rt. ICA/CCA = 1.1. Lt. ICA/CCA = 1.4. Prox ECA 128.6/12.3 cm/sec. Prox ECA 95.3/16.7 cm/sec. Rt. Vert. 54.8/9.3 cm/sec. Lt. Vert. 57.2/12.7 cm/sec. Right Extracranial There is intimal thickening but no significant atherosclerotic plaque noted in the right common carotid artery. There is intimal thickening but no significant atherosclerotic plaque noted in the right internal carotid artery. There is intimal thickening but no significant atherosclerotic plaque noted in the right external carotid artery. Antegrade flow is noted in the right vertebral artery. Left Extracranial There is intimal thickening but no significant atherosclerotic plaque noted in the left common carotid artery. There is heterogeneous, irregular atherosclerotic plaque noted in the left internal carotid artery. There is intimal thickening but no significant atherosclerotic plaque noted in the left external carotid artery. Antegrade flow is noted in the left vertebral artery. Procedure Carotid Duplex 52386. This is a Carotid Duplex examination using B-mode, color flow and specral Doppler. The exam was diagnostic. Exam performed in department. VL/Carotid Duplex Ultrasound Interpretation Summary No significant atherosclerotic plaque or stenosis noted in the right internal carotid artery. Mild (<50%) stenosis left extracranial internal carotid. Flow within the vertebral arteries is antegrade bilaterally. Ordering Physician: Turner Hedrick Referring Physician: Robert Ann Performed By: Frantz Hagan, T 08/05/242255 Date Flynn Parks MD CC: Dr. Turner Hedrick MD; Dr. Robert Ann DO Date Dictated: 08/05/24804 Date Transcribed: 08/05/242255 Folded Towel Machine Operator: Signed Normal [facility] Duplex ultrasound of carotid artery reportOrdered By: Flynn Parks on 08-05-2024 Study report [facility] [place] [address] Carotid Duplex Ultrasound 08/05/24 0805 MR#: [id number] Acct: [id number] Name: LINDY LEAVITT Rep #:[id number] : 1965 59 From: Flynn Parks MD Attending Dr: MD Teresa Maddox tatus: REG CLI Ordering Dr: Turner Hedrick MD Date: Location: CVS Sex: F C Admitted: Reason For Study Reason For Study: Altered Awareness Rt. Velocities/BP Lt. Velocities/BP Prox CCA 84.2/14.2 cm/sec. Prox CCA 137.4/21.1 cm/sec. Mid CCA 91.6/17.9 cm/sec. Mid CCA 87.9/13.0 cm/sec. Dist CCA 96.5/20.4 cm/sec. Dist CCA 87.9/19.2 cm/sec. Prox ICA 52.4/10.4 cm/sec. Prox ICA 72.1/17.1 cm/sec. Mid ICA 66.7/18.9 cm/sec. Mid ICA 72.5/22.4 cm/sec. Dist ICA 98.5/27.0 cm/sec. Dist ICA 119.1/33.8 cm/sec. Rt. ICA/CCA = 1.1. Lt. ICA/CCA = 1.4. Prox ECA 128.6/12.3 cm/sec. Prox ECA 95.3/16.7 cm/sec. Rt. Vert. 54.8/9.3 cm/sec. Lt. Vert. 57.2/12.7 cm/sec. Right Extracranial There is intimal thickening but no significant atherosclerotic plaque noted in the right common carotid artery. There is intimal thickening but no significant atherosclerotic plaque noted in the right internal carotid artery. There is intimal thickening but no significant atherosclerotic plaque noted in the right external carotid artery. Antegrade flow is noted in the right vertebral artery. Left Extracranial There is intimal thickening but no significant atherosclerotic plaque noted in the left common carotid artery. There is heterogeneous, irregular atherosclerotic plaque noted in the left internal carotid artery. There is intimal thickening but no significant atherosclerotic plaque noted in the left external carotid artery. Antegrade flow is noted in the left vertebral artery. Procedure Carotid Duplex 29632. This is a Carotid Duplex examination using B-mode, color flow and specral Doppler. The exam was diagnostic. Exam performed in department. VL/Carotid Duplex Ultrasound Interpretation Summary No significant atherosclerotic plaque or stenosis noted in the right internal carotid artery. Mild (<50%) stenosis left extracranial internal carotid. Flow within the vertebral arteries is antegrade bilaterally. Ordering Physician: Turner Hedrick Referring Physician: Robert Ann Performed By: Frantz Hagan, Lucille 08/05/242255 Date _ Flynn Parks MD CC: Dr. Turner Hedrick MD; Dr. Robert Ann, DO ~ Date Dictated: 08/05/24804 Date Transcribed: 08/05/242255 Folded Towel Machine Operator: Signed [facility] Other Phone: Brain W/WO Contraston 2024 Brain W/WO Contrast [facility] Imaging Services [address] [place] [address] [id number] Brain W/WO Contrast MR#: [id number] Acct: [id number] Name: LINDY LEAVITT Rep #: [id number] : 1965 F 59 From: Lei Hernandez PCP: Dr. Robert Ann, DO Status: REG CLI Study: Brain W/WO Contrast Date of Exam: 07/08/24 Exam# [id number] Ordering Dr: Robert Ann DO PROCEDURE: BRAIN W/WO CONTRAST 07/08/2024 REASON FOR EXAM: LEFT FRONTAL LOBE LESION TECHNIQUE: Brain MRI without and with intravenous contrast with additional dedicated imaging of the IACs. Multiplanar and multisequence images were obtained. CONTRAST: 23 mL of intravenous Clariscan COMPARISON: 06/22/2024 FINDINGS: Stable punctate hyperintense FLAIR signal focus in the high posterior left frontal lobe cortex. No associated pathologic enhancement. No other parenchymal signal abnormalities. No diffusion restriction to suggest acute/subacute ischemia. No evidence of acute intracranial hemorrhage, midline shift or mass effect. No hydrocephalus. Cerebral volume is maintained. Paranasal sinuses and mastoid air cells are clear. Globes are intact. MRI/Brain W/WO Contrast IMPRESSION: 1. No acute intracranial abnormality or pathologic enhancement. 2. Stable hyperintense FLAIR signal focus in the high posterior left frontal cortex of uncertain etiology. 6 month follow-up can be performed to ensure continued stability. Reading Location: [facility] CC: Dr. Robert Ann DO Folded Towel Machine Operator: Signed Normal [facility] Thyroidon 07-03-2024 Thyroid [facility] Imaging Services [address] [place] [id number] Thyroid MR#: [id number] Acct: [id number] Name: LINDY LEAVITT Rep #: [id number] : 1965 F 59 From: Hodan Musa nd, MD PCP: Dr. Robert Ann DO Status: REG CLI Study: Thyroid Date of Exam: 07/03/24 Exam# [id number] Ordering Dr: Robert Ann DO PROCEDURE: THYROID 07/03/2024 REASON FOR EXAM: MULTINODULAR GOITER TECHNIQUE: Thyroid ultrasound COMPARISON: CTA head and neck 06/21/2024. FINDINGS: Right thyroid lobe measures 5.1 x 2.2 x 2.2 cm. Left thyroid lobe measures 5.8 x 3.1 x 2.6 cm. Isthmus thickness is0.9 cm. Thyroid Size: Normal Background Echotexture: Heterogeneous Thyroid Nodules: One left thyroid nodule: Measures 2.2 x 2.1 x 1.4 cm, spongiform, isoechoic, wider than tall, smooth margins without calcification. TR-2, not suspicious. US/Thyroid IMPRESSION: Normal thyroid ultrasound. TR-2 left thyroid nodule, which is not suspicious. No further follow-up indicated by ACR TI-RADS criteria. Reading Location: [facility] CC: Dr. 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 Normal [facility] Absolute lymphocyte countOrd ered By: Rogelio Garcia on 06-22-2024 Lymphocytes Auto (Unsp spec) [#/Vol] 1.94 10*3/uL 0.83-4.51 [facility] Absolute neutrophil countOrd ered By: Rogelio Garcia on 06-22-2024 Neutrophils (Bld) [#/Vol] 2.1 10*3/uL 2.0-7.7 [facility] Anion gap in Serum or Plasma Ordered By: Rogelio Garcia on 06-22-2024 Anion gap [Moles/Vol] 12 mmol/L 5-15 [facility] Automated lymphocyte count a s percentage of total leukocytesOrdered By: Rogelio Garcia on 06-22-2024 Lymphocytes/100 WBC Auto (Unsp spec) 42.5 % High 19-41 [facility] BUN/creatinine ratioOrdered By: Rogelioteresa Garcia on 06-22-2024 Urea nitrogen/Creatinine [Mass ratio] 15.1 mg/mg 10- [facility] Basic Metabolic Profile (BMP )on 06-22-2024 BUN/CRE 15.1 RATIO Normal - [facility] Comment on above: Performed By: #### L 100.0100, L500.2500 #### [facility] [address] [place], [place], [id number] Calcium [Mass/Vol] 9.0 mg/dL Normal 7.6-11.0 [facility] Comment on above: Performed By: #### L 100.0100, L500.2500 #### [facility] [address] [place], [address] Chloride [Moles/Vol] 105 mmol/L Normal 98-108 [facility] Comment on above: Performed By: #### L 100.0100, L500.2500 #### [facility] [address] [place], [address] CO2 [Moles/Vol] 19.5 mmol/L Low 21.0-32.0 [facility] Comment on above: Performed By: #### L 100.0100, L500.2500 #### [facility] [address] [place], [address] Creatinine [Mass/Vol] 0.89 mg/dL Normal 0.70-1.20 [facility] Comment on above: Performed By: #### L 100.0100, L500.2500 #### [facility] [address] [place], [address] ECRCL 55.16 ml/min Normal 50-250 [facility] Comment on above: Performed By: #### L 100.0100, L500.2500 #### [facility] [address] [place], [address] GAP 12 Normal 5-15 [facility] Comment on above: Performed By: #### L 100.0100, L500.2500 #### [facility] [address] [place], [address] GFR/1.73 sq M.predicted among non-blacks MDRD (S/P/Bld) [Vol rate/Area] 76 mL/min/{1.73_m2} Normal >60 [facility] Comment on above: Result Comment: mL/m in/1.73m2 CKD-EPI Creatinine Equation (2020) Performed By: #### L 100.0100, L500.2500 #### [facility] [address] [place], [address] Glucose [Mass/Vol] 112 mg/dL High 70-99 [facility] Comment on above: Performed By: #### L 100.0100, L500.2500 #### [facility] [address] [place], [address] Potassium [Moles/Vol] 4.0 mmol/L Normal 3.3-5.1 [facility] Comment on above: Performed By: #### L 100.0100, L500.2500 #### [facility] [address] [place], [address] Sodium [Moles/Vol] 136 mmol/L Normal 133-145 [facility] Comment on above: Performed By: #### L 100.0100, L500.2500 #### [facility] [address] [place], [address] Urea nitrogen [Mass/Vol] 13 mg/dL Normal 4-19 [facility] Comment on above: Performed By: #### L 100.0100, L500.2500 #### [facility] [address] [place], [address] Basophil percentageOrdered B y: Rogelio Garcia on 06-22-2024 Basophils/100 WBC (Bld) 0.4 % 0-1 [facility] Bedside Glucoseon 06-22-2024 FINGERSTICK GLU 112 mg/dL High 74-106 [facility] Comment on above: Result Comment: SIOBHAN ESCOBAR OF PATIENT CARE PER NURSING PROTOCOL Performed By: #### L 501.080 #### [facility] [address] [place], [address] Brain without Contraston Brain without Contrast [facility] Imaging Services [address] [place] [address] Brain without Contrast MR#: [id number] Acct: [id number] Name: LINDY LEAVITT Rep #: [id number] : 1965 F 59 From: Robert Oliver MD PCP: Dr. Robert Ann DO Status: ADM ALEISHA Study: Brain without Contrast Date of Exam: 06/22/24 Exam# [id number] Ordering Dr: Rogelio Garcia MD PROCEDURE: BRAIN WITHOUT CONTRAST (MRIBR), 06/22/2024 REASON FOR EXAM: COMPLEX MIGRAINE WITH APHASIA COMPARISON: 06/21/2024. TECHNIQUE: Multisequence multiplanar MRI brain was performed without intravenous contrast. Contrast: None. FINDINGS: Cerebrum: No acute infarct or appreciable intracranial hemorrhage. T1 dark and T2/FLAIR bright 6 m cortically based signal focus in the high LEFT frontal cortex without mass-effect or restricted diffusion (series 6, image 21). No surrounding vasogenic edema or appreciable mass effect. Cerebellum: Unremarkable. Brainstem: Unremarkable. Ventricles/extra-axial spaces: Unremarkable. Major flow voids: Grossly unremarkable within limits of nondedicated technique, better evaluated previously. Paranasal sinuses: Unremarkable. Scalp/calvarium: Unremarkable. Orbits: Bilateral cataract surgery. Other: Partially empty sella, can be a normal variant or may be seen in the setting of idiopathic intracranial hypertension amongst other etiologies. Note is made of close apposition of the AICAs and the facial/vestibulocochlear nerves, frequently incidental. The AICA minimally enters the IAC on the LEFT, borderline type 1-2. On the RIGHT, there is probably entry of less than 50%, although difficult to trace, favor mild type 2. MRI/Brain without Contrast IMPRESSION: 1. No definite evidence of an acute intracranial process. 2. 6 mm signal abnormality in the high LEFT frontal lobe without mass-effect, uncertain significance, possible remote infarct. Recommend outpatient MRI brain with and without contrast to evaluate for possible low-grade small cortically based lesion. Comparison with any available outside imaging would be helpful if available. 3. Findings which are frequency incidental and of doubtful clinical significance given the reported symptoms, but may be seen in the setting of AICA vascular loop syndrome in the appropriate context. Correlate with exam and symptomatology. 4. Additional description as above. Reading Location: [id number] CC: Dr. Robert Ann DO; Dr. Rogelio Garcia MD Folded Towel Machine Operator: Signed Normal [facility] CBC W/Diff, Automatedon 04-0 -2024 Absolute Lymph 1.94 X10 3/uL Normal 0.83-4.51 [facility] Comment on above: Performed By: #### L 100.0100, L500.2500 #### [facility] [address] [place], [address] Absolute Neut 2.1 X10 3/uL Normal 2.0-7.7 [facility] Comment on above: Performed By: #### L 100.0100, L500.2500 #### [facility] [address] [place], [address] Basophils/100 WBC (Bld) 0.4 % Normal 0-1 [facility] Comment on above: Performed By: #### L 100.0100, L500.2500 #### [facility] [address] [place], [address] Eosinophils/100 WBC (Bld) 2.0 % Normal 0-5 [facility] Comment on above: Performed By: #### L 100.0100, L500.2500 #### [facility] [address] [place], [address] Erythrocyte distribution width (RBC) [Ratio] 13.4 % Normal 11.6-14.6 [facility] Comment on above: Performed By: #### L 100.0100, L500.2500 #### [facility] [address] [place], [address] Hematocrit (Bld) [Volume fraction] 43.0 % Normal 37-47 [facility] Comment on above: Performed By: #### L 100.0100, L500.2500 #### [facility] [address] [place], [address] Hemoglobin (Bld) [Mass/Vol] 14.4 g/dL Normal 12.0-15.0 [facility] Comment on above: Performed By: #### L 100.0100, L500.2500 #### [facility] [address] [place], [address] IG% 0.200 Normal 0.0-0.9 [facility] Comment on above: Result Comment: IG% - Immature Granulocytes (promyelocytes, myelocytes and metamyelocytes) > 1% indicates that a LEFT SHIFT is Present. Performed By: #### L 100.0100, L500.2500 #### [facility] [address] [place], [address] Lymphocytes/100 WBC (Bld) 42.5 % High 19-41 [facility] Comment on above: Performed By: #### L 100.0100, L500.2500 #### [facility] [address] [place], [address] MCH (RBC) [Entitic mass] 27.8 pg Normal 27.0-32.0 [facility] Comment on above: Performed By: #### L 100.0100, L500.2500 #### [facility] [address] [place], [address] MCHC (RBC) [Mass/Vol] 33.5 g/dL Normal 32-36 [facility] Comment on above: Performed By: #### L 100.0100, L500.2500 #### [facility] [address] [place], [address] MCV (RBC) [Entitic vol] 83.0 fL Normal 81-99 [facility] Comment on above: Performed By: #### L 100.0100, L500.2500 #### [facility] [address] [place], [address] Monocytes/100 WBC (Bld) 9.4 % Normal 0-10 [facility] Comment on above: Performed By: #### L 100.0100, L500.2500 #### [facility] [address] [place], [address] Neutrophils/100 WBC (Bld) 45.5 % Low 47-70 [facility] Comment on above: Performed By: #### L 100.0100, L500.2500 #### [facility] [address] [place], [address] Nucleated RBC (Bld) [#/Vol] 0 10*3/uL Normal 0-5 [facility] Comment on above: Performed By: #### L 100.0100, L500.2500 #### [facility] [address] [place], [address] Platelet mean volume (Bld) [Entitic vol] 9.9 fL Normal 6.2-12.0 [facility] Comment on above: Performed By: #### L 100.0100, L500.2500 #### [facility] [address] [place], [address] Platelets (Bld) [#/Vol] 214 10*3/uL Normal 150-450 [facility] Comment on above: Performed By: #### L 100.0100, L500.2500 #### [facility] [address] [place], [address] RBC (Bld) [#/Vol] 5.18 10*6/uL Normal 4.2-5.4 [facility] Comment on above: Performed By: #### L 100.0100, L500.2500 #### [facility] [address] [place], [address] RDW SD 40.8 fl Normal 35.1-43.9 [facility] Comment on above: Performed By: #### L 100.0100, L500.2500 #### [facility] [address] [place], [address] WBC (Bld) [#/Vol] 4.6 10*3/uL Normal 4.4-11.0 [facility] Comment on above: Performed By: #### L 100.0100, L500.2500 #### [facility] [address] [place], [address] Carbon dioxide, total [Moles /volume] in Central venous bloodOrdered By: Rogelio Garcia on 06-22-2024 CO2 [Moles/Vol] 19.5 mmol/L Low 21.0-32.0 [facility] Chloride assayOrdered By: Jojo Garcia on 06-22-2024 Chloride [Moles/Vol] 105 mmol/L 98-108 [facility] Discharge Instructionon Discharge Instruction [facility] Medical Records Department [address] [place] [address] Instructions for Home/Discharge Instructions 06/22/24 1545 MR#: [id number] Acct: [id number] Name: LINDY LEAVITT Rep #: [id number] : 1965 59 From: Faye Bentley MD PCP: Dr. Robert Ann, DO Status:ADM ALEISHA Discharge Instructions Diet Discharge Diet: - (DASH diet) DC O2, CPAP, BIPAP needs Home O2 Discharge instructions: No Dressing / Incision Discharge Activity: - (Increase activity as tolerated) Follow Up Care Test Results: Test results from this visit will be discussed in further detail at your follow-up appointment, if applicable. Discharge Plan Admission Admit Date/Time: 06/21/24 18:11 Primary Reason for Your Visit: Uncontrollable laughing and crying and difficulty getting words out Attending Provider: Faye Bentley Primary Care Provider: Robert Ann Consulting Providers: Rogelio Garcia Instructions Patient Instructions: Self-Care for Headaches, Migraine Triggers, Preventing Migraine Headaches ... Additional Instructions / Restrictions: DISCHARGE INSTRUCTIONS PLEASE READ *Please take this with you to your next doctors appointment* -On your MRI there was a question of a possible old infarct on the left frontal lobe and it was recommended that you have an outpatient contrast and noncontrast MRI, this can be done on nonemergent basis -Given the questionable finding of a possible old infarct we will add aspirin to your regimen for now and would recommend you follow-up with your neurologist, please call their office upon discharge to schedule a follow-up appointment -You can take aspirin 81 mg, this can be obtained [id number] and does not need a prescription -Please call your primary care provider's office upon discharge to schedule a hospital follow up within 1 week. -For any concerning signs or symptoms please call 911 or proceed to the nearest emergency department Discharge Orders/Prescriptions Prescriptions: New aspirin 81 mg capsule 81 mg PO DAILY Qty: 30 0RF Continued pantoprazole [Protonix] 40 mg tablet,delayed release (DR/EC) 40 mg PO QAM Qty: 90 3RF alprazolam [Xanax] 1 MG tablet 1 mg PO QHS PRN simvastatin 20 mg Tablet 20 mg PO DAILY verapamil 240 mg Tablet Extended Release 240 mg PO DAILY melatonin 10 mg Tablet 10 mg PO QHS pioglitazone 15 mg tablet 15 mg PO DAILY metformin 500 mg tablet 500 mg PO BID escitalopram oxalate 20 mg tablet 20 mg PO QODAY Rx Instructions: ALTERNATES W/10MG Mounjaro 12.5 mg/0.5 mL pen injector 12.5 mg subcut QWEEK escitalopram oxalate 20 mg tablet 10 mg PO QODAY Rx Instructions: ALTERNATES W/20MG ergocalciferol (vitamin D2) [Vitamin D2] 1,250 mcg (50,000 unit) capsule 1,250 mcg PO QWEEK sucralfate 1 gram tablet 1 g PO BID vitamin E (dl, acetate) 180 mg (400 unit) capsule See Rx Instructions .ROUTE .COMPLEX Qty: 180 3RF Dose Instruction: TAKE 2 CAPSULES BY MOUTH DAILY Rx Instructions: TAKE 2 CAPSULES BY MOUTH DAILY Referrals / Follow Up: Robert Ann DO [Primary Care Provider] - In 1 Week Disposition Disposition (needs filled in before D/C Order can be placed): Home, Self Care 06/22/24 6075 Faye Bentley MD CC: Dr. Robert Ann DO; Dr. Rogelio Garcia MD Signed Normal [facility] Eosinophil percentageOrdered By: Rogelio Garcia on 06-22-2024 Eosinophils/100 WBC (Bld) 2.0 % 0-5 [facility] Erythrocyte distribution wid th (RBC) [Ratio]Ordered By: Rogelio Garcia on 06-22-2024 Erythrocyte distribution width (RBC) [Entitic vol] 40.8 fL 35.1-43.9 [facility] Erythrocyte distribution wid th ratioOrdered By: Rogelio Garcia on 06-22-2024 Erythrocyte distribution width (RBC) [Ratio] 13.4 % 11.6-14.6 [facility] Erythrocyte distribution wid th standard deviationOrdered By: Rogelio Garcia on 06-22-2024 Erythrocyte distribution width (RBC) [Ratio] 40.8 fl 35.1-43.9 [facility] Estimation of creatinine sam aranceOrdered By: Rogelio Garcia on 06-22-2024 Estimated Creatinine Clearance Calc 55.16 ml/min 50-250 [facility] GFR/1.73 sq M.predicted melania g non-blacks MDRD (S/P/Bld) [Vol rate/Area]Ordered By: Rogelio Garcia on 06-22-2024 Estimated GFR (MDRD) Non-Af Amer 76 >60 [facility] Comment on above: mL/min/1.73m2 CKD-EP I Creatinine Equation (2020) Glomerular filtration rate ( GFR) estimation/1.73 sq m using serum, plasma, or whole bOrdered By: Rogelio Garcia on 06-22-2024 GFR/1.73 sq M.predicted among non-blacks MDRD (S/P/Bld) [Vol rate/Area] 76 mL/min/{1.73_m2} >60 [facility] Comment on above: mL/min/1.73m2 CKD-EP I Creatinine Equation (2020) [facility] at [facility] deOrdered By: Faye Bentley on 06-22-2024 Bedside Glucose (Misc Panel) 112 mg/dL High 74-106 [facility] Comment on above: MANAGEMENT OF PATIEN T CARE PER NURSING PROTOCOL Glucose [Mass/Vol] 112 mg/dL High 74-106 [facility] Comment on above: MANAGEMENT OF PATIEN T CARE PER NURSING PROTOCOL Hematocrit Auto (Bld) [Volum e fraction]Ordered By: Rogelio Garcia on 06-22-2024 Hematocrit (Bld) [Volume fraction] 43.0 % 37-47 [facility] Hemoglobin measurementOrdere d By: Rogelio Garcia on 06-22-2024 Hemoglobin (Bld) [Mass/Vol] 14.4 g/dL 12.0-15.0 [facility] Immature granulocytes/100 WB C Auto (Bld)Ordered By: Rogelio Garcia on 06-22-2024 Immature granulocytes/100 WBC (Bld) 0.200 % 0.0-0.9 [facility] Comment on above: IG% - Immature Granu locytes (promyelocytes, myelocytes and metamyelocytes) > 1% indicates that a LEFT SHIFT is Present. Lymphocytes Auto (Unsp spec) [#/Vol]Ordered By: Rogelio Garcia on 06-22-2024 Lymphocytes (Bld) [#/Vol] 1.94 10*3/uL 0.83-4.51 [facility] Lymphocytes/100 WBC Auto (Un sp spec)Ordered By: Rogelio Garcia on 06-22-2024 Lymphocytes/100 WBC (Bld) 42.5 % High 19-41 [facility] MCV (mean corpuscular volume ) determinationOrdered By: Rogelio Garcia on 06-22-2024 MCV (RBC) [Entitic vol] 83.0 fL 81-99 [facility] Magnetic resonance imaging r eportOrdered By: Robert Oliver on 06-22-2024 Study report [facility] Imaging Services [address] [place] [address] Brain without Contrast MR#: [id number] Acct: [id number] Name: LINDY LEAVITT Rep #: [id number] : 1965 F 59 From: Marj Oliver MD PCP: Dr. Robert Ann, DO Status: ADM ALEISHA Study:Brain without Contrast Date of Exam: 06/22/24 Exam# [id number] Ordering Dr: Rogelio Garcia MD PROCEDURE: BRAIN WITHOUT CONTRAST (MRIBR), 06/22/2024 REASON FOR EXAM: COMPLEX MIGRAINE WITH APHASIA COMPARISON: 06/21/2024. TECHNIQUE: Multisequence multiplanar MRI brain was performed without intravenous contrast. Contrast: None. FINDINGS: Cerebrum: No acute infarct or appreciable intracranial hemorrhage. T1 dark and T2/FLAIR bright 6 m cortically based signal focus in the high LEFT frontal cortex without mass-effect or restricted diffusion (series 6, image 21). No surrounding vasogenic edema or appreciable mass effect. Cerebellum: Unremarkable. Brainstem: Unremarkable. Ventricles/extra-axial spaces: Unremarkable. Major flow voids: Grossly unremarkable within limits of nondedicated technique, better evaluated previously. Paranasal sinuses: Unremarkable. Scalp/calvarium: Unremarkable. Orbits: Bilateral cataract surgery. Other: Partially empty sella, can be a normal variant or may be seen in the setting of idiopathic intracranial hypertension amongst other etiologies. Note is made of close apposition of the AICAs and thefacial/vestibulocochl ear nerves, frequently incidental. The AICA minimally enters the IAC on the LEFT, borderline type 1-2. On the RIGHT, there is probably entry of less than 50%, although difficult to trace, favor mild type 2. MRI/Brain without Contrast IMPRESSION: 1. No definite evidence of an acute intracranial process. 2. 6 mm signal abnormality in the high LEFT frontal lobe without mass-effect, uncertain significance, possible remote infarct. Recommend outpatient MRI brain with and without contrast to evaluate for possible low-grade small cortically based lesion. Comparison with any available outside imaging would be helpful if available. 3. Findings which are frequency incidental and of doubtful clinical significancegiven the reported symptoms, but may be seen in the setting of AICA vascular loop syndrome in the appropriate context. Correlate with exam and symptomatology. 4. Additional description as above. Reading Location: [id number] CC: Dr. Robert Ann DO; Dr. Rogelio Garcia MD ~ Folded Towel Machine Operator: Signed [facility] Mean corpuscular hemoglobin (MCH) determinationOrdered By: Rogelio Garcia on 06-22-2024 MCH (RBC) [Entitic mass] 27.8 pg 27.0-32.0 [facility] Mean corpuscular hemoglobin concentration (MCHC) determinationOrdered By: Rogelio Garcia on 06-22-2024 MCHC (RBC) [Mass/Vol] 33.5 g/dL 32-36 [facility] Mean platelet volume determi nationOrdered By: Rogelio Garcia on 06-22-2024 Platelet mean volume (Bld) [Entitic vol] 9.9 fL 6.2-12.0 [facility] Monocyte percentageOrdered B y: Rogelio Garcia on 06-22-2024 Monocytes/100 WBC (Bld) 9.4 % 0-10 [facility] Neutrophil percentageOrdered By: Rogelio Garcia on 06-22-2024 Neutrophils/100 WBC (Bld) 45.5 % Low 47-70 [facility] Nucleated red blood cell per centageOrdered By: Rogelio Garcia on 06-22-2024 Nucleated RBC/100 WBC (Bld) [Ratio] 0 % 0-5 [facility] Platelet countOrdered By: Jojo Garcia on 06-22-2024 Platelets (Bld) [#/Vol] 214 10*3/uL 150-450 [facility] Potassium (Unsp spec) [Mass/ Vol]Ordered By: Rogelio Garcia on 06-22-2024 Potassium [Moles/Vol] 4.0 mmol/L 3.3-5.1 [facility] Potassium measurement (mass/ volume)Ordered By: Rogelio Garcia on 06-22-2024 Potassium (Unsp spec) [Mass/Vol] 4.0 mmol/L 3.3-5.1 [facility] RBC Auto (Bld) [#/Vol]Ordere d By: Rogelio Garcia on 06-22-2024 RBC (Bld) [#/Vol] 5.18 10*6/uL 4.2-5.4 [facility] Serum creatinine measurement (mass/volume)Ordered By: Rogelio Garcia on 06-22-2024 Creatinine [Mass/Vol] 0.89 mg/dL 0.70-1.20 [facility] Serum glucose measurement (m ass/volume)Ordered By: Rogelio Garcia on 06-22-2024 Glucose [Mass/Vol] 112 mg/dL High 70-99 [facility] Serum or plasma calcium juliana urement (mass/volume)Ordered By: Rogelio Garcia on 06-22-2024 Calcium [Mass/Vol] 9.0 mg/dL 7.6-11.0 [facility] Serum or plasma urea nitroge n measurement (mass/volume)Ordered By: Rogelio Garcia on 06-22-2024 Urea nitrogen [Mass/Vol] 13 mg/dL 4-19 [facility] Sodium levelOrdered By: Nahun Garcia on 06-22-2024 Sodium [Moles/Vol] 136 mmol/L 133-145 [facility] White blood cell (WBC) count Ordered By: Rogelio Garcia on 06-22-2024 WBC (Bld) [#/Vol] 4.6 10*3/uL 4.4-11.0 [facility] Absolute neutrophil countOrd ered By: Becky Mckenzie on 06-21-2024 Neutrophils (Bld) [#/Vol] 2.9 10*3/uL 2.0-7.7 [facility] Anion gap in Serum or Plasma Ordered By: Becky Mckenzie on 06-21-2024 Anion gap [Moles/Vol] 12 mmol/L 5-15 [facility] BUN/creatinine ratioOrdered By: Becky Mckenzie on 06-21-2024 Urea nitrogen/Creatinine [Mass ratio] 12.1 mg/mg 10- [facility] Basic Metabolic Profile (BMP )on 06-21-2024 BUN/CRE 12.1 RATIO Normal - [facility] Comment on above: Performed By: #### L 400.0001 #### [facility] [address] [place], [address] Calcium [Mass/Vol] 9.8 mg/dL Normal 7.6-11.0 [facility] Comment on above: Performed By: #### L 400.0001 #### [facility] [address] [place], [address] Chloride [Moles/Vol] 105 mmol/L Normal 98-108 [facility] Comment on above: Performed By: #### L 400.0001 #### [facility] [address] [place], [address] CO2 [Moles/Vol] 20.4 mmol/L Low 21.0-32.0 [facility] Comment on above: Performed By: #### L [id number] #### [facility] [address] [place], [address] Creatinine [Mass/Vol] 0.80 mg/dL Normal 0.70-1.20 [facility] Comment on above: Performed By: #### L 400.0001 #### [facility] [address] [place], [address] ECRCL 93.60 ml/min Normal 50-250 [facility] Comment on above: Performed By: #### L 400.0001 #### [facility] [address] [place], [address] GAP 12 Normal 5-15 [facility] Comment on above: Performed By: #### L 400.0001 #### [facility] [address] [place], [address] GFR/1.73 sq M.predicted among non-blacks MDRD (S/P/Bld) [Vol rate/Area] 86 mL/min/{1.73_m2} Normal >60 [facility] Comment on above: Result Comment: mL/m in/1.73m2 CKD-EPI Creatinine Equation (2020) Performed By: #### L [id number] #### [facility] [address] [place], [address] Glucose [Mass/Vol] 96 mg/dL Normal 70-99 [facility] Comment on above: Performed By: #### L [id number] #### [facility] [address] [place], [address] Potassium [Moles/Vol] 4.1 mmol/L Normal 3.3-5.1 [facility] Comment on above: Performed By: #### L 400.0001 #### [facility] [address] [place], [address] Sodium [Moles/Vol] 138 mmol/L Normal 133-145 [facility] Comment on above: Performed By: #### L [id number] #### [facility] [address] [place], [address] Urea nitrogen [Mass/Vol] 10 mg/dL Normal 4-19 [facility] Comment on above: Performed By: #### L 400.0001 #### [facility] [address] [place], [address] Basophil percentageOrdered B y: Becky Mckenzie on 06-21-2024 Basophils/100 WBC (Bld) 0.7 % 0-1 [facility] Bedside Glucoseon 06-21-2024 FINGERSTICK GLU 97 mg/dL Normal 74-106 [facility] Comment on above: Result Comment: SIOBHAN GEMENT OF PATIENT CARE PER NURSING PROTOCOL Performed By: #### L 501.080 #### [facility] [address] [place], [address] FINGERSTICK GLU 98 mg/dL Normal 74-106 [facility] Comment on above: Result Comment: SIOBHAN GEMENT OF PATIENT CARE PER NURSING PROTOCOL Performed By: #### L 400.0001 #### [facility] [address] [place], [address] Bilirubin Test strip Ql (U)O rdered By: Becky Mckenzie on 06-21-2024 Bilirubin Ql (U) Negative Negative [facility] Brain/Head without Contrasto n 06-21-2024 Brain/Head without Contrast [facility] Imaging Services [address] [place] [address] Brain/Head without Contrast MR#: [id number] Acct: [id number] Name: LINDY LEAVITT Rep #: [id number] : 1965 F 59 From: Chandrakant Woods DO PCP: Dr. Robert Ann DO Status: [facility] Study: Brain/Head without Contrast Date of Exam: 10/08 Exam# [id number] Ordering Dr: Becky Mckenzie PROCEDURE: BRAIN/HEAD WITHOUT CONTRAST 06/21/2024 REASON FOR EXAM: HEADACHE Altered mentation. TECHNIQUE: Head CT without intravenous contrast. Coronal and Sagittal reconstruction series were provided. One or more dose reduction techniques were used (e.g., Automated exposure control, adjustment of the mA and/or kV according to patient size, use of iterative reconstruction technique. RADIATION DOSE SUMMARY: CTDlvol: 44.99 mGy DLP: 779.24 mGycm COMPARISON: None. FINDINGS: Brain: No mass, mass effect or midline shift CSF Spaces: Ventricles and sulci are unremarkable for the patient's age. Sinuses/Mastoids: Clear Bones: Unremarkable CT/Brain/Head without Contrast IMPRESSION: No acute process detected. Normal exam. Reading [facility] CC: Dr. Robert Ann DO; JEFFERY Gutiérrez Folded Towel Machine Operator: Signed Normal [facility] CBC W/Diff, Automatedon - Absolute Lymph 1.99 X10 3/uL Normal 0.83-4.51 [facility] Comment on above: Performed By: #### L 400.0001 #### [facility] [address] [place], [address] Absolute Neut 2.9 X10 3/uL Normal 2.0-7.7 [facility] Comment on above: Performed By: #### L 400.0001 #### [facility] [address] [place], [address] Basophils/100 WBC (Bld) 0.7 % Normal 0-1 [facility] Comment on above: Performed By: #### L 400.0001 #### [facility] [address] [place], [address] Eosinophils/100 WBC (Bld) 1.3 % Normal 0-5 [facility] Comment on above: Performed By: #### L 400.0001 #### [facility] [address] [place], [address] Erythrocyte distribution width (RBC) [Ratio] 13.2 % Normal 11.6-14.6 [facility] Comment on above: Performed By: #### L 400.0001 #### [facility] [address] [place], [address] Hematocrit (Bld) [Volume fraction] 46.6 % Normal 37-47 [facility] Comment on above: Performed By: #### L 400.0001 #### [facility] [address] [place], [address] Hemoglobin (Bld) [Mass/Vol] 15.6 g/dL High 12.0-15.0 [facility] Comment on above: Performed By: #### L 400.0001 #### [facility] [address] [place], [address] IG% 0.200 Normal 0.0-0.9 [facility] Comment on above: Result Comment: IG% - Immature Granulocytes (promyelocytes, myelocytes and metamyelocytes) > 1% indicates that a LEFT SHIFT is Present. Performed By: #### L 400.0001 #### [facility] [address] [place], [address] Lymphocytes/100 WBC (Bld) 36.6 % Normal 19-41 [facility] Comment on above: Performed By: #### L 400.0001 #### [facility] [address] [place], [address] MCH (RBC) [Entitic mass] 27.9 pg Normal 27.0-32.0 [facility] Comment on above: Performed By: #### L 400.0001 #### [facility] [address] [place], [address] MCHC (RBC) [Mass/Vol] 33.5 g/dL Normal 32-36 [facility] Comment on above: Performed By: #### L 400.0001 #### [facility] [address] [place], [address] MCV (RBC) [Entitic vol] 83.4 fL Normal 81-99 [facility] Comment on above: Performed By: #### L 400.0001 #### [facility] [address] [place], [address] Monocytes/100 WBC (Bld) 7.9 % Normal 0-10 [facility] Comment on above: Performed By: #### L 400.0001 #### [facility] [address] [place], [address] Neutrophils/100 WBC (Bld) 53.3 % Normal 47-70 [facility] Comment on above: Performed By: #### L 400.0001 #### [facility] [address] [place], [address] Nucleated RBC (Bld) [#/Vol] 0 10*3/uL Normal 0-5 [facility] Comment on above: Performed By: #### L 400.0001 #### [facility] [address] [place], [address] Platelet mean volume (Bld) [Entitic vol] 9.7 fL Normal 6.2-12.0 [facility] Comment on above: Performed By: #### L 400.0001 #### [facility] [address] [place], [address] Platelets (Bld) [#/Vol] 273 10*3/uL Normal 150-450 [facility] Comment on above: Performed By: #### L 400.0001 #### [facility] [address] [place], [address] RBC (Bld) [#/Vol] 5.59 10*6/uL High 4.2-5.4 [facility] Comment on above: Performed By: #### L 400.0001 #### [facility] [address] [place], [address] RDW SD 39.8 fl Normal 35.1-43.9 [facility] Comment on above: Performed By: #### L 400.0001 #### [facility] [address] [place], [address] WBC (Bld) [#/Vol] 5.4 10*3/uL Normal 4.4-11.0 [facility] Comment on above: Performed By: #### L 400.0001 #### [facility] [address] [place], [address] CTA Head AND Neck W/ Contras ton 06-21-2024 CTA Head AND Neck W/ Contrast [facility] Imaging Services [address] [place] [address] CTA Head AND Neck W/ Contrast MR#: [id number] Acct: [id number] Name: LINDY LEAVITT Rep #: [id number] : 1965 F 59 From: Ashok roa MD PCP: Dr. Robert Ann, DO Status: [facility] Study: CTA Head AND Neck W/ Contrast Date of Exam: Exam# [id number] Ordering Dr: Becky Mckenzie PROCEDURE: CTA HEAD AND NECK W/ CONTRAST 06/21/2024 REASON FOR EXAM: APHASIA TECHNIQUE: CTA imaging of the head and neck from the aortic arch to the skull vertex with intravenous contrast. Coronal and Sagittal reconstruction series were provided. 3D, 3D post processing, 3D reconstructions, Maximum intensity projection (MIPs) Volume rendering and Shaded surface rendering was provided. CONTRAST: Omnipaque 350 VOLUME: 100 mL Gauge IV One or more dose reduction techniques were used (e.g., Automated exposure control, adjustment of the mA and/or kV according to patient size, use of iterative reconstruction technique). # of known CTs in the past 12 months: 0 # of known Cardiac Nuclear Medicine Studies in the past 12 months: 0 COMPARISON: None FINDINGS: Aortic Arch: Three-vessel arch branch anatomy. Mild atherosclerotic calcification of the aortic arch. Brachiocephalic and Subclavians: Mild atherosclerotic plaque without significant stenosis. RIGHT Carotid: Right CCA: Mild calcified and soft plaque. Right ICA: Mild calcified and soft plaque. Maximum stenosis (NASCET): <10 % Right ECA: Unremarkable. LEFT Carotid: Left CCA: Mild calcified and soft plaque. Left ICA: Mild calcified and soft plaque. Maximum stenosis (NASCET): <10 % Left ECA: Unremarkable. Vertebrals: Codominant. Arise from the subclavians. Both vertebrals form the basilar. RIGHT Vertebral: Unremarkable. LEFT Vertebral: Unremarkable. Anatomy: [place] anatomy is normal. Mild atherosclerotic calcification of the siphons bilaterally, without hemodynamically significant stenosis. Aneurysm or avm: No intracranial aneurysms or large vascular malformations are identified. Anterior cerebral arteries: Unremarkable: Middle cerebral arteries: Patent bilateral MCAs, without hemodynamically significant stenosis. Basilar artery: Unremarkable. Posterior cerebral arteries: Unremarkable. Other major branches of the posterior circulation: Unremarkable. Major venous structures: Unremarkable. Other findings: Neck: Heterogeneously enlarged thyroid gland with multiple low-attenuation nodules. Lungs: Lung apices are clear. Bones: Bones are unremarkable. CT/CTA Head AND Neck W/ Contrast IMPRESSION: Atherosclerotic calcification of the anterior and posterior intracranial circulation without hemodynamically significant stenosis. Heterogeneously enlarged thyroid gland with multiple low-attenuation nodules. Recommend nonemergent thyroid ultrasound. Reading Location: [facility] CC: Dr. Robert Ann DO; JEFFERY Gutiérrez Folded Towel Machine Operator: Signed Normal [facility] Carbon dioxide, total [Moles /volume] in Central venous bloodOrdered By: Becky Mckenzie on 06-21-2024 CO2 [Moles/Vol] 20.4 mmol/L Low 21.0-32.0 [facility] Chloride assayOrdered By: Sarai Mckenzie on 06-21-2024 Chloride [Moles/Vol] 105 mmol/L 98-108 [facility] Emergency Department Summary on 06-21-2024 Emergency Department Summary [facility] Medical Records Department [address] [place] [address] Emergency Department Summary 06/21/24 MR#: [id number] Acct: [id number] Name: LINDY LEAVITT Rep #: [id number] : 1965 59 From: Becky GIL PCP: Dr. Robert Ann, DO Status:ADM ALEISHA Location: [address] History of Present Illness Chief Complaint: Neuro S/Sx Narrative Narrative: 59-year-old female with PMH of DM2, migraines states around 9:50 AM she was working from home in a work meeting and started to feel abnormal. She got off the meeting and called a friend and had some difficulty speaking. She states she then started having inappropriate laughing and crying. She also developed a gradual onset right-sided headache and nausea that feels like prior migraines. She is on verapamil for migraines and follows with a neurologist in [place]. She was prescribed rizatriptan in the past but no longer has it. She states she has had an aura with her migraines where she had some difficulty thinking or speaking in the past but is never had these laughing or crying symptoms. The only recent change is her Mounjaro for diabetes/weight loss was increased 3 days ago and she has had decreased appetite over the weekend but is still eating. She has no vomiting or diarrhea. [facility] Medical History Anxiety and depression HTN (hypertension) Diabetes mellitus, type 2 KILO on CPAP BRICE (nonalcoholic steatohepatitis) Arthritis Hepatitis High cholesterol Restless legs History of hiatal hernia Smoker Personal history of colonic polyps Migraines IBS (irritable bowel syndrome) GERD (gastroesophageal reflux disease) Home Medications ???Medication ???Instructions ???Recorded ???Last Taken ???Type alprazolam 1 mg tablet (Xanax) 1 mg PO QHS PRN Sleep 05/16/1609/08 History melatonin 10 mg tablet 10 mg PO QHS 10/09/20 06/20/24 His tory simvastatin 20 mg tablet 20 mg PO DAILY 10/09/20 06/20/24 H istory verapamil 240 mg tablet,extended 240 mg PO DAILY 10/09/20 06/20/24 History release pantoprazole 40 mg tablet,delayed 40 mg PO QAM #90 tabs 09/26/21 Rx release (Protonix) vitamin E (dl, acetate) 180 mg See Rx Instructions .Route 06/20/24 Rx (400 unit) capsule .COMPLEX #180 caps ergocalciferol (vitamin D2) 1,250 1,250 mcg PO QWEEK 06/21/2406/14 History mcg (50,000 unit) capsule (Vitamin D2) escitalopram oxalate 20 mg tablet 10 mg PO QODAY 06/21/24 06/19/24 History escitalopram oxalate 20 mg tablet 20 mg PO QODAY 06/21/24 06/20/24 History metformin 500 mg tablet 500 mg PO BID 06/21/24 06/20/24 Hi story pioglitazone 15 mg tablet 15 mg PO DAILY 06/21/24 06/20/24 H istory sucralfate 1 gram tablet 1 g PO BID 06/21/24 06/20/24 Histo ry tirzepatide 12.5 mg/0.5 mL 12.5 mg subcut QWEEK 06/21/2407/09 History subcutaneous pen injector (Ashkan) Allergy/AdvReac Type Severity Reaction Status Date / Time imipramine AdvReac Intermediate unstable Verified 06/21/24 13:16 moods promethazine (From Phenergan) AdvReac Intermediate hallucinati Verified 06/21/24 13:16 ons hydrocodone (From [place]) AdvReac Nausea Verified 06/21/24 13:16 Family History Father Colon cancer Dx stage IV in his 70s. Surgical History Hx of colonoscopy History of carpal tunnel release of both wrists History of cholecystectomy History of laparoscopy History of hysterectomy Social History household members: spouse Smoking Status: Current every day smoker tobacco type: cigarettes alcohol intake: never substance use type: does not use ROS ROS ED ROS Narrative Constitutional: Negative for fever, chills, malaise. Eyes: Negative for visual change. CVS: Negative for chest pain. Respiratory: Negative for shortness of breath, cough. GI: Positive for nausea. No vomiting. Neuro: Positive for headache, negative for motor/sensory dysfunction. EXAM Physical Exam Narrative Exam Narrative: CONST: Patient sitting in no acute distress. EYES: Normal inspection. PERRL, EOMI. NECK: Normal inspection. RESP: No respiratory distress, CTAB. CVS: Regular rate and rhythm, no murmur, no gallop. SKIN: Color normal, no rash, warm, dry, intact. EXTREMITIES: Normal appearance, no pedal edema. NEURO: Alert and answering questions appropriately. Alert and oriented, EOMI, visual quinones intact, face symmetric, no upper or lower extremity drift, normal lqjglk-[id number]-zjyg and epyf-st-bwzc, normal sensation, no aphasia or dysarthria, no extinction. NIH is 0. PSYCH: Normal affect. Const Vital Signs: 06/21/24 16:00 06/21/24 17:48 (more content not included)... Normal [facility] Eosinophil percentageOrdered By: Becky Mckenzie on 06-21-2024 Eosinophils/100 WBC (Bld) 1.3 % 0-5 [facility] Epithelial cells.squamous LM Ql (Urine sed)Ordered By: Becky Mckenzie on 06-21-2024 Epithelial cells.squamous LM.HPF (Urine sed) [#/Area] 0 /[HPF] 5-10 [facility] Erythrocyte distribution wid th (RBC) [Ratio]Ordered By: Becky Mckenzie on 06-21-2024 Erythrocyte distribution width (RBC) [Entitic vol] 39.8 fL 35.1-43.9 [facility] Erythrocyte distribution wid th ratioOrdered By: Becky Mckenzie on 06-21-2024 Erythrocyte distribution width (RBC) [Ratio] 13.2 % 11.6-14.6 [facility] Estimation of creatinine sam aranceOrdered By: Becky Mckenzie on 06-21-2024 Estimated Creatinine Clearance Calc 93.60 ml/min 50-250 [facility] GFR/1.73 sq M.predicted melania g non-blacks MDRD (S/P/Bld) [Vol rate/Area]Ordered By: Becky Mckenzie on 06-21-2024 Estimated GFR (MDRD) Non-Af Amer 86 >60 [facility] Comment on above: mL/min/1.73m2 CKD-EP I Creatinine Equation (2020) Glucose Ql (U)Ordered By: Sarai Mckenzie on 06-21-2024 Urine Glucose (UA) Normal mg/dl Normal [facility] Glucose measurement at bedsi deOrdered By: ED PROVIDER on 06-21-2024 Bedside Glucose (Misc Panel) 98 mg/dL 74-106 [facility] Comment on above: MANAGEMENT OF PATIEN T CARE PER NURSING PROTOCOL H AND P Exam - [facility] 06-21-2024 H&P Exam - Hospitalist [facility] Medical Records Department [address] [place] [address] H P Exam - Hospitalist 06/21/24 1818 MR#: [id number] Acct: [id number] Name: LINDY LEAVITT Rep #: [id number] : 1965 59 From: Rogelio Garcia MD PCP: Dr. Robert Ann, DO Status:ADM ALEISHA Location: [address] HPI - General General Date of Admission: 06/21/24 HPI Narrative LINDY LEAVITT, is a 59 F who presents to the hospital with a headache that leads to neurological symptoms including aphasia as well as uncontrollable laughing and crying. She states that she gets migraines and the aura that occurs is aphasia but the laughing and crying uncontrollably was abnormal. She also had a brain fog which was atypical. No upper extremity or lower extremity numbness or tingling, and no other focal neurological deficits. Symptoms are resolved though she continues to have a headache. She is on verapamil for baseline control of her headaches and used to be on triptans but has not taken any for several years. She does see a neurologist in [place]. She feels completely back to baseline but has significant anxiety secondary to family history of brain aneurysms. CTA of the head and neck was unremarkable with no blockage or stenosis and no signs of aneurysm. her thyroid is read as being heterogeneously enlarged with multiple low-attenuation nodules. This was discussed with her and she knows to follow-up with her PCP to obtain an outpatient thyroid ultrasound. [facility] Medical History Anxiety and depression HTN (hypertension) Diabetes mellitus, type 2 KILO on CPAP BRICE (nonalcoholic steatohepatitis) Arthritis Hepatitis High cholesterol Restless legs History of hiatal hernia Smoker Personal history of colonic polyps Migraines IBS (irritable bowel syndrome) GERD (gastroesophageal reflux disease) Home Medications ???Medication ???Instructions ???Recorded ???Last Taken ???Type alprazolam 1 mg tablet (Xanax) 1 mg PO QHS PRN Sleep 05/16/1609/08 History melatonin 10 mg tablet 10 mg PO QHS 10/09/20 06/20/24 His tory simvastatin 20 mg tablet 20 mg PO DAILY 10/09/20 06/20/24 H istory verapamil 240 mg tablet,extended 240 mg PO DAILY 10/09/20 06/20/24 History release pantoprazole 40 mg tablet,delayed 40 mg PO QAM #90 tabs 09/26/21 Rx release (Protonix) vitamin E (dl, acetate) 180 mg See Rx Instructions .Route 06/20/24 Rx (400 unit) capsule .COMPLEX #180 caps ergocalciferol (vitamin D2) 1,250 1,250 mcg PO QWEEK 06/21/2406/14 History mcg (50,000 unit) capsule (Vitamin D2) escitalopram oxalate 20 mg tablet 10 mg PO QODAY 06/21/24 06/19/24 History escitalopram oxalate 20 mg tablet 20 mg PO QODAY 06/21/24 06/20/24 History metformin 500 mg tablet 500 mg PO BID 06/21/24 06/20/24 Hi story pioglitazone 15 mg tablet 15 mg PO DAILY 06/21/24 06/20/24 H istory sucralfate 1 gram tablet 1 g PO BID 06/21/24 06/20/24 Histo ry tirzepatide 12.5 mg/0.5 mL 12.5 mg subcut QWEEK 06/21/2407/09 History subcutaneous pen injector (Ashkan) Allergy/AdvReac Type Severity Reaction Status Date / Time imipramine AdvReac Intermediate unstable Verified 06/21/24 13:16 moods promethazine (From Phenergan) AdvReac Intermediate hallucinati Verified 06/21/24 13:16 ons hydrocodone (From [place]) AdvReac Nausea Verified 06/21/24 13:16 Family History Father Colon cancer Dx stage IV in his 70s. Surgical History Hx of colonoscopy History of carpal tunnel release of both wrists History of cholecystectomy History of laparoscopy History of hysterectomy Social History household members: spouse Smoking Status: Current every day smoker tobacco type: cigarettes alcohol intake: never substance use type: does not use ROS Constitutional Constitutional: Denies chills, fatigue, fever(s) or malaise Eyes Eyes: Denies blurry vision ENT HEENT: Denies headache(s) or nasal discharge Cardiovascular Cardiovascular: Denies chest pain, dyspnea on exertion or syncope Respiratory/Chest Respiratory/Chest: Denies cough, shortness of breath at rest or shortness of breath with exertion Gastrointestinal Gastrointestinal: Denies constipation, diarrhea, nausea or vomiting Genitourinary Genitourinary: Denies dysuria Neurologic Neurologic: Reports abnormal speech and headache(s); Denies focal weakness, numbness or tremor(s) Psychiatric Psychiatric: Denies anxiety or depression Vital Signs Vital Signs Vital Signs: 06/21/24 12:44 06/21/24 13:48 06/21/24 15:00 Temperature 98 F Temperature Source Oral Pulse Rate 75 71 (more content not included)... Normal [facility] Hematocrit Auto (Bld) [Volum e fraction]Ordered By: Becky Mckenzie on 06-21-2024 Hematocrit (Bld) [Volume fraction] 46.6 % 37-47 [facility] Hemoglobin measurementOrdere d By: Becky Mckenzie on 06-21-2024 Hemoglobin (Bld) [Mass/Vol] 15.6 g/dL High 12.0-15.0 [facility] Immature granulocytes/100 WB C Auto (Bld)Ordered By: Becky Mckenzie on 06-21-2024 Immature granulocytes/100 WBC (Bld) 0.200 % 0.0-0.9 [facility] Comment on above: IG% - Immature Granu locytes (promyelocytes, myelocytes and metamyelocytes) > 1% indicates that a LEFT SHIFT is Present. Ketones Test strip Ql (U)Ord ered By: Becky Mckenzie on 06-21-2024 Ketones Ql (U) Negative Negative [facility] Lymphocytes Auto (Unsp spec) [#/Vol]Ordered By: Becky Mckenzie on 06-21-2024 Lymphocytes (Bld) [#/Vol] 1.99 10*3/uL 0.83-4.51 [facility] Lymphocytes/100 WBC Auto (Un sp spec)Ordered By: Becky Mckenzie on 06-21-2024 Lymphocytes/100 WBC (Bld) 36.6 % 19-41 [facility] MCV (mean corpuscular volume ) determinationOrdered By: Becky Mckenzie on 06-21-2024 MCV (RBC) [Entitic vol] 83.4 fL 81-99 [facility] Mean corpuscular hemoglobin (MCH) determinationOrdered By: Becky Mckenzie on 06-21-2024 MCH (RBC) [Entitic mass] 27.9 pg 27.0-32.0 [facility] Mean corpuscular hemoglobin concentration (MCHC) determinationOrdered By: Becky Mckenzie on 06-21-2024 MCHC (RBC) [Mass/Vol] 33.5 g/dL 32-36 [facility] Mean platelet volume determi nationOrdered By: Becky Mckenzie on 06-21-2024 Platelet mean volume (Bld) [Entitic vol] 9.7 fL 6.2-12.0 [facility] Microscopic analysis of urin e for red blood cells (RBC)Ordered By: Becky Mckenzie on 06-21-2024 Microscopic analysis of urine for red blood cells (RBC) 0 SEEN /hpf 0-5 [facility] Urine RBC 0 SEEN /hpf 0-5 [facility] Monocyte percentageOrdered B y: Becky Mckenzie on 06-21-2024 Monocytes/100 WBC (Bld) 7.9 % 0-10 [facility] Mucus LM Ql (Urine sed)Order ed By: Becky Mckenzie on 06-21-2024 Mucus Ql (Urine sed) 0 SEEN /hpf [facility] Neutrophil percentageOrdered By: Becky Mckenzie on 06-21-2024 Neutrophils/100 WBC (Bld) 53.3 % 47-70 [facility] Nitrite Test strip Ql (U)Ord ered By: Becky Mckenzie on 06-21-2024 Nitrite Ql (U) Negative Negative [facility] Nucleated red blood cell per centageOrdered By: Becky Mckenzie on 06-21-2024 Nucleated RBC/100 WBC (Bld) [Ratio] 0 % 0-5 [facility] Platelet countOrdered By: Sarai Mckenzie on 06-21-2024 Platelets (Bld) [#/Vol] 273 10*3/uL 150-450 [facility] Potassium (Unsp spec) [Mass/ Vol]Ordered By: Becky Mckenzie on 06-21-2024 Potassium [Moles/Vol] 4.1 mmol/L 3.3-5.1 [facility] Protein Test strip Ql (U)Ord ered By: Becky Mckenzie on 06-21-2024 Protein Ql (U) Negative Negative [facility] RBC Auto (Bld) [#/Vol]Ordere d By: Becky Mckenzie on 06-21-2024 RBC (Bld) [#/Vol] 5.59 10*6/uL High 4.2-5.4 [facility] Serum creatinine measurement (mass/volume)Ordered By: Becky Mckenzie on 06-21-2024 Creatinine [Mass/Vol] 0.80 mg/dL 0.70-1.20 [facility] Serum glucose measurement (m ass/volume)Ordered By: Becky Mckenzie on 06-21-2024 Glucose [Mass/Vol] 96 mg/dL 70-99 [facility] Serum or plasma calcium juliana urement (mass/volume)Ordered By: Becky Mckenzie on 06-21-2024 Calcium [Mass/Vol] 9.8 mg/dL 7.6-11.0 [facility] Serum or plasma urea nitroge n measurement (mass/volume)Ordered By: Becky Mckenzie on 06-21-2024 Urea nitrogen [Mass/Vol] 10 mg/dL 4-19 [facility] Sodium levelOrdered By: Becky Mckenzie on 06-21-2024 Sodium [Moles/Vol] 138 mmol/L 133-145 [facility] Squamous epithelial cells de tection in urine sediment by light microscopyOrdered By: Becky Mckenzie on 06-21-2024 Epithelial cells.squamous LM Ql (Urine sed) 0 SEEN /hpf 5-10 [facility] Urinalysis, Completeon 06-21 BACTERIA 0 SEEN Normal None Seen [facility] Comment on above: Order Comment: CLEAN CATCH Performed By: #### L 400.0001 #### [facility] [address] [place], [address] EPI,SQUAMOUS 0 SEEN Normal 5-10 [facility] Comment on above: Order Comment: CLEAN CATCH Performed By: #### L 400.0001 #### [facility] [address] [place], [address] Mucus Ql (Urine sed) 0 SEEN Normal [facility] Comment on above: Order Comment: CLEAN CATCH Performed By: #### L 400.0001 #### [facility] [address] [place], [address] RBC 0 SEEN Normal 0-5 [facility] Comment on above: Order Comment: CLEAN CATCH Performed By: #### L 400.0001 #### [facility] [address] [place], [address] WBC 0 SEEN Normal 0-5 [facility] Comment on above: Order Comment: CLEAN CATCH Performed By: #### L 400.0001 #### [facility] [address] [place], [address] Urine blood detectionOrdered By: Becky Mckenzie on 06-21-2024 Urine Occult Blood Negative Negative [facility] Urine clarityOrdered By: Massiel Mckenzie on 06-21-2024 Clarity (U) Clear Clear [facility] Urine color determinationOrd ered By: Becky Mckenzie on 06-21-2024 Color (U) Yellow Yellow [facility] Urine glucose detectionOrder ed By: Becky Mckenzie on 06-21-2024 Glucose Ql (U) Normal mg/dl Normal [facility] Urine leukocyte esterase det ection by dipstickOrdered By: Becky Mckenzie on 06-21-2024 Leukocyte esterase Test strip Ql (U) Negative Negative [facility] Urine pHOrdered By: Becky murrell on 06-21-2024 pH (U) 6.0 [pH] 5.0 - 8.0 [facility] Urine sediment bacteria coun t by microscopy (number/high power field)Ordered By: Becky Mckenzie on 06-21-2024 Bacteria LM.HPF (Urine sed) [#/Area] 0 /[HPF] None Seen [facility] Urine specific gravity measu rementOrdered By: Becky Mckenzie on 06-21-2024 Specific gravity (U) [Rel density] 1.005 1.002-1.030 [facility] Urine urobilinogen measureme ntOrdered By: Becky Mckenzie on 06-21-2024 Urobilinogen Ql (U) Normal mg/dl Normal [facility] Urobilinogen Ql (U)Ordered B y: Becky Mckenzie on 06-21-2024 Urine Urobilinogen Normal mg/dl Normal [facility] White blood cell (WBC) count Ordered By: Becky Mckenzie on 06-21-2024 WBC (Bld) [#/Vol] 5.4 10*3/uL 4.4-11.0 [facility] White blood cell countOrdere d By: Becky Mckenzie on 06-21-2024 Urine WBC 0 SEEN /hpf 0-5 [facility] White blood cell count 0 SEEN /hpf 0-5 [facility] Low Dose CT Lung Screeningon 03-23-[address] Lung Screening [facility] [address] [place] [address] Lung Screening MR#: [id number] Acct: [id number] Name: LINDY LEAVITT Rep #: [id number] : 1965 F 59 From: Obdulia castellanos MD PCP: Dr. Robert Ann DO Status: REG CLI Study: Low Dose CT Lung Screening Date of Exam: 03/23 Exam# [id number] Ordering Dr: Robert Ann DO [id number] HISTORY: SCREENING, SMOKER. 1.5 PPD X 25 YEARS. TECHNIQUE: Helically acquired images were obtained of the chest without contrast. A radiation dose optimization technique was used for this scan. 517 images. COMPARISON: 02/26/2023. FINDINGS: LARGE AIRWAYS: Patent. LUNGS: Mild emphysema without suspicious nodule or acute alveolar consolidation. Chronic mild right upper lobe scarring anteriorly. PLEURA: No pneumothorax or significant pleural effusion. HEART/PERICARDIUM: Heart within normal limits in size with coronary artery calcification. No pericardial effusion. VESSELS: Thoracic aorta nondilated. Mild atherosclerosis. MEDIASTINUM/JORGE: No pathologically enlarged adenopathy. BONES: Intact. CT/Low Dose CT Lung Screening IMPRESSION: Lung-RADS category 1: Continue annual screening with low dose CT. Electronically Signed: Obdulia Griggs MD at 12:34 EST Reading Location ID and State: [facility] / [place] Tel , Service support , CC: Dr. 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 Robert Ann DO Status: REG CLI Study: SCRN MAMM (CAD)W/KAMERON BILAT Date of Exam: 06/08 Exam# [id number] Ordering Dr: Robert Ann DO [id number] MAMMOGRAPHY - BILATERAL SCREENING 3-D TOMOSYNTHESIS REASON FOR EXAM: Female, 59 years old. Routine screening PERTINENT HISTORY: Grandmother with breast cancer.. TECHNIQUE: 2-D mammograms and 3-D Tomosynthesis of the breast (s) were performed. CAD was performed. COMPARISON: 03/14/2022 FINDINGS: The breast composition is almost entirely fat. Scattered benign punctate calcifications are seen. No dense spiculated masses or suspicious microcalcifications are identified. No architectural distortion is identified. There is no skin thickening or retraction. There has been no significant change since the prior study. BI/SCRN MAMM (CAD)W/KAMERON BILAT IMPRESSION: No mammographic signs of malignancy. Routine yearly mammograms recommended. ASSESSMENT CATEGORY: BIRADS Category 1: Negative. A letter regarding these results will be sent to the patient by the facility within 30 days. FOLLOW UP RECOMMENDATION: Yearly follow up mammogram recommended. (A) Approximately 10% of breast cancers are not detected by mammography. A normal mammogram should not delay biopsy of a clinically suspicious abnormality. Electronically Signed: Robert Corbett MD at 9:52 EST , CC: Dr. 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 Normal [facility] 64-GI-Iparokf DOrdered By: Sandor Ann on 02-23-2024 Vitamin D 25-Hydroxy 75.4 ng/mL [facility] Comment on above: Vitamin D 25(OH) Sta tus Range Deficiency <20 ng/mL (50nmol/L) Insufficiency 20 - 30 ng/mL (50 - 75 nmol/L) Sufficiency 30 - 100 ng/mL (75 - 250 nmol/L) Toxicity >100 ng/mL (>250 nmol/L) Absolute neutrophil countOrd ered By: Robert Ann on 02-23-2024 Neutrophils (Bld) [#/Vol] 2.9 10*3/uL 2.0-7.7 [facility] Albumin to globulin ratioOrd ered By: Robert Ann on 02-23-2024 Albumin/Globulin [Mass ratio] 1.0 {ratio} 0.9-2.4 [facility] Basophil percentageOrdered B y: Robert Ann on 02-23-2024 Basophils/100 WBC (Bld) 0.8 % 0-1 [facility] Bilirubin, totalOrdered By: Robert CantorMarissa on 02-23-2024 Bilirubin [Mass/Vol] 0.20 mg/dL 0.20-1.00 [facility] Comment on above: For patients on eltr ombopag therapy, use of Dimension Neely TBIL is not recommended. Blood urea nitrogen (BUN)/cr eatinine ratioOrdered By: Robert Ann on 02-23-2024 Urea nitrogen/Creatinine [Mass ratio] 12.7 mg/mg 10-20 [facility] CBC W/Diff, Automatedon -0 Absolute Lymph 2.64 X10 3/uL Normal 0.83-4.51 [facility] Comment on above: Performed By: #### L 100.0100, L506.1000, L502.0250, L500.4050, L500.4100, L501.9520, L501.9985 #### [facility] [address] [place], [address] Absolute Neut 2.9 X10 3/uL Normal 2.0-7.7 [facility] Comment on above: Performed By: #### L 100.0100, L506.1000, L502.0250, L500.4050, L500.4100, L501.9520, L501.9985 #### [facility] [address] [place], [address] Basophils/100 WBC (Bld) 0.8 % Normal 0-1 [facility] Comment on above: Performed By: #### L 100.0100, L506.1000, L502.0250, L500.4050, L500.4100, L501.9520, L501.9985 #### [facility] [address] [place], [address] Eosinophils/100 WBC (Bld) 2.4 % Normal 0-5 [facility] Comment on above: Performed By: #### L 100.0100, L506.1000, L502.0250, L500.4050, L500.4100, L501.9520, L501.9985 #### [facility] [address] [place], [address] Erythrocyte distribution width (RBC) [Ratio] 13.3 % Normal 11.6-14.6 [facility] Comment on above: Performed By: #### L 100.0100, L506.1000, L502.0250, L500.4050, L500.4100, L501.9520, L501.9985 #### [facility] [address] [place], [address] Hematocrit (Bld) [Volume fraction] 43.9 % Normal 37-47 [facility] Comment on above: Performed By: #### L 100.0100, L506.1000, L502.0250, L500.4050, L500.4100, L501.9520, L501.9985 #### [facility] [address] [place], [address] Hemoglobin (Bld) [Mass/Vol] 14.4 g/dL Normal 12.0-15.0 [facility] Comment on above: Performed By: #### L 100.0100, L506.1000, L502.0250, L500.4050, L500.4100, L501.9520, L501.9985 #### [facility] [address] [place], [address] IG% 0.300 Normal 0.0-0.9 [facility] Comment on above: Result Comment: IG% - Immature Granulocytes (promyelocytes, myelocytes and metamyelocytes) > 1% indicates that a LEFT SHIFT is Present. Performed By: #### L 100.0100, L506.1000, L502.0250, L500.4050, L500.4100, L501.9520, L501.9985 #### [facility] [address] [place], [address] Lymphocytes/100 WBC (Bld) 42.7 % High 19-41 [facility] Comment on above: Performed By: #### L 100.0100, L506.1000, L502.0250, L500.4050, L500.4100, L501.9520, L501.9985 #### [facility] [address] [place], [address] MCH (RBC) [Entitic mass] 28.2 pg Normal 27.0-32.0 [facility] Comment on above: Performed By: #### L 100.0100, L506.1000, L502.0250, L500.4050, L500.4100, L501.9520, L501.9985 #### [facility] [address] [place], [address] MCHC (RBC) [Mass/Vol] 32.8 g/dL Normal 32-36 [facility] Comment on above: Performed By: #### L 100.0100, L506.1000, L502.0250, L500.4050, L500.4100, L501.9520, L501.9985 #### [facility] [address] [place], [address] MCV (RBC) [Entitic vol] 86.1 fL Normal 81-99 [facility] Comment on above: Performed By: #### L 100.0100, L506.1000, L502.0250, L500.4050, L500.4100, L501.9520, L501.9985 #### [facility] [address] [place], [address] Monocytes/100 WBC (Bld) 6.8 % Normal 0-10 [facility] Comment on above: Performed By: #### L 100.0100, L506.1000, L502.0250, L500.4050, L500.4100, L501.9520, L501.9985 #### [facility] [address] [place], [address] Neutrophils/100 WBC (Bld) 47.0 % Normal 47-70 [facility] Comment on above: Performed By: #### L 100.0100, L506.1000, L502.0250, L500.4050, L500.4100, L501.9520, L501.9985 #### [facility] [address] [place], [address] Nucleated RBC (Bld) [#/Vol] 0 10*3/uL Normal 0-5 [facility] Comment on above: Performed By: #### L 100.0100, L506.1000, L502.0250, L500.4050, L500.4100, L501.9520, L501.9985 #### [facility] [address] [place], [address] Platelet mean volume (Bld) [Entitic vol] 10.6 fL Normal 6.2-12.0 [facility] Comment on above: Performed By: #### L 100.0100, L506.1000, L502.0250, L500.4050, L500.4100, L501.9520, L501.9985 #### [facility] [address] [place], [address] Platelets (Bld) [#/Vol] 296 10*3/uL Normal 150-450 [facility] Comment on above: Performed By: #### L 100.0100, L506.1000, L502.0250, L500.4050, L500.4100, L501.9520, L501.9985 #### [facility] [address] [place], [address] RBC (Bld) [#/Vol] 5.10 10*6/uL Normal 4.2-5.4 [facility] Comment on above: Performed By: #### L 100.0100, L506.1000, L502.0250, L500.4050, L500.4100, L501.9520, L501.9985 #### [facility] [address] [place], [address] RDW SD 41.5 fl Normal 35.1-43.9 [facility] Comment on above: Performed By: #### L 100.0100, L506.1000, L502.0250, L500.4050, L500.4100, L501.9520, L501.9985 #### [facility] [address] [place], [place], [id number] (978) WBC (Bld) [#/Vol] 6.2 10*3/uL Normal 4.4-11.0 [facility] Comment on above: Performed By: #### L 100.0100, L506.1000, L502.0250, L500.4050, L500.4100, L501.9520, L501.9985 #### [facility] [address] [place], [place], [id number] Carbon dioxide measurementOr dered By: Robert Ann on 02-23-2024 CO2 [Moles/Vol] 25.0 mmol/L 21.0-32.0 [facility] Chloride measurementOrdered By: Robert Ann on 02-23-2024 Chloride [Moles/Vol] 109 mmol/L High 98-107 [facility] Comprehensive Metabolic Prof ilon 02-23-2024 Albumin [Mass/Vol] 3.5 g/dL Normal 3.2-5.0 [facility] Comment on above: Performed By: #### L 100.0100, L506.1000, L502.0250, L500.4050, L500.4100, L501.9520, L501.9985 #### [facility] [address] [place], [place], [phone] (701) Albumin/Globulin [Mass ratio] 1.0 {ratio} Normal 0.9-2.4 [facility] Comment on above: Performed By: #### L 100.0100, L506.1000, L502.0250, L500.4050, L500.4100, L501.9520, L501.9985 #### [facility] [address] [place], [address] ALK P 68 U/L Normal 45-117 [facility] Comment on above: Performed By: #### L 100.0100, L506.1000, L502.0250, L500.4050, L500.4100, L501.9520, L501.9985 #### [facility] [address] [place], [address] ALT [Catalytic activity/Vol] 56 U/L Normal 13-56 [facility] Comment on above: Performed By: #### L 100.0100, L506.1000, L502.0250, L500.4050, L500.4100, L501.9520, L501.9985 #### [facility] [address] [place], [address] AST [Catalytic activity/Vol] 27 U/L Normal 15-37 [facility] Comment on above: Performed By: #### L 100.0100, L506.1000, L502.0250, L500.4050, L500.4100, L501.9520, L501.9985 #### [facility] [address] [place], [address] Bilirubin [Mass/Vol] 0.20 mg/dL Normal 0.20-1.00 [facility] Comment on above: Result Comment: For patients on eltrombopag therapy, use of Dimension Neely TBIL is not recommended. Performed By: #### L 100.0100, L506.1000, L502.0250, L500.4050, L500.4100, L501.9520, L501.9985 #### [facility] [address] [place], [address] BUN/CRE 12.7 RATIO Normal 10-20 [facility] Comment on above: Performed By: #### L 100.0100, L506.1000, L502.0250, L500.4050, L500.4100, L501.9520, L501.9985 #### [facility] [address] [place], [address] CA,Total 9.6 mg/dL Normal 8.5-10.1 [facility] Comment on above: Performed By: #### L 100.0100, L506.1000, L502.0250, L500.4050, L500.4100, L501.9520, L501.9985 #### [facility] [address] [place], [address] Chloride [Moles/Vol] 109 mmol/L High 98-107 [facility] Comment on above: Performed By: #### L 100.0100, L506.1000, L502.0250, L500.4050, L500.4100, L501.9520, L501.9985 #### [facility] [address] [place], [address] CO2 [Moles/Vol] 25.0 mmol/L Normal 21.0-32.0 [facility] [facility] Comment on above: Performed By: #### L 100.0100, L506.1000, L502.0250, L500.4050, L500.4100, L501.9520, L501.9985 #### [facility] [address] [place], [address] Creatinine [Mass/Vol] 0.94 mg/dL Normal 0.55-1.02 [facility] Comment on above: Result Comment: The validity of the calculated GFR GFRAA in patients over 70 years has not been determined. Clinical correlation is essential. Performed By: #### L 100.0100, L506.1000, L502.0250, L500.4050, L500.4100, L501.9520, L501.9985 #### [facility] [address] [place], [address] EST GFR - AA 79 mL/min Normal >60 [facility] Comment on above: Result Comment: Afri can Kenyan GFR Calc Performed By: #### L 100.0100, L506.1000, L502.0250, L500.4050, L500.4100, L501.9520, L501.9985 #### [facility] [address] [place], [address] GAP 7 Normal 5-15 [facility] Comment on above: Performed By: #### L 100.0100, L506.1000, L502.0250, L500.4050, L500.4100, L501.9520, L501.9985 #### [facility] [address] [place], [address] GFR/1.73 sq M.predicted among non-blacks MDRD (S/P/Bld) [Vol rate/Area] 65 mL/min/{1.73_m2} Normal >60 [facility] Comment on above: Result Comment: Non- GFR Calc Performed By: #### L 100.0100, L506.1000, L502.0250, L500.4050, L500.4100, L501.9520, L501.9985 #### [facility] [address] [place], [address] Globulin (S) [Mass/Vol] 3.6 g/dL Normal 2.2-4.2 [facility] Comment on above: Performed By: #### L 100.0100, L506.1000, L502.0250, L500.4050, L500.4100, L501.9520, L501.9985 #### [facility] [address] [place], [address] Glucose [Mass/Vol] 173 mg/dL High 74-106 [facility] Comment on above: Result Comment: Fast ing Glucose result greater than or equal to 126 mg/dL suggests DIABETES MELLITUS per A.D.A. criteria. Performed By: #### L 100.0100, L506.1000, L502.0250, L500.4050, L500.4100, L501.9520, L501.9985 #### [facility] [address] [place], [address] Potassium [Moles/Vol] 3.9 mmol/L Normal 3.5-5.1 [facility] Comment on above: Performed By: #### L 100.0100, L506.1000, L502.0250, L500.4050, L500.4100, L501.9520, L501.9985 #### [facility] [address] [place], [address] Sodium [Moles/Vol] 141 mmol/L Normal 136-145 [facility] Comment on above: Performed By: #### L 100.0100, L506.1000, L502.0250, L500.4050, L500.4100, L501.9520, L501.9985 #### [facility] [address] [place], [address] T PROT 7.1 g/dL Normal 6.4-8.2 [facility] Comment on above: Performed By: #### L 100.0100, L506.1000, L502.0250, L500.4050, L500.4100, L501.9520, L501.9985 #### [facility] [address] [place], [address] Urea nitrogen [Mass/Vol] 12 mg/dL Normal 7-18 [facility] Comment on above: Performed By: #### L 100.0100, L506.1000, L502.0250, L500.4050, L500.4100, L501.9520, L501.9985 #### [facility] [address] [place], [address] Eosinophil percentageOrdered By: Robert Ann on 02-23-2024 Eosinophils/100 WBC (Bld) 2.4 % 0-5 [facility] Erythrocyte distribution wid th (RBC) [Ratio]Ordered By: Robert Ann on 02-23-2024 Erythrocyte distribution width (RBC) [Entitic vol] 41.5 fL 35.1-43.9 [facility] Erythrocyte distribution wid th ratioOrdered By: Robert Ann on 02-23-2024 Erythrocyte distribution width (RBC) [Ratio] 13.3 % 11.6-14.6 [facility] Estimated glomerular filtrat ion rate (GFR) AmericanOrdered By: Robert Ann on 02-23-2024 Estimated GFR (MDRD) Amer 79 mL/min >60 [facility] Comment on above: GFR Calc Glomerular filtration rate ( GFR) estimationOrdered By: Robert Ann on 02-23-2024 Estimated GFR (MDRD) Non-Af Amer 65 mL/min >60 [facility] Comment on above: Non- GFR Calc Glucose measurementOrdered B y: Robert Ann on 02-23-2024 Glucose [Mass/Vol] 173 mg/dL High 74-106 [facility] Comment on above: Fasting Glucose resu lt greater than or equal to 126 mg/dL suggests DIABETES MELLITUS per A.D.A. criteria. Hematocrit Auto (Bld) [Volum e fraction]Ordered By: Robert Ann on 02-23-2024 Hematocrit (Bld) [Volume fraction] 43.9 % 37-47 [facility] Hemoglobin A1con 02-23-2024 HbA1c (Bld) [Mass fraction] 5.8 % High 3.8-5.6 [facility] Comment on above: Result Comment: Norm al < 5.7 % Prediabetic 5.7 - 6.4 % Diabetic >or= 6.5 % Please note range changes. Performed By: #### L 400.0001 #### [facility] [address] [place], [address] Hemoglobin A1c percentageOrd ered By: Robert Ann on 02-23-2024 HbA1c (Bld) [Mass fraction] 5.8 % High 3.8-5.6 [facility] Comment on above: Normal < 5.7 % Predi abetic 5.7 - 6.4 % Diabetic >or= 6.5 % Please note range changes. Hemoglobin measurementOrdere d By: Robert Ann on 02-23-2024 Hemoglobin (Bld) [Mass/Vol] 14.4 g/dL 12.0-15.0 [facility] High density lipoprotein (HD L) measurementOrdered By: Robert Ann on 02-23-2024 Cholesterol in HDL [Mass/Vol] 37 mg/dL Low >40 [facility] Comment on above: The drugs N-Acetylcy steine and Metamizole may falsely depress this assay. Reference Range HDL <40 mg/dL Low HDL Cholesterol HDL >or= 60 mg/dL High HDL Cholesterol Immature granulocytes/100 WB C Auto (Bld)Ordered By: Robert Ann on 02-23-2024 Immature granulocytes/100 WBC (Bld) 0.300 % 0.0-0.9 [facility] Comment on above: IG% - Immature Granu locytes (promyelocytes, myelocytes and metamyelocytes) > 1% indicates that a LEFT SHIFT is Present. Laboratory - Chemistry and C hemistry - challengeOrdered By: Robert Ann on 02-23-2024 AST [Catalytic activity/Vol] 27 U/L [facility] Lipid Profileon 02-23-2024 Cholesterol [Mass/Vol] 126 mg/dL Normal 200 [facility] Comment on above: Result Comment: <200 mg/dL Desirable 200-240 mg/dL Borderline >240 mg/dL High Risk Performed By: #### L 400.0001 #### [facility] [address] [place], [place], [id number] Cholesterol in HDL [Mass/Vol] 37 mg/dL Low [facility] Comment on above: Result Comment: The drugs N-Acetylcysteine and Metamizole may falsely depress this assay. Reference Range HDL <40 mg/dL Low HDL Cholesterol HDL >or= 60 mg/dL High HDL Cholesterol Performed By: #### L 400.0001 #### [facility] [address] [place], [address] Cholesterol in LDL [Mass/Vol] 40 mg/dL Normal 0-130 [facility] Comment on above: Performed By: #### L 400.0001 #### [facility] [address] [place], [address] Cholesterol in VLDL [Mass/Vol] 49 mg/dL High 5-40 [facility] Comment on above: Performed By: #### L 400.0001 #### [facility] [address] [place], [address] Triglyceride [Mass/Vol] 247 mg/dL High [facility] Comment on above: Result Comment: The drugs N-Acetylcysteine and Metamizole may falsely depress this assay. Serum Triglycerides Reference Interval Normal <150 mg/dL Borderline high 150 - 199 mg/dL High 200 - 499 mg/dL Very High > or = 500 mg/dL Performed By: #### L 400.0001 #### [facility] [address] [facility] [place], [address] Low density lipoprotein (LDL ) cholesterol measurementOrdered By: Robert Ann on 02-23-2024 Cholesterol in LDL [Mass/Vol] 40 mg/dL 0-130 [facility] Lymphocytes Auto (Unsp spec) [#/Vol]Ordered By: Robert Ann on 02-23-2024 Lymphocytes (Bld) [#/Vol] 2.64 10*3/uL 0.83-4.51 [facility] Lymphocytes/100 WBC Auto (Un sp spec)Ordered By: Robert Ann on 02-23-2024 Lymphocytes/100 WBC (Bld) 42.7 % High 19-41 [facility] MCV (mean corpuscular volume ) determinationOrdered By: Robert Ann on 02-23-2024 MCV (RBC) [Entitic vol] 86.1 fL 81-99 [facility] Mean corpuscular hemoglobin (MCH) determinationOrdered By: Robert Ann on 02-23-2024 MCH (RBC) [Entitic mass] 28.2 pg 27.0-32.0 [facility] Mean corpuscular hemoglobin concentration (MCHC) determinationOrdered By: Robert Ann on 02-23-2024 MCHC (RBC) [Mass/Vol] 32.8 g/dL 32-36 [facility] Mean platelet volume determi nationOrdered By: Robert Ann on 02-23-2024 Platelet mean volume (Bld) [Entitic vol] 10.6 fL 6.2-12.0 [facility] Microalb:Creat Ratio,Random URon 02-23-2024 Creatinine [Mass/Vol] 295.00 mg/dL Normal NO RAN GE EST. [facility] Comment on above: Performed By: #### L 100.0100, L506.1000, L502.0250, L500.4050, L500.4100, L501.9520, L501.9985 #### [facility] [address] [place], [place], [id number] MALB:CRE 4.1 mg/g CRE Normal <30 mg/g CRE [facility] Comment on above: Performed By: #### L 100.0100, L506.1000, L502.0250, L500.4050, L500.4100, L501.9520, L501.9985 #### [facility] [address] [place], [place], [address] MICROALBUMIN,UR 12.2 mg/L Normal NO RANGE EST. [facility] Comment on above: Performed By: #### L 100.0100, L506.1000, L502.0250, L500.4050, L500.4100, L501.9520, L501.9985 #### [facility] [address] [place], [place], [id number] Monocyte percentageOrdered B y: Robert Ann on 02-23-2024 Monocytes/100 WBC (Bld) 6.8 % 0-10 [facility] Neutrophil percentageOrdered By: oRbert Ann on 02-23-2024 Neutrophils/100 WBC (Bld) 47.0 % 47-70 [facility] Nucleated red blood cell per centageOrdered By: Robert Ann on 02-23-2024 Nucleated RBC/100 WBC (Bld) [Ratio] 0 % 0-5 [facility] Platelet countOrdered By: Manju Ann on 02-23-2024 Platelets (Bld) [#/Vol] 296 10*3/uL 150-450 [facility] Potassium measurementOrdered By: Robert Ann on 02-23-2024 Potassium [Moles/Vol] 3.9 mmol/L 3.5-5.1 [facility] RBC Auto (Bld) [#/Vol]Ordere d By: Robert Ann on 02-23-2024 RBC (Bld) [#/Vol] 5.10 10*6/uL 4.2-5.4 [facility] Random urine microalbumin me asurementOrdered By: Robert Ann on 02-23-2024 Urine Random Microalbumin 12.2 mg/L NO RANGE EST. [facility] Serum anion gap measurementO rdered By: Robert Ann on 02-23-2024 Anion gap [Moles/Vol] 7 mmol/L 5-15 [facility] Serum globulin measurementOr dered By: Robert Ann on 02-23-2024 Globulin (S) [Mass/Vol] 3.6 g/dL 2.2-4.2 [facility] Serum or plasma alanine colbert otransferase (ALT) measurementOrdered By: Robert Ann on 02-23-2024 ALT [Catalytic activity/Vol] 56 U/L 13-56 [facility] Serum or plasma albumin juliana urement (mass/volume)Ordered By: Robert Ann on 02-23-2024 Albumin [Mass/Vol] 3.5 g/dL 3.2-5.0 [facility] Serum or plasma alkaline frieda sphatase measurementOrdered By: Robert Ann on 02-23-2024 ALP [Catalytic activity/Vol] 68 U/L 45-117 [facility] Serum or plasma calcium juliana urement (mass/volume)Ordered By: Robert Ann on 02-23-2024 Calcium [Mass/Vol] 9.6 mg/dL 8.5-10.1 [facility] Serum or plasma cholesterol measurement (mass/volume)Ordered By: Robert Ann on 02-23-2024 Cholesterol [Mass/Vol] 126 mg/dL <200 [facility] Comment on above: <200 mg/dL Desirable 200-240 mg/dL Borderline >240 mg/dL High Risk Serum or plasma creatinine m easurement (mass/volume)Ordered By: Robert Ann on 02-23-2024 Creatinine [Mass/Vol] 0.94 mg/dL 0.55-1.02 [facility] Comment on above: The validity of the calculated GFR & GFRAA in patients over 70 years has not been determined. Clinical correlation is essential. Serum or plasma urea nitroge n measurement (mass/volume)Ordered By: Robert Ann on 02-23-2024 Urea nitrogen [Mass/Vol] 12 mg/dL 7-18 [facility] Sodium levelOrdered By: Robert Ann on 02-23-2024 Sodium [Moles/Vol] 141 mmol/L 136-145 [facility] TSH QnOrdered By: Robert moreira on 02-23-2024 Thyroid Stimulating Hormone (TSH) 0.377 uIU/mL 0.358-3.740 [facility] Thyroid Stim Hormone (TSH)on 02-23-2024 TSH 0.377 uIU/mL Normal 0.358-3.740 [facility] Comment on above: Performed By: #### L 400.0001 #### [facility] [address] [place] [address], [address] Total proteinOrdered By: Marj Ann on 02-23-2024 Protein [Mass/Vol] 7.1 g/dL 6.4-8.2 [facility] Triglycerides measurementOrd ered By: Robert Ann on 02-23-2024 Triglyceride [Mass/Vol] 247 mg/dL High <199 [facility] Comment on above: The drugs N-Acetylcy steine and Metamizole may falsely depress this assay.Serum Triglycerides Reference Interval Normal <150 mg/dL Borderline high 150 - 199 mg/dL High 200 - 499 mg/dL Very High > or = 500 mg/dL Urine albumin/creatinine rat io for detection of microalbuminuriaOrdered By: Robert Ann on 02-23-2024 Urine Microalbumin/Creatinine Ratio 4.1 mg/g CRE <30 [facility] Urine creatinine measurement (mass/volume)Ordered By: Robert Ann on 02-23-2024 Creatinine (U) [Mass/Vol] 295.00 mg/dL NO RANGE EST. [facility] Very low density lipoprotein (VLDL) cholesterol measurementOrdered By: Robert Ann on 02-23-2024 VLDL Cholesterol 49 mg/dL High 5-40 [facility] Vitamin D,25 Hydroxyon 02-22 Vitamin D 25-OH 75.4 ng/mL Normal [facility] Comment on above: Result Comment: Karen min D 25(OH) Status Range Deficiency <20 ng/mL (50nmol/L) Insufficiency 20 - 30 ng/mL (50 - 75 nmol/L) Sufficiency 30 - 100 ng/mL (75 - 250 nmol/L) Toxicity >100 ng/mL (>250 nmol/L) Performed By: #### L 100.0100, L506.1000, L502.0250, L500.4050, L500.4100, L501.9520, L501.9985 #### [facility] [address] [place], [address] White blood cell (WBC) count Ordered By: Robert Ann on 02-23-2024 WBC (Bld) [#/Vol] 6.2 10*3/uL 4.4-11.0 [facility] 36on 03-25-[address] Gutierrez no ab x needed for dental work. Verbal given to Flor with dental office. Faxed to office @ [phone] as well. Normal [facility] Office Visiton 03-04-2023 Follow-up visit [id number] Lindy Leavitt 1965 F Date Provider Department Center 03/04/2023 [id number]-YXYUIDDIANE GUTIERREZ [facility] OR None No family history on file Level of Service:88869 [place] POSTOP FOLLOW UP VISIT RELATED TO ORIGINAL PX Reason for Visit and Comments: Post-op [483] - ORIF Left?terrible triad elbow fracture dislocation, DOS 12/09/22 Normal [facility] Progress Noteon 03-04-2023 Progress Note Subjective: Lindy is approximately 3 months s/p ORIF Left terrible triad elbow fracture dislocation, DOS 12/09/22 . This was treated with ORIF of the olecranon and ORIF of radial head. Pain is mild . She has no new complaints today. She is right hand dominant. She is currently in outpatient physical therapy. She is struggling with range of motion in her left hand. Review of Systems Objective: There were no vitals taken for this visit. Incision: healed. There is no drainage or erythema. Skin is warm, dry and intact. Elbow ROM shows flexion: 120, extension: 30, pronation: 80, supination: 30. Wrist and finger ROM finger flexion to 1 cm from palm. Sensation is grossly intact to all digits.Capillary refill is brisk to all digits. XRAYS: 2v left elbow show the elbow remains well-aligned and unchanged from intra-operative films. Hardware/implants remain intact with no obviousloosening or failure. Radial head remains well-aligned to capitellum. Assessment No diagnosis found. Plan No orders of the defined types were placed in this encounter. Lindy will continue aggressive ROM of elbow, forearm, wrist and fingers, strengthening, weight bearing and functional activities based on pain. We reviewed expectations and timeline for functional recovery. . No follow-ups on file. with 2v elbow. Electronically signed by Diane Gutierrez M.D. 03/04/2023 at 11:32 AM. Normal [facility] XR ELBOW 1-2 VIEWS LEFTon XR ELBOW 1-2 VIEWS LEFT 2v left elbow sh ow the elbow remains well-aligned and unchanged from intra-operative films. Hardware/implants remain intact with no obviousloosening or failure. Radial head remains well-aligned to capitellum. Normal [facility] Basophil percentageOrdered B y: Robert Ann on 02-17-2023 Bilirubin [Mass/Vol] 0.30 mg/dL 0.20-1.00 [facility] Comment on above: For patients on eltr ombopag therapy, use of Dimension Neely TBIL is not recommended. Chloride [Moles/Vol] 105 mmol/L 98-107 [facility] Cholesterol [Mass/Vol] 112 mg/dL <200 [facility] Comment on above: <200 mg/dL Desirable 200-240 mg/dL Borderline >240 mg/dL High Risk Glucose [Mass/Vol] 154 mg/dL 74-106 [facility] Comment on above: Fasting Glucose resu lt greater than or equal to 126 mg/dL suggests DIABETES MELLITUS per A.D.A. criteria. Potassium [Moles/Vol] 4.2 mmol/L 3.5-5.1 [facility] Protein [Mass/Vol] 7.1 g/dL 6.4-8.2 [facility] Sodium [Moles/Vol] 138 mmol/L 136-145 [facility] Triglyceride [Mass/Vol] 181 mg/dL <199 [facility] Comment on above: The drugs N-Acetylcy steine and Metamizole may falsely depress this assay.Serum Triglycerides Reference Interval Normal <150 mg/dL Borderline high 150 - 199 mg/dL High 200 - 499 mg/dL Very High > or = 500 mg/dL Laboratory - Chemistry and C hemistry - challengeOrdered By: Robert Ann on 02-17-2023 ALP [Catalytic activity/Vol] 71 U/L 45-117 [facility] ALT [Catalytic activity/Vol] 58 U/L 13-56 [facility] CO2 [Moles/Vol] 25.0 mmol/L 21.0-32.0 [facility] Globulin (S) [Mass/Vol] 3.7 g/dL 2.2-4.2 [facility] Urea nitrogen/Creatinine [Mass ratio] 14.9 mg/mg 10-20 [facility] No Panel InformationOrdered By: Robert Ann on 02-17-2023 Estimated GFR (MDRD) Amer 87 mL/min >60 [facility] Comment on above: GFR Calc Estimated GFR (MDRD) Non-Af Amer 72 mL/min >60 [facility] Comment on above: Non- GFR Calc Urine Microalbumin/Creatinine Ratio 5.6 mg/g CRE <30 [facility] Serum or plasma albumin juliana urement (mass/volume)Ordered By: Robert Ann on 02-17-2023 Albumin [Mass/Vol] 3.4 g/dL 3.2-5.0 [facility] Serum or plasma albumin/glob ulin mass ratioOrdered By: Robert Ann on 02-17-2023 Albumin/Globulin [Mass ratio] 0.9 {ratio} 0.9-2.4 [facility] Serum or plasma calcium juliana urement (mass/volume)Ordered By: Robert Ann on 02-17-2023 Calcium [Mass/Vol] 9.3 mg/dL 8.5-10.1 [facility] Serum or plasma cholesterol in HDL measurement (mass/volume)Ordered By: Robert Ann on 02-17-2023 Cholesterol in HDL [Mass/Vol] 36 mg/dL >40 [facility] Comment on above: The drugs N-Acetylcy steine and Metamizole may falsely depress this assay. Reference Range HDL <40 mg/dL Low HDL Cholesterol HDL >or= 60 mg/dL High HDL Cholesterol Serum or plasma cholesterol in VLDL measurement (mass/volume)Ordered By: Robert Ann on 02-17-2023 Cholesterol in VLDL [Mass/Vol] 36 mg/dL 5-40 [facility] Serum or plasma creatinine m easurement (mass/volume)Ordered By: Robert Ann on 02-17-2023 Creatinine [Mass/Vol] 0.87 mg/dL 0.55-1.02 [facility] Comment on above: The validity of the calculated GFR & GFRAA in patients over 70 years has not been determined. Clinical correlation is essential. Serum or plasma low density lipoprotein (LDL) cholesterol measurement (mass/volume)Ordered By: Robert Ann on 02-17-2023 Cholesterol in LDL [Mass/Vol] 40 mg/dL 0-130 [facility] Serum or plasma urea nitroge n measurement (mass/volume)Ordered By: Robert Ann on 02-17-2023 Urea nitrogen [Mass/Vol] 13 mg/dL 7-18 [facility] Thin prep Papanicolaou smear with manual screeningOrdered By: Robert Ann on 02-17-2023 Thin prep Papanicolaou smear with manual screening 23 U/L 15-37 [facility] Thin prep Papanicolaou smear with manual screening 8 5-15 [facility] Thin prep Papanicolaou smear with manual screening 8.6 mg/L NO RANGE EST. [facility] Urine creatinine measurement (mass/volume)Ordered By: Robert Ann on 02-17-2023 Creatinine (U) [Mass/Vol] 153.00 mg/dL NO RANGE EST. [facility] Whole blood hemoglobin A1c/t otal hemoglobin ratio (mass fraction)Ordered By: Robert Ann on 02-17-2023 HbA1c (Bld) [Mass fraction] 6.7 % 3.8-5.6 [facility] Comment on above: Normal < 5.7 % Predi abetic 5.7 - 6.4 % Diabetic >or= 6.5 % Please note range changes. 36on 01-27-2023 36 OT order faxed to [phone]. This is done! [facility] 36 OT order signed [facility] 36 Name of Caller: Lindy Contact Reason for Appointment: Patient called and stated that the PT facility said that she needs an order for OT not PT. Can the order be rewritten and faxed to [phone] [facility] in [place]. Thank you Office Name: Ortho [facility] Office Visiton 01-21-2023 Follow-up visit [id number] Lindy Leavitt 1965 F Date Provider Department Center 01/21/2023 [id number]-GUMKEIDIANE GUTIERREZ [facility] OR None No family history on file Level of Service:77590 [place] POSTOP FOLLOW UP VISIT RELATED TO ORIGINAL PX Reason for Visit and Comments: Post-op [483] - Left terrible triad elbow fracture dislocation [facility] Progress Noteon 01-21-2023 Progress Note Subjective: Lindy is approximately 6 weeks s/p ORIF Left terrible triad elbow fracture dislocation, DOS 12/09/22 . Pain is mild . She has no new complaints today. She denies new numbness or tingling since surgery. Patient is right hand dominant. She has been coming out of her sling only for showering. She has not started physical therapy. Review of Systems Objective: Ht 5' 2 (1.575 m) Wt 270 lb (122 kg) BMI 49.38 kg/m? Incision: clean, dry,and intactwith appropriate healing. There is no drainage or erythema. Skin is warm, dry and intact. Elbow ROM shows flexion: 100, extension: 40, pronation: 80, supination: 10. Wrist and finger ROM full. Sensation is grossly intact to all digits. Capillary refill is brisk to all digits. XRAYS: 2v left elbow show the elbow remains well reduced. Radial head replacement is in good position. Heterotopic ossification is seen both anteriorly and posteriorly on the lateral image. Assessment 1. Closed fracture dislocation of left elbow with routine healing, subsequent encounter Plan Orders Placed This Encounter Procedures Ambulatory referral to Physical Therapy Lindy will continue aggressive ROM of elbow, forearm, wrist and fingers with additional strengthening and weight bearing and return to functional activities based on pain. Follow up in 6 weeks (on 03/04/2023) for xray in 6 weeks. with 2v of elbow. Electronically signed by Diane Gutierrez M.D. 01/21/2023 at 12:41 PM. Normal [facility] XR ELBOW 1-2 VIEWS LEFTon XR ELBOW 1-2 VIEWS LEFT 2v left elbow sh ow the elbow remains well reduced. Radial head replacement is in good position. Heterotopic ossification is seen both anteriorly and posteriorly on the lateral image. Normal [facility] 36on 12-23-2022 36 Name of caller: Lavon castellanos Contact phone number: [phone] Relationship to Patient: [facility] Provider: Dr. Gutierrez Practice: Ortho Chief Complaint/Reason for Call: Patient stated she didn't think she needed Home PT. [facility] called office and relayed the message CAC contacted Greer and she stated if patient is comfortable doing exercises at home after next appt she will go to OP PT. FYI Best time of day caller can be reached: any Patient advised that office/PCP has 24-48 business hours to return their call: No Normal [facility] Office Visiton 12-17-2022 Follow-up visit [id number] Lindy Leavitt 1965 F Date Provider Department Center 12/17/2022 [id number] GUTIERREZ [facility] OR None No family history on file Level of Service:49719 [place] POSTOP FOLLOW UP VISIT RELATED TO ORIGINAL PX Reason for Visit and Comments: Post-op [483] - L terrible triad Normal [facility] PATINSon 12-17-2022 LESLI Fax Number- [phone] Contact number - [phone] Please make sure patient name and date of is on paperwork along with patients part of form filled out Please send clinical photos to [email or web address] or via [employer] Please include your name and date of in the subject line of e-mail Clinical photos sent via [employer] can be attached to a message, see below: Normal [facility] Progress Noteon 12-17-2022 Progress Note Subjective: Lindy is approximately 1 week s/p left radial head replacement for fracture, left coronoid/capsule repair, and left LCL primary repair on 12/09/22. Pain is moderate . She has no new complaints today. She denies new numbness or tingling since surgery Review of Systems Objective: Ht 5' 2 (1.575 m) Wt 270 lb (122 kg) BMI 49.38 kg/m? Incision: clean, dry,and intact with appropriate early healing. There is no drainage or erythema. Skin iswarm, dry and intact. Elbow, wrist and forearm ROM are limited secondary to pain and splinting. Finger ROM full. Sensation is grossly intact to all digits. Capillary refill is brisk to all digits. XRAYS: Lateral only of left elbow show the elbow remains concentric. Radial head replacement is in good position. Assessment 1. Closed fracture dislocation of left elbow with routine healing, subsequent encounter Plan Orders Placed This Encounter Procedures Ambulatory referral to Physical Therapy Lindy will start PT. We discussed the specifics of her range of motion and restrictions as well as varus stress precautions. She will remain nonweightbearing to the left arm. She will use the sling for mobilization. . Follow up in about 5 weeks (around 01/21/2023). with 2v of elbow. Electronically signed by Diane Gutierrez M.D. 12/17/2022 at 12:35 PM. Normal [facility] XR ELBOW 1-2 VIEWS LEFTon XR ELBOW 1-2 VIEWS LEFT Lateral only of left elbow show the elbow remains concentric. Radial head replacement is in good position. Normal [facility] 36on 12-13-2022 36 Lindy was given a prescription for Oxycodone 5mg 1 tab q6hrs PRN severe pain #20 (twenty) no refills. Narcotic pain medications have addictive potential and should only be taken for severe pain. The patient's OARRS report was obtained and reviewed by myself today. [facility] 36 Please sign [facility] 36 Name of caller: Lindy Leavitt Contact phone number: [phone] Relationship to Patient: patient Provider: Dr. Gutierrez Practice: Ortho Chief Complaint/Reason for Call: Pt is requesting a refill for: Oxycodone 5 mg immediate release tablet Start Date 12/09/22, End Date 12/14/22. Pt has confirmed pharmacy [facility] [address] in [place]. Pt had OPEN REDUCTION INTERNAL FIXATION FRACTURE DISLOCATION OF ELBOW / OPEN REDUCTION PERIARTICULAR FRACTURE AND OR DISLOCATION OF THE ELBOW DOS 12/09 w/ Dr. Gutierrez. Please advise. Best time of day caller can be reached: any Patient advised that office/PCP has 24-48 business hours to return their call: Yes [facility] [phone] [phone] Pt declined home car e therapy - states PT said she can go outpatient if she has needs. PACC signed off. [facility] [phone] Broadcast Designer following case for Discharge Needs. [facility] Progress Noteon 12-10-2022 Progress Note Physical Therapy Facility/Department: Physical Therapy Initial Evaluation NAME: Lindy Leavitt : 1965 Date of Service: 12/10/2022 Discharge Recommendations: Outpatient PT, Home with assist PRN Assessment Requires PT Follow-Up: Yes Assessment: Pt admitted for s/p ORIF L elbow terrible triad 12/09. Pt is NWB on LUE and ok for finger/shoulder ROM (no elbow ROM). 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 Pt reports hx of ankle fracture in July of 2022 and has equipment at home (FWW, shower chair) from that experience. Pt is min assist x1 for supine to sit but otherwise supervision x1 for ambulation/transfers. Pt is safe to return home. Recommend outpatient PT for LUE when allowed by MD. Encouraged finger ROM 10x per hour Performance Deficits/Impairments: Decreased functional mobility , Decreased ROM Decision Making: Medium Complexity Activity Tolerance Activity Tolerance: Patient Tolerated treatment well Patient Diagnosis(es): The primary encounter diagnosis was Left elbow fracture, closed, initial encounter. A diagnosis of Fall, initial encounter was also pertinent to this visit. has a past medical history of Arthritis, Autoimmune hepatitis (CMS/HCC) (HCC), Depression, Diabetes mellitus (HCC), Hyperlipidemia, Insomnia, BRICE (nonalcoholic steatohepatitis), Restless legs syndrome, and Sleep apnea. has a past surgical history that includes Hysterectomy (N/A, 1998); Cholecystectomy (N/A, 1994); and Carpal tunnel release (Bilateral, 2012). Restrictions Restrictions/Precautions Restrictions/Precautions : Weight Bearing Required Braces or Orthoses?: Yes Upper Extremity Weight Bearing Restrictions Left Upper Extremity Weight Bearing: Non Weight Bearing Other: No elbow ROM LUE, ok for finger and shoulder ROM in splint Required Braces or Orthoses Left Upper Extremity Brace/Splint: Sling Vision/Hearing Vision: Within Functional Limits Hearing: Functional/adequate for paticipation in therapy Cognition/Orientation Overall Cognitive Status: WFL Overall Orientation Status: Within Normal Limits Subjective General Chart Reviewed: Yes Patient Assessed for Rehabilitation Services: Yes Family / Caregiver Present: No Diagnosis: s/p ORIF L elbow terrible triad 12/09 Follows Commands: Within Functional Limits Subjective Subjective: Pt agreeable for therapy. Pt is pleasant and cooperative. Pt reports LUE is still numb from nerve block but pain is 3/10 on elbow Patient Stated Goal: to get home today Social/Functional History Social/Functional History Lives With: Spouse (reports is off for the next couple of days) Type of Home: House Home Layout: Two level Home Access: Stairs to enter with rails Entrance Stairs - Number of Steps: 2 Entrance Stairs - Rails: None Bathroom Shower/Tub: Tub/Shower unit, Shower chair with back Bathroom Toilet: Standard Home Equipment: Rolling walker ADL Assistance: Independent Homemaking Assistance: Independent Ambulation Assistance: Independent Transfer Assistance: Independent Additional Comments: Pt reports in july had right ankle fracture and has FWW along with shower chair. Pt normally independent otherwise Objective Observation/Palpation Posture: Fair Observation: LUE sling AROM RLE (degrees) RLE AROM: WFL AROM LLE (degrees) LLE AROM : WFL AROM RUE (degrees) RUE AROM : WFL AROM LUE (degrees) LUE General AROM: Pt able to wiggle fingers (25% ROM of PIP/DIP joints); elbow NT; shoulder in sling Strength RLE Comment: 4+/5 Strength LLE Comment: 4+/5 Strength RUE Comment: 4+/5 Strength LUE Comment: NT Bed mobility Supine to Sit: Minimal assistance Sit to Supine: Stand by assistance Comment: Pt educated on proper sequencing with RUE propping but still required min assist x1 Transfers Sit to Stand: Supervision Stand to sit: Supervision Ambulation 1 Surface 1: Level tile Device 1: No device Assistance 1: Close supervision Quality of Gait Comment 1: Pt for 95% of session was safe and independent. Pt had one moment where she accidently bumped into door frame and needs cueing on awareness of surroundings Distance (ft) 1: 125 feet x2 Stairs Rails 1: None (Comment) Device 1: No device Assistance 1: Independent Number of Steps 1: 2 Balance Sitting - Static: Good Sitting - Dynamic: Good Standing - Static: Good Standing - Dynamic: Good Plan Times per Week: 3-5 Plan Weeks: 3 weeks Current Treatment Recommendations: Strengthening, Balance Training, Functional Mobility Training, Transfer Training, Gait Training, Safety Education & Training, Home Exercise Program, Neuromuscular Re-education, Endurance Training, Positioning, Stair training, ROM Safety Safety Devices Safety Devices in Place: Yes Type of Devices: Call light within reach, Left in bed, Gait belt, Nurse notified Outcomes Score AM-PAC Score AM-PAC Inpatient M (more content not included)... Normal [facility] Progress Note Nutrition Assessment Type and Reason for Visit: Initial (DT- A1C 8.6%, uncontrolled DM) Nutrition Recommendations/Plan: Current diet is regular. Recommend 3 CHO Choices (45 gms carbs/meal) to assist with BG control. Patient declines diet education. Refer to diet mechanical test technician for follow up. Malnutrition Assessment: Malnutrition Status: No malnutrition Nutrition Assessment: Patient presented after a fall. Found to have left elbow terrible triad fracture/dislocation. Underwent Left radial head replacement for fracture, Left coronoid/capsule repair, and Left LCL primary repair on 12/09/22. Patient seen by CORRIE this am. + Appetite and po intake. Pt reports A1C ~6.4% and reports that it is now high due to stress over past few months and not eating the best. Declines diet information. Patient is discharged today. Estimated Daily Nutrient Needs: Energy Requirements Based On: Kcal/kg Weight Used for Energy Requirements: [place] Weight for Energy Calculation (kg): 50 kg Total Energy Requirements (kcals/day): 1516-4085 kcals per day Weight Used for Protein Requirements: [place] Weight in Kg Used for Protein Requirements: 50 kg Estimated Total Protein (g/day): 55-65 gm per day Estimated Daily Total Fluid (ml/day): Per MD Nutrition Related Findings: Stephan = 22, abdomen soft, nontender, active bowel sounds, I/O: +796 (since admit) Wound Type: Surgical Incision BMP: Recent Labs 12/08/22 0137 12/09/22 0236 NA 134* 136 K 4.0 3.9 CL 104 104 CO2 21* 23 BUN 17 13 CREATININE 0.68 0.64 GLUCOSE 213* 249* CALCIUM 8.8 8.6 HEPATIC: Recent Labs 12/09/22 0236 AST 23 ALT 28 BILITOT 0.4 ALKPHOS 74 12/09/22 A1C 8.6% Scheduled Medications: ALPRAZolam, 1 mg, Oral, Nightly atorvastatin, 20 mg, Oral, Daily escitalopram, 20 mg, Oral, Daily influenza, 0.5 mL, IntraMUSCular, Once insulin lispro, 0-6 Units, SubCUTAneous, TID WC And insulin lispro, 0-6 Units, SubCUTAneous, Nightly ketamine, 0.82 mg/kg, IntraVENous, Once melatonin, 10 mg, Oral, Nightly pantoprazole, 40 mg, Oral, q AM Propofol, 1 mg/kg, IntraVENous, Once ursodiol, 300 mg, Oral, BID verapamil SR, 240 mg, Oral, Daily Current Nutrition Therapies: Adult diet Regular Current Oral Intake Average Meal Intake: Unable to assess Average Supplements Intake: None Ordered Anthropometric Measures: Height: 157.5 cm (5' 2.01) Current Body Weight: 122 kg (270 lb) (12/08/22) Weight Source: Stated Admission Body Weight: 122 kg (270 lb) (stated on 12/07/22) [place] Body Weight (lbs) (Calculated): 110 lbs [place] Body Weight (Kg) (Calculated): 50 kg % [place] Body Weight (Calculated): 245.5 % BMI (kg/m2) (Calculated): 49.4 Weight Adjustment For: No Adjustment BMI Categories: Obese Class 3 (BMI 40.0 or greater) Nutrition Diagnosis: Altered nutrition-related lab values related to endocrine dysfuntion as evidenced by lab values Nutrition Interventions: Nutrition Education/Counseling: Education declined Coordination of Nutrition Care: Continue to monitor while inpatient Goals: Goals: PO intake 75% or greater, prior to discharge Nutrition Monitoring and Evaluation: Food/Nutrient Intake Outcomes: Food and Nutrient Intake Physical Signs/Symptoms Outcomes: Biochemical Data, GI Status, Fluid Status or Edema, Meal Time Behavior, Nutrition Focused Physical Findings, Skin, Weight Discharge Planning: No discharge needs at this time Roxy Funes RD Contact: *[phone] Normal [facility] CARECOORDon 12-09-2022 CARECOORD Returned from OR to room 6130, family at bedside ambulated to BR voided then back to bed. Given water and a menu. Normal [facility] CARECOORD Patient to OR via be d, at bedside. Normal [facility] CBC WITH AUTO DIFFERENTIALon 12-09-2022 Basophils (Bld) [#/Vol] 0.0 10*3/uL Normal 0.0-0.2 [facility] Comment on above: Performed By: #### L [id number] ####Catalyst Unit Operator: HERACLIO GURROLA ([id number])[address] Basophils/100 WBC (Bld) 0.6 % Normal 0.0-2.0 [facility] Comment on above: Performed By: #### L [id number] ####Catalyst Unit Operator: HERACLIO [id number])[address] Eosinophils (Bld) [#/Vol] 0.1 10*3/uL Normal 0.0-0.5 [facility] Comment on above: Performed By: #### L [id number] ####Catalyst Unit Operator: HERACLIO [id number])[facility] ([facility])[address] [place] [address] Eosinophils/100 WBC (Bld) 0.8 % Low 1.0-6.0 [facility] Comment on above: Performed By: #### L [id number] ####Catalyst Unit Operator: HERACLIO GURROLA ([id number])[facility])[address] [place] [address] Erythrocyte distribution width (RBC) [Ratio] 14.8 % High 11.5-14.5 [facility] Comment on above: Performed By: #### L [id number] ####Catalyst Unit Operator: HERACLIO GURROLA ([id number])[facility])[address] [place] [address] ERYTHROCYTE MEAN CORPUSCULAR HEMOGLOBIN CONCENTRATION (G/DL) BY AUTOMATED 33.3 % Normal 32.0-36.0 [facility] Comment on above: Performed By: #### L [id number] ####Catalyst Unit Operator: HERACLIO GURROLA ([id number])[facility])[address] [place] [address] Hematocrit (Bld) [Volume fraction] 39.9 % Normal 35.0-47.0 [facility] Comment on above: Performed By: #### L [id number] ####Catalyst Unit Operator: HERACLIO GURROLA ([id number])[facility])[address] [place] [address] Hemoglobin (Bld) [Mass/Vol] 13.3 g/dL Normal 11.7-16.0 [facility] Comment on above: Performed By: #### L [id number] ####Catalyst Unit Operator: HERACLIO GURROLA ([id number])[facility])[address] [place] [address] Lymphocytes (Bld) [#/Vol] 3.8 10*3/uL Normal 1.0-4.3 [facility] Comment on above: Performed By: #### L [id number] ####Catalyst Unit Operator: HERACLIO GURROLA ([id number])[facility] [place] [address] Lymphocytes/100 WBC (Bld) 47.1 % High 20.0-40.0 [facility] Comment on above: Performed By: #### L [id number] ####Catalyst Unit Operator: HERACLIO GURROLA ([id number])[facility])[address] [place] [address] MCH (RBC) [Entitic mass] 27.9 pg Normal 26.0-34.0 [facility] Comment on above: Performed By: #### L [id number] ####Catalyst Unit Operator: HERACLIO GURROLA ([id number])[facility])[address] [place] [address] MCV (RBC) [Entitic vol] 83.8 fL Normal 80.0-98.0 [facility] Comment on above: Performed By: #### L [id number] ####Catalyst Unit Operator: HERACLIO GURROLA ([id number])[facility])[address] [place] [address] Monocytes (Bld) [#/Vol] 0.9 10*3/uL High 0.0-0.8 [facility] Comment on above: Performed By: #### L [id number] ####Catalyst Unit Operator: HERACLIO GURROLA ([id number])[facility])[address] [place] [address] Monocytes/100 WBC (Bld) 10.7 % High 2.0-10.0 [facility] Comment on above: Performed By: #### L [id number] ####Catalyst Unit Operator: HERACLIO GURROLA ([id number])[facility])[address] [place] [address] Neutrophils (Bld) [#/Vol] 3.3 10*3/uL Normal 1.8-7.0 [facility] Comment on above: Performed By: #### L [id number] ####Catalyst Unit Operator: HERACLIO GURROLA ([id number])[facility])[address] [place] [address] Neutrophils/100 WBC (Bld) 40.8 % Normal 40.0-80.0 [facility] Comment on above: Performed By: #### L [id number] ####Catalyst Unit Operator: HERACLIO GURROLA ([id number])[facility])[address] [place] [address] NRBC (PER 100 WBCS) BY AUTOMATED COUNT 0.0 /100 WBCs Normal 0.0-2.0 [facility] Comment on above: Performed By: #### L [id number] ####Catalyst Unit Operator: HERACLIO GURROLA ([id number])[facility])[address] [place] [address] Platelet mean volume (Bld) [Entitic vol] 8.0 fL Normal 7.4-12.4 [facility] Comment on above: Performed By: #### L [id number] ####Catalyst Unit Operator: HERACLIO GURROLA ([id number])[facility])[address] [place] [address] PLATELETS (10*3/UL) IN BLOOD AUTOMATED COUNT 225 10*3/uL Normal 140-440 [facility] Comment on above: Performed By: #### L [id number] ####Catalyst Unit Operator: HERACLIO GURROLA ([id number])[facility])[address] [place] [address] RBC (Bld) [#/Vol] 4.76 10*6/uL Normal 3.8-5.20 [facility] Comment on above: Performed By: #### L [id number] ####Catalyst Unit Operator: HERACLIO GURROLA ([id number])[facility])[address] [place] [address] WBC (Bld) [#/Vol] 8.0 10*3/uL Normal 3.6-10.7 [facility] Comment on above: Performed By: #### L [id number] ####Catalyst Unit Operator: HERACLIO GURROLA ([id number])[facility])[address] [place] [address] COMPREHENSIVE METABOLIC PANE Hermann 12-09-2022 Albumin [Mass/Vol] 3.5 g/dL Normal 3.5-5.0 [facility] Comment on above: Performed By: #### L [id number], [id number] ####Catalyst Unit Operator: HERACLIO GURROLA ([id number])[facility] ([facility])[address] [place] [address] ALP [Catalytic activity/Vol] 74 U/L Normal 38-126 [facility] Comment on above: Performed By: #### L AB17, [id number] ####Catalyst Unit Operator: HERACLIO GURROLA ([id number])[facility] ([facility])[address] [place] [address] ALT [Catalytic activity/Vol] 28 U/L Normal 0-34 [facility] Comment on above: Performed By: #### L AB17, [id number] ####Catalyst Unit Operator: HERACLIO GURROLA ([id number])[facility] ([facility])[address] [place] [address] Anion gap [Moles/Vol] 9 mmol/L Normal 3-13 [facility] Comment on above: Performed By: #### L AB17, [id number] ####Catalyst Unit Operator: HERACLIO GURROLA ([id number])[facility] ([facility])[address] [place] [address] AST [Catalytic activity/Vol] 23 U/L Normal 15-46 [facility] Comment on above: Performed By: #### L AB17, [id number] ####Catalyst Unit Operator: HERACLIO GURROLA ([id number])[facility] ([facility])[address] [place] [address] Bilirubin [Mass/Vol] 0.4 mg/dL Normal 0.2-1.3 [facility] Comment on above: Performed By: #### L AB17, [id number] ####Catalyst Unit Operator: HERACLIO GURROLA ([id number])[facility])[address] [place] [address] Calcium [Mass/Vol] 8.6 mg/dL Normal 8.4-10.4 [facility] Comment on above: Performed By: #### L AB17, [id number] ####Catalyst Unit Operator: HERACLIO GURROLA ([id number])[facility])[address] [place] [address] Chloride [Moles/Vol] 104 mmol/L Normal 98-107 [facility] Comment on above: Performed By: #### L AB17, [id number] ####Catalyst Unit Operator: HERACLIO GURROLA ([id number])[facility])[address] [place] [address] CO2 [Moles/Vol] 23 mmol/L Normal 22-30 [facility] Comment on above: Performed By: #### L AB17, [id number] ####Catalyst Unit Operator: HERACLIO GURROLA ([id number])[facility])[address] [place] [address] Creatinine [Mass/Vol] 0.64 mg/dL Normal 0.52-1.04 [facility] Comment on above: Performed By: #### L AB17, [id number] ####Catalyst Unit Operator: HERACLIO GURROLA ([id number])[facility])[address] [place] [address] GLOMERULAR FILTRATION RATE ML/MIN/1.73 SQ M.PREDICTED >90.0 Normal >60.0 [facility] Comment on above: Result Comment: Calc ulation based on the Chronic Kidney Disease Epidemiology Collaboration (CKD-EPI) equation refit without adjustment for race Performed By: #### L AB17, [id number] ####Catalyst Unit Operator: HERACLIO GURROLA ([id number])[facility])[address] [place] [address] Glucose [Mass/Vol] 249 mg/dL High 70-100 [facility] Comment on above: Performed By: #### L AB17, [id number] ####Catalyst Unit Operator: HERACLIO GURROLA ([id number])[facility])[address] [place] [address] Potassium [Moles/Vol] 3.9 mmol/L Normal 3.5-5.1 [facility] Comment on above: Performed By: #### L AB17, [id number] ####Catalyst Unit Operator: HERACLIO GURROLA ([id number])[facility] ([facility])[address] [place] [address] Protein [Mass/Vol] 6.1 g/dL Low 6.3-8.2 [facility] Comment on above: Performed By: #### L AB17, [id number] ####Catalyst Unit Operator: HERACLIO GURROLA ([id number])[facility] ([facility])[address] [place] [address] Sodium [Moles/Vol] 136 mmol/L Normal 135-145 [facility] Comment on above: Performed By: #### L AB17, [id number] ####Catalyst Unit Operator: HERACLIO GURROLA ([id number])[facility])[address] [place] [address] Urea nitrogen [Mass/Vol] 13 mg/dL Normal 7-17 [facility] Comment on above: Performed By: #### L AB17, [id number] ####Catalyst Unit Operator: HERACLIO GURROLA ([id number])[facility] ([facility])[address] [place] [address] HEMOGLOBIN A1Con 12-09-2022 Glucose [Mass/Vol] 200 mg/dL Normal [facility] Comment on above: Order Comment: If no t done within the last 3 mos Performed By: #### L [id number] ####Catalyst Unit Operator: HERACLIO GURROLA ([id number])[facility])[address] [place] [address] HbA1c (Bld) [Mass fraction] 8.6 % High <5.7 [facility] Comment on above: Order Comment: If no t done within the last 3 mos Result Comment: Norm al less than 5.7% Prediabetes 5.7% to 6.4% Diabetes 6.5% or higher --HgbA1C levels may not be accurate in patients who have renal disease, received recent blood transfusions, are anemic, or who have dyshemoglobinemia. Performed By: #### L AB90 ####Catalyst Unit Operator: HERACLIO GURROLA ([id number])[facility] ([id number] Op Noteon 12-09-2022 Op Note [facility] MA[facility] OR [address] [facility] [address] Dept: [phone] Loc: [phone] Operative Report Patient Name: Lindy Leavitt Date of : 1965 Date of Surgery: 12/09/22 Pre-operative diagnosis: Left terrible triad elbow fracture dislocation Post-operative diagnosis: Same Procedure(s): Left radial head replacement for fracture Left coronoid/capsule repair Left LCL primary repair Surgeon: Diane Gutierrez M.D. General Matcher(s): Suha Peng M.D. and Yifan Edward M.D. Anesthesia: General EBL: 25 cc IVF: Crystalloid Medications: Ancef 3 grams IV Implants: Synthes radial head replacement, 6.5mm stem, 22mm/+0mm head Clinical History/Indication for Surgery The patient is a 57 y.o. year old female who was presents for operative treatment of a left terrible triad elbow fracture dislocation. Typical indications for surgery were reviewed and operative fixation was recommended. Risks of fracture surgery in general were reviewed including, but not limited to, infection, non-union, need for additional procedures, painful or prominent hardware which could require removal, failure of fixation which would require revision, damage to normal structures as well as medical complications such as CT, stroke, PE, DVT, and even . Pt was given opportunity to ask questions and consider her options. She ultimately elected to proceed with surgery. No guarantees were given or implied. Justification for use of modifier-22: I estimate this procedure to be approximately 20% more difficult than a standard procedure with the same CPT code and therefore request the same percentage increase in payment/wRVU credit for the following reasons:Patient's BMI of Body mass index is 49.38 kg/m?. made every aspect of the case more difficult and challenging including position, prep and drape, surgical exposure, ability to retract and obtain reduction and ultimately application of the final implant. Operative Narration The patient was identified in the pre-operative holding area. The surgical site was identified and marked. Informed consent was obtained. The patient was then brought to the operating room and placed supine on the operating table. Anesthesia was administered and care of the head, neck, and airway was maintained by the anesthesia staff throughout the entire procedure. All bony prominences were identified and padded. A tourniquet was applied to the arm of the operative extremity. The arm was prepped and draped in the usual sterile fashion. A surgical timeout was performed. Antibiotics were confirmed to have been given. After exsanguination the tourniquet was inflated. A Denice approach to the elbow was made incising skin from the lateral epicondyle at a 30 degree angle toward the subcutaneous border of the ulna. Dissection was taken to fascia. The fascia was incised just distal to the epicondyle and immediately a large soft tissue injury was encountered with significant stripping of this goods layer of bone. This was extended proximally and distally with care to stay anterior to the mid-axis of the radius. The radial head was multi-fragmentary and not amenable to fixation. The fractured pieces were removed. Any remaining radial head was cut with a saw. The pieces were assembled to allow for sizing. The remaining radial neck was smoothed flat. The coronoid was a small tip avulsion type fracture. A #5 Fiberwire was used to place several throws through the capsule adjacent to and around the coronoid fracture piece. Two drill holes were made through a separate small stab incision with both ending at the base of the coronoid fracture. Each suture was shuttled through a hole with a suture passer. The radial head preparation was done sequentially broaching the radius until good fit was obtained. Trial reduction was performed. Direct visualization through the wound confirmed the radial head was at the level of the coronoid,. Fluoroscopy was used to ensure there were no signs of overstuffing on the AP image. With the coronoid sutures tensioned and the forearm pronated, the elbow showed good stability through full flexion and to at least -30 degrees of extension. The trial radial head was then exchanged for the final implant. The elbow was held reduced at 90 degrees of flexion and the coronoid sutures tied tightly. Suture anchor repair was performed of the lateral collateral ligament and capsular injury. The LCL and posterior sleeve was imbricated and tied tightly to the lateral epicondyle. Anterior fascia was then oversewn to this. Fluor confirmed no sign of overstuffing on the AP with the final implant and a concentric reduction on the lateral. Live fluoro was done and the elbow taken to at least 20 from full extension and there was no sign of instability clinically or radiographically. Wounds were copiously irrigated with sterile sali (more content not included)... Normal [facility] Progress Noteon 12-09-2022 Progress Note Plan: -Weight bearing: NWB LUE -Keep splint C/D/I -Sling prn comfort -Ok for finger ROM -No return to OR planned -OK for diet from ortho standpoint -Abx x24hrs, if remains IP -PT/OT -DVT prophylaxis/medical management/pain control per 1? team -F/u OP w/ Dr Gutierrez in 1 weeks, discharge instructions in AVS -Ok for dc home today from ortho standpoint Suha Peng MD Orthopaedic Surgery, PGY-5 [id number] Normal [facility] Progress Note Nutrition rescreen completed. Patient referred to the Dietitian. A1C 8.6; Uncontrolled DM. Normal [facility] THYROID STIMULATING HORMONEo n 12-09-2022 THYROID STIMULATING HORMONE 0.844 uIU/mL Normal 0.465-4.680 [facility] Comment on above: Performed By: #### L [id number], [id number] ####Catalyst Unit Operator: HERACLIO GURROLA ([id number])[facility])[address] [place] [address] BASIC METABOLIC PANELon 11-16 Anion gap [Moles/Vol] 9 mmol/L Normal 3-13 [facility] Comment on above: Performed By: #### L [id number] ####Catalyst Unit Operator: HERACLIO GURROLA ([id number])[facility])[address] [place] [address] Calcium [Mass/Vol] 8.8 mg/dL Normal 8.4-10.4 [facility] Comment on above: Performed By: #### L AB15 ####Catalyst Unit Operator: HERACLIO GURROLA ([id number])[facility])[address] [place] [address] [place] Chloride [Moles/Vol] 104 mmol/L Normal 98-107 [facility] Comment on above: Performed By: #### L [id number] ####Catalyst Unit Operator: HERACLIO [id number])[facility] ([facility])[address] [place] [address] [place] CO2 [Moles/Vol] 21 mmol/L Low 22-30 [facility] Comment on above: Performed By: #### L [id number] ####Catalyst Unit Operator: HERACLIO GURROLA ([id number])[facility] [place] [address] Creatinine [Mass/Vol] 0.68 mg/dL Normal 0.52-1.04 [facility] Comment on above: Performed By: #### L [id number] ####Catalyst Unit Operator: HERACLIO GURROLA ([phone])[facility] ([facility])[address] [place] [address] GLOMERULAR FILTRATION RATE ML/MIN/1.73 SQ M.PREDICTED >90.0 Normal >60.0 [facility] Comment on above: Result Comment: Calc ulation based on the Chronic Kidney Disease Epidemiology Collaboration (CKD-EPI) equation refit without adjustment for race Performed By: #### L [id number] ####Catalyst Unit Operator: HERACLIO GURROLA ([id number])[facility])[address] [place] [address] [place] Glucose [Mass/Vol] 213 mg/dL High 70-100 [facility] Comment on above: Performed By: #### L [id number] ####Catalyst Unit Operator: HEARCLIO GURROLA ([id number])[facility] ([facility])[address] [place] [address] [place] Potassium [Moles/Vol] 4.0 mmol/L Normal 3.5-5.1 [facility] Comment on above: Performed By: #### L [id number] ####Catalyst Unit Operator: HERACLIO GURROLA ([id number])[facility] ([facility])[address] [place] [address] [place] Sodium [Moles/Vol] 134 mmol/L Low 135-145 [facility] Comment on above: Performed By: #### L [id number] ####Catalyst Unit Operator: HERACLIO GURROLA ([id number])[facility] ([facility])[address] [place] [address] [place] Urea nitrogen [Mass/Vol] 17 mg/dL Normal 7-17 [facility] Comment on above: Performed By: #### L [id number] ####Catalyst Unit Operator: HERACLIO GURROLA ([id number])[facility] ([facility])[address] [place] [address] BLOOD TYPE AND SCREEN GELon 12-08-2022 ABO GROUPING A Normal [facility] Comment on above: Performed By: #### L [id number] ####Catalyst Unit Operator: HERACLIO GURROLA ([id number])[facility] ([facility])[address] [place] [address] RH TYPE IN BLOOD Positive Normal [facility] Comment on above: Performed By: #### L [id number] ####Catalyst Unit Operator: HERACLIO GURROLA ([id number])[facility] ([facility])[address] [place] [address] CBC WITH AUTO DIFFERENTIALon 12-08-2022 Basophils (Bld) [#/Vol] 0.1 10*3/uL Normal 0.0-0.2 [facility] Comment on above: Performed By: #### L [id number] ####Catalyst Unit Operator: HERACLIO GURROLA ([id number])[facility] ([facility])[address] [place] [address] Basophils/100 WBC (Bld) 0.5 % Normal 0.0-2.0 [facility] Comment on above: Performed By: #### L [id number] ####Catalyst Unit Operator: HERACLIO GURROLA ([id number])[facility] ([facility])[address] [place] [address] Eosinophils (Bld) [#/Vol] 0.0 10*3/uL Normal 0.0-0.5 [facility] Comment on above: Performed By: #### L [id number] ####Catalyst Unit Operator: HERACLIO GURROLA ([phone])[facility])[address] [place] [address] Eosinophils/100 WBC (Bld) 0.1 % Low 1.0-6.0 [facility] Comment on above: Performed By: #### L [id number] ####Catalyst Unit Operator: HERACLIO GURROLA ([id number])[facility])[address] [place] [address] Erythrocyte distribution width (RBC) [Ratio] 14.9 % High 11.5-14.5 [facility] Comment on above: Performed By: #### L [id number] ####Catalyst Unit Operator: HERACLIO GURROLA ([id number])[facility])[address] [place] [address] ERYTHROCYTE MEAN CORPUSCULAR HEMOGLOBIN CONCENTRATION (G/DL) BY AUTOMATED 33.6 % Normal 32.0-36.0 [facility] Comment on above: Performed By: #### L [id number] ####Catalyst Unit Operator: HERACLIO GURROLA ([id number])[facility])[address] [place] [address] Hematocrit (Bld) [Volume fraction] 41.7 % Normal 35.0-47.0 [facility] Comment on above: Performed By: #### L [id number] ####Catalyst Unit Operator: HERACLIO GURROLA ([id number])[facility])[address] [place] [address] Hemoglobin (Bld) [Mass/Vol] 14.0 g/dL Normal 11.7-16.0 [facility] Comment on above: Performed By: #### L [id number] ####Catalyst Unit Operator: HERACLIO GURROLA ([id number])[facility])[address] [place] [address] Lymphocytes (Bld) [#/Vol] 2.6 10*3/uL Normal 1.0-4.3 [facility] Comment on above: Performed By: #### L [id number] ####Catalyst Unit Operator: HERACLIO GURROLA ([id number])[facility])[address] [place] [address] Lymphocytes/100 WBC (Bld) 23.6 % Normal 20.0-40.0 [facility] Comment on above: Performed By: #### L [id number] ####Catalyst Unit Operator: HREACLIO GURROLA ([id number])[facility] ([facility])[address] [place] [address] MCH (RBC) [Entitic mass] 28.1 pg Normal 26.0-34.0 [facility] Comment on above: Performed By: #### L [id number] ####Catalyst Unit Operator: HERACLIO GURROLA ([id number])[facility] ([facility])[address] [place] [address] MCV (RBC) [Entitic vol] 83.6 fL Normal 80.0-98.0 [facility] Comment on above: Performed By: #### L [id number] ####Catalyst Unit Operator: HERACLIO GURROLA ([id number])[facility] ([facility])[address] [place] [address] Monocytes (Bld) [#/Vol] 1.3 10*3/uL High 0.0-0.8 [facility] Comment on above: Performed By: #### L [id number] ####Catalyst Unit Operator: HERACLIO GURROLA ([id number])[facility] ([facility])[address] [place] [address] Monocytes/100 WBC (Bld) 11.5 % High 2.0-10.0 [facility] Comment on above: Performed By: #### L [id number] ####Catalyst Unit Operator: HERACLIO GURROLA ([id number])[facility])[address] [place] [address] Neutrophils (Bld) [#/Vol] 7.1 10*3/uL High 1.8-7.0 [facility] Comment on above: Performed By: #### L [id number] ####Catalyst Unit Operator: HERACLIO GURROLA ([id number])[facility])[address] [place] [address] Neutrophils/100 WBC (Bld) 64.3 % Normal 40.0-80.0 [facility] Comment on above: Performed By: #### L [id number] ####Catalyst Unit Operator: HERACLIO GURROLA ([id number])[facility])[address] [place] [address] NRBC (PER 100 WBCS) BY AUTOMATED COUNT 0.0 /100 WBCs Normal 0.0-2.0 [facility] Comment on above: Performed By: #### L [id number] ####Catalyst Unit Operator: HERACLIO GURROLA ([id number])[facility])[address] [place] [address] Platelet mean volume (Bld) [Entitic vol] 8.0 fL Normal 7.4-12.4 [facility] Comment on above: Performed By: #### L [id number] ####Catalyst Unit Operator: HERACLIO GURROLA ([id number])[facility])[address] [place] [address] PLATELETS (10*3/UL) IN BLOOD AUTOMATED COUNT 289 10*3/uL Normal 140-440 [facility] Comment on above: Performed By: #### L [id number] ####Catalyst Unit Operator: HERACLIO GURROLA ([id number])[facility])[address] [place] [address] RBC (Bld) [#/Vol] 4.99 10*6/uL Normal 3.8-5.20 [facility] Comment on above: Performed By: #### L [id number] ####Catalyst Unit Operator: HERACLIO GURROLA ([id number])[address] WBC (Bld) [#/Vol] 11.0 10*3/uL High 3.6-10.7 [facility] Comment on above: Performed By: #### L [id number] ####Catalyst Unit Operator: HERACLIO GURROLA ([id number])[address] Consulton 12-08-2022 Consult Ortho H&P/Consult Patient: Lindy Leavitt Date of : 1965 Acct: [id number] PCP: No primary care provider on file. Date of Admission: 12/07/2022 Date of Service: Pt seen/examined on 12/09/2022 Chief Complaint: left elbow pain History Of Present Illness: This is a 57 y.o. RHD female presenting to ED after a mechanical ground level fall onto her left elbow after tripping while walking on her patio around 2:30 pm 12/07. She was seen at [place] where two attempts were made to reduce her elbow, only one with medication and neither with sedation. After patient having continued instability while splinted she was transferred to [facility] for care and found to be dislocated in her splint. Denies any numbness or tingling in her hand at this time. No other injuries or areas of concern. No prior injuries to her left hand or elbow. No orthopaedic surgery history No smoking, social drinking, no drugs Patient ambulation status: no difficulty Antiplatelets/Anticoagul ation includes: none Hx from chart and/or Pt. Past Medical History: Past Medical History: Diagnosis Date Arthritis Autoimmune hepatitis (CMS/HCC) (HCC) Depression Diabetes mellitus (HCC) Hyperlipidemia Insomnia BRICE (nonalcoholic steatohepatitis) Restless legs syndrome Sleep apnea Past Surgical History: Past Surgical History: Procedure Laterality Date CARPAL TUNNEL RELEASE Bilateral 2013 CHOLECYSTECTOMY N/A 1994 HYSTERECTOMY N/A 1998 Home Medications: Prior to Admission medications Not on File Current Hospital Medications: Current Facility-Administered Medications: acetaminophen (Tylenol) tablet 650 mg, 650 mg, Oral, q6h PRN OR acetaminophen (Tylenol) suppository 650 mg, 650 mg, Rectal, q6h PRN, Kalyan Rodriguez MD ALPRAZolam (Xanax) tablet 1 mg, 1 mg, Oral, Nightly, Khurram Shah MD, 1 mg at 12/08/222137 atorvastatin (Lipitor) tablet 20 mg, 20 mg, Oral, Daily, Khurram Shah MD, 20 mg at 12/08/22 1735 dextrose 5 % infusion, 100 mL/hr, IntraVENous, PRN, Kalyan Rodriguez MD dextrose 50 % solution 12.5 g, 12.5 g, IntraVENous, PRN, Kalyan Rodriguez MD escitalopram (Lexapro) tablet 20 mg, 20 mg, Oral, Daily, Khurram Shah MD, 20 mg at 12/08/22 1735 glucagon (human recombinant) injection 1 mg, 1 mg, IntraMUSCular, PRN, Kalyan Rodriguez MD glucose oral gel 15 g, 15 g, Oral, PRN, Kalyan Rodriguez MD hydrALAZINE (Apresoline) injection 10 mg, 10 mg, IntraVENous, q4h PRN, Kalyan Rodriguez MD HYDROmorphone (Dilaudid) injection 0.5 mg, 0.5 mg, IntraVENous, q3h PRN, Kalyan Rodriguez MD, 0.5 mg at 12/09/22 0723 influenza vac subunit quadrivalent (Flucelvax) injection 0.5 mL, 0.5 mL, IntraMUSCular, Once, Kalyan Rodriguez MD Insulin Lispro (Humalog) injection 0-6 Units, 0-6 Units, SubCUTAneous, TID WC, 2 Units at 12/08/22 1700 AND Insulin Lispro (Humalog) injection 0-6 Units, 0-6 Units, SubCUTAneous, Nightly, Kalyan Rodriguez MD, 2 Units at 12/08/222137 ketamine (Ketalar) injection 100 mg, 0.82 mg/kg, IntraVENous, Once, Kalyan Rodriguez MD melatonin tablet 10 mg, 10 mg, Oral, Nightly, Khurram Shah MD, 10 mg at 12/08/222137 melatonin tablet 3 mg, 3 mg, Oral, Nightly PRN, Kalyan Rodriguez MD ondansetron ODT (Zofran-ODT) disintegrating tablet 4 mg, 4 mg, Oral, q8h PRN OR ondansetron (Zofran) injection 4 mg, 4 mg, IntraVENous, q6h PRN, Kalyan Rodriguez MD oxyCODONE (Roxicodone) immediate release tablet 5 mg, 5 mg, Oral, q4h PRN, Khurram Shah MD, 5 mg at 12/08/222237 pantoprazole (ProtoNix) EC tablet 40 mg, 40 mg, Oral, q AM, Khurram Shah MD polyethylene glycol (PEG) 3350 (Miralax) packet 17 g, 17 g, Oral, Daily PRN, Kalyan Rodriguez MD Propofol (Diprivan) injection 120 mg, 1 mg/kg, IntraVENous, Once, Kalyan Rodriguez MD sodium chloride 0.9 % infusion, 100 mL/hr, IntraVENous, Continuous, Khurram Shah MD, Last Rate: 100 mL/hr at 12/09/22 0722, 100 mL/hr at 12/09/22 0722 ursodiol (Actigall) capsule 300 mg, 300 mg, Oral, BID, Khurram Shah MD, 300 mg at 12/08/222137 verapamil SR (Calan SR) ER tablet 240 mg, 240 mg, Oral, Daily, Khurram Shah MD Allergies: Patient has no known allergies. Social History: Social History Socioeconomic History Marital status: Spouse name: Not on file Number of children: Not on file Years of education: Not on file Highest education level: Not on file Occupational History Not on file Tobacco Use Smoking status: Every Day Packs/day: 0.75 Years: 25.00 Pack years: 18.75 Types: Cigarettes Start date: 1997 Passive exposure: Current Smokeless tobacco: Never Substance and Sexual Activity Alcohol use: Yes Alcohol/week: 1.0 standard drink of alcohol Types: 1 Standard drinks or equivalent per week Drug use: Never Sexual activity: Yes Other Topics Concern Not on file Social History Narrative Not on file Social Determinants of Health Financial Resource Strain: Not on file Food Ins (more content not included)... Normal [facility] Consult Ortho H&P/Consult Patient: Lindy Leavitt Date of : 1965 Acct: [id number] PCP: No primary care provider on file. Date of Admission: 12/07/2022 Date of Service: Pt seen/examined on 12/08/2022 Chief Complaint: left elbow pain History Of Present Illness: This is a 57 y.o. RHD female presenting to ED after a mechanical ground level fall onto her left elbow after tripping while walking on her patio around 2:30 pm 12/07. She was seen at [place] where two attempts were made to reduce her elbow, only one with medication and neither with sedation. After patient having continued instability while splinted she was transferred to [facility] for care and found to be dislocated in her splint. Denies any numbness or tingling in her hand at this time. No other injuries or areas of concern. No prior injuries to her left hand or elbow. No orthopaedic surgery history No smoking, social drinking, no drugs Patient ambulation status: no difficulty Antiplatelets/Anticoagul ation includes: none Hx from chart and/or Pt. Past Medical History: No past medical history on file. Past Surgical History: No past surgical history on file. Home Medications: Prior to Admission medications Not on File Current Hospital Medications: Current Facility-Administered Medications: Propofol (Diprivan) injection 120 mg, 1 mg/kg, IntraVENous, Once, Kael Vaughn MD No current outpatient medications on file. Allergies: Patient has no known allergies. Social History: Social History Socioeconomic History Marital status: Spouse name: Not on file Number of children: Not on file Years of education: Not on file Highest education level: Not on file Occupational History Not on file Tobacco Use Smoking status: Not on file Smokeless tobacco: Not on file Substance and Sexual Activity Alcohol use: Not on file Drug use: Not on file Sexual activity: Not on file Other Topics Concern Not on file Social History Narrative Not on file Social Determinants of Health Financial Resource Strain: Not on file Food Insecurity: Not on file Transportation Needs: Not on file Physical Activity: Not on file Stress: Not on file Social Connections: Not on file Intimate Partner Violence: Not on file Housing Stability: Not on file Family History: No family history on file. Further Family History is noncontributory to this injury. REVIEW OF SYSTEMS: Review of Systems - General ROS: negative for - chills, fatigue, fever, malaise or night sweats Psychological ROS: negative Ophthalmic ROS: negative ENT ROS: negative for - headaches or sore throat Hematological and Lymphatic ROS: negative for - bleeding problems or blood clots Respiratory ROS: no cough, shortness of breath, or wheezing Cardiovascular ROS: no chest pain or dyspnea on exertion Gastrointestinal ROS: negative Musculoskeletal ROS: See HPI Neurological ROS: negative for - bowel and bladder control changes, gait disturbance or numbness/tingling All other systems reviewed and are negative PHYSICAL EXAM: BP 121/63 (BP Location: Right arm, Patient Position: Sitting) Pulse 73 Temp 36.8 ?C (98.3 ?F) (Oral) Resp 21 Ht 1.575 m (5' 2) Wt 122 kg (270 lb) SpO2 93% BMI 49.38 kg/m? GENERAL APPEARANCE: Awake and oriented x3. No acute distress, except appropriate to injury. MOOD AND AFFECT: Calm appropriate to situation GAIT AND STATION: Patient is in bed and unable to ambulate secondary to known injury. COORDINATION and BALANCE: Patient is grossly coordinated unable to ambulate secondary to known injury. Lymphadenopathy: none on examination of the affected extremity(s) Right Upper Extremity: -No obvious pain or deformity to inspection with normal joint range of motion, stability, and muscle strength except noted below -No TTP over clavicle, shoulder, humerus, elbow, forearm, wrist, hand, or fingers -TTP: nontender throughout extremity -Radial pulse palpable -SILT in radial/median/ ulnar nerve distributions -Motor + AIN/PIN/ulnar nerve functions -No Lymphedema -Skin intact except where noted below -Painless pROM at shoulder/elbow/wrist Left Upper Extremity: -No obvious pain or deformity to inspection with normal joint range of motion, stability, and muscle strength except noted below -No TTP over clavicle, shoulder, wrist, hand, or fingers -TTP: Humerus, Elbow, and Forearm -Radial pulse palpable -SILT in radial/median/ ulnar nerve distributions -Motor + AIN/PIN/ulnar nerve functions -No Lymphedema -Skin intact except where noted below -Painless pROM at shoulder/wrist Patient with pain with ROM of her left elbow. There are no open wounds. Patient is two point intact. Right Lower Extremity: -No obvious pain or deformity to inspection with normal joint range of motion, stability, and muscle strength except noted below -No TTP over pelvis, hip, thigh, knee, tibia, lateral m (more content not included)... Normal [facility] ECG 12-LEADon 12-08-2022 ECG 12-LEAD IMPRESSION: Sinus rhythm Normal [place] No ST or T wave changes Atrial premature complex Low voltage, precordial leads Electronically Signed On 12-08-2022 20:28:26 EDT by Sid Souza Normal [facility] ED Nursing Noteon 12-08-2022 ED Nursing Note Hand off report give n to Katie Gutierrez RN 12/08/22 1224 Normal [facility] ED Nursing Note RN placed patients l unch order at this time. Patients side rails up x2 for patient safety. Bed in lowest position and locked. Call light is within reach and patient denies further needs at this time. Patients breathing is even and unlabored, on room air . Patient is alert and is responsive to this nurse. Martita Gutierrez RN 12/08/22 1206 Normal [facility] ED Nursing Note Report given to Mitzi luther RN. Brian Murguia RN 12/08/22 0673 [facility] ED Nursing Note Patient on telemetry and end tidal CO2 monitor. RT at bedside. Dr. Munguia, Dr. Vaughn, and ortho providers at bedside. Patient IVs access present. Ambu bag and suction in room. Abiola Montoya RN 12/08/22 0351 [facility] ED Nursing Note Report to SOLIS Schrader. Brian Murguia RN 12/08/22 014 [facility] ED Nursing Note Xray at bedside Giulia Edwards RN 12/08/22 0145 [facility] ED Nursing Note Lunch report to SOLIS Torres. Giulia Edwards RN 12/07/22 1630 [facility] PROTHROMBIN TIMEon 3 INR Coag (PPP) [Relative time] 1.0 {INR} Normal 0.9-1.1 [facility] Comment on above: Result Comment: Michael mmended Anticoagulant Therapy: SEE BELOW ----- INR of 2.0 - 3.0 : - Prophylaxis of Venous Thrombosis (high-risk surgery) - Treatment of Venous Thrombosis - Treatment of Pulmonary Embolism (Includes tissue heart valves, Acute Myocardial Infarction to prevent systemic embolism, Valvular Heart Disease, and Atrial Fibrillation) ----- INR of 2.5 - 3.5 : - Mechanical Prosthetic Valves (high risk) - If oral anticoagulant therapy is used to prevent Myocardial Infarction Performed By: #### L [id number] ####Catalyst Unit Operator: HERACLIO GURROLA ([id number])[facility] ([address] PT Coag (PPP) [Time] 10.8 s Normal 9.0-12.0 [facility] Comment on above: Performed By: #### L [id number] ####Catalyst Unit Operator: HERACLIO GURROLA ([phone])[address] ED Nursing Noteon 12-07-2022 ED Nursing Note Bed: 23 Expected date: Expected time: Means of arrival: Comments: EMS Kate Schreiber RN 12/07/22 2141 [facility] ED Provider Noteon 3 ED Provider Note Emergency Department Encounter [facility] EMERGENCY DEPT Patient: Lindy Leavitt : 1965 Date of Evaluation: 12/07/2022 ED Supervising Physician: Jadyn Munguia DO I independently examined and evaluated Lindy Leavitt. This will serve as my Supervisory note and shared attestation. I did perform a substantive portion of the visit including all aspects of the Medical Decision Making. I wore appropriate PPE for the entirety of this encounter. In brief, Lindy Leavitt is a 57 y.o. F with PMH obstructive sleep apnea, DM, BRICE that presents to the emergency department as a transfer from [place] ED for a fracture dislocation of her left elbow. Patient had a mechanical fall today resulting in the fracture. She denies hitting her head or loss of consciousness. Per the patient, she initially had numbness and tingling in her left hand and reduction was attempted. This decreased the numbness and tingling, however the dislocation is not completely reduced so she was sent for orthopedics evaluation. Focused exam: I have reviewed the triage vital signs General: No acute distress. Alert & oriented x3. Nontoxic in appearance Skin: Warm, dry, no rashes visualized. Abrasion to left knee. ecchymosis to left elbow. HEENT: Pupils equal and round, EOMI, normal sclera, no facial trauma Neck: Trachea midline, no mass Cardiovascular: Regular rate, regular rhythm. No murmurs, rubs, or gallops. No peripheral edema Respiratory: Breath sounds clear to auscultation bilaterally, no wheeze, equal chest rise and fall Gastrointestinal: Soft, nondistended, nontender, no rebound, no guarding Musculoskeletal: Left arm in splint + sling. +2 radial pulse on left, sensation intact, strength intact in medial/ulnar/radial distribution, capillary refill <2 seconds Neurological: Alert and oriented, no focal neuro deficits, normal speech pattern Psychiatric: Appropriate mood and affect for condition, normal behavior Brief ED course/MDM: EMERGENCY DEPARTMENT COURSE and DIFFERENTIAL DIAGNOSIS/MDM: Vitals: Vitals: 12/07/22 2147 BP: 121/63 BP Location: Right arm Patient Position: Sitting Pulse: 73 Resp: 21 Temp: 36.8 ?C (98.3 ?F) TempSrc: Oral SpO2: 93% Weight: 122 kg (270 lb) Height: 1.575 m (5' 2) Patient is a 57-year-old female with past medical history significant for diabetes, KILO presenting to the emergency department as a transfer from outside facility for left elbow fracture dislocation. Concern for fracture, elbow dislocation. Patient is neurovascularly intact. X-rays show posterior dislocation of the elbow, radius fracture, and possible fracture of the tip of the coronoid process Orthopedics consulted, they plan to do a bedside reduction Procedural sedation was performed for the bedside reduction, please see separate procedure note. Patient tolerated the procedure well, however unfortunately elbow was very unstable and unable to be fully reduced. Patient will be admitted medically with plan to go to the OR on Friday for open reduction Diagnoses as of 12/08/22 1447 Left elbow fracture, closed, initial encounter Fall, initial encounter Diagnostic tests considered but not performed: External records reviewed: Diagnostics interpreted by me: Discussions with other clinicians: Admission Criteria: Chronic conditions impacting care: Social determinants of health affecting care: ED Medications managed: Medications HYDROmorphone (Dilaudid) injection 1 mg (1 mg IntraVENous Given 12/07/222217) Prescription drugs considered: All diagnostic, treatment, and disposition decisions were made by myself in conjunction with the Resident. I also supervised celestin portions of any procedures performed by the Resident. For all further details of the patient's emergency department visit, please see their documentation. (Comment: Please note this report has been produced using speech recognition software and may contain errors related to that system including errors in grammar, punctuation, and spelling, as well as words and phrases that may be inappropriate. If there are any questions or concerns please feel free to contact the dictating provider for clarification.) Jadyn Munguia, DO [employer] Jadyn Munguia, DO 12/08/22 1455 [facility] ED Provider Note EMERGENCY DEPARTMENT ENCOUNTER Pt Name: Lindy Leavitt Birthdate 1965 Date of evaluation: 12/07/2022 ED Provider: KAEL VAUGHN MD CHIEF COMPLAINT Chief Complaint Patient presents with Fall Pt is a transfer from [facility] after she had a fall around 2:30 today where she fell on her L elbow. Pt states she did not hit her head and denies LOC. Pt is not on thinners. At [place] they attempted to reduction but could not stabilize it. HISTORY OF PRESENT ILLNESS (Location/Symptom, Timing/Onset, Context/Setting, Quality, Duration, Modifying Factors, Severity) Note limiting factors. I wore appropriate PPE for the entirety of this encounter. HPI Lindy Leavitt is a 57 y.o. who presents to the emergency department for left elbow injury after fall. Around 2:30 PM today, patient had mechanical ground-level fall. She tried to catch herself in her left arm and had severe pain. Originally was seen at [facility] where she was found to have elbow dislocation and fracture. Patient states he attempted to reduce her elbow twice. She had improvement of her pain and numbness of her hand after the second reduction. She states her elbow is unstable and that is why they chose for her to [facility]. Nursing Notes were reviewed. Limitations to history: None Outside historians: None REVIEW OF SYSTEMS Review of Systems Pertinent positives and negatives as per HPI. PAST MEDICAL HISTORY History reviewed. No pertinent past medical history. SURGICAL HISTORY History reviewed. No pertinent surgical history. CURRENT MEDICATIONS Previous Medications No medications on file ALLERGIES Patient has no known allergies. FAMILY HISTORY No family history on file. SOCIAL HISTORY Social History Socioeconomic History Marital status: SCREENINGS PHYSICAL EXAM ED Triage Vitals [12/07/22 2147] Temp Heart Rate Resp BP 36.8 ?C (98.3 ?F) 73 21 121/63 SpO2 Temp Source Heart Rate Source Patient Position 93 % Oral Monitor Sitting BP Location FiO2 (%) Right arm -- Physical Exam Constitutional: General: She is not in acute distress. HENT: Head: Normocephalic and atraumatic. Mouth/Throat: Mouth: Mucous membranes are moist. Eyes: Conjunctiva/sclera: Conjunctivae normal. Cardiovascular: Rate and Rhythm: Normal rate and regular rhythm. Pulses: Normal pulses. Heart sounds: Normal heart sounds. Pulmonary: Effort: Pulmonary effort is normal. No respiratory distress. Breath sounds: Normal breath sounds. Abdominal: Palpations: Abdomen is soft. Tenderness: There is no abdominal tenderness. Musculoskeletal: General: No swelling. Skin: General: Skin is warm and dry. Neurological: Mental Status: She is alert and oriented to person, place, and time. Psychiatric: Mood and Affect: Mood normal. Behavior: Behavior normal. DIAGNOSTIC RESULTS RADIOLOGY (Per Emergency Physician): Interpretation per the Radiologist below, if available at the time of this note: XR chest 1 view Final Result See findings. Report Dictated on Electronically Signed By: Faustino Woody MD Electronically Signed Date/Time: 12/08/2022 2:02 AM EDT XR elbow 3+ views left Final Result Acute fracture and dislocation of the elbow as described. Report Dictated on Electronically Signed By: Cheo Gilliland MD Electronically Signed Date/Time: 12/07/2022 10:50 PM EDT [place] guidance non-resultable joint reduction (Results Pending) LABS: Labs Reviewed BASIC METABOLIC PANEL - Abnormal Result Value SODIUM 134 (*) POTASSIUM 4.0 CHLORIDE 104 CARBON DIOXIDE 21 (*) UREA NITROGEN 17 CREATININE 0.68 GLUCOSE 213 (*) CALCIUM 8.8 ANION GAP 9 eGFR >90.0 CBC WITH AUTO DIFFERENTIAL - Abnormal Auto WBC 11.0 (*) RBC 4.99 Hemoglobin 14.0 Hematocrit 41.7 MCV 83.6 MCH 28.1 MCHC 33.6 RDW 14.9 (*) Platelets 289 MPV 8.0 nRBC 0.0 Neutrophils Relative 64.3 Lymphocytes Relative 23.6 Monocytes Relative 11.5 (*) Eosinophils Relative 0.1 (*) Basophils Relative 0.5 Neutrophils Absolute 7.1 (*) Lymphocytes Absolute 2.6 Monocytes Absolute 1.3 (*) Eosinophils Absolute 0.0 Basophils Absolute 0.1 PROTHROMBIN TIME - Normal PROTHROMBIN TIME 10.8 INR 1.0 BLOOD TYPE AND SCREEN GEL ABO Grouping A Antibody Screen NEG Rh Type POS CONFIRMATORY ABO/RH ABO Grouping A Rh Type POS All other labs were within normal range or not returned as of this dictation. EMERGENCY DEPARTMENT COURSE and DIFFERENTIAL DIAGNOSIS/MDM: Vitals: Vitals: 12/08/22 0333 12/08/22 0334 12/08/22 0339 12/08/22 0343 BP: (!) 167/96 (!) 176/98 (!) 171/97 Pulse: 80 80 85 Resp: 20 20 19 Temp: TempSrc: SpO2: 98% 97% 95% Weight: Height: The patient presented with a chief complaint of left elbow fracture and dislocation as a transfer from outside hospital. On examination, patient resting comfortably (more content not included)... Normal [facility] Basophil percentageOrdered B y: Robert Marissa on 12-03-2022 Creatinine [Mass/Vol] 1.2 mg/dL 0.55-1.02 [facility] - Chemistry and C hemistry - challengeOrdered By: Robert Ann on 12-03-2022 GFR/1.73 sq M.predicted among non-blacks MDRD (S/P/Bld) [Vol rate/Area] 52.0000 mL/min/{1.73_m2} >60 [facility] Basophil percentageOrdered B y: Robert Ann on 11-25-2022 Basophil percentage Not Reportable [facility] Cerebrospinal fluid Borrelia burgdorferi 18kd IgG antibody detection by immunoblotOrdered By: Robert Ann on 11-25-2022 B. burgdorferi 18kD IgG IB Ql (CSF) Absent . [facility] Cerebrospinal fluid Borrelia burgdorferi 23kD IgG antibody detection by immunoblotOrdered By: Robert Ann on 11-25-2022 B. burgdorferi 23kD IgG IB Ql (CSF) Absent . [facility] Cerebrospinal fluid Borrelia burgdorferi 23kD IgM antibody detection by immunoblotOrdered By: Robert Ann on 11-25-2022 B. burgdorferi 23kD IgM IB Ql (CSF) Absent . [facility] Cerebrospinal fluid Borrelia burgdorferi 28kD IgG antibody detection by immunoblotOrdered By: Robert Ann on 11-25-2022 B. burgdorferi 28kD IgG IB Ql (CSF) Absent . [facility] Cerebrospinal fluid Borrelia burgdorferi 39kD IgG antibody detection by immunoblotOrdered By: Robert Ann on 11-25-2022 B. burgdorferi 39kD IgG IB Ql (CSF) Absent . [facility] Cerebrospinal fluid Borrelia burgdorferi 39kD IgM antibody detection by immunoblotOrdered By: Robert Ann on 11-25-2022 B. burgdorferi 39kD IgM IB Ql (CSF) Absent . [facility] Cerebrospinal fluid Borrelia burgdorferi 41kD IgM antibody detection by immunoblotOrdered By: Robert Ann on 11-25-2022 B. burgdorferi 41kD IgM IB Ql (CSF) Absent . [facility] - Chemistry and C hemistry - challengeOrdered By: Robert Ann on 11-25-2022 Free T4 [Mass/Vol] 1.15 ng/dL 0.76-1.46 [facility] No Panel InformationOrdered By: Robert Ann on 11-25-2022 Anti-Nuclear Antibody Screen Negative Negative [facility] Comment on above: Performed at: [facility] [employer] [address] [id number] Director: River Montague PhD, Phone: [phone] Centromere B Antibody Not Reportable [facility] Lyme Disease IgG Ab 30 kDa Band Absent . [facility] Lyme Disease IgG Ab 93 kDa Band Absent . [facility] Lyme Disease IgG West Blot Interp Negative . [facility] Comment on above: Positive: 5 of the f ollowing Borrelia-specific bands: 18,23,28,30,39,41,45,58, 66, and 93. Negative: No bands or banding patterns which do not meet positive criteria. Lyme Disease IgM Ab (Western Blot) Negative . [facility] Comment on above: Note: An equivocal o r positive EIA result followed by anegative Line Blot result is considered NEGATIVE. Anequivocal or positive EIA result followed by a positiveLine Blot is considered POSITIVE by the CDC.Positive: 2 of the following bands: 23,39 or 41Negative: No bands or banding patterns which do not meetpositive criteria.Criteria for positivity are those recommended byCDC/ASTPHLD. p23=Osp C, e53=fyipedbmaDquu:Sera from individuals with the following may cross reactin the Lyme Line Blot assays: other spirochetal diseases(periodontal disease, leptospirosis, relapsing fever, yaws,and pinta); connective autoimmune (Rheumatoid Arthritis andSystemic Lupus Erythematosus and also individuals withAntinuclear Antibody); other infections (Jayro MountainSpotted Fever; Dipti-Colvin Virus, and Cytomegalovirus).Please Note: Lyme immunoblot alone is not recommended forthe diagnosis of Lyme disease. Current guidelines recommendthe use of a two-tiered approach to Lyme serology testingto improve the sensitivity and specificity of testing.[facility] test code 695784 Lyme Disease Serology withReflex to aid in the diagnosis of Lyme Disease.Performed at: [address] [id number] Director: Isela Simmons MD, Phone: [phone] [facility] CLERK Antibody Not Reportable [facility] Thyroid Stimulating Hormone (TSH) 0.60 uIU/mL 0.358-3.74 [facility] Serum Borrelia burgdorferi 4 1kD IgG antibody detection by immunoblotOrdered By: Robert Ann on 11-25-2022 B. burgdorferi 41kD IgG IB Ql (S) Absent . [facility] Serum Borrelia burgdorferi 6 6kD IgG antibody detection by immunoblotOrdered By: Robert Ann on 11-25-2022 B. burgdorferi 66kD IgG IB Ql (S) Absent . [facility] Serum DNA double strand anti body assay (units/volume)Ordered By: Robert Ann on 11-25-2022 DNA double strand Ab Qn (S) Not Reportable [facility] Serum Nelsy-1 antibody assay (u nits/volume)Ordered By: Robert Ann on 11-25-2022 Nelsy-1 extractable nuclear Ab Qn (S) Not Reportable [facility] Serum Scl-70 extractable nuc lear antibody assay (units/volume)Ordered By: Robert Ann on 11-25-2022 SCL-70 extractable nuclear Ab Qn (S) Not Reportable [facility] Serum Lambert extractable nucl ear antibody detectionOrdered By: Robert Ann on 11-25-2022 Lambert extractable nuclear Ab Ql (S) Not Reportable [facility] Synovial fluid Borrelia demond dorferi 45kD IgG antibody detection by immunoblotOrdered By: Robert Ann on 11-25-2022 B. burgdorferi 45kD IgG IB Ql (Syn fld) Absent . [facility] Synovial fluid Borrelia demond dorferi 58kD IgG antibody detection by immunoblotOrdered By: Robert Ann on 11-25-2022 B. burgdorferi 58kD IgG IB Ql (Syn fld) Absent . [facility] Bilirubin Test strip Ql (U)O rdered By: Dr. Ann on 05-31-2022 Bilirubin Ql (U) Negative Negative [facility] Ketones Test strip Ql (U)Ord ered By: Dr. Ann on 05-31-2022 Ketones Ql (U) Negative Negative [facility] Nitrite Test strip Ql (U)Ord ered By: Dr. Ann on 05-31-2022 Nitrite Ql (U) Negative Negative [facility] Protein Test strip Ql (U)Ord ered By: Dr. Ann on 05-31-2022 Protein Ql (U) 15 mg/dl Negative [facility] Urine blood detectionOrdered By: Dr. Ann on 05-31-2022 RBC Ql (U) Negative Negative [facility] Urine clarityOrdered By: Dr. Ann on 05-31-2022 Clarity (U) Sl. Cloudy Clear [facility] Urine color determinationOrd ered By: Dr. Ann on 05-31-2022 Color (U) Yellow Yellow [facility] Urine glucose detectionOrder ed By: Dr. Ann on 05-31-2022 Glucose Ql (U) Normal mg/dl Normal [facility] Urine leukocyte esterase det ection by dipstickOrdered By: Dr. Ann on 05-31-2022 Leukocyte esterase Test strip Ql (U) 25 /ul Negative [facility] Urine pHOrdered By: Dr. Carina demarco on 05-31-2022 pH (U) 5.0 [pH] 5.0 - 8.0 [facility] Urine specific gravity measu rementOrdered By: Dr. Ann on 05-31-2022 Specific gravity (U) [Rel density] 1.025 1.002-1.030 [facility] Urobilinogen Auto test strip Ql (U)Ordered By: Dr. Ann on 05-31-2022 Urobilinogen Ql (U) Normal mg/dl Normal [facility] No Panel InformationOrdered By: Ani Ovalle on 04-30-2022 Stool Pancreatic Elastase 273 >200 [facility] Comment on above: Result Units: ug Gloria st./g Severe Pancreatic Insufficiency: <100 Moderate Pancreatic Insufficiency: 100 - 200 Normal: >200Performed at: - [facility] [address] [id number] Director: Isela Simmons MD, Phone: [phone] Absolute lymphocyte countOrd ered By: Ani Ovalle on 04-29-2022 Lymphocytes Auto (Unsp spec) [#/Vol] 2.25 10*3/uL 0.83-4.51 [facility] Basophil percentageOrdered B y: Ani Ovalle on 04-29-2022 Ammonia (P) [Moles/Vol] 21.0 umol/L 11-32 [facility] Basophils/100 WBC (Bld) 0.8 % 0-1 [facility] Bilirubin [Mass/Vol] 0.30 mg/dL 0.20-1.00 [facility] Comment on above: For patients on eltr ombopag therapy, use of Dimension Neely TBIL is not recommended. Chloride [Moles/Vol] 110 mmol/L 98-107 [facility] Eosinophils/100 WBC (Bld) 2.9 % 0-5 [facility] Glucose [Mass/Vol] 138 mg/dL 74-106 [facility] Comment on above: Fasting Glucose resu lt greater than or equal to 126 mg/dL suggests DIABETES MELLITUS per A.D.A. criteria. LDH [Catalytic activity/Vol] 171 U/L 84-246 [facility] Neutrophils (Bld) [#/Vol] 3.0 10*3/uL 2.0-7.7 [facility] Neutrophils/100 WBC (Bld) 51.0 % 47-70 [facility] Potassium [Moles/Vol] 4.2 mmol/L 3.5-5.1 [facility] Protein [Mass/Vol] 6.8 g/dL 6.4-8.2 [facility] Sodium [Moles/Vol] 140 mmol/L 136-145 [facility] WBC (Bld) [#/Vol] 5.9 10*3/uL 4.4-11.0 [facility] Blood erythrocytes count (nu mber/volume)Ordered By: Ani Ovalle on 04-29-2022 RBC (Bld) [#/Vol] 5.16 10*6/uL 4.2-5.4 [facility] Blood hemoglobin measurement (mass/volume)Ordered By: Ani Ovalle on 04-29-2022 Hemoglobin (Bld) [Mass/Vol] 14.4 g/dL 12.0-15.0 [facility] Blood lymphocytes/100 leukoc ytesOrdered By: Ani Ovalle on 04-29-2022 Lymphocytes/100 WBC (Bld) 38.1 % 19-41 [facility] Blood monocytes/100 leukocyt esOrdered By: Ani Ovalle on 04-29-2022 Monocytes/100 WBC (Bld) 6.9 % 0-10 [facility] Blood platelet mean volumeOr dered By: Ani Ovalle on 04-29-2022 Platelet mean volume (Bld) [Entitic vol] 9.9 fL 6.2-12.0 [facility] Determination of erythrocyte mean corpuscular volume (MCV)Ordered By: Ani Ovalle on 04-29-2022 MCV (RBC) [Entitic vol] 85.3 fL 81-99 [facility] Erythrocyte sedimentation ra teOrdered By: Ani Ovalle on 04-29-2022 ESR (Bld) [Velocity] 10 mm/h 0-30 [facility] Hematocrit Auto (Bld) [Volum e fraction]Ordered By: Ani Ovalle on 04-29-2022 Hematocrit (Bld) [Volume fraction] 44.0 % 37-47 [facility] INR in Blood by Coagulation assayOrdered By: Ani Ovalle on 04-29-2022 INR Coag (Bld) [Relative time] 1.0 {INR} [facility] Laboratory - Chemistry and C hemistry - challengeOrdered By: Ani Ovalle on 04-29-2022 ALP [Catalytic activity/Vol] 66 U/L 45-117 [facility] ALT [Catalytic activity/Vol] 39 U/L 13-56 [facility] CO2 [Moles/Vol] 24.0 mmol/L 21.0-32.0 [facility] Globulin (S) [Mass/Vol] 3.4 g/dL 2.2-4.2 [facility] Urea nitrogen/Creatinine [Mass ratio] 17.7 mg/mg 10-20 [facility] Laboratory - CoagulationOrde red By: Ani Ovalle on 04-29-2022 PT Coag (PPP) [Time] 13.0 s 11.7-14.9 [facility] - Hematology and Cell countsOrdered By: Ani Ovalle on 04-29-2022 Erythrocyte distribution width (RBC) [Entitic vol] 39.7 fL 35.1-43.9 [facility] Erythrocyte distribution width (RBC) [Ratio] 12.8 % 11.6-14.6 [facility] Immature granulocytes/100 WBC (Bld) 0.300 % 0.0-0.9 [facility] Comment on above: IG% - Immature Granu locytes (promyelocytes, myelocytes and metamyelocytes) > 1% indicates that a LEFT SHIFT is Present. MCH (RBC) [Entitic mass] 27.9 pg 27.0-32.0 [facility] Nucleated RBC/100 WBC (Bld) [Ratio] 0 % 0-5 [facility] MCHC Auto (RBC) [Mass/Vol]Or dered By: Ani Ovalle on 04-29-2022 MCHC (RBC) [Mass/Vol] 32.7 g/dL 32-36 [facility] No Panel InformationOrdered By: Ani Ovalle on 04-29-2022 Estimated GFR (MDRD) Amer 106 mL/min >60 [facility] Comment on above: GFR Calc Estimated GFR (MDRD) Non-Af Amer 88 mL/min >60 [facility] Comment on above: Non- GFR Calc Immunoglobulin G4 11 mg/dL 2-96 [facility] Platelets bldOrdered By: Radha Ovalle on 04-29-2022 Platelets (Bld) [#/Vol] 269 10*3/uL 150-450 [facility] Serum IgG subclass 1 measure ment (mass/volume)Ordered By: Ani Ovalle on 04-29-2022 IgG subclass 1 (S) [Mass/Vol] 409 mg/dL 248-810 [facility] Serum IgG subclass 2 measure ment (mass/volume)Ordered By: Ani Ovalle on 04-29-2022 IgG subclass 2 (S) [Mass/Vol] 168 mg/dL 130-555 [facility] Serum IgG subclass 3 measure ment (mass/volume)Ordered By: Ani Ovalle on 04-29-2022 IgG subclass 3 (S) [Mass/Vol] 29 mg/dL 15-102 [facility] Serum mitochondria antibody detectionOrdered By: Ani Ovalle on 04-29-2022 Mitochondria Ab Ql (S) <20.0 Units 0.0-20.0 [facility] Comment on above: Negative 0.0 - 20.0 Equivocal 20.1 - 24.9 Positive >24.9Mitochondrial (M2) Antibodies are found in 90-96% ofpatients with primary biliary cirrhosis.Performed at: [facility] [id number] Director: River Montague PhD, Phone: [phone] Serum or plasma C reactive p rotein measurement (mass/volume)Ordered By: Ani Ovalle on 04-29-2022 CRP [Mass/Vol] mg/L 0.0-3.0 [facility] Comment on above: C-Reactive Protein ( CRP) provides useful information for thediagnosis, therapy and monitoring of inflammatory processesand associated diseases. For the evaluation of Relative Riskfor Cardiovascular Disease, a High Sensitivity CRP (HSCRP)should be ordered. Serum or plasma IgG measurem ent (mass/volume)Ordered By: Ani Ovalle on 04-29-2022 IgG [Mass/Vol] 671 mg/dL 586-1602 [facility] Serum or plasma actin IgG an tibody assay (units/volume)Ordered By: Ani Ovalle on 04-29-2022 Actin IgG Qn 24 Units 0-19 [facility] Comment on above: Negative 0 - 19 Weak positive 20 - 30 Moderate to strong positive >30 Actin Antibodies are found in 52-85% of patients with autoimmune hepatitis or chronic active hepatitis and in 22% of patients with primary biliary cirrhosis.Performed at: [facility] [id number] Director: River Montague PhD, Phone: [phone] Serum or plasma albumin juliana urement (mass/volume)Ordered By: Ani Ovalle on 04-29-2022 Albumin [Mass/Vol] 3.4 g/dL 3.2-5.0 [facility] Serum or plasma albumin/glob ulin mass ratioOrdered By: Ani Ovalle on 04-29-2022 Albumin/Globulin [Mass ratio] 1.0 {ratio} 0.9-2.4 [facility] Serum or plasma calcium juliana urement (mass/volume)Ordered By: Ani Ovalle on 04-29-2022 Calcium [Mass/Vol] 9.1 mg/dL 8.5-10.1 [facility] Serum or plasma creatinine m easurement (mass/volume)Ordered By: Ani Ovalle on 04-29-2022 Creatinine [Mass/Vol] 0.73 mg/dL 0.55-1.02 [facility] Comment on above: The validity of the calculated GFR & GFRAA in patients over 70 years has not been determined. Clinical correlation is essential. Serum or plasma urea nitroge n measurement (mass/volume)Ordered By: Ani Ovalle on 04-29-2022 Urea nitrogen [Mass/Vol] 13 mg/dL 7-18 [facility] Thin prep Papanicolaou smear with manual screeningOrdered By: Ani Ovalle on 04-29-2022 Thin prep Papanicolaou smear with manual screening 17 U/L 15-37 [facility] Thin prep Papanicolaou smear with manual screening 6 5-15 [facility] Glucose Glucometer (BldC) [M ass/Vol]on 08-07-2021 Glucose [Mass/Vol] 189 mg/dL 74-106 [facility] Work Phone: Comment on above: MANAGEMENT OF PATIEN T CARE PER NURSING PROTOCOL Glucose Glucometer (BldC) [M ass/Vol]on 06-20-2021 Glucose [Mass/Vol] 172 mg/dL 74-106 [facility] Work Phone: Comment on above: MANAGEMENT OF PATIEN T CARE PER NURSING PROTOCOL Basophil percentageon 2021 Basophil percentage < 0.2 [facility] Work Phone: No Panel Informationon 06-14 Centromere B Antibody <0.2 AI [facility] Work Phone: Immunoglobulin E 89 IU/mL [facility] Work Phone: Comment on above: Performed at: - [address] [facility] [id number] Director: River Montague PhD, Phone: [phone] at: - [facility] [id number] Director: Isela Simmons MD, Phone: [phone] Miscellaneous Test See comment [facility] Work Phone: Comment on above: TEST RESULT LIMITSSo luble Liver Ag (IgG Ab)Anti-SLA, IgG 0.9 units 0.0-20.0 Negative 0.0 - 20.0 Equivocal 20.1 - 24.9 Positive >24.9 _ TESTING PERFORMED AT [facility]. ORIGINAL REPORT ON FILE IN LAB CONTAINS ADDITIONAL TEST SITE INFORMATION. ANIMAL HOSPITAL CLERK Antibody 0.2 [facility] Work Phone: Serum DNA double strand anti body assay (units/volume)on 06-14-2021 DNA double strand Ab Qn (S) [IU]/mL [facility] Work Phone: Comment on above: Negative <5 Equivoca l 5 - 9 Positive >9 Serum Nelsy-1 antibody assay (u nits/volume)on 06-14-2021 Nelsy-1 extractable nuclear Ab Qn (S) <0.2 [facility] Work Phone: Serum Scl-70 extractable nuc lear antibody assay (units/volume)on 06-14-2021 SCL-70 extractable nuclear Ab Qn (S) <0.2 [facility] Work Phone: Serum Lambert extractable nucl ear antibody detectionon 06-14-2021 Lambert extractable nuclear Ab Ql (S) <0.2 [facility] Work Phone: Serum or plasma IgA measurem ent (mass/volume)on 06-14-2021 IgA [Mass/Vol] 117 mg/dL [facility] Work Phone: Serum or plasma IgG measurem ent (mass/volume)on 06-14-2021 IgG [Mass/Vol] 640 mg/dL [facility] Work Phone: [phone] Serum or plasma IgM measurem ent (mass/volume)on 06-14-2021 IgM [Mass/Vol] 65 mg/dL [facility] Work Phone: [phone] Activated partial thrombopla stin time (aPTT) in platelet poor plasma by coagulation aon 05-16-2021 aPTT Coag (PPP) [Time] 32.4 s 24.1-36.2 [facility] Work Phone: [phone] INR in Blood by Coagulation assayon 05-16-2021 INR Coag (Bld) [Relative time] 1.0 {INR} [facility] Work Phone: Laboratory - Coagulationon 0 05-16-2021 PT Coag (PPP) [Time] 12.3 s 11.7-14.9 [facility] Work Phone: Platelets bldon 05-16-2021 Platelets (Bld) [#/Vol] 307 10*3/uL 150-450 [facility] Work Phone: [phone] Absolute lymphocyte counton 05-01-2021 Lymphocytes Auto (Unsp spec) [#/Vol] 2.52 10*3/uL 0.83-4.51 [facility] Work Phone: [phone] Atypical perinuclear antineu trophil cytoplasmic antibodies measurementon 05-01-2021 Neutrophil cytoplasmic Ab.perinuclear.atypical IF (S) [Titer] <1:20 titer Neg:<1:20 [facility] Work Phone: Comment on above: The atypical pANCA p attern has been observed in asignificant percentage of patients with ulcerative colitis,primary sclerosing cholangitis and autoimmune hepatitis. Basophil percentageon 2021 Ammonia (P) [Moles/Vol] 15.0 umol/L 11-32 [facility] Work Phone: Basophil percentage < 0.[address] [facility] Work Phone: Basophils/100 WBC (Bld) 0.7 % 0-1 [facility] Work Phone: [phone] Bilirubin [Mass/Vol] 0.40 mg/dL 0.20-1.00 [facility] Work Phone: [phone] Comment on above: For patients on eltr ombopag therapy, use of Dimension Neely TBIL is not recommended. Chloride [Moles/Vol] 108 mmol/L 98-107 [facility] Work Phone: Eosinophils/100 WBC (Bld) 3.0 % 0-5 [facility] Work Phone: Glucose [Mass/Vol] 101 mg/dL 74-106 [facility] Work Phone: [phone] Comment on above: Fasting Glucose resu lt from 100 to 125 mg/dL suggests IMPAIRED HOMEOSTASIS per A.D.A. criteria. Neutrophils (Bld) [#/Vol] 3.9 10*3/uL 2.0-7.7 [facility] Work Phone: [phone] Neutrophils/100 WBC (Bld) 53.8 % 47-70 [facility] Work Phone: Potassium [Moles/Vol] 3.7 mmol/L 3.5-5.1 [facility] Work Phone: Protein [Mass/Vol] 7.4 g/dL 6.4-8.2 [facility] Work Phone: Sodium [Moles/Vol] 136 mmol/L 136-145 [facility] Work Phone: [phone] WBC (Bld) [#/Vol] 7.3 10*3/uL 4.4-11.0 [facility] Work Phone: Blood erythrocytes count (nu mber/volume)on 05-01-2021 RBC (Bld) [#/Vol] 5.42 10*6/uL 4.2-5.4 [facility] Work Phone: Blood hemoglobin measurement (mass/volume)on 05-01-2021 Hemoglobin (Bld) [Mass/Vol] 15.8 g/dL 12.0-15.0 [facility] Work Phone: Blood lymphocytes/100 leukoc yteson 05-01-2021 Lymphocytes/100 WBC (Bld) 34.7 % 19-41 [facility] Work Phone: Blood monocytes/100 leukocyt eson 05-01-2021 Monocytes/100 WBC (Bld) 7.2 % 0-10 [facility] Work Phone: Blood platelet mean volumeon 05-01-2021 Platelet mean volume (Bld) [Entitic vol] 11.1 fL 6.2-12.0 [facility] Work Phone: [phone] Determination of erythrocyte mean corpuscular volume (MCV)on 05-01-2021 MCV (RBC) [Entitic vol] 85.2 fL 81-99 [facility] Work Phone: [phone] Erythrocyte sedimentation ra javier 05-01-2021 ESR (Bld) [Velocity] 14 mm/h 0-30 [facility] Work Phone: [phone] HIV 1 and HIV-2 antibody ass ay with HIV-1 p24 antigen detectionon 05-01-2021 HIV 1+2 Ab+HIV1 p24 Ag IA Ql Non-Reactive Nonreactive [facility] Work Phone: [phone] Hematocrit Auto (Bld) [Volum e fraction]on 05-01-2021 Hematocrit (Bld) [Volume fraction] 46.2 % 37-47 [facility] Work Phone: [phone] INR in Blood by Coagulation assayon 05-01-2021 INR Coag (Bld) [Relative time] 1.0 {INR} [facility] Work Phone: [phone] Laboratory - Chemistry and C hemistry - challengeon 05-01-2021 ALP [Catalytic activity/Vol] 67 U/L 45-117 [facility] Work Phone: ALT [Catalytic activity/Vol] 134 U/L 13-56 [facility] Work Phone: [phone] CO2 [Moles/Vol] 22.0 mmol/L 21.0-32.0 [facility] Work Phone: [phone] Globulin (S) [Mass/Vol] 3.6 g/dL 2.2-4.2 [facility] Work Phone: Urea nitrogen/Creatinine [Mass ratio] 7.8 mg/mg 10-20 [facility] Work Phone: Laboratory - Coagulationon 0 05-01-2021 PT Coag (PPP) [Time] 12.5 s 11.7-14.9 [facility] Work Phone: Laboratory - Hematology and Cell countson 05-01-2021 Erythrocyte distribution width (RBC) [Entitic vol] 41.3 fL 35.1-43.9 [facility] Work Phone: Erythrocyte distribution width (RBC) [Ratio] 13.3 % 11.6-14.6 [facility] Work Phone: Immature granulocytes/100 WBC (Bld) 0.600 % 0.0-0.9 [facility] Work Phone: Comment on above: IG% - Immature Granu locytes (promyelocytes, myelocytes and metamyelocytes) > 1% indicates that a LEFT SHIFT is Present. MCH (RBC) [Entitic mass] 29.2 pg 27.0-32.0 [facility] Work Phone: Nucleated RBC/100 WBC (Bld) [Ratio] 0 % 0-5 [facility] Work Phone: MCHC Auto (RBC) [Mass/Vol]on 05-01-2021 MCHC (RBC) [Mass/Vol] 34.2 g/dL 32-36 [facility] Work Phone: No Panel Informationon 05-01 Centromere B Antibody <0.2 AI [facility] Work Phone: Ceruloplasmin 23.2 mg/dL [facility] Work Phone: Estimated GFR (MDRD) Amer 101 mL/min >60 [facility] Work Phone: Comment on above: GFR Calc Estimated GFR (MDRD) Non-Af Amer 83 mL/min >60 [facility] Work Phone: Comment on above: Non- GFR Calc Haptoglobin 184 mg/dL [facility] Work Phone: Comment on above: Performed at: - [address] [id number] Director: River Montague PhD, Phone: [phone] at: [facility] [id number] Director: Isela Simmons MD, Phone: [phone] Hepatitis A IgM Antibody Negative Negative [facility] Work Phone: Hepatitis B Core IgM Antibody Negative Negative [facility] Work Phone: Hepatitis C Antibody (EIA) <0.1 s/co ratio [facility] Work Phone: Comment on above: Negative: < 0.8 Inde terminate: 0.8 - 0.9 Positive: > 0.9 The CDC recommends that a positive HCV antibody result be followed up with a HCV Nucleic Acid Amplification test (714323).Effective May 28, 2021 Hepatitis Panel (4) will be made non-orderable. [facility] offers order code [id number] Acute Hepatitis. ANIMAL HOSPITAL CLERK Antibody <0.2 [facility] Work Phone: Platelets bldon 05-01-2021 Platelets (Bld) [#/Vol] 272 10*3/uL 150-450 [facility] Work Phone: Serum DNA double strand anti body assay (units/volume)on 05-01-2021 DNA double strand Ab Qn (S) [IU]/mL [facility] Work Phone: Comment on above: Negative <5 Equivoca l 5 - 9 Positive >9 Serum Nelsy-1 antibody assay (u nits/volume)on 05-01-2021 Nelsy-1 extractable nuclear Ab Qn (S) <0.2 [facility] Work Phone: Serum Scl-70 extractable nuc lear antibody assay (units/volume)on 05-01-2021 SCL-70 extractable nuclear Ab Qn (S) <0.2 [facility] Work Phone: Serum Lambert extractable nucl ear antibody detectionon 05-01-2021 Lambert extractable nuclear Ab Ql (S) <0.2 AI [facility] Work Phone: Serum classic neutrophil cyt oplasmic antibody assay (units/volume)on 05-01-2021 Neutrophil cytoplasmic Ab.classic Qn (S) <1:20 titer Neg:<1:20 [facility] Work Phone: Serum mitochondria antibody detectionon 05-01-2021 Mitochondria Ab Ql (S) <20.0 Units [facility] Work Phone: Comment on above: Negative 0.0 - 20.0 Equivocal 20.1 - 24.9 Positive >24.9Mitochondrial (M2) Antibodies are found in 90-96% ofpatients with primary biliary cirrhosis.Performed at: [employer] [facility] [id number] Director: River Montague PhD, Phone: [phone] Serum or plasma C reactive p rotein measurement (mass/volume)on 05-01-2021 CRP [Mass/Vol] mg/L 0.0-3.0 [facility] Work Phone: Comment on above: C-Reactive Protein ( CRP) provides useful information for thediagnosis, therapy and monitoring of inflammatory processesand associated diseases. For the evaluation of Relative Riskfor Cardiovascular Disease, a High Sensitivity CRP (HSCRP)should be ordered. Serum or plasma actin IgG an tibody assay (units/volume)on 05-01-2021 Actin IgG Qn 24 Units [facility] Work Phone: Comment on above: Negative 0 - 19 Weak positive 20 - 30 Moderate to strong positive >30 Actin Antibodies are found in 52-85% of patients with autoimmune hepatitis or chronic active hepatitis and in 22% of patients with primary biliary cirrhosis. Serum or plasma albumin juliana urement (mass/volume)on 05-01-2021 Albumin [Mass/Vol] 3.8 g/dL 3.2-5.0 [facility] Work Phone: Serum or plasma albumin/glob ulin mass ratioon 05-01-2021 Albumin/Globulin [Mass ratio] 1.1 {ratio} 0.9-2.4 [facility] Work Phone: Serum or plasma [id number] protein tumor marker measurement (units/volume)on 05-01-2021 AFP.tumor marker Qn 2.2 ng/mL [facility] Work Phone: Comment on above: [employer] El ectrochemiluminescenceImmunoassay (ECLIA)Values obtained with different assay methods orkits cannot be used interchangeably. Resultscannot be interpreted as absolute evidence of thepresence or absence of malignant disease.This test is not interpretable in females.Effective May 21, 2021 AFP, Serum, Tumor Marker reference interval will be changing to: Age Male Female 0 - 7 days 0.0 - 25304.8 0.0 - 20618.8 8 - 30 days 0.0 - 51699.4 0.0 - 08334.4 1 month 0.0 - 1747.8 0.0 - 1600.3 2 months 0.0 - 391.1 0.0 - 550.0 3 months 0.0 - 225.8 0.0 - 339.9 4 months 0.0 - 230.6 0.0 - 230.6 5 months 0.0 - 118.0 0.0 - 234.0 6 months 0.0 - 97.2 0.0 - 97.2 7 - 11 months 0.0 - 60.3 0.0 - 60.3 1 year 0.0 - 21.4 0.0 - 21.4 2 years 0.0 - 9.4 0.0 - 10.1 3 - 4 years 0.0 - 5.5 0.0 - 5.5 5 years 0.0 - 3.6 0.0 - 4.2 6 - 12 years 0.0 - 3.9 0.0 - 3.9 13 - 17 years 0.0 - 4.3 0.0 - 4.3 18 - 30 years 0.0 - 5.7 0.0 - 4.7 31 - 50 years 0.0 - 6.9 0.0 - 6.4 51 - 80 years 0.0 - 8.4 0.0 - 9.2 >80 years 0.0 - 6.4 0.0 - 8.7 Serum or plasma angiotensin converting enzyme measurement (enzymatic activity/volume)on 05-01-2021 Angiotensin converting enzyme [Catalytic activity/Vol] 66 U/L [facility] Work Phone: Serum or plasma calcium juliana urement (mass/volume)on 05-01-2021 Calcium [Mass/Vol] 8.8 mg/dL 8.5-10.[address] [facility] Work Phone: Serum or plasma creatinine m easurement (mass/volume)on 05-01-2021 Creatinine [Mass/Vol] 0.77 mg/dL 0.55-1.02 [facility] Work Phone: Comment on above: The validity of the calculated GFR & GFRAA in patients over 70 years has not been determined. Clinical correlation is essential. Serum or plasma ferritin jen surement (mass/volume)on 05-01-2021 Ferritin [Mass/Vol] 188 ng/mL 8-252 [facility] Work Phone: Serum or plasma hepatitis B virus surface antigen detection by immunoassayon 05-01-2021 HBV surface Ag IA Ql Negative Negative [facility] Work Phone: Serum or plasma urea nitroge n measurement (mass/volume)on 05-01-2021 Urea nitrogen [Mass/Vol] 6 mg/dL 7-18 [facility] Work Phone: Serum perinuclear neutrophil cytoplasmic antibody titer by immunofluorescenceon 05-01-2021 Neutrophil cytoplasmic Ab.perinuclear IF (S) [Titer] <1:20 titer Neg:<1:20 [facility] Work Phone: Comment on above: The presence of posi tive fluorescence exhibiting P-ANCA orC-ANCA patterns alone is not specific for the diagnosis ofWegener's Granulomatosis (WG) or microscopic polyangiitis.Decisions about treatment should not be based solely onANCA IFA results. The [employer] ANCA [employer] Consensusrecommends follow up testing of positive sera with both MN-3 and MPO-ANCA enzyme immunoassays. As many as 5% serumsamples are positive only by EIA. Ref. AM J Clin Aekoio9540;111:507-513. Thin prep Papanicolaou smear with manual screeningon 05-01-2021 Thin prep Papanicolaou smear with manual screening 83 U/L 15-37 [facility] Work Phone: Thin prep Papanicolaou smear with manual screening 6 5-15 [facility] Work Phone: Thin prep Papanicolaou smear with manual screening 233 U/L 84-246 [facility] Work Phone: Thin prep Papanicolaou smear with manual screening 96 ug/dL [facility] Work Phone: Comment on above: Detection Limit = 5 Whole blood hemoglobin A1c/t otal hemoglobin ratio (mass fraction)on 05-01-2021 HbA1c (Bld) [Mass fraction] 7.7 % 3.8-5.6 [facility] Work Phone: Comment on above: Normal < 5.7 % Predi abetic 5.7 - 6.4 % Diabetic >or= 6.5 % Please note range changes. Vital Signs Date Time Vital Sign Value Performing Clinician Faci lity 06-22-2024 11:17-0400 Body height 157.[address] Robert Ann DO Work Phone: [facility] 06-22-2024 11:17-0400 Body weight 115.[address] Robert Ann DO Work Phone: [facility] 06-22-2024 10:37-0400 Body temperature 98.2 [degF] Dr. Robert Ann DO Work Phone: [facility] 06-22-2024 10:37-0400 Diastolic blood pressure 81 mm[Hg] Dr. Robert Ann DO Work Phone: [facility] 06-22-2024 10:37-0400 Heart rate 76 /min Dr. Robert Ann DO Work Phone: [facility] 06-22-2024 10:37-0400 Respiratory rate 16 /min Dr. Robert Ann DO Work Phone: [facility] 06-22-2024 10:37-0400 SaO2% (BldA) [Mass fraction] 98 % Dr. Robert Ann DO Work Phone: [facility] 06-22-2024 10:37-0400 Systolic blood pressure 146 mm[Hg] Dr. Robert Ann DO Work Phone: [facility] 06-21-2024 18:44-0400 Body height 157.[address] Robert Ann DO Work Phone: [facility] 06-21-2024 18:44-0400 Body mass index (BMI) [Ratio] 21 kg/m2 Dr. Robert Ann DO Work Phone: [facility] 06-21-2024 18:44-0400 Body weight 52.[address] Robert Ann DO Work Phone: [facility] 06-21-2024 18:40-0400 Body temperature 98.2 [degF] Dr. Robert Ann DO Work Phone: [facility] 06-21-2024 18:40-0400 Diastolic blood pressure 89 mm[Hg] Dr. Robert Ann DO Work Phone: [facility] 06-21-2024 18:40-0400 Heart rate 75 /min Dr. Robert Ann DO Work Phone: [facility] 06-21-2024 18:40-0400 Respiratory rate 18 /min Dr. Robert Ann DO Work Phone: [facility] 06-21-2024 18:40-0400 SaO2% (BldA) [Mass fraction] 97 % Dr. Robert Ann DO Work Phone: [facility] 06-21-2024 18:40-0400 Systolic blood pressure 126 mm[Hg] Dr. Robert Ann DO Work Phone: [facility] 01-21-2023 11:06-0500 Body height 157.5 cm Diane Gutierrez MD Work Phone: [facility] 01-21-2023 11:06-0500 Body mass index (BMI) [Ratio] 49.38 kg/m2 Diane Gutierrez MD Work Phone: [facility] 01-21-2023 11:06-0500 Body weight 122.47 kg Diane Gutierrez MD Work Phone: [facility] 12-17-2022 11:32-0400 Body height 157.5 cm Diane Gutierrez MD Work Phone: [facility] 12-17-2022 11:32-0400 Body mass index (BMI) [Ratio] 49.38 kg/m2 Diane Gutierrez MD Work Phone: [facility] 12-17-2022 11:32-0400 Body weight 122.47 kg Diane Gutierrez MD Work Phone: [facility] 12-07-2022 19:21-0400 Body mass index (BMI) [Ratio] 50.3 kg/m2 [facility] 12-07-2022 19:21-0400 Body weight 125 kg [facility] 12-07-2022 18:38-0400 Body temperature 97 [degF] [facility] 12-07-2022 18:38-0400 Diastolic blood pressure 62 mm[Hg] [facility] 12-07-2022 18:38-0400 Heart rate 68 /min [facility] 12-07-2022 18:38-0400 Respiratory rate 16 /min [facility] 12-07-2022 18:38-0400 SaO2% (BldA) [Mass fraction] 97 % [facility] 12-07-2022 18:38-0400 Systolic blood pressure 119 mm[Hg] [facility] 12-07-2022 17:13-0400 Inhaled oxygen flow rate 6 L/min [facility] 12-07-2022 15:38-0400 Body height 157.48 cm [facility] 08-05-2022 14:50-0400 Respiratory rate 18 /min [facility] 08-05-2022 12:28-0400 Body mass index (BMI) [Ratio] 50.3 kg/m2 [facility] 08-05-2022 12:28-0400 Body weight 124.7 kg [facility] 08-05-2022 10:59-0400 Body height 157.48 cm [facility] 08-05-2022 10:59-0400 Body temperature 97.1 [degF] [facility] 08-05-2022 10:59-0400 Diastolic blood pressure 79 mm[Hg] [facility] 08-05-2022 10:59-0400 Heart rate 71 /min [facility] 08-05-2022 10:59-0400 SaO2% (BldA) [Mass fraction] 96 % [facility] 08-05-2022 10:59-0400 Systolic blood pressure 149 mm[Hg] [facility] 04-29-2022 10:18-0500 Body height 157.[address] Robert Ann Work Phone: [facility] 04-29-2022 10:18-0500 Body mass index (BMI) [Ratio] 51.2 kg/m2 Dr. Robert Ann Work Phone: [facility] 04-29-2022 10:18-0500 Body weight [address] Robert Ann Work Phone: [facility] 04-29-2022 10:18-0500 Diastolic blood pressure 90 mm[Hg] Dr. Robert Ann Work Phone: [facility] 04-29-2022 10:18-0500 Heart rate 80 /min Dr. Robert Ann Work Phone: [facility] 04-29-2022 10:18-0500 SaO2% (BldA) [Mass fraction] 95 % Dr. Robert Ann Work Phone: [facility] 04-29-2022 10:18-0500 Systolic blood pressure 144 mm[Hg] Dr. Robert Ann Work Phone: [facility] 09-26-2021 09:33-0400 Body height 157.[address] Robert Ann Work Phone: [facility] Work Phone: 08-07-2021 11:17-0400 Diastolic blood pressure 72 mm[Hg] Dr. Robert Ann Work Phone: [facility] Work Phone: 08-07-2021 11:17-0400 Heart rate 72 /min Dr. Robert Ann Work Phone: [facility] Work Phone: 08-07-2021 11:17-0400 Respiratory rate 16 /min Dr. Robert Ann Work Phone: [facility] Work Phone: 08-07-2021 11:17-0400 SaO2% (BldA) [Mass fraction] 98 % Dr. Robert Ann Work Phone: [facility] Work Phone: 08-07-2021 11:17-0400 Systolic blood pressure 128 mm[Hg] Dr. Robert Ann Work Phone: [facility] Work Phone: 08-07-2021 10:55-0400 Body temperature 98.7 [degF] Dr. Robert Ann Work Phone: [facility] Work Phone: 08-07-2021 10:55-0400 Diastolic blood pressure 73 mm[Hg] Dr. Robert Ann Work Phone: [facility] Work Phone: 08-07-2021 10:55-0400 Heart rate 81 /min Dr. Robert Ann Work Phone: [facility] Work Phone: 08-07-2021 10:55-0400 Respiratory rate 16 /min Dr. Robert Ann Work Phone: [facility] Work Phone: 08-07-2021 10:55-0400 SaO2% (BldA) [Mass fraction] 94 % Dr. Robert Ann Work Phone: [facility] Work Phone: 08-07-2021 10:55-0400 Systolic blood pressure 132 mm[Hg] Dr. Robert Ann Work Phone: [facility] Work Phone: 08-07-2021 07:54-0400 Body height 157.[address] Robert Ann Work Phone: [facility] Work Phone: 08-07-2021 07:54-0400 Body mass index (BMI) [Ratio] 45.9 kg/m2 Dr. Robert Ann Work Phone: [facility] Work Phone: 08-07-2021 07:54-0400 Body weight [address] Robert Ann Work Phone: [facility] Work Phone: 06-20-2021 08:21-0400 Body temperature 98 [degF] Dr. Robert Ann Work Phone: [facility] Work Phone: 06-20-2021 08:21-0400 Diastolic blood pressure 91 mm[Hg] Dr. Robert Ann Work Phone: [facility] Work Phone: 06-20-2021 08:21-0400 Heart rate 83 /min Dr. Robert Ann Work Phone: [facility] Work Phone: 06-20-2021 08:21-0400 Respiratory rate 18 /min Dr. Robert Ann Work Phone: [facility] Work Phone: 06-20-2021 08:21-0400 SaO2% (BldA) [Mass fraction] 94 % Dr. Robert Ann Work Phone: [facility] Work Phone: 06-20-2021 08:21-0400 Systolic blood pressure 130 mm[Hg] Dr. Robert Ann Work Phone: [facility] Work Phone: 06-20-2021 06:26-0400 Body height 157.[address] Robert Ann Work Phone: [facility] Work Phone: 06-20-2021 06:26-0400 Body mass index (BMI) [Ratio] 46.3 kg/m2 Dr. Robert Ann Work Phone: [facility] Work Phone: 06-20-2021 06:26-0400 Body weight [address] Robert Ann Work Phone: [facility] Work Phone: 05-16-2021 10:08-0500 Diastolic blood pressure 71 mm[Hg] Dr. Robert Ann Work Phone: [facility] Work Phone: 05-16-2021 10:08-0500 Heart rate 75 /min Dr. Robert Ann Work Phone: [facility] Work Phone: 05-16-2021 10:08-0500 Respiratory rate 15 /min Dr. Robert Ann Work Phone: [facility] Work Phone: 05-16-2021 10:08-0500 SaO2% (BldA) [Mass fraction] 94 % Dr. Robert Ann Work Phone: [facility] Work Phone: 05-16-2021 10:08-0500 Systolic blood pressure 122 mm[Hg] Dr. Robert Ann Work Phone: [facility] Work Phone: 05-16-2021 08:25-0500 Body mass index (BMI) [Ratio] 47.5 kg/m2 Dr. Robert Ann Work Phone: [facility] Work Phone: 05-16-2021 08:25-0500 Body weight 117.[address] Robert Ann Work Phone: [facility] Work Phone: Encounters Encounter Date Encounter Type Care Provider Facility Start: 02-14-2025 ambulatory Robert Marissa Facility: [facility] Start: 01-14-2025 ambulatory Robert Marissa Facility: [facility] Start: 08-19-2024 Non-patient / Non-visit Dr. Kristyn Figueroa MD -[facility] Start: 08-19-2024 End: 08-19-[address] Robert Ann DO Work Phone: [facility] Work Phone: Start: 08-19-2024 End: 08-19-[address] Turner Hedrick MD -Cardiovascular Services Work Phone: Start: 08-19-2024 End: 08-19-2024 ambulatory Robert Marissa Facility:[facility] Start: 08-05-2024 End: 08-05-[address] Robert Ann DO Work Phone: [facility] Work Phone: Start: 08-05-2024 End: 08-05-[address] Turner Hedrick MD -Cardiovascular Services Work Phone: Start: 08-05-2024 End: 08-05-2024 ambulatory Robert Ann Facility:[facility] Start: 07-08-2024 End: 07-08-[address] Robert Ann DO -[facility] Work Phone: Start: 07-08-2024 End: 07-08-2024 ambulatory Robert Marissa Facility:[facility] Start: 07-03-2024 End: 07-03-[address] Robert Ann DO -Ultrasound [facility] Work Phone: Start: 07-03-2024 End: 07-03-2024 ambulatory [facility] Facility:[facility] Start: 06-22-2024 Non-patient / Non-visit Dr. Faye Bentley MD -[facility] Work Phone: Start: 06-21-2024 Non-patient / Non-visit Dr. Rogelio Garcia MD -[facility] Work Phone: Start: 06-21-2024 End: 06-22-2024 ambulatory [facility] Facility:[facility] Start: 06-21-2024 End: 06-22-2024 Evaluation and management of inpatient Dr. Rogelio Garcia MD -Progressive Care Unit Work Phone: Start: 06-21-2024 End: 06-22-[address] Robert Ann DO Work Phone: [facility] Work Phone: Start: 03-25-2024 Encounter for genera l adult medical examination without abnormal findings [facility] Start: 03-23-2024 End: 03-23-[address] Robert Ann DO -Cat Scan, [facility] Work Phone: Start: 03-23-2024 End: 03-23-2024 ambulatory Robert Marissa Facility:[facility] Start: 03-19-2024 End: 03-19-[address] Robert Ann DO -Outpatient Breast Imaging Work Phone: Start: 03-19-2024 End: 03-19-2024 ambulatory Robert Marissa Facility:[facility] Start: 02-23-2024 End: 02-23-[address] Robert Ann DO -[facility] Start: 02-23-2024 End: 02-23-2024 ambulatory Robert Ann Facility:[facility] Start: 04-08-2023 End: 04-08-2023 ambulatory [facility] Work Phone: Start: 04-08-2023 End: 04-08-2023 Discharged Recurring [facility]-Occupational Therapy Work Phone: Start: 03-25-2023 Telephone encounter Diane chase MD Work Phone: [facility] Comment on above: dental abx, sx 12/09 Start: 03-18-2023 End: 03-18-2023 Patient encounter procedure [facility]-Outpatient Breast Imaging Work Phone: Start: 03-04-2023 End: 03-04-2023 ambulatory DIANE GUTIERREZ [facility] Start: 03-04-2023 End: 03-04-2023 Postop follow up visit related to original px Diane Gutierrez MD Work Phone: [facility] Comment on above: Closed fracture disl ocation of left elbow with routine healing, subsequent encounter (Primary Dx) Start: 03-03-2023 Orders Only Diane Gutierrez MD Work Phone: [facility] Comment on above: Closed fracture disl ocation of left elbow with routine healing, subsequent encounter (Primary Dx) Start: 02-27-2023 Registered Recurring [facility]-Occupational Therapy Work Phone: Start: 02-26-2023 End: 02-26-2023 ambulatory [facility] Work Phone: Start: 02-26-2023 End: 02-26-2023 Patient encounter procedure [facility]-Cat Scan, [facility] Work Phone: Start: 02-17-2023 End: 02-17-2023 Patient encounter procedure [facility] Start: 01-21-2023 End: 01-21-2023 ambulatory DIANE GUTIERREZ [facility] Start: 01-21-2023 End: 01-21-2023 Postop follow up visit related to original px Diane Gutierrez MD Work Phone: [facility] Comment on above: Closed fracture disl ocation of left elbow with routine healing, subsequent encounter (Primary Dx) Start: 01-20-2023 Orders Only Diane Gutierrez MD Work Phone: [facility] Comment on above: Closed fracture disl ocation of left elbow with routine healing, subsequent encounter (Primary Dx) Start: 12-23-2022 Telephone encounter Diane chase MD Work Phone: [facility] Comment on above: Patient not doing ho me PT Start: 12-17-2022 End: 12-17-2022 ambulatory ADARSH MONTES [facility] Start: 12-17-2022 End: 12-17-2022 Postop follow up visit related to original px Diane Gutierrez MD Work Phone: [facility] Comment on above: Closed fracture disl ocation of left elbow with routine healing, subsequent encounter (Primary Dx) Start: 12-16-2022 Orders Only Diane Gutierrez MD Work Phone: [facility] Comment on above: Left elbow fracture, closed, initial encounter (Primary Dx) Start: 12-13-2022 Refill Diane Gutierrez MD Work Phone: [facility] Comment on above: Left elbow fracture, closed, initial encounter Start: 12-07-2022 End: 12-10-2022 ambulatory PCP NONE [facility] Start: 12-07-2022 End: 12-07-2022 Emergency department patient visit [facility]-Emergency Department Work Phone: Start: 12-03-2022 End: 12-03-2022 ambulatory [facility] Work Phone: Start: 12-03-2022 End: 12-03-2022 Patient encounter procedure [facility] Work Phone: Start: 11-25-2022 End: 11-25-2022 ambulatory [facility] Work Phone: Start: 11-25-2022 End: 11-25-2022 [facility] Start: 08-05-2022 End: 08-05-2022 [facility] Start: 06-18-2022 End: 06-18-[address] Robert Ann Work Phone: [facility] Work Phone: Start: 06-18-2022 End: 06-18-[address] Robert Ann Work Phone: [facility] Start: 05-31-2022 End: 05-31-[address] Robert Ann Work Phone: [facility] Work Phone: Start: 05-31-2022 End: 05-31-[address] Robert Ann Work Phone: [facility] Start: 04-30-2022 End: 04-30-[address] Robert Ann Work Phone: [facility] Work Phone: Start: 04-30-2022 End: 04-30-[address] Robert Ann Work Phone: [facility] Start: 04-29-2022 End: 04-29-[address] Robert Ann Work Phone: [facility] Work Phone: Start: 04-29-2022 End: 02-13-[address] Robert Ann Work Phone: [facility] Start: 03-14-2022 End: 03-14-2022 ambulatory [facility] Work Phone: Start: 03-14-2022 End: 03-14-2022 Patient encounter procedure [facility]-Outpatient Breast Imaging Start: 01-23-2022 End: 01-23-2022 Patient encounter procedure [facility]-Ultrasound, [facility] Start: 12-11-2021 End: 12-11-[address] Robert Ann Work Phone: [facility] Work Phone: Start: 12-11-2021 End: 12-11-[address] Robert Ann Work Phone: [facility]-Outpatient Bone Densitometry Start: 09-26-2021 End: 09-26-[address] Robert Ann Work Phone: [facility] Start: 08-07-2021 End: 08-07-2021 Admission to same day surgery center Dr. Robert Ann Work Phone: [facility]-Surgical Day Care Start: 07-04-2021 End: 07-04-[address] Robert Ann Work Phone: [facility] Start: 06-20-2021 Non-patient / Non-visit Dr. Robert Ann Work Phone: [facility] Start: 06-20-2021 End: 06-20-2021 Admission to same day surgery center Dr. Robert Ann Work Phone: [facility]-Endoscopy Start: 06-19-2021 Non-patient / Non-visit Dr. Robert Ann Work Phone: [facility] Start: 06-14-2021 End: 06-14-[address] Robert Ann [facility] Start: 05-16-2021 End: 05-16-[address] Robert Ann Work Phone: [facility]-Cat Scan, [facility] Start: 05-04-2021 End: 05-04-[address] Robert Ann Work Phone: [facility]-Ultrasound, [facility] Start: 05-01-2021 End: 05-01-[address] Robert Ann Work Phone: [facility] Start: 04-26-2021 End: 04-26-[address] Robert Ann Work Phone: [facility] Procedures Date Procedure Procedure Detail Performing Clinician Start: 07-08-2024 MRI of brain with contrast Dr. Robert demarco DO Work Phone: Start: 07-03-2024 US scan of thyroid Dr. Robert Ann DO Work Phone: Start: 06-22-[address] Robert Ann DO Work Phone: Start: 06-22-2024 MRI of brain without contrast Dr. Robert santiago DO Work Phone: Start: 06-21-2024 CT angiography of head and neck Dr. Robert Ann DO Work Phone: Start: 06-21-2024 Urnls dip stick/tablet reagent auto microscopy Dr. Robert Ann DO Work Phone: Start: 06-21-2024 CT of head without contrast Dr. Robert worrell DO Work Phone: Start: 03-23-[address] Robert Ann DO Work Phone: Start: 03-19-2024 Screening mammography DrJyothi Ann DO Work Phone: Start: 03-18-2023 Screening mammography Start: 02-26-2023 CT of chest Start: 12-08-2022 Antibody screen DIANE GUTIERREZ Comment on above: Performed By: #### [id number] ####Medical Di tova: HERACLIO GURROLA ([id number])[facility] ([address] Start: 12-07-2022 Plain x-ray of elbow Start: 12-07-2022 Plain x-ray of elbow Start: 12-03-2022 MRI of brain with contrast Start: 08-05-2022 Radiography of ankle Start: 08-05-2022 Plain X-ray of tibia and fibula Start: 08-05-2022 Radiography of ankle Start: 06-18-[address] Robert Ann Work Phone: Start: 05-31-2022 Radionuclide imaging of liver and/or biliary tract using radioactive isotope Dr. Robert Ann Work Phone: Start: 03-14-2022 End: 03-14-2022 Screening mammography Start: 01-23-2022 Ultrasonography of abdomen Start: 01-23-2022 Ultrasound elastography Start: 12-11-2021 Dual energy X-ray absorptiometry Dr. Marj Ann Work Phone: Start: 08-07-[address] Robert Ann Work Phone: Start: 06-20-[address] Robert Ann Work Phone: Start: 06-19-2021 End: 06-19-[address] Robert Ann Work Phone: Start: 05-16-2021 Biopsy/Inj or Needle Placement Dr. Robert Ann Work Phone: Start: 05-04-2021 Elastography Parenchyma/Organ Dr. Robert santiago Work Phone: Start: 05-04-[address] Robert demarco Work Phone: Start: 05-01-2021 Diagnostic radiography of abdomen Dr. Manju Ann Work Phone: Laboratory test result abnormal Elevated antibody levels Dr. Robert Ann Work Phone: Plan of Treatment Date Care Activity Detail Author Start: 06-21-2031 Screening for malign ant neoplasm of colon [facility] Start: 2027 RSV Immunization age d 60 or older (1 - 1-dose 60+ series) RSV Immunization aged 60 or older (1 - 1-dose 60+ series) [facility] Start: 12-09-2025 Diabetes mellitus screening Diabetes Screening [facility] Start: 06-22-2024 [facility] Start: 06-22-[address] [facility] Start: 06-22-2024 Brain without Contrast Brain without Contrast [facility] Start: 06-22-2024 MR Brain WO contrast [facility] Start: 06-21-2024 Following clinical pathway protocol [facility] Start: 06-21-2024 Ambulation without limitation [facility] Start: 06-21-2024 Assessment of risk o f venous thromboembolism [facility] Start: 06-21-2024 Care regimes management [facility] Start: 06-21-2024 Insertion of cathete r into peripheral vein [facility] Start: 06-21-2024 Measuring intake and output [facility] Start: 06-21-2024 Notification of physician [facility] Start: 06-21-2024 Providing care accor ding to standard [facility] Start: 06-21-2024 End: 06-21-2024 [facility] Start: 06-21-2024 Verification routine [facility] Start: 06-21-2024 Admission procedure [facility] Start: 06-21-2024 Patient referral to dietitian [facility] Start: 03-14-2023 Screening for malign ant neoplasm of breast Mammogram [facility] Start: 03-04-2023 End: 03-03-2024 XR Elbow - left 2 Views XR elbow 1 or 2 views left Imaging Routine Closed fracture dislocation of left elbow with routine healing, subsequent encounter Expected: 03/04/2023, Expires: 03/03/[facility]24 [facility] Comment on above: Expected: 03/04/2023 , Expires: 03/03/2024 Start: 03-04-2023 End: 03-04-2023 Patient encounter procedure [facility] Start: 01-21-2023 End: 01-21-2024 XR Elbow - left 2 Views XR elbow 1 or 2 views left Imaging Routine Closed fracture dislocation of left elbow with routine healing, subsequent encounter Expected: 01/21/2023, Expires: 01/21/2024 [employer] Work Phone: Comment on above: Expected: 01/21/2023 , Expires: 01/21/2024 Start: 01-21-2023 End: 01-21-2023 Patient encounter procedure 01/21/2023 11:20 AM EST Office Visit [facility] [address] [place] [id number] Diane Gutierrez MD [address] [place], [place] [id number] [facility] Start: 12-17-2022 End: 12-17-2023 XR Elbow - left 2 Views XR elbow 1 or 2 views left Imaging Routine Left elbow fracture, closed, initial encounter Expected: 12/17/2022, Expires: 12/17/2023 [facility]: Comment on above: Expected: 12/17/2022 , Expires: 12/17/2023 Start: 12-17-2022 End: 12-17-2022 Patient encounter procedure 12/17/2022 11:30 AM EDT Office Visit [facility] [address] [place] [id number] Diane Gutierrez MD [address] [place], [place] [id number] [facility] Start: 11-25-2022 Borrelia burgdorferi blot test [facility] Start: 11-15-2022 Influenza vaccination Influenza Vacc ine (#1) [facility] Start: 06-20-2021 Colonoscopy w/biopsy single/multiple COLONOSCOPY AND BIOPSY [facility] Work Phone: Start: 06-20-2021 Colsc flx w/rmvl of tumor polyp lesion snare tq COLONOSCOPY W/LESION REMOVAL [facility] Work Phone: Start: 06-20-2021 Egd transoral biopsy single/multiple EGD BIOPSY SINGLE/MULTIPLE [facility] Work Phone: Start: 05-16-2021 Biopsy liver needle percutaneous NEEDLE BIOPSY OF LIVER [facility] Work Phone: Start: 05-04-2021 Us abdominal real ti me w/image documentation US EXAM ABDOM COMPLETE [facility] Work Phone: Start: 2017 Zoster Vaccines (1 of 2) Zoste r Vaccines (1 of 2) [facility] Start: 2007 Screening for malign ant neoplasm of breast Mammogram [facility] Start: 1997 Screening for malign ant neoplasm of cervix [facility] Start: 1988 Screening for malign ant neoplasm of cervix Pap Smear [facility] Start: 1986 DTaP/Tdap/Td Vaccine s (1 - Tdap) DTaP/Tdap/Td Vaccines (1 - Tdap) [facility] Start: 1986 Hepatitis A Vaccines (1 of 2 - Risk 2-dose series) Hepatitis A Vaccines (1 of 2 - Risk 2-dose series) [facility] Start: 1985 Hepatitis C screening Hepatitis C Sc reening [facility] Start: 1979 Depression Screening Depression Scre ening [facility] Start: 1973 Pneumococcal Vaccine : Pediatrics (0 to 5 Years) and At-Risk Patients (6 to 64 Years) (1 - PCV) Pneumococcal Vaccine: Pediatrics (0 to 5 Years) and At-Risk Patients (6 to 64 Years) (1 - PCV) [facility] Start: 1973 Pneumococcal Vaccine : Pediatrics (0 to 5 Years) and At-Risk Patients (6 to 64 Years) (1 of 2 - PCV) Pneumococcal Vaccine: Pediatrics (0 to 5 Years) and At-Risk Patients (6 to 64 Years) (1 of 2 - PCV) [facility] Start: 1968 MMR Vaccines (1 of 1 - Standard series) MMR Vaccines (1 of 1 - Standard series) [facility] Start: 1967 COVID-19 Vaccine (#1) COVID-19 Vacci ne (#1) [facility] Start: 1967 Hepatitis B Vaccines (1 of 3 - 3-dose series) Hepatitis B Vaccines (1 of 3 - 3-dose series) [facility] Start: 1967 HIV screening HIV Screening [facility] Start: 1967 Lipid panel Lipid Panel [facility] Start: 1967 Screening for malign ant neoplasm of colon [facility] Anion gap in Serum o r Plasma [facility] BUN/Creatinine ratio [facility] Calcium [Mass/volume ] in Serum or Plasma [facility] Carbon dioxide, tota l [Moles/volume] in Central venous blood [facility] Creatinine [Mass/vol ume] in Serum or Plasma [facility] Erythrocyte mean corpuscular volume determination [facility] Glucose [Mass/volume ] in Serum or Plasma [facility] Hematocrit [Volume Fraction] of Blood [facility] Hemoglobin [Mass/vol ume] in Blood [facility] Laboratory data interpretation [facility] Leukocytes [#/volume ] in Blood [facility] Mean corpuscular hemoglobin concentration determination [facility] Mean corpuscular hemoglobin determination [facility] Measurement of renal function [facility] Neutrophil count [facility] Neutrophil percent differential count [facility] Patient Education [facility] Work Phone: Patient referral [facility] Work Phone: Platelets [#/volume] in Blood [facility] Potassium measurement [facility] Red blood cell count [facility] Red cell distributio n width determination [facility] Serum chloride measurement [facility] Sodium measurement [facility] Ultrasound elastography [facility] Work Phone: Urea nitrogen [Mass/volume] in Serum or Plasma [facility] US Abdomen limited [facility] Work Phone: Immunizations Immunization Date Immunization Notes Care Provider Fa johnny NEGATED: Highlighted row has not occurred!12-10-2022 Influenza, injectable, [place] Canine Kidney, preservative free, quadrivalent Diane Gutierrez MD Work Phone: [employer] Comment on above: Deferred: Patient Re fused - patient refused 12/09 and again today. NEGATED: Highlighted row has not occurred!12-09-2022 Influenza, injectable, [place] Canine Kidney, preservative free, quadrivalent Diane Gutierrez MD Work Phone: [employer] [facility] Comment on above: Deferred: Patient Re fused Payers Date Payer Category Payer Self-pay [id number] 2024 Unknown [id number] 2021 Unknown [id number] 2021 Unknown [employer] S ANTHEM BL[employer] CROSS [id number] 2021-Present [address] [place] [address] Commercial [id number] 2016 Unknown . [id number] Private Health Insurance [id number] Unknown [facility] [id number] Unknown [id number] Unknown [id number] Unknown [id number] Unknown [id number] Unknown [id number] Unknown [id number] Unknown [id number] Unknown [id number] Unknown [id number] Unknown [id number] Unknown [id number] Unknown [id number] Unknown [id number] Social History Date Type Detail Facility [facility] Work Phone: Start: 05-16-2021 End: 12-07-2022 Tobacco smoking status ALIS Unknown if ever smoked [facility] Start: 1965 Sex Assigned At Female [facility] Start: 12-08-2022 End: 06-22-2024 Tobacco smoking status ALIS Smokes tobacco daily [facility] Start: 03-17-1997 History of tobacco use Cigarette Smo ker [facility] Start: 12-08-2022 End: 01-21-2023 Cigarettes smoked current (pack per day) - Reported 0.8 [facility] History of tobacco use Passive smoker [facility] Start: 12-08-2022 Tobacco use and exposure Smoke less tobacco non-user [facility] Start: 12-09-2022 End: 03-04-2023 Alcohol intake Current drinker of alcohol (finding) [facility] [facility] Start: 12-08-2022 End: 01-21-2023 Humiliation, Afraid, Rape, and Kick questionnaire [HARK] [facility] Within the last year , have you been afraid of your partner or ex-partner? No [facility] How often to you hav e a drink containing alcohol? Monthly or less [facility] How many standard dr inks containing alcohol do you have on a typical day? 1 or 2 [facility] How often do you hav e 6 or more drinks on 1 occasion? Never [facility] In the past 12 month s, has lack of transportation kept you from medical appointments or from getting medications? No [facility] Start: 1965 Sex Assigned At Not on file S [facility] Start: 11-27-2022 End: 12-07-2022 Exposure to SARS-CoV-2 (event) Not sure [facility] Start: 06-21-2024 End: 06-22-2024 Sex Female (finding) [facility] Medical Equipment Procedure Code Equipment Code Equipment Origin al Text Equipment Identifier Dates Stanton Sut 1 Fbr wr 2 Dmnd Ndl - [id number] Start: 12-09-2022 Radial Head [id number] Start: 12-09-2022 Stanton Sut 1 Fbr wr 2 Dmnd Ndl - [id number] Start: 12-09-2022 Functional Status Date Assessment Result Facility 06-22-2024 Functional status Ambulates;Up ad maurice [facility] Work Phone: Mental Status Date Assessment Result Facility 06-22-2024 Cognitive function Voice/Name [facility] Work Phone: 06-21-2024 Cognitive function Voice/Name [facility] Work Phone: 12-07-2022 Cognitive function Alert;Appropr iate;Follows Commands;Drowsy [facility] Work Phone: 08-07-2021 Cognitive function Voice/Name [facility] Work Phone: 06-20-2021 Cognitive function Voice/Name [facility] Work Phone: 05-16-2021 Cognitive function Voice/Name [facility] Work Phone: 05-16-2021 Cognitive function Level Of Cons ciousness Awake;Alert;Appropriate;Follow s Commands [facility] Work Phone: Clinical Notes 12-07-2022 to 06-22-2024 Note Date & Type Note Facility 06-22-2024 Note [facility] Medical Records Department [address] [place] [address] Discharge Summary 06/22/24 1552 MR#: [id number] Acct: [id number] Name: LINDY LEAVITT Rep #: [id number] : 1965 59 From: Faye Bentley MD PCP: Dr. Robert Ann DO Status:DIS ALEISHA Location: [place] [id number] Providers Date of Admission: 06/21/24 Date of Discharge: 06/22/24 Primary Care Physician: Dr. Robert Ann DO Reason For Visit: COMPLEX MIGRAINE Diagnosis Discharge Diagnosis (1) Migraines: Status: Acute Code(s): G43.909 - Plan # Complex migraine # Possible remote infarct # Thyroid nodules # Type 2 diabetes # GERD # Anxiety/depression Medications at Discharge Home Medications alprazolam 1 mg tablet (Xanax) 1 mg PO QHS PRN Sleep 05/16/16 melatonin 10 mg tablet 10 mg PO QHS sleep 10/09/20 simvastatin 20 mg tablet 20 mg PO DAILY cholesterol 10/09/20 verapamil 240 mg tablet,extended release 240 mg PO DAILY heart rate 10/09/20 pantoprazole 40 mg tablet,delayed release (Protonix) 40 mg PO QAM indigestion #90 tabs 09/26/21 vitamin E (dl, acetate) 180 mg (400 unit) capsule See Rx Instructions .Route .COMPLEX supplement #180 caps 01/22/24 ergocalciferol (vitamin D2) 1,250 mcg (50,000 unit) capsule (Vitamin D2) 1,250 mcg PO QWEEK supplement 06/21/24 escitalopram oxalate 20 mg tablet 10 mg PO QODAY depression 06/21/24 escitalopram oxalate 20 mg tablet 20 mg PO QODAY depression 06/21/24 metformin 500 mg tablet 500 mg PO BID diabetes 06/21/24 pioglitazone 15 mg tablet 15 mg PO DAILY diabetes 06/21/24 sucralfate 1 gram tablet 1 g PO BID stomach 06/21/24 tirzepatide 12.5 mg/0.5 mL subcutaneous pen injector (Mounjaro) 12.5 mg subcut QWEEK diabetes 06/21/24 aspirin 81 mg capsule 81 mg PO DAILY #30 caps 06/22/24 Hospital Course Procedures - (MRI) Summary of Care Provided Minutes Spent on Discharge: 24 Hospital Course: # Complex migraine # Possible remote infarct # Thyroid nodules # Type 2 diabetes # GERD # Anxiety/depression 59-year-old female with history as above. Per HPI: LINDY LEAVITT, is a 59 F who presents to the hospital with a headache that leads to neurological symptoms including aphasia as well as uncontrollable laughing and crying. She states that she gets migraines and the aura that occurs is aphasia but the laughing and crying uncontrollably was abnormal. She also had a brain fog which was atypical. No upper extremity or lower extremity numbness or tingling, and no other focal neurological deficits. Symptoms are resolved though she continues to have a headache. She is on verapamil for baseline control of her headaches and used to be on triptans but has not taken any for several years. She does see a neurologist in [place]. She feels completely back to baseline but has significant anxiety secondary to family history of brain aneurysms. CTA of the head and neck was unremarkable with no blockage or stenosis and no signs of aneurysm. her thyroid is read as being heterogeneously enlarged with multiple low-attenuation nodules. This was discussed with her and she knows to follow-up with her PCP to obtain an outpatient thyroid ultrasound. INTERVAL HISTORY: Patient's emotional lability and aphasia resolved, did have right sided headache. MRI with 6 mm signal abnormality of the high left frontal lobe without mass effect of uncertain significance, possibly remote infarct and it was recommended then outpatient MRI brain with and without contrast be ordered for evaluation, additionally reported Findings which are frequency incidental and of doubtful clinical significance given the reported symptoms, but may be seen in the setting of AICA vascular loop syndrome in the appropriate context. Evaluated patient post MRI scan and discussed her MRI findings, patient has the right sided headache but all her symptoms resolved, patient comfortable with discharge home and follow-up with her neurologist on outpatient basis. Discharge instructions as follows: -On your MRI there was a question of a possible old infarct on the left frontal lobe and it was recommended that you have an outpatient contrast and noncontrast MRI, this can be done on nonemergent basis -Given the questionable finding of a possible old infarct we will add aspirin to your regimen for now and would recommend you follow-up with your neurologist, please call their office upon discharge to schedule a follow-up appointment -You can take aspirin 81 mg, this can be obtained [id number] and does not need a prescription -Please call your primary care provider's office upon discharge to schedule a hospital follow up within 1 week. -For any concerning signs or symptoms please call 911 or proceed to the nearest emergency department Physical Exam Narrative General: Alert, oriented, no apparent distress HEENT: Atraumatic, no (more content not included)... [facility] 06-22-2024 Discharge summary [facility] 06-22-2024 Discharge summary [facility] 06-21-2024 History and physical note Note Date/Time June 21, 2024 7:52pm [facility] Medical Records Department [address] [place] [address] H&P Exam - Hospitalist 06/21/24 1818 MR#: [id number] Acct: [id number] Name: LINDY LEAVITT Rep #:[id number] : 1965 59 From: Rogelio faulkner MD PCP: Dr. Robert Ann, DO Status:ADM ALEISHA Location: [place] [address] HPI - General General Date of Admission: 06/21/24 HPI Narrative LINDY LEAVITT, is a 59 F who presents to the hospital with a headache that leads to neurological symptoms including aphasia as well as uncontrollable laughing and crying. She states that she gets migraines and the aura that occurs is aphasia but the laughing and crying uncontrollably was abnormal. She also had a brain fog which was atypical. No upper extremity or lower extremity numbness or tingling, and no other focal neurological deficits. Symptoms are resolved though she continues to have a headache. She is on verapamil for baseline control of her headaches and used to be on triptans but has not taken any for several years. She does see a neurologist in [place]. She feels completely back to baseline but has significant anxiety secondary to family history of brain aneurysms. CTA of the head and neck was unremarkable with no blockage or stenosis and no signs of aneurysm. her thyroid is read as being heterogeneously enlarged with multiple low-attenuation nodules. This was discussed with her and she knows to follow-up with her PCP to obtain an outpatient thyroid ultrasound. [facility] Medical History Anxiety and depression HTN (hypertension) Diabetes mellitus, type 2 KILO on CPAP BRICE (nonalcoholic steatohepatitis) Arthritis Hepatitis High cholesterol Restless legs History of hiatal hernia Smoker Personal history of colonic polyps Migraines IBS (irritable bowel syndrome) GERD (gastroesophageal reflux disease) Home Medications ?Medication ?Instructions ?Recorded ?Last Taken ?Type alprazolam 1 mg tablet (Xanax) 1 mg PO QHS PRN Sleep 0 05/16/16 06/20/24 History melatonin 10 mg tablet 10 mg PO QHS 10/09/20 History simvastatin 20 mg tablet 20 mg PO DAILY 10/09/2009/08 History verapamil 240 mg tablet,extended 240 mg PO DAILY 10/0906/20/24 History release pantoprazole 40 mg tablet,delayed 40 mg PO QAM #90 tab s 09/26/21 06/20/24 Rx release (Protonix) vitamin E (dl, acetate) 180 mg See Rx Instructions .[place] 01/22/24 06/20/24 Rx (400 unit) capsule .COMPLEX #180 caps ergocalciferol (vitamin D2) 1,250 1,250 mcg PO QWEEK 0 06/21/24 06/14/24 History mcg (50,000 unit) capsule (Vitamin D2) escitalopram oxalate 20 mg tablet 10 mg PO QODAY 06/2106/19/24 History escitalopram oxalate 20 mg tablet 20 mg PO QODAY 06/2106/20/24 History metformin 500 mg tablet 500 mg PO BID 06/21/2406/20 History pioglitazone 15 mg tablet 15 mg PO DAILY 06/21/2409/08 History sucralfate 1 gram tablet 1 g PO BID 06/21/24 06/20/24 History tirzepatide 12.5 mg/0.5 mL 12.5 mg subcut QWEEK 06/18/24 History subcutaneous pen injector (Ashkan) Allergy/AdvReac Type Severity Reaction Status Date / Time imipramine AdvReac Intermediate unstable Verified 06/21/24 13:16 moods promethazine (From Phenergan) AdvReac Intermediate hallucinati Verified 06/21/2512:16 ons hydrocodone (From [place]) AdvReac Nausea Verified 06/21/24 13:16 Family History Father Colon cancer Dx stage IV in his 70s. Surgical History Hx of colonoscopy History of carpal tunnel release of both wrists History of cholecystectomy History of laparoscopy History of hysterectomy Social History household members: spouse Smoking Status: Current every day smoker tobacco type: cigarettes alcohol intake: never substance use type: does not use ROS Constitutional Constitutional: Denies chills, fatigue, fever(s) or malaise Eyes Eyes: Denies blurry vision ENT HEENT: Denies headache(s) or nasal discharge Cardiovascular Cardiovascular: Denies chest pain, dyspnea on exertion or syncope Respiratory/Chest Respiratory/Chest: Denies cough, shortness of breath at rest or shortness of breath with exertion Gastrointestinal Gastrointestinal: Denies constipation, diarrhea, nausea or vomiting Genitourinary Genitourinary: Denies dysuria Neurologic Neurologic: Reports abnormal speech and headache(s); Denies focal weakness, numbness or tremor(s) Psychiatric Psychiatric: Denies anxiety or depression Vital Signs Vital Signs Vital Signs: 06/21/24 12:44 06/21/24 13:48 06/21/24 15:00 Temperature 98 F Temperature Source Oral Pulse Rate 75 71 79 Respiratory Rate 16 16 17 Blood Pressure 153/80 H 158/76 H 126/77 H Blood Pressure Mean 104 103 93 Pulse Ox 97 95 97 Oxygen Delivery Method Room Air Room Air Room Air 06/21/24 16:00 06/21/24 17:48 Temperature 98.3 F Temperature Source Pulse Rate 78 76 Respiratory Rate 20 H 18 Blood Pressure 122/69 H 123/74 H Blood Pressure Mean 86 90 Pulse Ox 93 96 Oxygen Delivery Method Room Air Weight Weight: 255 lb 7.899 oz Body Mass Index (BMI) 46.7 Physical Exam Narrative General: Alert, Oriented x3, Cooperative, No apparent distress HEENT: Atraumatic, PERRLA, EOMI, Normocephalic Oral: Moist Mucosa Neck: Supple, No JVD Lungs: Diminished, Normal air movement, No rhonchi, No wheeze, No rales Cardiovascular: Regular rate, Regular Rhythm, Normal S1, Normal S2, No murmurs Abdomen: Soft, Non Tender, Non-Distended, No Hepato-splenomegaly Extremities: No edema, Capillary Refill Less than 3 Seconds Skin: No rashes, No breakdown Musculoskeletal: No Tenderness to Palpation of Joints or Extremities Neurological: No focal neurological deficits, Motor Exam 5/5 strength throughout, Sensory exam intact to light touch and pain Psych/Mental Status: Normal Affect, Appropriate Results Lab / Micro Data 06/21/24 13:40 06/21/24 13:40 Labs: Laboratory Results - last 24 hr 06/21/24 13:35: POC Glucose 98 06/21/24 13:40: WBC 5.4, RBC 5.59 H, Hgb 15.6 H, Hct 46.6, MCV 83.4, MCH 27.9, MCHC 33.5, RDW Std Deviation 39.8, RDW Coeff of Heron 13.2, Plt Count 273, MPV 9.7, Immature Gran % (Auto) 0.200, Neut % (Auto) 53.3, Lymph % (Auto) 36.6, Baldwin% (Auto) 7.9, Eos % (Auto) 1.3, Baso % (Auto) 0.7, Absolute Neuts (auto) 2.9, Absolute Lymphs (auto) 1.99, Nucleated RBC % 0, Sodium 138, Potassium 4.1, Chloride 105, Carbon Dioxide 20.4 L, Anion Gap 12, BUN 10, Creatinine 0.80, Estim Creat Clear Calc 93.60, Est GFR (MDRD) Non-Af 86, BUN/Creatinine Ratio 12.1, Glucose 96, Calcium 9.8 06/21/24 14:50: Urine Color Yellow, Urine Clarity Clear, Urine pH 6.0, Ur Specific [place] 1.005, Urine Protein Negative, Urine Glucose (UA) Normal, UrineKetones Negative, Urine Occult Blood Negative, Urine Nitrite Negative, Urine Bilirubin Negative, Urine Urobilinogen Normal, Ur Leukocyte Esterase Negative, Urine RBC 0 SEEN, Urine WBC 0 SEEN, Ur Squamous Epith Cells 0 SEEN, Urine Bacteria 0 SEEN, Urine Mucus 0 SEEN Imaging Radiology Impression Brain CT 06/21/24 13:14 IMPRESSION: No acute process detected. Normal exam. Reading Location: [facility] Head/Neck CTA 06/21/24 15:45 IMPRESSION: Atherosclerotic calcification of the anterior and posterior intracranial circulation without hemodynamically significant stenosis. Heterogeneously enlarged thyroid gland with multiple low-attenuation nodules. Recommend nonemergent thyroid ultrasound. Reading [facility] Assessment & Plan Assessment/Plan (1) Migraines: PLAN: Plan 1. Complex migraine ? Will obtain MRI in the morning ? All symptoms have resolved and they were consistent with her previous migraineheadaches except for the laughing and crying, no focal neurological deficits andnot significantly consistent with TIA/CVA ? CTA of the head and neck was unremarkable other than a heterogeneously enlarged thyroid which was discussed with her and the need to follow-up with herP for an outpatient thyroid ultrasound ? Continue with her home verapamil to control symptoms 2. DM2 ? Stable ? Will hold her home medications ? Will monitor and make adjustments as necessary ? Continue with insulin 3. Anxiety/depression ? Stable ? Continue with her home Xanax, escitalopram 4. Hyperlipidemia ? Stable ?continue with statin 5. GERD ? Stable ? Continue with Carafate DVT: Ambulation 75 minutes was spent on direct patient care, including documentation as well as chart review and collaboration with colleagues Charges/Coding Visit Charges Inpatient E&M: 68658 Init Hosp L3 06/21/241951 <Electronically signed by Rogelio Garcia MD> Cosigner Signature (if applicable): CC: Dr. Robert Ann, DO; Dr. Rogelio Garcia MD~ Signed [facility] Work Phone: 1(290) 418-898104-07-2025 Evaluation note* Diagnosis Onset Date Resolution Status Admit Date Migraines acute June 21 6:11pm [facility] Work Phone: 1(609) 656-354804-07-2025 History and physical note [facility] Medical Records Department [address] [place] [address] H&P Exam - Hospitalist 06/21/24 1818 MR#: [id number] Acct: [id number] Name: LINDY LEAVITT Rep #:[id number] : 1965 59 From: Rogelio faulkner MD PCP: Dr. Robert Ann, DO Status:ADM ALEISHA Location: [place] [address] HPI - General General Date of Admission: 06/21/24 HPI Narrative LINDY LEAVITT, is a 59 F who presents to the hospital with a headache that leads to neurological symptoms including aphasia as well as uncontrollable laughing and crying. She states that she getsmigraines and the aura that occurs is aphasia but the laughing and crying uncontrollably was abnormal. She also had a brain fog which was atypical. No upper extremity or lower extremity numbness or tingling, and no other focal neurological deficits. Symptoms are resolved though she continues to have a headache. She is on verapamil for baseline control of her headaches and used to be on triptans but has not taken any for several years. She does see a neurologist in [place]. She feels completely back to baseline but has significant anxiety secondary to family history of brain aneurysms. CTA of the head and neck was unremarkable with no blockage or stenosis and no signs of aneurysm. her thyroidis read as being heterogeneously enlarged with multiple low-attenuation nodules. This was discussedwith her and she knows to follow-up with her PCP to obtain an outpatient thyroid ultrasound. [facility] Medical History Anxiety and depression HTN (hypertension) Diabetes mellitus, type 2 KILO on CPAP BRICE (nonalcoholic steatohepatitis) Arthritis Hepatitis High cholesterol Restless legs History of hiatal hernia Smoker Personal history of colonic polyps Migraines IBS (irritable bowel syndrome) GERD (gastroesophageal reflux disease) Home Medications ?Medication ?Instructions ?Recorded ?Last Taken ?Type alprazolam 1 mg tablet (Xanax) 1 mg PO QHS PRN Sleep 0 05/16/16 06/20/24 History melatonin 10 mg tablet 10 mg PO QHS 10/09/20 History simvastatin 20 mg tablet 20 mg PO DAILY 10/09/2009/08 History verapamil 240 mg tablet,extended 240 mg PO DAILY 10/0906/20/24 History release pantoprazole 40 mg tablet,delayed 40 mg PO QAM #90 tab s 09/26/21 06/20/24 Rx release (Protonix) vitamin E (dl, acetate) 180 mg See Rx Instructions .[place] 01/22/24 06/20/24 Rx (400 unit) capsule .COMPLEX #180 caps ergocalciferol (vitamin D2) 1,250 1,250 mcg PO QWEEK 0 06/21/24 06/14/24 History mcg (50,000 unit) capsule (Vitamin D2) escitalopram oxalate 20 mg tablet 10 mg PO QODAY 06/2106/19/24 History escitalopram oxalate 20 mg tablet 20 mg PO QODAY 06/2106/20/24 History metformin 500 mg tablet 500 mg PO BID 06/21/2406/20 History pioglitazone 15 mg tablet 15 mg PO DAILY 06/21/2409/08 History sucralfate 1 gram tablet 1 g PO BID 06/21/24 06/20/24 History tirzepatide 12.5 mg/0.5 mL 12.5 mg subcut QWEEK 06/18/24 History subcutaneous pen injector (Ashkan) Allergy/AdvReac Type Severity Reaction Status Date / Time imipramine AdvReac Intermediate unstable Verified 06/21/24 13:16 moods promethazine (From Phenergan) AdvReac Intermediate hallucinati Verified 06/21/2512:16 ons hydrocodone (From [place]) AdvReac Nausea Verified 06/21/24 13:16 Family History Father Colon cancer Dx stage IV in his 70s. Surgical History Hx of colonoscopy History of carpal tunnel release of both wrists History of cholecystectomy History of laparoscopy History of hysterectomy Social History household members: spouse Smoking Status: Current every day smoker tobacco type: cigarettes alcohol intake: never substance use type: does not use ROS Constitutional Constitutional: Denies chills, fatigue, fever(s) or malaise Eyes Eyes: Denies blurry vision ENT HEENT: Denies headache(s) or nasal discharge Cardiovascular Cardiovascular: Denies chest pain, dyspnea on exertion or syncope Respiratory/Chest Respiratory/Chest: Denies cough, shortness of breath at rest or shortness of breath with exertion Gastrointestinal Gastrointestinal: Denies constipation, diarrhea, nausea or vomiting Genitourinary Genitourinary: Denies dysuria Neurologic Neurologic: Reports abnormal speech and headache(s); Denies focal weakness, numbness or tremor(s) Psychiatric Psychiatric: Denies anxiety or depression Vital Signs Vital Signs Vital Signs: 06/21/24 12:44 06/21/24 13:48 06/21/24 15:00 Temperature 98 F Temperature Source Oral Pulse Rate 75 71 79 Respiratory Rate 16 16 17 Blood Pressure 153/80 H 158/76 H 126/77 H Blood Pressure Mean 104 103 93 Pulse Ox 97 95 97 Oxygen Delivery Method Room Air Room Air Room Air 06/21/24 16:00 06/21/24 17:48 Temperature 98.3 F Temperature Source Pulse Rate 78 76 Respiratory Rate 20 H 18 Blood Pressure 122/69 H 123/74 H Blood Pressure Mean 86 90 Pulse Ox 93 96 Oxygen Delivery Method Room Air Weight Weight: 255 lb 7.899 oz Body Mass Index (BMI) 46.7 Physical Exam Narrative General: Alert, Oriented x3, Cooperative, No apparent distress HEENT: Atraumatic, PERRLA, EOMI, Normocephalic Oral: Moist Mucosa Neck: Supple, No JVD Lungs: Diminished, Normal air movement, No rhonchi, No wheeze, No rales Cardiovascular: Regular rate, Regular Rhythm, Normal S1, Normal S2, No murmurs Abdomen: Soft, Non Tender, Non-Distended, No Hepato-splenomegaly Extremities: No edema, Capillary Refill Less than 3 Seconds Skin: No rashes, No breakdown Musculoskeletal: No Tenderness to Palpation of Joints or Extremities Neurological: No focal neurological deficits, Motor Exam 5/5 strength throughout, Sensory exam intact to light touch and pain Psych/Mental Status: Normal Affect, Appropriate Results Lab / Micro Data 06/21/24 13:40 06/21/24 13:40 Labs: Laboratory Results - last 24 hr 06/21/24 13:35: POC Glucose 98 06/21/24 13:40: WBC 5.4, RBC 5.59 H, Hgb 15.6 H, Hct 46.6, MCV 83.4, MCH 27.9, MCHC 33.5, RDW Std Deviation 39.8, RDW Coeff of [place]on 13.2, Plt Count 273, MPV 9.7, Immature Gran % (Auto) 0.200, Neut % (Auto) 53.3, Lymph % (Auto) 36.6, [place]% (Auto) 7.9, Eos % (Auto) 1.3, Baso % (Auto) 0.7, Absolute Neuts (auto) 2.9, Absolute Lymphs (auto) 1.99, Nucleated RBC % 0, Sodium 138, Potassium 4.1, Chloride 105, Carbon Dioxide 20.4 L, Anion Gap 12, BUN 10, Creatinine 0.80, Estim Creat Clear Calc 93.60, Est GFR (MDRD) Non-Af 86, BUN/Creatinine Ratio 12.1, Glucose 96, Calcium 9.8 06/21/24 14:50: Urine Color Yellow, Urine Clarity Clear, Urine pH 6.0, Ur Specific [place] 1.005, Urine Protein Negative, Urine Glucose (UA) Normal, UrineKetones Negative, Urine Occult Blood Negative, Urine Nitrite Negative, Urine Bilirubin Negative, Urine Urobilinogen Normal, Ur Leukocyte Esterase Negative, Urine RBC 0 SEEN, Urine WBC 0 SEEN, Ur Squamous Epith Cells 0 SEEN, Urine Bacteria 0 SEEN, Urine Mucus 0 SEEN Imaging Radiology Impression Brain CT 06/21/24 13:14 IMPRESSION: No acute process detected. Normal exam. Reading [facility] Head/Neck CTA 06/21/24 15:45 IMPRESSION: Atherosclerotic calcification of the anterior and posterior intracranial circulation without hemodynamically significant stenosis. Heterogeneously enlarged thyroid gland with multiple low-attenuation nodules. Recommend nonemergentthyroid ultrasound. Reading Location: [facility] Assessment & Plan Assessment/Plan (1) Migraines: PLAN: Plan 1. Complex migraine ? Will obtain MRI in the morning ? All symptoms have resolved and they were consistent with her previous migraineheadaches except for the laughing and crying, no focal neurological deficits andnot significantly consistent with TIA/CVA ? CTA of the head and neck was unremarkable other than a heterogeneously enlarged thyroid which wasdiscussed with her and the need to follow-up with herPCP for an outpatient thyroid ultrasound ? Continue with her home verapamil to control symptoms 2. DM2 ? Stable ? Will hold her home medications ? Will monitor and make adjustments as necessary ? Continue with insulin 3. Anxiety/depression ? Stable ? Continue with her home Xanax, escitalopram 4. Hyperlipidemia ? Stable ?continue with statin 5. GERD ? Stable ? Continue with Carafate DVT: Ambulation 75 minutes was spent on direct patient care, including documentation as well as chart review and collaboration with colleagues Charges/Coding Visit Charges Inpatient E&M: 99104 Init Hosp L3 06/21/241951 Cosigner Signature (if applicable): CC: Dr. Robert Ann DO; Dr. Rogelio Garcia MD~ Signed [facility]04-07-2025 Radiology Diagnostic study note [facility] Imaging Services [address] [place] [address] CTA Head AND Neck W/ Contrast MR#: [id number] Acct: [id number] Name: LINDY LEAVITT Rep #: [id number] : 1965 F 59 From: Augusta Cooper MD PCP: Dr. Robert Ann DO Status: REG ER Study:CTA Head AND Neck W/ Contrast Date of E xam: 06/21/24 Exam# [id number] Ordering Dr: Becky Hummel PROCEDURE: CTA HEAD AND NECK W/ CONTRAST 06/21/2024 REASON FOR EXAM: APHASIA TECHNIQUE: CTA imaging of the head and neck from the aortic arch to the skull vertex with intravenous contrast. Coronal and Sagittal reconstruction series were provided. 3D, 3D post processing, 3D reconstructions, Maximum intensity projection (MIPs) Volume rendering and Shaded surface rendering was provided. CONTRAST: Omnipaque 350 VOLUME: 100 mL Gauge IV One or more dose reduction techniques were used (e.g., Automated exposure control, adjustment of the mA and/or kV according to patient size, use of iterative reconstruction technique). # of known CTs in the past 12 months: 0 # of known Cardiac Nuclear Medicine Studies in the past 12 months: 0 COMPARISON: None FINDINGS: Aortic Arch: Three-vessel arch branch anatomy. Mild atherosclerotic calcification of the aortic arch. Brachiocephalic and Subclavians: Mild atherosclerotic plaque without significantstenosis. RIGHT Carotid: Right CCA: Mild calcified and soft plaque. Right ICA: Mild calcified and soft plaque. Maximum stenosis (NASCET): <10 % Right ECA: Unremarkable. LEFT Carotid: Left CCA: Mild calcified and soft plaque. Left ICA: Mild calcified and soft plaque. Maximum stenosis (NASCET): <10 % Left ECA: Unremarkable. Vertebrals: Codominant. Arise from the subclavians. Both vertebrals form the basilar. RIGHT Vertebral: Unremarkable. LEFT Vertebral: Unremarkable. Anatomy: [place] anatomy is normal. Mild atherosclerotic calcificationof the siphons bilaterally, without hemodynamically significant stenosis. Aneurysm or avm: No intracranial aneurysms or large vascular malformations are identified. Anterior cerebral arteries: Unremarkable: Middle cerebral arteries: Patent bilateral MCAs, without hemodynamically significant stenosis. Basilar artery: Unremarkable. Posterior cerebral arteries: Unremarkable. Other major branches of the posterior circulation: Unremarkable. Major venous structures: Unremarkable. Other findings: Neck: Heterogeneously enlarged thyroid gland with multiple low- attenuation nodules.Lungs: Lung apices are clear. Bones: Bones are unremarkable. CT/CTA Head AND Neck W/ Contrast IMPRESSION: Atherosclerotic calcification of the anterior and posterior intracranial circulation without hemodynamically significant stenosis. Heterogeneously enlarged thyroid gland with multiple low-attenuation nodules. Recommend nonemergentthyroid ultrasound. [facility] CC: Dr. 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 Robert Ann DO Status: REG ER Study:Brain/Head without Contrast Date of Exa m: 06/21/24 Exam# [id number] Ordering Dr: Becky Hummel PROCEDURE: BRAIN/HEAD WITHOUT CONTRAST 06/21/2024 REASON FOR EXAM: HEADACHE Altered mentation. TECHNIQUE: Head CT without intravenous contrast. Coronal and Sagittal reconstruction serieswere provided. One or more dose reduction techniques were used (e.g., Automated exposure control, adjustment of the mA and/or kV according to patient size, use of iterative reconstruction technique. RADIATION DOSE SUMMARY: CTDlvol: 44.99 mGy DLP: 779.24 mGycm COMPARISON: None. FINDINGS: Brain: No mass, mass effect or midline shift CSF Spaces: Ventricles and sulci are unremarkable for the patient's age. Sinuses/Mastoids: Clear Bones: Unremarkable CT/Brain/Head without Contrast IMPRESSION: No acute process detected. Normal exam. Reading [facility] CC: Dr. 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 Robert Ann DO Status:ADM ALEISHA Location: [place] [id number] HPI <JEFFERY Gutiérrez - Last Filed: 06/21/24 18:40> History of Present Illness Chief Complaint: Neuro S/Sx Narrative Narrative: 59-year-old female with PMH of DM2, migraines states around 9:50 AM she was working from home in a work meeting and started to feel abnormal. She got off the meeting and called a friend and had some difficulty speaking. She states she then started having inappropriate laughing and crying. She also developed agradual onset right-sided headache and nausea that feels like prior migraines. She is on verapamil for migraines and follows with a neurologist in [place]. Shewas prescribed rizatriptan in the past but no longer has it. She states she hashad an aura with her migraines where she had some difficulty thinking or speaking in the past but is never had these laughing or crying symptoms. The only recent change is her Mounjaro for diabetes/weight loss was increased 3 daysago and she has had decreased appetite over the weekend but is still eating. She has no vomiting or diarrhea. [facility] <JEFFERY Gutiérrez - Last Filed: 06/21/24 18:40> [facility] Medical History Anxiety and depression HTN (hypertension) Diabetes mellitus, type 2 KILO on CPAP BRICE (nonalcoholic steatohepatitis) Arthritis Hepatitis High cholesterol Restless legs History of hiatal hernia Smoker Personal history of colonic polyps Migraines IBS (irritable bowel syndrome) GERD (gastroesophageal reflux disease) Home Medications ?Medication ?Instructions ?Recorded ?Last Taken ?Type alprazolam 1 mg tablet (Xanax) 1 mg PO QHS PRN Sleep 0 05/16/16 06/20/24 History melatonin 10 mg tablet 10 mg PO QHS 10/09/20 History simvastatin 20 mg tablet 20 mg PO DAILY 10/09/2009/08 History verapamil 240 mg tablet,extended 240 mg PO DAILY 10/0906/20/24 History release pantoprazole 40 mg tablet,delayed 40 mg PO QAM #90 tab s 09/26/21 06/20/24 Rx release (Protonix) vitamin E (dl, acetate) 180 mg See Rx Instructions .[place] 01/22/24 06/20/24 Rx (400 unit) capsule .COMPLEX #180 caps ergocalciferol (vitamin D2) 1,250 1,250 mcg PO QWEEK 0 06/21/24 06/14/24 History mcg (50,000 unit) capsule (Vitamin D2) escitalopram oxalate 20 mg tablet 10 mg PO QODAY 06/2106/19/24 History escitalopram oxalate 20 mg tablet 20 mg PO QODAY 06/2106/20/24 History metformin 500 mg tablet 500 mg PO BID 06/21/2406/20 History pioglitazone 15 mg tablet 15 mg PO DAILY 06/21/2409/08 History sucralfate 1 gram tablet 1 g PO BID 06/21/24 06/20/24 History tirzepatide 12.5 mg/0.5 mL 12.5 mg subcut QWEEK 06/18/24 History subcutaneous pen injector (Phillundarshanro) Allergy/AdvReac Type Severity Reaction Status Date / Time imipramine AdvReac Intermediate unstable Verified 06/21/24 13:16 moods promethazine (From Phenergan) AdvReac Intermediate hallucinati Verified 06/21/2512:16 ons hydrocodone (From [place]) AdvReac Nausea Verified 06/21/24 13:16 Family History Father Colon cancer Dx stage IV in his 70s. Surgical History Hx of colonoscopy History of carpal tunnel release of both wrists History of cholecystectomy History of laparoscopy History of hysterectomy Social History household members: spouse Smoking Status: Current every day smoker tobacco type: cigarettes alcohol intake: never substance use type: does not use ROS <JEFFERY Gutiérrez - Last Filed: 06/21/24 18:40> ROS ED ROS Narrative Constitutional: Negative for fever, chills, malaise. Eyes: Negative for visual change. CVS: Negative for chest pain. Respiratory: Negative for shortness of breath, cough. GI: Positive for nausea. No vomiting. Neuro: Positive for headache, negative for motor/sensory dysfunction. EXAM <JEFFERY Gutiérrez - Last Filed: 06/21/24 18:40> Physical Exam Narrative Exam Narrative: CONST: Patient sitting in no acute distress. EYES: Normal inspection. PERRL, EOMI. NECK: Normal inspection. RESP: No respiratory distress, CTAB. CVS: Regular rate and rhythm, no murmur, no gallop. SKIN: Color normal, no rash, warm, dry, intact. EXTREMITIES: Normal appearance, no pedal edema. NEURO: Alert and answering questions appropriately. Alert and oriented, EOMI, visual quinones intact, face symmetric, no upper or lower extremity drift, normal pdeslz-qy-rxzm and dtue-dw-xpfq, normal sensation, no aphasia or dysarthria, no extinction. NIH is 0. PSYCH: Normal affect. Const Vital Signs: 06/21/24 16:00 06/21/24 17:48 Temperature 98.3 F Pulse Rate 78 76 Respiratory Rate 20 H 18 Blood Pressure 122/69 H 123/74 H Blood Pressure Mean 86 90 Pulse Ox 93 96 Oxygen Delivery Method Room Air <Dr. Sandrine Fisher DO - Last Filed: 06/22/24 15:30> Physical Exam Const Vital Signs: 06/21/24 16:00 06/21/24 17:48 Temperature 98.3 F Pulse Rate 78 76 Respiratory Rate 20 H 18 Blood Pressure 122/69 H 123/74 H Blood Pressure Mean 86 90 Pulse Ox 93 96 Oxygen Delivery Method Room Air MDM <JEFFERY Gutiérrez - Last Filed: 06/21/24 18:40> MDM MDM Narrative Medical decision making narrative: Differential includes but not limited to complex migraine, TIA 59-year-old female had an episode of expressive aphasia this morning. She also feels like she is having inappropriate emotional responses. She also developed a right-sided migraine with history of similar in the past. She appears well and nontoxic. Vital signs stable. Her exam is completely normal with an NIH of0. Affect is appropriate. CBC and BMP are overall unremarkable. Urinalysis negative. CT brain negative.CTA shows some atherosclerotic calcifications without hemodynamically significant stenosis. Patient was given aspirin 325 mg. Although this may be a complex migraine I feel TIA should also be ruled out Ad discussed the case with the hospitalist for admission. Lab Data Attestation: I reviewed the patient's lab results. Labs: Laboratory Results - last 24 hr 06/21/24 14:50 Urine Color Yellow Urine Clarity Clear Urine pH 6.0 Ur Specific [place] 1.005 Urine Protein Negative Urine Glucose (UA) Normal Urine Ketones Negative Urine Occult Blood Negative Urine Nitrite Negative Urine Bilirubin Negative Urine Urobilinogen Normal Ur Leukocyte Esterase Negative Urine RBC 0 SEEN Urine WBC 0 SEEN Ur Squamous Epith Cells 0 SEEN Urine Bacteria 0 SEEN Urine Mucus 0 SEEN Radiography Diagnostic Testing: Clinical Impression(s) from Imaging Studies Brain CT 06/21/24 13:14 IMPRESSION: No acute process detected. Normal exam. Reading [facility] Head/Neck CTA 06/21/24 15:45 IMPRESSION: Atherosclerotic calcification of the anterior and posterior intracranial circulation without hemodynamically significant stenosis. Heterogeneously enlarged thyroid gland with multiple low-attenuation nodules. Recommend nonemergent thyroid ultrasound. Reading Location: [facility] <Dr. Sandrine Fisher, DO - Last Filed: 06/22/24 15:30> [facility] Narrative Medical decision making narrative: Differential includes but not limited to complex migraine, TIA 59-year-old female had an episode of expressive aphasia this morning. She also feels like she is having inappropriate emotional responses. She also developed a right-sided migraine with history of similar in the past. She appears well and nontoxic. Vital signs stable. Her exam is completely normal with an NIH of0. Affect is appropriate. CBC and BMP are overall unremarkable. Urinalysis negative. CT brain negative.CTA shows some atherosclerotic calcifications without hemodynamically significant stenosis. Patient was given aspirin 325 mg. Although this may be a complex migraine I feel TIA should also be ruled out Ad discussed the case with the hospitalist for admission. I have personally performed a face to face assessment of the patient and have reviewed the EMERSON Note. I performed a substantive portion of the visit including all aspects of the following. My celestin findings include: History is Patient is a 59-year-old female with history of diabetes mellitus as well as regular headaches/migraines presenting with sudden onset of difficulty speaking. Patient states she could not get the words out that she needed to. This was preceded by right-sided headache however states that is not particularly atypical for her. She then felt that she had a labile mood when go from crying to laughing hysterically. She remembers when frustrated that she could not get the words out but she wanted to however she was saying words. She also voices concern as her sister of an aneurysm at the base of her brain at the same age of her. Patient does not have any meningeal signs. No nuchal rigidity. Head normocephalic atraumatic. Membranes. PERRL/EOMI. She does have some mild nystagmus with leftward gaze bilaterally that is fatiguing. NIH is 0. Normal izrvef-hm-gieq. No truncal ataxia. No drift of the extremities. Heart regularrate and rhythm. Abdomen soft nontender. Easy respirations. No rash appreciated. Differential includes TIA, partial seizure, brain mass, aneurysm and atypical migraine. Patient currently has an NIH of 0 and a relatively normal exam. Her workup is largely negative. Patient is given sumatriptan and zofran initially for headache then Toradol after negatvie head imaging in the emergencyroom. Patient counseled I cannot rule out small stroke or TIA without MRI. Sheis agreeable to admission for further stroke evaluation. Given dose of aspirin. Case is discussed with hospitalist for admission. Lab Data Labs: Laboratory Results - last 24 hr 06/21/24 14:50 Urine Color Yellow Urine Clarity Clear Urine pH 6.0 Ur Specific [place] 1.005 Urine Protein Negative Urine Glucose (UA) Normal Urine Ketones Negative Urine Occult Blood Negative Urine Nitrite Negative Urine Bilirubin Negative Urine Urobilinogen Normal Ur Leukocyte Esterase Negative Urine RBC 0 SEEN Urine WBC 0 SEEN Ur Squamous Epith Cells 0 SEEN Urine Bacteria 0 SEEN Urine Mucus 0 SEEN Laboratory Results - last 24 hr 06/21/24 14:50 Urine RBC 0 SEEN Urine WBC 0 SEEN Ur Squamous Epith Cells 0 SEEN Urine Bacteria 0 SEEN Urine Mucus 0 SEEN Radiography Diagnostic Testing: Clinical Impression(s) from Imaging Studies Brain CT 06/21/24 13:14 IMPRESSION: No acute process detected. Normal exam. Reading [facility] Head/Neck CTA 06/21/24 15:45 IMPRESSION: Atherosclerotic calcification of the anterior and posterior intracranial circulation without hemodynamically significant stenosis. Heterogeneously enlarged thyroid gland with multiple low-attenuation nodules. Recommend nonemergent thyroid ultrasound. Reading [facility] Management Discussion w/another healthcare provider: Hospitalist Discharge Plan Dx/Rx/DC Orders Clinical Impression: Expressive aphasia, Migraine Disposition Disposition: Acute Care Hospital [facility] Discharge Date/Time: 06/21/24 18:30 What to do if you have Problems For any increased pain, shortness of breath, bleeding, nausea or vomiting, chestpain, or any unexpected problems, contact your Primary Care Provider. Call [facility] ([phone]) or report to the closest Emergency Room. Call 911 if necessary. 06/21/24 1840 <Electronically signed by Becky GIL> Cosigner Signature (if applicable): 06/22/24 1530 <Electronically signed by Sandrine Fisher DO> CC: Dr. Robert Ann, ~ Signed [facility] Work Phone: [phone]) 518-733301-09-2024 Telephone encounter Note* Telephone Encounter - Zulay Rodriguez - 03/25/2023 2:[address] Gutierrez no abx needed for dental work. Verbal given to Flor with dental office. Faxed to office @ [phone] as well. [facility] [id number] Miscellaneous Notes* Telephone Encounter - Zulay Sandor Jennifer - 03/25/2023 2:[address] Gutierrez no abx needed for dental work. Verbal given to Flor with dental office. Faxed to office @ [phone] as well. documented in this [facility]12-19-2023 History of Present illness Narrative* Diane Gutierrez MD - 03/04/2023 11:20 AM EST Subjective: Lindy is approximately 3 months s/p ORIF Left terrible triad elbow fracture dislocation, DOS 12/09/22 . This was treated with ORIF of the olecranon and ORIF of radial head. Pain is mild . She has no new complaints today. She is right hand dominant. She is currently in outpatient physical therapy. She is struggling with range of motion in her left hand. Review of Systems Objective: There were no vitals taken for this visit. Incision: healed. There is no drainage or erythema. Skin is warm, dry and intact. Elbow ROM shows flexion: 120, extension: 30, pronation: 80, supination: 30. Wrist and finger ROM finger flexion to 1 cm from palm. Sensation is grossly intact to all digits.Capillary refill is brisk to all digits. XRAYS: 2v left elbow show the elbow remains well-aligned and unchanged from intra-operative films. Hardware/implants remain intact with no obviousloosening or failure. Radial head remains well-aligned to capitellum. Assessment No diagnosis found. Plan No orders of the defined types were placed in this encounter. Lindy will continue aggressive ROM of elbow, forearm, wrist and fingers, strengthening, weight bearing and functional activities based on pain. We reviewed expectations and timeline for functional recovery. . No follow-ups on file. with 2v elbow. Electronically signed by Diane Gutierrez M.D. 03/04/2023 at 11:32 AM. documented in this [facility]11-07-2023 History of Present illness Narrative* Diane Gutierrez MD - 01/21/2023 11:20 AM EST Subjective: Lindy is approximately 6 weeks s/p ORIF Left terrible triad elbow fracture dislocation, DOS 12/09/22 . Pain is mild . She has no new complaints today. She denies new numbness or tingling since surgery. Patient is right hand dominant. She has been coming out of her sling only for showering. She has not started physical therapy. Review of Systems Objective: Ht 5' 2 (1.575 m) Wt 270 lb (122 kg) BMI 49.38 kg/m Incision: clean, dry,and intactwith appropriate healing. There is no drainage or erythema. Skin is warm, dry and intact. Elbow ROM shows flexion: 100, extension: 40, pronation: 80, supination: 10. Wrist and finger ROM full. Sensation is grossly intact to all digits. Capillary refill is brisk to all digits. XRAYS: 2v left elbow show the elbow remains well reduced. Radial head replacement is in good position. Heterotopic ossification is seen both anteriorly and posteriorly on the lateral image. Assessment 1. Closed fracture dislocation of left elbow with routine healing, subsequent encounter Plan Orders Placed This Encounter Procedures Ambulatory referral to Physical Therapy Lindy will continue aggressive ROM of elbow, forearm, wrist and fingers with additional strengthening and weight bearing and return to functional activities based on pain. Follow up in 6 weeks (on 03/04/2023) for xray in 6 weeks. with 2v of elbow. Electronically signed by Diane Gutierrez M.D. 01/21/2023 at 12:41 PM. documented in this [facility]11-07-2023 Instructions* Patient Instructions* Kareen Jaureguiladan - 01/21/2023 11:20 AM EST Images from the original note were not included. documented in this [facility]10-09-2023 Telephone encounter Note* Telephone Encounter - Radha Luna - 12/23/2022 11:43 AM EDT Name of caller: Angelo Contact phone number: [phone] Relationship to Patient: [facility] Provider: Dr. Gutierrez Practice: Ortho Chief Complaint/Reason for Call: Patient stated she didn't think she needed Home PT. [facility] called office and relayed the message CAC contacted Greer and she stated if patient is comfortable doing exercises at home after next appt she will go to OP PT. FYI Best time of day caller can be reached: any Patient advised that office/PCP has 24-48 business hours to return their call: No [facility] [id number] Miscellaneous Notes* Telephone Encounter - Radha Luna - 12/23/2022 11:43 AM EDT Name of caller: Angelo Contact phone number: [phone] Relationship to Patient: [facility] Provider: Dr. Gutierrez Practice: Ortho Chief Complaint/Reason for Call: Patient stated she didn't think she needed Home PT. [facility] called office and relayed the message CAC contacted [facility] and she stated if patient is comfortable doing exercises at home after next appt she will go to OP PT. FYI Best time of day caller can be reached: any Patient advised that office/PCP has 24-48 business hours to return their call: No documented in this [facility]10-03-2023 History of Present illness Narrative* Diane Gutierrez MD - 12/17/2022 11:30 AM EDT Subjective: Lindy is approximately 1 week s/p left radial head replacement for fracture, left coronoid/capsule repair, and left LCL primary repair on 12/09/22. Pain is moderate . She has no new complaints today. She denies new numbness or tingling since surgery Review of Systems Objective: Ht 5' 2 (1.575 m) Wt 270 lb (122 kg) BMI 49.38 kg/m Incision: clean, dry,and intact with appropriate early healing. There is no drainage or erythema. Skin iswarm, dry and intact. Elbow, wrist and forearm ROM are limited secondary to pain and splinting. Finger ROM full. Sensation is grossly intact to all digits. Capillary refill is brisk to all digits. XRAYS: Lateral only of left elbow show the elbow remains concentric. Radial head replacement is in good position. Assessment 1. Closed fracture dislocation of left elbow with routine healing, subsequent encounter Plan Orders Placed This Encounter Procedures Ambulatory referral to Physical Therapy Lindy will start PT. We discussed the specifics of her range of motion and restrictions as wellas varus stress precautions. She will remain nonweightbearing to the left arm. She will use the sling for mobilization. . Follow up in about 5 weeks (around 01/21/2023). with 2v of elbow. Electronically signed by Diane Gutierrez M.D. 12/17/2022 at 12:35 PM. documented in this [facility]10-03-2023 Instructions* Patient Instructions* Kareen Chinyere - 12/17/2022 11:30 AM EDT Images from the original note were not included. Fax Number- [phone] Contact number - [phone] Please make sure patient name and date of is on paperwork along with patients part of form filled out Please send clinical photos to [email or web address] or via [employer] Please include your name and date of in the subject line of e-mail Clinical photos sent via [employer] can be attached to a message, see below: documented in this encounterSThe [facility] [id number] Telephone encounter Note* Telephone Encounter - Adarsh Montes PA-C - 12/13/2022 1:34 PM EDT Lindy was given a prescription for Oxycodone 5mg 1 tab q6hrs PRN severe pain #20 (twenty) no refills. Narcotic pain medications have addictive potential and should only be taken for severe pain. The patient's OARRS report was obtained and reviewed by myself today. [facility] [id number] Miscellaneous Notes* Telephone Encounter - Adarsh Montes PA-C - 12/13/2022 1:34 PM EDT Lindy was given a prescription for Oxycodone 5mg 1 tab q6hrs PRN severe pain #20 (twenty) no refills. Narcotic pain medications have addictive potential and should only be taken for severe pain. The patient's OARRS report was obtained and reviewed by myself today. * Telephone Encounter - Greer Dolan MA - 12/13/2022 1:26 PM EDT Please sign * Telephone Encounter - Jillian Burgos - 12/13/2022 1:17 PM EDT Name of caller: Lindy Leavitt Contact phone number: [phone] Relationship to Patient: patient Provider: Dr. Gutierrez Practice: Ortho Chief Complaint/Reason for Call: Pt is requesting a refill for: Oxycodone 5 mg immediate release tablet Start Date 12/09/22, End Date 12/14/22. Pt has confirmed [facility] [address] [facility] in [place]. Pt had OPEN REDUCTION INTERNAL FIXATION FRACTURE DISLOCATION OF ELBOW / OPEN REDUCTION PERIARTICULAR FRACTURE AND OR DISLOCATION OF THE ELBOW DOS 12/09 w/ Dr. Gutierrez. Please advise. Best time of day caller can be reached: any Patient advised that office/PCP has 24-48 business hours to return their call: Yes documented in this encounterSThe [facility] [id number] Telephone encounter Note* Telephone Encounter - Greer Dolan MA - 12/13/2022 1:26 PM EDT Please sign [facility] [id number] Telephone encounter Note* Telephone Encounter - Jillian Burgos - 12/13/2022 1:17 PM EDT Name of caller: Lindy Leavitt Contact phone number: [phone] Relationship to Patient: patient Provider: Dr. Gutierrez Practice: Ortho Chief Complaint/Reason for Call: Pt is requesting a refill for: Oxycodone 5 mg immediate release tablet Start Date 12/09/22, End Date 12/14/22. Pt has confirmed [facility] [address] [facility] in [place]. Pt had OPEN REDUCTION INTERNAL FIXATION FRACTURE DISLOCATION OF ELBOW / OPEN REDUCTION PERIARTICULAR FRACTURE AND OR DISLOCATION OF THE ELBOW DOS 12/09 w/ Dr. Gutierrez. Please advise. Best time of day caller can be reached: any Patient advised that office/PCP has 24-48 business hours to return their call: Yes [facility] [id number] NoteDischarge Summary Lindy Leavitt : 1965 ADMIT DATE: 12/07/2022 DISCHARGE DATE: 12/10/2022 PRIMARY CARE PHYSICIAN: No primary care provider on file. VISIT STATUS: observation CODE STATUS: Full Code DISCHARGE DIAGNOSES: Fall Elbow fracture s/p ORIF DM with hyperglycemia KILO Chronic: Obesity Hypertension GERD/hiatal hernia Hyperlipidemia History of IBS BRICE Chronic smoking history History of restless leg syndrome HOSPITAL COURSE: 57 y.o. female with past medical history -obesity, hypertension, KILO on nocturnal CPAP, diabetes mellitus type, GERD/hiatal hernia, hyperlipidemia, IBS, BRICE, restless leg syndrome, chronic smoking history. Admitted following fall, landed on left elbow.Denies any head trauma, loss of consciousness. Patient initially presented to [facility] where two attempts were made to reduce her elbow, only one with medication and neither with sedation. After patient having continued instability while splinted she was transferred to [facility] for care and found to be dislocated in her splint. She denies any chest pain, shortness of breath, cough No nausea, vomiting, abdominal pain No fever spike noted Glucose 213, hemoglobin 13 EKG shows sinus rhythm, no acute changes Chest x-ray negative for acute process X-ray of left elbow showed acute fracture/dislocation of elbow. Patient went to OR for Elbow repair by orthopedic surgery. Postoperative course uneventful. Pain controlled. NWB LUE, in sling and swath. Patient able to ambulate to Bathroom on her own for the most part. Cleared for discharge on 12/10. PE: alert, NAD, Heart RRR, LCTA B/L, abd soft,NT. Ext- LUE in sling and swath. SIGNIFICANT DIAGNOSTIC STUDIES: Elbow XR - 3 view ->FINDINGS: The patient's elbow is within a cast, obscuring fine bony detail. There is posterior dislocation of the elbow and acute comminuted fracture of the radius. Fracture fragments are present anterior to the humeral condyles on the lateral view. Associated joint effusion. Possible fracture of the tip of the coronoid process. Impression: Acute fracture and dislocation of the elbow as described. CONSULTANTS: Orthopedic surgery RECOMMENDED NEXT STEPS: Continue postop mgmt per Ortho Take pain medication as needed - PDMP reviewed- educated to take stool softener with medication to prevent opioid induced constipation. DISCHARGE MEDICATIONS: Medication List START taking these medications oxyCODONE 5 MG immediate release tablet Commonly known as: Roxicodone Take 1 tablet (5 mg) by mouth every 6 hours as needed for moderate pain (4-6) or severe pain (7-10) for up to 5 days. CONTINUE taking these medications alpha tocopherol 400 units capsule Commonly known as: Vitamin E ALPRAZolam 1 MG tablet Commonly known as: Xanax escitalopram 20 MG tablet Commonly known as: Lexapro melatonin 10 MG tablet metFORMIN 500 MG tablet Commonly known as: Glucophage pantoprazole 40 MG EC tablet Commonly known as: ProtoNix pioglitazone 15 MG tablet Commonly known as: Actos simvastatin 20 MG tablet Commonly known as: Zocor Trulicity 1.5 MG/0.5ML solution pen-injector Generic drug: dulaglutide ursodiol 300 MG capsule Commonly known as: Actigall verapamil SR 240 MG ER tablet Commonly known as: Calan SR Where to Get Your Medications These medications were sent to [facility]/pharmacy #[id number] - [place], [place] - [phone] [address] oxyCODONE 5 MG immediate release tablet DIET: Adult diet Regular ACTIVITY: Up with assist -NWB LUE COMPLEXITY OF FOLLOW UP: [] Moderate Complexity: follow up within 7-14 calendar days (81984) [] Severe Complexity: follow up within 7 calendar days (78400) FOLLOW UP TESTING, PENDING RESULTS OR REFERRALS AT TRANSITIONAL CARE VISIT: [] Yes [x] No PENDING STUDIES: none DISPOSITION: Home Follow up with Diane Gutierrez MD [address] [place] [address] [address] Replaced by [facility] [id number] Go on 12/17/2022 11:30AM, For post operative follow up INSTRUCTIONS TO MA/SW: Please call patient on day after discharge (must document patient contacted within 2 business days of discharge). FOLLOW UP QUESTIONS FOR MA/SW: 1. Did you get medications filled and taking them as instructed from discharge? 2. Are you following your discharge instructions from your hospital stay? 3. Please confirm patient is scheduled for a follow up appointment within the above time frame. DISCHARGE TIME: 35 minutes spent in coordination of patients discharge plan. SIGNED: Desmond Shaikh MD 12/10/2022, 12:09 [facility] [id number] NoteOrtho Progress Note Patient: Lindy Leavitt Date of : 1965 Acct: [id number] PCP: No primary care provider on file. Date of Admission: 12/07/2022 Date of Service: Pt seen/examined on 12/10/2022 SUBJECTIVE: No acute events overnight. Resting comfortably in bed. Pain well controlled. Denies new paresthesias, patient states post op block still in place. Denies CP/SOB. Denies fevers or chills. OBJECTIVE: General: alert and oriented to person, place and time, well-developed and well-nourished, in no acute distress VITALS: BP 115/57 (BP Location: Right arm, Patient Position: Lying) Pulse 55 Temp 36.6 ?C (97.9 ?F) (Oral) Resp 16 Ht 1.575 m (5' 2) Wt 122 kg (270 lb) SpO2 94% BMI 49.38 kg/m? MSK exam: LUE Dressing: Splint in place, c/d/I Tingling in fingertips, post op block still intact Able to wiggle fingers Brisk capillary refill to fingers Lab Results Component Value Date WBC 8.0 12/09/2022 HGB 13.3 12/09/2022 HCT 39.9 12/09/2022 PLT 225 12/09/2022 ALT 28 12/09/2022 AST 23 12/09/2022 NA 136 12/09/2022 K 3.9 12/09/2022 CL 104 12/09/2022 CREATININE 0.64 12/09/2022 BUN 13 12/09/2022 CO2 23 12/09/2022 TSH 0.844 12/09/2022 INR 1.0 12/08/2022 HGBA1C 8.6 (H) 12/09/2022 Lab Results Component Value Date RH POS 12/08/2022 RH POS 12/08/2022 ASSESSMENT AND PLAN: This is a 57 y.o. female s/p ORIF L elbow terrible triad 12/09 -Weight bearing: NWB LUE -Keep splint C/D/I -Sling prn comfort -Ok for finger ROM -No return to OR planned -OK for diet from ortho standpoint -Abx x24hrs, if remains IP -PT/OT -DVT prophylaxis/medical management/pain control per 1? team -F/u OP w/ Dr Gutierrez in 1 weeks, discharge instructions in AVS -Ok for dc home today from ortho standpoint Alejandro Wilson MD 12/10/2022[facility]09-25-2023 NoteHospitalist Progress Note 12/09/[id number]: Please secure chat me for patient care issues. [phone]: Please secure chat [facility] Hospitalist for any issues. Subjective: Admit Date: 12/07/2022 PCP: No primary care provider on file. Room#: H-9861/H-2700 A Brief HPI: 57 y.o. female with past medical history -obesity, hypertension, KILO on nocturnal CPAP, diabetes mellitus type, GERD/hiatal hernia, hyperlipidemia, IBS, BRICE, restless leg syndrome, chronic smoking history. Admitted following fall, landed on left elbow.Denies any head trauma, loss of consciousness. Patient initially presented to [facility] where two attempts were made to reduce her elbow, only one with medication and neither with sedation. After patient having continued instability while splinted she was transferred to [facility] for care and found to be dislocated in her splint. She denies any chest pain, shortness of breath, cough No nausea, vomiting, abdominal pain No fever spike noted Glucose 213, hemoglobin 13 EKG shows sinus rhythm, no acute changes Chest x-ray negative for acute process X-ray of left elbow showed acute fracture/dislocation of elbow Interval History: seen postoperatively, pain controlled, tolerating diet, ambulated to bathroom. Adult diet Regular @SKMD8IKSFIE@ 24HR INTAKE/OUTPUT: Intake/Output Summary (Last 24 hours) at 12/09/2022 1524 Last data filed at 12/09/2022 1148 Gross per 24 hour Intake 821 ml Output 25 ml Net 796 ml Past Medical History: Past Medical History: Diagnosis Date Arthritis Autoimmune hepatitis (CMS/HCC) (HCC) Depression Diabetes mellitus (HCC) Hyperlipidemia Insomnia BRICE (nonalcoholic steatohepatitis) Restless legs syndrome Sleep apnea LABS: CBC: Recent Labs 09/13612/09/22235 WBC 11.0* 8.0 RBC 4.99 4.76 HGB 14.0 13.3 HCT 41.7 39.9 MCV 83.6 83.8 RDW 14.9* 14.8* PLT 289 225 BMP: Recent Labs 12/08/2213612/09/22235 NA 134* 136 K 4.0 3.9 CL 104 104 CO2 21* 23 BUN 17 13 CREATININE 0.68 0.64 GLUCOSE 213* 249* CALCIUM 8.8 8.6 ANIONGAP 9 9 LIVER PROFILE: Recent Labs 12/09/22235 AST 23 ALT 28 BILITOT 0.4 ALKPHOS 74 PROT 6.1* PT/INR: Recent Labs 12/08/22136 PROTIME 10.8 INR 1.0 CARDIAC ENZYMES: No results for input(s): TROPONINI in the last 72 hours. Procalcitonin: No results found for: PROCAL COVID-19 PCR: No results for input(s): COVID19 in the last 72 hours. Objective: Vitals: BP 109/57 Pulse 72 Temp 36.7 ?C (98.1 ?F) (Temporal) Resp 18 Ht 5' 2 (1.575 m) Wt 270 lb (122 kg) SpO2 93% BMI 49.38 kg/m? Pulse Ox: SpO2 Av.2 % Min: 93 % Max: 96 % Physical Exam General appearance: No apparent distress, HEENT: Eyes: No scleral icterus Cardiovascular: S1/S2 heard, RRR Respiratory: Clear to auscultation bilaterally anteriorly Abdomen: Soft, non-tender, non-distended bowel sounds positive,no mass palpable Extremity: no significant peripheral edema both lower extremities Musculoskeletal: Left forearm/elbow in sling Medications: sodium chloride, 100 mL/hr, Last Rate: 100 mL/hr (12/09/22721) ALPRAZolam, 1 mg, Oral, Nightly atorvastatin, 20 mg, Oral, Daily ceFAZolin, 3,000 mg, IntraVENous, q8h escitalopram, 20 mg, Oral, Daily influenza, 0.5 mL, IntraMUSCular, Once insulin lispro, 0-6 Units, SubCUTAneous, TID WC And insulin lispro, 0-6 Units, SubCUTAneous, Nightly ketamine, 0.82 mg/kg, IntraVENous, Once lidocaine PF, , , melatonin, 10 mg, Oral, Nightly pantoprazole, 40 mg, Oral, q AM Propofol, 1 mg/kg, IntraVENous, Once ursodiol, 300 mg, Oral, BID verapamil SR, 240 mg, Oral, Daily Assessment Fall Elbow fracture DM with hyperglycemia KILO Obesity Hypertension GERD/hiatal hernia Hyperlipidemia History of IBS BRICE Chronic smoking history History of restless leg syndrome Medical Decision Making Post ORIF today Pain controlled in immobilizer OT Ambulating Tolerating Diet NWB LUE Followup orhto in 1 week -am labs, replace lytes prn Per ortho OK for DC. Discussed with patient and - feel comfortable with discharge- will provide Short narcotic script as needed. Advised Tylenol and NSAID first line . Anticipated Discharge - Date - 12/09 - Location - Home with Home Health Care - Pending the following - OT- home health setup Extended Emergency Contact Information Primary Emergency Contact: Beny Leavitt Mobile Relation: Spouse Desmond Shaikh MD Division of Hospitalist Medicine [facility] PAGER: Blink (air taxi) [facility] [id number] NotePatient: Lindy Dagmar Procedure Summary Date: 12/09/22 Room / Location: [address] Operating Room Anesthesia Start: 1021 Anesthesia Stop: 1148 Procedures: OPEN REDUCTION INTERNAL FIXATION FRACTURE DISLOCATION OF ELBOW (Left: Elbow) OPEN REDUCTION PERIARTICULAR FRACTURE AND OR DISLOCATION OF THE ELBOW (Left: Elbow) Diagnosis: Left elbow fracture, closed, initial encounter (Left elbow fracture, closed, initial encounter [S42.402A]) Surgeons: Diane Gutierrez MD Responsible Provider: Akshat Britton MD Anesthesia Type: general, regional ASA Status: 3 Anesthesia Type: general, regional Vitals Value Taken Time BP 96/77 12/09/22 1145 Temp 97 12/09/22 1149 Pulse 78 12/09/22 1148 Resp 19 12/09/22 1148 SpO2 94 % 12/09/22 1148 Vitals shown include unvalidated device data. Anesthesia Post Evaluation Patient location during evaluation: PACU Patient participation: complete - patient cannot participate Level of consciousness: sleepy but conscious and responsive to verbal stimuli Pain management: satisfactory to patient Airway patency: patent Dental Injury: no Cardiovascular status: acceptable, blood pressure returned to baseline and hemodynamically stable Respiratory status: acceptable, spontaneous ventilation, nonlabored ventilation and nasal cannula Hydration status: euvolemic Nausea/Vomiting: controlled No notable events documented. Patient can be discharged once all PACU criteria has been met.[facility] [id number] NotePatient: Lindy Leavitt Procedure Summary Date: 12/09/22 Room / Location: [address] Operating Room Anesthesia Start: 1021 Anesthesia Stop: 1148 Procedures: OPEN REDUCTION INTERNAL FIXATION FRACTURE DISLOCATION OF ELBOW (Left: Elbow) OPEN REDUCTION PERIARTICULAR FRACTURE AND OR DISLOCATION OF THE ELBOW (Left: Elbow) Diagnosis: Left elbow fracture, closed, initial encounter (Left elbow fracture, closed, initial encounter [S42.402A]) Surgeons: Diane Gutierrez MD Responsible Provider: Akshat Britton MD Anesthesia Type: general, regional ASA Status: 3 Anesthesia Type: general, regional Vitals Value Taken Time BP 96/77 12/09/22 1145 Temp 97 12/09/22 1148 Pulse 83 12/09/22 1147 Resp 16 12/09/22 1147 SpO2 95 % 12/09/22 1147 Vitals shown include unvalidated device data. Anesthesia Post Evaluation Patient location during evaluation: PACU Patient participation: complete - patient cannot participate Level of consciousness: sleepy but conscious and responsive to verbal stimuli Pain management: satisfactory to patient Multimodal analgesia pain management approach Airway patency: patent Two or more strategies used to mitigate risk of obstructive sleep apnea Cardiovascular status: acceptable and hemodynamically stable Respiratory status: acceptable, nasal cannula, nonlabored ventilation and spontaneous ventilation Hydration status: acceptable No notable events documented. MIPS #430 PONV Patient received an inhalational anesthetic (4554F) Patient does not exhibit three or more risk factors for PONV (X0430)) MIPS # 424 Perioperative Temperature Management Anesthesia time was 60 minutes or longer (4255F) Anesthesai administered was General (inhalational or TIVA) or Neuraxial block (X0424) At least one body temperature greater than 95.8F/35.5C achieved within the 30 mins immediately prior to or the 15 minutes immediately following anesthesia end time (G9771) MIPS #477 Multimodal Pain Management Not emergent case Patient was administered multimodal pain management (two or more drugs and/or interventions excluding systemic opioids) in the periopeartive period occurring at some time between 6 hours prior to anesthesia start time until discharged from PACU (G2148) MIPS #404 Anesthesiology Smoking Abstinence The patient is a current smoker (G9642) (e.g. cigarette, cigar, pipe, e-cigarette/vaping/marijuana) The patient underwent an elective surgery or procedure requiring anesthesia (G9643) The patient received preop smoking cessation instructions prior to the day of surgery or procedure by , NEO freezer tunnel operator proxy staff (G9497) The patient did smoke the day of the procedure (G9645) The patient did not smoked the day of the procedure (G9644) I completed my handoff to the receiving clinician during which we: 1. Identified the patient 2. Identified the responsible provider 3. Reviewed the pertinent medical history 4. Discussed the surgical course 5. Reviewed intra-op anesthesia management and issues during anesthesia 6. Set expectations for post-procedure period 7. Allowed opportunity for questions and acknowledgement of understanding.[facility]09-25-2023 NoteAirway Date/Time: 12/09/2022 10:30 AM Urgency: scheduled Airway not difficult General Information and Staff Patient location during procedure: Procedural Resident/FOLDED TOWEL MACHINE OPERATOR: ZULEMA Bullard CRNA Performed: FOLDED TOWEL MACHINE OPERATOR Performed by: ZULEMA Bullard CRNA Authorized by: ZULEMA Bullard CRNA Indications and Patient Condition Indications for airway management: anesthesia Sedation level: Asleep Preoxygenated: yes Patient position: sniffing Mask difficulty assessment: 1 - vent by mask Final Airway Details Final airway type: supraglottic airway Successful airway: Igel Size 4 Number of attempts at approach: [address] [place], [place] [address]09-25-2023 Note Peripheral Block Time Out: 12/09/2022 10:15 AM Patient location during procedure: Procedural Start time: 12/09/2022 10:15 AM End time: 12/09/2022 10:18 AM Reason for block: at surgeon's request and post-op pain management Staffing Performed: JO-ANN Resident/FOLDED TOWEL MACHINE OPERATOR: ZULEMA Anderson CRNA Preanesthetic Checklist Completed: patient identified, IV checked, site marked, risks and benefits discussed, surgical consent, monitors and equipment checked, pre-op evaluation and timeout performed Region: Upper Extremities Primary: Supraclavicular Peripheral Block Patient position: supine Prep: ChloraPrep Patient monitoring: continuous pulse ox and heart rate O2: Nasal cannula Laterality: left Injection technique: single-shot Guidance: ultrasound guided -image retained in chart, tip of the needle identified by ultraound during injection. Needle Needle: 22G X 80 mm Additional Notes Patient Position - Supine w/head elevated Nerve stimulating, Minimum current when twitches disappeared at 0.3mA Post Procedure - Patient tolerated procedure well. No complications noted12/09/2022 10:15 AM and midazolam (Versed) injection - IntraVENous 2 mg - 12/09/2022 10:15:00 AM Assessment Injection assessment: negative aspiration for heme, no paresthesia on injection, incremental injection, local visualized surrounding nerve on ultrasound and transient paresthesias Heart rate change: no Slow fractionated injection: yes Required Documentation: Relevant anatomy identified (Nerves, Vessels, Muscles), Negative for blood on aspiration, Local anesthetic injected incrementally with intermittent aspiration every 5 mL, Normal resistance with injection, Local anesthetic spread visualized around nerves or plane., No EKG changes noted, No symptoms of toxicity and No paresthesias reported by patient during injectionMedications midazolam (Versed) injection - IntraVENous 2 mg - 12/09/2022 10:15:00 CTigvYVEHIrfzsk-racpxcxgqjw-iqcuciackzc (TAP) syringe - Injection 30 mL - 12/09/2022 10:15:00 [facility]09-25-2023 NotePatient: Lindy Fragosodavon Procedure Information Date/Time: 12/09/22 1050 Procedures: OPEN REDUCTION INTERNAL FIXATION FRACTURE DISLOCATION OF ELBOW (Left: Elbow) OPEN REDUCTION PERIARTICULAR FRACTURE AND OR DISLOCATION OF THE ELBOW (Left: Elbow) Location: [facility] OR [address] [place] [address] Operating Room Surgeons: Diane Gutierrez MD Relevant Problems No relevant active problems Past Medical History: Past Medical History: No date: Arthritis No date: Autoimmune hepatitis (CMS/HCC) (HCC) No date: Depression No date: Diabetes mellitus (HCC) No date: Hyperlipidemia No date: Insomnia No date: BRICE (nonalcoholic steatohepatitis) No date: Restless legs syndrome No date: Sleep apnea Past Surgical History: Past Surgical History: 2012: CARPAL TUNNEL RELEASE; Bilateral 1995: CHOLECYSTECTOMY; N/A 1998: HYSTERECTOMY; N/A Social History: TOBACCO: reports that she has been smoking cigarettes. She started smoking about 25 years ago. She has a 18.75 pack-year smoking history. She has been exposed to tobacco smoke. She has never used smokeless tobacco. ETOH: reports current alcohol use of about 1.0 standard drink of alcohol per week. Social History Substance and Sexual Activity Drug Use Never Family History: No family history on file. Screening: unknown Clinical information reviewed: Allergies Meds Problems Med Hx Surg Hx Fam Hx Soc Hx Physical Exam Airway Mallampati: III TM distance: >3 FB Neck ROM: full Mouth Open: normal Cardiovascular Dental dentition normal Pulmonary Abdominal Anesthesia Plan patient is NPO appropriate Any family history or previous problems with anesthesia no ASA 3 general and regional Any family history or previous problems with anesthesia no Anesthetic plan and risks discussed with patient and spouse. Use of blood products discussed with who consented to blood products. KILO Screening Labs: Lab Results Component Value Date WBC 8.0 12/09/2022 HGB 13.3 12/09/2022 HCT 39.9 12/09/2022 MCV 83.8 12/09/2022 PLT 225 12/09/2022 Lab Results Component Value Date NA 136 12/09/2022 K 3.9 12/09/2022 CL 104 12/09/2022 CO2 23 12/09/2022 BUN 13 12/09/2022 CREATININE 0.64 12/09/2022 GLUCOSE 249 (H) 12/09/2022 CALCIUM 8.6 12/09/2022 PROT 6.1 (L) 12/09/2022 ALKPHOS 74 12/09/2022 AST 23 12/09/2022 ALT 28 12/09/2022 EGFR >90.0 12/09/2022 Pain Score: 5 - Moderate pain No echocardiogram results found for the past 14 days 12/07/22 ECG 12-LEAD 12/08/2022 8:28 PM (Final) Impression Sinus rhythm Normal [place] No ST or T wave changes Atrial premature complex Low voltage, precordial leads Electronically Signed On 12-08-2022 20:28:26 EDT by Sid Souza Signed by: Sid Souza MD on 12/08/2022 8:28 [facility] 12-09-2022 NoteOrtho Progress Note Patient: Lindy Leavitt Date of : 1965 Acct: [id number] PCP: No primary care provider on file. Date of Admission: 12/07/2022 Date of Service: Pt seen/examined on 12/09/2022 SUBJECTIVE: No acute events overnight. Resting comfortably in bed. Pain well controlled.Understands plan to proceed to OR today OBJECTIVE: General: alert and oriented to person, place and time, well-developed and well-nourished, in no acute distress VITALS: BP 135/76 (BP Location: Right arm, Patient Position: Lying) Pulse 77 Temp 36.6 ?C (97.9 ?F) (Temporal) Resp 16 Ht 1.575 m (5' 2) Wt 122 kg (270 lb) SpO2 93% BMI 49.38 kg/m? MSK exam: Upper extremity: Splint in place, clean dry and intact +SILT Ax/M/R/U distributions +Ax/AIN/PIN/U motor function BCR digits 1-5 Lab Results Component Value Date WBC 8.0 12/09/2022 HGB 13.3 12/09/2022 HCT 39.9 12/09/2022 PLT 225 12/09/2022 ALT 28 12/09/2022 AST 23 12/09/2022 NA 136 12/09/2022 K 3.9 12/09/2022 CL 104 12/09/2022 CREATININE 0.64 12/09/2022 BUN 13 12/09/2022 CO2 23 12/09/2022 TSH 0.844 12/09/2022 INR 1.0 12/08/2022 HGBA1C 8.6 (H) 12/09/2022 Lab Results Component Value Date RH POS 12/08/2022 RH POS 12/08/2022 ASSESSMENT AND PLAN: ASSESSMENT: 57 y.o. female left elbow terrible triad fracture/dislocation PLAN: -To OR today for ORIF -Keep splint/dressing c/d/i until OR -NWB LUE -Activity as tolerated -Ice & elevate -Neurovascular checks -Skin checks -NPO -Cleared -Consented -Ice -Pain control and medical management per medicine -Please hold DVT prophylaxis in anticipation of OR HENRRY CACERES MD 12/09/2022[facility]09-24-2023 NoteAttending History and Physical Admit Date: 12/07/2022 PCP: No primary care provider on file. CHIEF COMPLAINT: Fall, left elbow pain History Obtained From: patient HISTORY OF PRESENT ILLNESS: Lindy is a 57 y.o. female with past medical history -obesity, hypertension, KILO on nocturnal CPAP, diabetes mellitus type, GERD/hiatal hernia, hyperlipidemia, IBS, BRICE, restless leg syndrome, chronic smoking history. Patient denies any prior history of CHF, CAD Admitted following fall, landed on left elbow. Denies any head trauma, loss of consciousness. Patient initially presented to [facility] where two attempts were made to reduce her elbow, only one with medication and neither with sedation. After patient having continued instability while splinted she was transferred to [facility] for care and found to be dislocated in her splint. She denies any chest pain, shortness of breath, cough No nausea, vomiting, abdominal pain No fever spike noted Glucose 213, hemoglobin 13 EKG shows sinus rhythm, no acute changes Chest x-ray negative for acute process X-ray of left elbow showed acute fracture/dislocation of elbow Past Medical History: Past Medical History: Diagnosis Date Autoimmune hepatitis (CMS/HCC) (HCC) Depression Diabetes mellitus (HCC) Hyperlipidemia Insomnia BRICE (nonalcoholic steatohepatitis) Restless legs syndrome Sleep apnea Past Surgical History: History reviewed. No pertinent surgical history. Social History: Social History Socioeconomic History Marital status: Spouse name: Not on file Number of children: Not on file Years of education: Not on file Highest education level: Not on file Occupational History Not on file Tobacco Use Smoking status: Not on file Smokeless tobacco: Not on file Substance and Sexual Activity Alcohol use: Not on file Drug use: Not on file Sexual activity: Not on file Other Topics Concern Not on file Social History Narrative Not on file Social Determinants of Health Financial Resource Strain: Not on file Food Insecurity: Not on file Transportation Needs: Not on file Physical Activity: Not on file Stress: Not on file Social Connections: Not on file Intimate Partner Violence: Not on file Housing Stability: Not on file Family History: No family history on file. Medications Prior to Admission: No current facility-administered medications on file prior to encounter. Current Outpatient Medications on File Prior to Encounter Medication Sig Dispense Refill alpha tocopherol (Vitamin E) 400 units capsule Take 2 capsules by mouth daily. ALPRAZolam (Xanax) 1 MG tablet Take 1 tablet by mouth Nightly. dulaglutide (Trulicity) 1.5 MG/0.5ML solution pen-injector INJECT THE CONTENTS OF 1 PEN SUBCUTANEOUSLY WEEKLY escitalopram (Lexapro) 20 MG tablet Take 1 tablet by mouth daily. melatonin 10 MG tablet Take 20 mg by mouth Nightly. metFORMIN (Glucophage) 500 MG tablet Take 1 tablet by mouth 2 times daily. pantoprazole (ProtoNix) 40 MG EC tablet Take 1 tablet by mouth every morning. pioglitazone (Actos) 15 MG tablet Take 1 tablet by mouth daily. simvastatin (Zocor) 20 MG tablet Take 1 tablet by mouth daily. ursodiol (Actigall) 300 MG capsule Take 1 capsule by mouth 2 times daily. verapamil SR (Calan SR) 240 MG ER tablet Take 1 tablet by mouth daily. Allergies: No Known Allergies REVIEW OF SYSTEMS: 10 System was reviewed, positive findings as given in history of presenting illness, rest of the system reviewed was negative Vitals: BP 137/76 (Patient Position: Lying) Pulse 91 Temp 36.8 ?C (98.3 ?F) (Oral) Resp 18 Ht 5' 2 (1.575 m) Wt 270 lb (122 kg) SpO2 92% BMI 49.38 kg/m? Pulse Ox: SpO2 Av.4 % Min: 91 % Max: 98 % Supplemental O2: O2 Flow Rate (L/min): 2 L/min PHYSICAL EXAM: General appearance: No apparent distress, HEENT: Eyes: No scleral icterus No pallor Obese female Oral: Tongue is semi-moist Cardiovascular: S1/S2 heard, RRR Respiratory: Clear to auscultation bilaterally anteriorly Abdomen: Soft, non-tender, non-distended bowel sounds positive,no mass palpable Extremity: no significant peripheral edema both lower extremities Neurology:no focal neurology Awake , alert Musculoskeletal: Left forearm/elbow in sling Skin: No visible rashes or lesions. DATA: CBC: Recent Labs 12/08/22136 WBC 11.0* RBC 4.99 HGB 14.0 HCT 41.7 MCV 83.6 RDW 14.9* PLT 289 BMP: Recent Labs 12/08/22136 NA 134* K 4.0 CL 104 CO2 21* BUN 17 CREATININE 0.68 GLUCOSE 213* CALCIUM 8.8 ANIONGAP 9 LIVER PROFILE:No results for input(s): AST, ALT, BILITOT, ALKPHOS, PROT in the last 72 hours. No lab exists for component: LABALBU PT/INR: Recent Labs 12/08/22136 PROTIME 10.8 INR 1.0 CARDIAC ENZYMES: No results for input(s): TROPONINI in the last 72 hours. Procalcitonin: No results found for: PROCAL Urine Culture: No results f (more content not included)...[facility] [id number] Discharge summary Author Carlos Shah [facility] December 07, 2022 5:49pm Note Date/Time December 07, 2022 3:59pm [facility] Medical Records Department [address] [place] [address] Emergency Department Summary 12/07/22 MR#: [id number] Acct: [id number] Name: LINDY LEAVITT Rep #:[id number] : 1965 57 From: Carlos Shah MD PCP: Dr. Robert Ann, DO Status:REG ER Location: ED HPI History of Present Illness Chief Complaint: Fall Narrative Narrative: Patient presents after a mechanical fall, she tripped and hit her left elbow. She scraped her left knee. No head injury. No neck pain. No chest pain. She is denying any other injuries. PFSH PFSH Medical History Anxiety and depression Arthritis Diabetes mellitus, type 2 GERD (gastroesophageal reflux disease) Hepatitis High cholesterol History of hiatal hernia HTN (hypertension) IBS (irritable bowel syndrome) Migraines BRICE (nonalcoholic steatohepatitis) KILO on CPAP Personal history of colonic polyps Restless legs Smoker Home Medications alprazolam 1 mg tablet (Xanax) 1 mg PO QHS PRN PRN Sleep 05/16/16 [History Last Taken 04/28/17] metformin 1,000 mg tablet 500 mg PO BIDCM 05/16/16 [History Last Taken 04/28/17] escitalopram oxalate 10 mg tablet 10 mg PO DAILY 10/09/20 [History Last Taken Unknown] melatonin 10 mg tablet 10 mg PO QHS 10/09/20 [History Last Taken Unknown] simvastatin 20 mg tablet 20 mg PO DAILY 10/09/20 [History Last Taken Unknown] verapamil 240 mg tablet,extended release 240 mg PO DAILY 10/09/20 [History Last Taken 06/20/21] dulaglutide 1.5 mg/0.5 mL subcutaneous pen injector (Trulicity) 1.5 mg subcut QWEEK 05/16/21 [History Last Taken Unknown] pantoprazole 40 mg tablet,delayed release (Protonix) 40 mg PO QAM #90 tabs 09/26/21 [Rx Last Taken Unknown] ursodiol 300 mg capsule See Rx Instructions .Route .COMPLEX #180 caps 09/26/21 [Rx Last Taken Unknown] sucralfate 1 gram tablet 1 g PO QAC #90 tabs 07/29/22 [Rx Last Taken Unknown] oxycodone-acetaminophen 5 mg-325 mg tablet (Percocet) 1 tab PO Q8H PRN pain 4 days #16 tabs 08/05/22 [Rx Last Taken Unknown] vitamin E (dl, acetate) 180 mg (400 unit) capsule See Rx Instructions .Route .COMPLEX #180 caps 11/28/22 [Rx Last Taken Unknown] Allergy/AdvReac Type Severity Reaction Status Date / Time hydrocodone [From [place]] AdvReac Nausea Verified 12/07/22 15:37 Family History (Updated 12/07/22 @ 16:[address] Trice Jiménez MD) Father Colon cancer Dx stage IV in his 70s. Surgical History History of carpal tunnel release of both wrists History of cholecystectomy History of hysterectomy History of laparoscopy Hx of colonoscopy Social History (Updated 12/07/22 @ 16:[address] Trice Jiménez MD) household members: spouse Smoking Status: Current every day smoker tobacco type: cigarettes alcohol intake: never substance use type: does not use ROS ROS ED ROS Narrative Past medical history: Reviewed, includes BRICE, hypertension, diabetes Medications: Reviewed. She is not anticoagulated Social history: Noncontributory Review of systems General: Patient has no head injury or loss of consciousness HEENT: No facial injury Neck: No neck pain Cardiovascular: Patient denies any chest pain or palpitations Chest wall: No chest wall contusions Respiratory: There is no shortness of breath GI: There is no nausea vomiting diarrhea or abdominal pain, no abdominal wall contusions Skin: left knee abrasion Musculoskeletal: Left elbow injury Neurological: Patient has no memory loss, confusion, or any focal weakness Back: No back pain, no problems with ambulation EXAM Physical Exam Narrative Exam Narrative: Physical exam Vitals reviewed General: Does not appear in significant distress, no obvious injuries HEENT: No facial injury Head: No head injury Eyes: Extraocular movements intact Neck: No C-spine tenderness with full range of motion Heart: Regular rate normal pulses Chest wall: No chest wall pain Lungs clear lungs bilaterally with normal inspiration and expiration without tachypnea GI: Abdomen is soft and nontender there is no mass no guarding no abdominal wallcontusion : Stable pelvis Musculoskeletal: Pain over the left elbow, there is radial head pain, however there is also supracondylar pain. There is no obvious deformity but it is swollen. Skin: Left anterior knee abrasion Neurological: Patient is alert and oriented with no focal deficits Const Vital Signs: 12/07/22 15:38 12/07/22 16:58 12/07/22 16:25 Temperature 97.5 F L Temperature Source Temporal Pulse Rate 73 75 Pulse Rate [1 (Initial Baseline)] Pulse Rate [2] Respiratory Rate 18 13 Respiratory Rate [1 (Initial Baseline)] Respiratory Rate [2] Respiratory Effort Normal Non-Labored Blood Pressure 137/80 H 141/73 H Blood Pressure [1 (Initial Baseline)] Blood Pressure [2] Blood Pressure Mean 99 95 Pulse Ox 97 97 Oxygen Delivery Method Room Air Room Air Oxygen Delivery Method [1 (Initial Baseline)] Oxygen Delivery Method [2] Oxygen Flow Rate (L/min) Oxygen Flow Rate (L/min) [1 (Initial Baseline)] Oxygen Flow Rate (L/min) [2] 12/07/22 17:04 12/07/22 17:05 12/07/22 17:13 Temperature Temperature Source Pulse Rate 71 Pulse Rate [1 (Initial Baseline)] 86 Pulse Rate [2] 83 Respiratory Rate 13 Respiratory Rate [1 (Initial Baseline)] 14 Respiratory Rate [2] 15 Respiratory Effort Blood Pressure 133/69 H Blood Pressure [1 (Initial Baseline)] 133/69 H Blood Pressure [2] 133/78 H Blood Pressure Mean Pulse Ox 98 Oxygen Delivery Method Nasal Cannula Nasal Cannula Oxygen Delivery Method [1 (Initial Baseline)] Nasal Cannula Oxygen Delivery Method [2] Nasal Cannula Oxygen Flow Rate (L/min) 4 6 Oxygen Flow Rate (L/min) [1 (Initial Baseline)] 4 Oxygen Flow Rate (L/min) [2] 4 12/07/22 17:13 12/07/22 17:18 12/07/22 17:24 Temperature Temperature Source Pulse Rate 74 68 75 Pulse Rate [1 (Initial Baseline)] Pulse Rate [2] Respiratory Rate 18 18 16 Respiratory Rate [1 (Initial Baseline)] Respiratory Rate [2] Respiratory Effort Blood Pressure 138/78 H 135/76 H 124/70 H Blood Pressure [1 (Initial Baseline)] Blood Pressure [2] Blood Pressure Mean Pulse Ox 95 97 94 Oxygen Delivery Method Room Air Room Air Room Air Oxygen Delivery Method [1 (Initial Baseline)] Oxygen Delivery Method [2] Oxygen Flow Rate (L/min) Oxygen Flow Rate (L/min) [1 (Initial Baseline)] Oxygen Flow Rate (L/min) [2] MDM MDM MDM Narrative Medical decision making narrative: Procedure note: 1. Procedural sedation. Consent obtained and patient signed. She has not eaten today, she has good opening of her mouth, she has no respiratory distress. She appears well. A total of 100 mg of propofol were used, patient did not have any adverse effect and tolerated procedure well. 2. Reduction of fracture dislocation of elbow, written consent obtained. I hyperextended, followed by traction and then flexion. The dislocation is quite unstable and seems to want to slip out quite easily, however I was able to put a splint on prior to this. Repeat x-ray shows slight improvement however still persistent radial dislocation compared to the Telemetry. 3. Ortho-Glass posterior splint placed by me. Patient tolerated procedure well Interpretation of x-ray: Initial x-ray by me shows fracture and dislocation of the elbow with radial head fracture and complete posterior dislocation. Second x-ray interpreted by me shows shows slight improvement however persistent radius dislocation. MDM: I attempted to reduce the patient however she is quite unstable she does have significant improvement but still has some dislocation. I talked to orthopedics at this facility, because of the instability, they recommended transfer to a trauma facility. Patient will be transferred to [facility] after I discussed with the trauma surgeon there. She is given analgesia and improved. Radiography Diagnostic Testing: Clinical Impression(s) from Imaging Studies Elbow X-Ray 12/07/22 15:54 IMPRESSION: 1. Complete elbow dislocation with malalignment of the radius in relation to the capitellum as well as the humerus in relation to the ulna. 2. Fracture of the radial head. 3. Possible fracture of the distal humerus at the capitellum. RECOMMENDATION: CT for further evaluation. Electronically Signed: Ken Shepherd DO at 17:23 EDT , Elbow X-Ray 12/07/22 17:14 IMPRESSION: 1. Improved alignment of the humerus and ulna with widening of the trochlear joint space. Comminuted fracture of the radial head with displaced radial head fracture to the intercondylar region. 2. Apparent persistent subluxation/dislocation of the radius in relation to the capitellum. Electronically Signed: Ken Sonya Shepherd DO at 17:30 EDT , Discharge Plan Triage Chief Complaint: Fall ED Provider: Carlos Shah Dx/Rx/DC Orders Clinical Impression: Fall, Closed fracture dislocation of elbow Prescriptions: No Action pantoprazole [Protonix] 40 mg tablet,delayed release (DR/EC) 40 mg PO QAM Qty: 90 3RF ursodiol 300 mg capsule See Rx Instructions .ROUTE .COMPLEX Qty: 180 3RF Dose Instruction: TAKE 1 CAPSULE BY MOUTH TWICE A DAY Rx Instructions: TAKE 1 CAPSULE BY MOUTH TWICE A DAY sucralfate 1 gram tablet 1 g PO QAC Qty: 90 2RF alprazolam [Xanax] 1 MG tablet 1 mg PO QHS PRN PRN (Reason: Sleep) metformin 1,000 MG tablet 500 mg PO BIDCM simvastatin 20 mg Tablet 20 mg PO DAILY verapamil 240 mg Tablet Extended Release 240 mg PO DAILY escitalopram oxalate 10 mg Tablet 10 mg PO DAILY melatonin 10 mg Tablet 10 mg PO QHS Trulicity 1.5 mg/0.5 mL Pen Injector 1.5 mg SUBCUT QWEEK Rx Instructions: FRIDAY oxycodone-acetaminophen [Percocet] 5-325 mg tablet 1 tab PO Q8H PRN (Reason: pain) 4 Days Qty: 16 0RF vitamin E (dl, acetate) 180 mg (400 unit) capsule See Rx Instructions .ROUTE .COMPLEX Qty: 180 3RF Dose Instruction: TAKE 2 CAPSULES BY MOUTH DAILY Rx Instructions: TAKE 2 CAPSULES BY MOUTH DAILY Primary Care Provider: Robert Ann: Robert Ann DO [Primary Care Provider] - What to do if you have Problems For any increased pain, shortness of breath, bleeding, nausea or vomiting, chestpain, or any unexpected problems, contact your Primary Care Provider. Call [facility] ([phone]) or report to the closest Emergency Room. Call 911 if necessary. 12/07/22 1749 <Electronically signed by Carlos Shah MD> Cosigner Signature (if applicable): CC: Dr. Robert Ann, DO ~ Signed [facility] Work Phone: Discharge summary Author Faye Bentley [facility] Note Date/Time June 22, 2024 3:51 pm [facility] Medical Records Department [address] [place] [address] Instructions for Home/Discharge Instructions 06/22/24 1545 MR#: [id number] Acct: [id number] Name: LINDY LEAVITT Rep #:[id number] : 1965 59 From: Faye Bentley MD PCP: Dr. Robert Ann DO Status:ADM ALEISHA Discharge Instructions Diet Discharge Diet: - (DASH diet) DC O2, CPAP, BIPAP needs Home O2 Discharge instructions: No Dressing / Incision Discharge Activity: - (Increase activity as tolerated) Follow Up Care Test Results: Test results from this visit will be discussed in further detail at your follow- up appointment, if applicable. Discharge Plan Admission Admit Date/Time: 06/21/24 18:11 Primary Reason for Your Visit: Uncontrollable laughing and crying and difficultygetting words out Attending Provider: Faye Bentley Primary Care Provider: Robert Ann Consulting Providers: Rogelio Garcia Instructions Patient Instructions: Self-Care for Headaches, Migraine Triggers, Preventing Migraine Headaches ... 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 -For any concerning signs or symptoms please call 911 or proceed to the nearest emergency department Discharge Orders/Prescriptions Prescriptions: New aspirin 81 mg capsule 81 mg PO DAILY Qty: 30 0RF Continued pantoprazole [Protonix] 40 mg tablet,delayed release (DR/EC) 40 mg PO QAM Qty: 90 3RF alprazolam [Xanax] 1 MG tablet 1 mg PO QHS PRN simvastatin 20 mg Tablet 20 mg PO DAILY verapamil 240 mg Tablet Extended Release 240 mg PO DAILY melatonin 10 mg Tablet 10 mg PO QHS pioglitazone 15 mg tablet 15 mg PO DAILY metformin 500 mg tablet 500 mg PO BID escitalopram oxalate 20 mg tablet 20 mg PO QODAY Rx Instructions: ALTERNATES W/10MG Mounjaro 12.5 mg/0.5 mL pen injector 12.5 mg subcut QWEEK escitalopram oxalate 20 mg tablet 10 mg PO QODAY Rx Instructions: ALTERNATES W/20MG ergocalciferol (vitamin D2) [Vitamin D2] 1,250 mcg (50,000 unit) capsule 1,250 mcg PO QWEEK sucralfate 1 gram tablet 1 g PO BID vitamin E (dl, acetate) 180 mg (400 unit) capsule See Rx Instructions .ROUTE .COMPLEX Qty: 180 3RF Dose Instruction: TAKE 2 CAPSULES BY MOUTH DAILY Rx Instructions: TAKE 2 CAPSULES BY MOUTH DAILY Referrals / Follow Up: Robert Ann DO [Primary Care Provider] - In 1 Week Disposition Disposition (needs filled in before D/C Order can be placed): Home, Self Care 06/22/24 9392<Electronically signed by Faye Bentley MD>Faye Bentley MD CC: Dr. Robert Ann DO; Dr. Rogelio Garcia MD ~ Signed [facility] Work Phone: Evaluation note* Diagnosis Onset Date Resolution Status Abdominal pain acute Personal history of colonic polyps acute Steatosis, liver acute [facility] Work Phone: Evaluation note* Diagnosis Onset Date Resolution Status Abdominal pain acute Personal history of colonic polyps acute Steatosis, liver acute Abdominal pain acute Constipation acute Personal history of colonic polyps acute Steatosis, liver acute Mass of pharynx acute [facility] Work Phone: Evaluation note* Diagnosis Onset Date Resolution Status Nausea acute Steatosis, liver acute [facility] Work Phone: Evaluation noteNo assessment information available [facility] Work Phone: Evaluation note* Diagnosis Onset Date Resolution Status RUQ abdominal pain chronic Steatosis, liver chronic [facility] Work Phone: Evaluation note* Diagnosis Left elbow fracture, closed, initial encounter- [facility] Diagnosis Closed fracture dislocation of left elbow with routine healing, subsequent encounter- [facility] Diagnosis Left elbow fracture, closed, initial encounter [facility] Diagnosis Closed fracture dislocation of left elbow with routine healing, subsequent encounter- Primary [facility] Diagnosis Closed fracture dislocation of left elbow with routine healing, subsequent encounter- Primary [facility] Diagnosis Closed fracture dislocation of left elbow with routine healing, subsequent encounter- Primary [facility] Diagnosis Closed fracture dislocation of left elbow with routine healing, subsequent encounter- [facility] Diagnosis Onset Date Resolution Status Admit Date Migraines acute June 21 6:11pm [facility] Work Phone: Reason for referral (narrative)* Consultation (Routine) - Pending Review Specialty Diagnoses / Procedures Referred By Christopher gil Referred To Contact Physical Therapy Diagnoses Closed fracture dislocation of left elbow with routine healing, subsequent encounter Procedures [place] OFFICE/OUTPATIENT [facility] 60-74 MINUTES Adarsh Montes PA-C [address] [place] [id number] Referral ID Status Reason Start Date Expiration Date Visits Requested Visits Authorized [id number] Pending Review Eval and Treat 01/21/2023 01/21/2024 99 99 [facility] for referral (narrative)No reason for referral information [facility] Work Phone: Chief Complaint and Reason for Visit Chief Complaint ABD ISSUES EORDERS LAB AND XRAY ABDOMINAL PAIN STEATOSIS, POSS AUTOIMMUNE HEPATITIS EORDER PREOP PREOP PREOP Reason for Visit Abdominal pain Personal history of colonic polyps Steatosis, liver Chief Complaint ABD ISSUES EORDERS LAB AND XRAY ABDOMINAL PAIN STEATOSIS, POSS AUTOIMMUNE HEPATITIS EORDER PREOP PREOP PREOP 2 Week f/u DIRECT LARYNGOSCOPY WITH BIOPSY Reason for Visit Abdominal pain Personal history of colonic polyps Steatosis, liver Abdominal pain Constipation Personal history of colonic polyps Steatosis, liver Mass of pharynx Chief Complaint 3 MO FU OSTEO Reason for Visit Nausea Steatosis, liver Chief Complaint OSTEO FATTY LIVER SCREENING Chief Complaint FATTY LIVER SCREENING FU EORDER STOOL Reason for Visit RUQ abdominal pain Steatosis, liver Chief Complaint SCREENING FU EORDER STOOL NORMAL RUQ US Reason for Visit RUQ abdominal pain Steatosis, liver Chief Complaint SCREENING FU EORDER STOOL NORMAL RUQ US NL US, NL HIDA, RUQ PAIN, +ASMA Reason for Visit RUQ abdominal pain Steatosis, liver Chief Complaint yasmine ankle pain Chief Complaint RIGHT SIDED OPTIC NE URTIS fall Chief Complaint Encounter for screen ing for malignant neoplasm of SCREENING DISLOCATION OF L ELBOW RX HERE Chief Complaint RIGHT SIDED OPTIC NE URTIS fall Encounter for screening for malignant neoplasm of DISLOCATION OF L ELBOW RX HERE Chief Complaint Admit Date SCREENING March 19, 2024 8: 20am SCREENING, SMOKER March 23, 2024 7: 26am COMPLEX MIGRAINE June 21, 2024 6:11 pm Reason for Visit Admit Date Migraines June 21, 2024 6:11 pm Chief Complaint Admit Date SCREENING March 19, 2024 8: 20am SCREENING, SMOKER March 23, 2024 7: 26am COMPLEX MIGRAINE June 21, 2024 6:11 pm COMPLEX MIGRAINE June 21, 2024 6:18 pm Chief Complaint Admit Date COMPLEX MIGRAINE June 21, 2024 6:11 pm COMPLEX MIGRAINE June 21, 2024 6:18 pm COMPLEX MIGRAINE June 22, 2024 3:52 pm MNG July 03, 2024 7:4 3am LESION FRONT FRONTAL LOBE July 08 7:59am S.O.B. August 05, 2024 7:39a m Chief Complaint Admit Date COMPLEX MIGRAINE June 21, 2024 6:11 pm COMPLEX MIGRAINE June 21, 2024 6:18 pm COMPLEX MIGRAINE June 22, 2024 3:52 pm MNG July 03, 2024 7:4 3am LESION FRONT FRONTAL LOBE July 08 7:59am S.O.B. August 05, 2024 7:39a m S.O.B. August 19, 2024 9:41a m Advance Directives No Advanced Directives Records Found Advance Directive Response Recorded Date/ Time Living Will No October 09, 2020 3:54pm Power of Workforce Manager No October 09 3:54pm Advance Directive Response Recorded Date/ Time Living Will No July 31, 2021 8 :54am Power of Workforce Manager No July 31, 2021 8:54am Advance Directive Response Recorded Date/ Time Living Will No July 31, 2021 7 :54am Power of Workforce Manager No July 31, 2021 7:54am Advance Directive Response Recorded Date/ Time Living Will No August 05, 2022 1 2:29pm Power of Workforce Manager No August 05, 2022 12:29pm Advance Directive Response Recorded Date/ Time Living Will No December 07, 2022 4:25pm Power of Workforce Manager No November 4:25pm Latest Code Status on File Code Status Date Activated Date Inactivated Comments Full Code 12/08/2022 9:14 AM 12/10/2022 2:07 PM Latest Code Status on File Code Status Date Activated Date Inactivated Comments Full Code 12/08/2022 9:14 AM 12/10/2022 2:07 PM Advance Directive Response Recorded Date/ Time Living Will No December 07, 2022 3:25pm Power of Workforce Manager No November 3:25pm Advance Directive Response Recorded Date/ Time Living Will No June 21, 2024 6:47pm Do you have a Healthcare Power of Workforce Manager? No June 21, 2024 6:47pm Reason for Referral Specialty Diagnoses / Procedures Referred By Christopher gil Referred To Contact Home Health Services / Skid Man Diagnoses Closed fracture dislocation of left elbow with routine healing, subsequent encounter Procedures [place] OFFICE/OUTPATIENT NEW HIGH MDM 60-74 MINUTES Diane Gutierrez MD [address] [place] [address] [address] [place] [address] [address] [place] [address] Referral ID Status Reason Start Date Expiration Date V isits Requested Visits Authorized [id number] Closed Specialty Services Required 12/17/2022 06/15/2023 999 999 Specialty Diagnoses / Procedures Referred By Contac t Referred To Contact Physical Therapy Diagnoses Closed fracture dislocation of left elbow with routine healing, subsequent encounter Procedures [place] OFFICE/OUTPATIENT NEW HIGH MDM 60-74 MINUTES Adarsh Montes PA-C [address] [address] Referral ID Status Reason Start Date Expiration Date Visits Requested Visits Authorized [id number] Pending Review Eval and Treat 12/17/2022 12/17/2023 99 99 Specialty Diagnoses / Procedures Referred By Contac t Referred To Contact Diagnoses Left elbow fracture, closed, initial encounter Adarsh Montes PA-C [address] [address] Referral ID Status Reason Start Date Expiration Date V isits Requested Visits Authorized [id number] Pending Review 1 1 Summary Purpose Family History No Family History Records Found Additional Source Comments Goals (unrecognized section and content) Goals may be documented in a n alternate sectionGoals may be documented in an alternate sectionGoals may be documented in an alternate sectionGoals may be documented in an alternate sectionGoals may be documented in an alternate sectionGoals may be documented in an alternate sectionGoals may be documented in an alternate sectionGoals may be documented in an alternate sectionGoals may be documented in an alternate sectionGoals may be documented in an alternate sectionGoals may be documented in an alternate sectionGoals may be documented in an alternate sectionGoals may be documented in an alternate sectionGoals may be documented in an alternate sectionGoals may be documented in an alternate sectionGoals may be documented in an alternate sectionGoals may be documented in an alternate sectionGoals may be documented in an alternate section Care Teams (unrecognized sec tion and content) Team Status: Active Member Role Status Dates Dr. Robert Ann , DO Family Provider Active Dr. Robert Ann , DO Primary Care Provider Active Team Status: Inactive Member Role Status Dates Dr. Robert Ann , DO Primary Care Provider, Referrin g Provider Active Ani Ovalle EQUIPMENT ENGINEERING TECHNICIAN, EQUIPMENT ENGINEERING TECHNICIAN-C Attending Provider Active Team Status: Inactive Member Role Status Dates Dr. Robert Ann , DO Primary Care Provider Active Ani Ovalle EQUIPMENT ENGINEERING TECHNICIAN, EQUIPMENT ENGINEERING TECHNICIAN-C Attending Provider, Referrin g Provider Active Team Status: Inactive Member Role Status Dates Dr. Robert Ann , DO Primary Care Prov ider, Attending Provider, Referring Provider Active Team Status: Active Member Role Status Dates Dr. Robert Ann , DO Primary Care Provider Active Ani Ovalle EQUIPMENT ENGINEERING TECHNICIAN, EQUIPMENT ENGINEERING TECHNICIAN-C Attending Provider, Referrin g Provider Active Team Status: Inactive Member Role Status Dates Dr. Robert Ann , DO Primary Care Provider Active Dr. Yasmeen Wiseman MD Attending Provider, Emergency Provider Active Team Status: Active Member Role Status Dates Dr. Robert Ann , DO Primary Care Prov ider, Attending Provider, Referring Provider Active Team Status: Inactive Member Role Status Dates Dr. Robert Ann , DO Primary Care Provider Active Dr. Carlos Shah MD Emergency Provider Active Belt Maker Relationship Specialty Start Date End Date Robert Ann [address] [place] [phone] PCP - General Family Medicine 12/17/22 Belt Maker Relationship Specialty Start Date End Date Robert Ann [address] [place] [address] PCP - General Family Medicine 12/17/22 Belt Maker Relationship Specialty Start Date End Date Robert Ann [address] [place] [address] PCP - General Family Medicine 12/17/22 Belt Maker Relationship Specialty Start Date End Date Robert Ann [address] [place] [phone] PCP - General Family Medicine 12/17/22 Belt Maker Relationship Specialty Start Date End Date Robert Ann [address] [facility] [place] [place] [id number] PCP - General Family Medicine 12/17/22 Team Status: Inactive Member Role Status Dates Dr. Robert Ann DO Primary Care Provider Active SPENCER TEJEDA Attending Provider Active Team Status: Active Member Role Status Dates Dr. Robert Ann DO Primary Care Provider Active ADARSHSPENCER FLOWER Attending Provider Active Team Status: Inactive Member Role Status Dates Dr. Robert Ann DO Primary Care Provider, Attendin g Provider Active Team Status: Inactive Member Role Status Dates Dr. Robert Ann DO Primary Care Provider Active Dr. Carlos Shah MD Attending Provider, Emergency [place] Active Team Status: Active Member Role Status Dates Dr. Robert Ann DO Primary Care Provider Active Team Status: Inactive Member Role Status Dates Dr. Robert Ann DO Primary Care Provider Active Start: February 23, 2024 End: February 23, 2024 Dr. Robert Ann DO Attending Provider Active Start: February 23, 2024 End: February 23, 2024 Dr. Robert Ann DO Referring Provider Active Start: February 23, 2024 End: February 23, 2024 Team Status: Inactive Member Role Status Dates Dr. Robert Ann DO Primary Care Provider Active Start: March 19, 2024 End: March 19, 2024 Dr. Robert Ann DO Attending Provider Active Start: March 19, 2024 End: March 19, 2024 Dr. Robert Ann DO Referring Provider Active Start: March 19, 2024 End: March 19, 2024 Team Status: Inactive Member Role Status Dates Dr. Robert Ann DO Primary Care Provider Active Start: March 23, 2024 End: March 23, 2024 Dr. Robert Ann DO Attending Provider Active Start: March 23, 2024 End: March 23, 2024 Dr. Robert Ann DO Referring Provider Active Start: March 23, 2024 End: March 23, 2024 Team Status: Active Member Role Status Dates Dr. Robert Ann DO Primary Care Provider Active Start: June 21, 2024 Dr. Sandrine Fisher DO Emergency Provider Active Start: June 21, 2024 Dr. Rogelio Garcia MD Admit Provider Active Start: June 21, 2024 Dr. Rogelio Garcia MD Attending Provider Active Start: June 21, 2024 Team Status: Inactive Member Role Status Dates Dr. Robert Ann DO Primary Care Provider Active Start: June 21, 2024 End: June 22, 2024 Dr. Sandrine Fisher DO Emergency Provider Active Start: June 21, 2024 End: June 22, 2024 Dr. Rogelio Garcia MD Admit Provider Active Start: June 21, 2024 End: June 22, 2024 Dr. Rogelio Garcia MD Other Provider Active Start: June 21, 2024 End: June 22, 2024 Dr. Faye Bentley MD Attending Provider Active Start: June 21, 2024 End: June 22, 2024 Team Status: Active Member Role Status Dates Dr. Robert Ann DO Primary Care Provider Active Start: June 21, 2024 Dr. Sandrine Fisher DO Emergency Provider Active Start: June 21, 2024 Dr. Rogelio Garcia MD Admit Provider Active Start: June 21, 2024 Dr. Rogelio Garcia MD Attending Provider Active Start: June 21, 2024 Dr. Rogelio Garcia MD Other Provider Active Start: June 21, 2024 Team Status: Active Member Role Status Dates Dr. Robert Ann DO Primary Care Provider Active Start: June 22, 2024 Dr. Sandrine Fisher DO Emergency Provider Active Start: June 22, 2024 Dr. Rogelio Garcia MD Admit Provider Active Start: June 22, 2024 Dr. Rogelio Garcia MD Other Provider Active Start: June 22, 2024 Dr. Faye Bentley MD Attending Provider Active Start: June 22, 2024 Dr. Faye Bentley MD Other Provider Active Star t: June 22, 2024 Team Status: Inactive Member Role Status Dates Dr. Robert Ann DO Primary Care Provider Active Start: July 03, 2024 End: July 03, 2024 Dr. Robert Ann DO Attending Provider Active Start: July 03, 2024 End: July 03, 2024 Dr. Robert Ann DO Referring Provider Active Start: July 03, 2024 End: July 03, 2024 Team Status: Inactive Member Role Status Dates Dr. Robert Ann DO Primary Care Provider Active Start: July 08, 2024 End: July 08, 2024 Dr. Robert Ann DO Attending Provider Active Start: July 08, 2024 End: July 08, 2024 Dr. Robert Ann DO Referring Provider Active Start: July 08, 2024 End: July 08, 2024 Team Status: Inactive Member Role Status Dates Dr. Robert Ann DO Primary Care Provider Active Start: August 05, 2024 End: August 05, 2024 Dr. Turner Hedrick MD Attending Provider Active S tart: August 05, 2024 End: August 05, 2024 Dr. Turner Hedrick MD Referring Provider Active S tart: August 05, 2024 End: August 05, 2024 Team Status: Inactive Member Role Status Dates Dr. Robert Ann DO Primary Care Provider Active Start: August 19, 2024 End: August 19, 2024 Dr. Turner Hedrick MD Attending Provider Active S tart: August 19, 2024 End: August 19, 2024 Dr. Turner Hedrick MD Referring Provider Active S tart: August 19, 2024 End: August 19, 2024 Team Status: Active Member Role Status Dates Dr. Robert Ann DO Primary Care Provider Active Start: August 19, 2024 Dr. 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 This clinical summary was aggregated from multiple sources. Caution should be exercised in using it in the provision of clinical care. This summary normalizes information from multiple sources, and as a consequence, information in this document may materially change the coding, format and clinical context of patient data. In addition, data may be omitted in some cases. CLINICAL DECISIONS SHOULD BE BASED ON THE PRIMARY CLINICAL RECORDS. [employer] [facility]. provides no warranty or guarantee of the accuracy or completeness of information in this document.
== END | disposition home or self-care (01) ==
LOC: MRI 07:12
PROVIDERS: PCP Family Medicine; Referring Provider Physician Assistant; Visit Provider Physician Assistant
DX: R90.89 Other abnormal findings on diagnostic imaging of central nervous system (principal)
CPT/HCPCS: 70553; A9575